=== PATIENT | male | born 1935 | race Caucasian/White ===

== ENCOUNTER → 2017-12-24 12:32 | Outpatient (CLI) | payer MEDICARE, MEDICAID, SELFPAY ==
--- NOTE | 2017-11-12 10:56 | EKG12_ITS ---
Test Reason : Blood Pressure : / mmHG Vent. Rate : 065 BPM Atrial Rate : 065 BPM P-R Int : 128 ms QRS Dur : 074 ms QT Int : 378 ms P-R-T Axes : 021 -01 031 degrees QTc Int : 393 ms Normal sinus rhythm Normal ECG Confirmed by JORJE AIKEN, JORGE LUIS ([id number]), make up editor RAMIRO MARIE ([id number]) on 11/15/2017 12:04:42 PM Referred By: Zackary Nicholson Confirmed By:JORGE LUIS RECINOS MD
[2017-11-12 11:22] VITALS: BP 155/79; PULSE 67; RESP 18; TEMP 36.7; O2SAT 96; BMI 26.2
[2017-11-12 12:26] LABS: Absolute Neutrophil Count 3.8 X10^3/uL (2.0-7.7); Basophil# 0.02 X10^3/uL; Basophil% 0.3 % (0-1); Eosinophil# 0.24 X10^3/uL; Eosinophils% 3.9 % (0-5); Hematocrit 42.6 % (40-54); Hemoglobin 14.1 g/dl (13.0-16.5); Lymphocyte % 24.5 % (19-41); Mean Corp Hgb Conc 33.1 g/gl (32-36); Mean Corpuscular Hgb 30.6 pg (27.0-32.0); Mean Corpuscular Volume 92.4 fL (80-94); Mean Platelet Vol. 10.4 fl (6.2-12.0); Monocyte# 0.59 X10^3/uL; Monocyte% 9.7 % (0-10); Neutrophil # 3.75 X10^3/uL (2.7-7.7); Neutrophil % 61.4 % (47-70); POSITIVE COUNT NO; POSITIVE DIFFERENTIAL NO; POSITIVE MORPHOLOGY NO; Platelet Count 195 K/mm3 (150-450); RBC Distribution Width CV 12.5 % (11.6-14.6); RBC Distribution Width SD 41.9 fl (35.1-43.9); Red Blood Count 4.61 M/mm3 (4.6-6.2); White Blood Count 6.1 K/mm3 (4.4-11.0)
[2017-11-12 12:37] LABS: Cholesterol 202 mg/dL (200); High Density Lipoprotein 75 mg/dL; Triglycerides 122 mg/dL; Very Low Density Lipoprotein 24 mg/dL (5-40)
[2017-11-12 12:42] LABS: BUN 15 mg/dL (7-18); Creatinine, Serum 0.96 mg/dL (0.70-1.30); EST Glomerular Filtration Rate 80 mL/min (>60); Estimated Creatinine Clearance 59.33 ml/min; Glucose 107 mg/dL (74-106)
[2017-11-12 12:43] LABS: Anion Gap 5 (5-15); BUN/Creat Ratio 15.7 RATIO (10-20); Calcium,Total 9.6 mg/dL (8.5-10.1); Chloride 98 mmol/L (98-107); Est Glom Filt Rate - Afr Amer 97 mL/min (>60); Potassium 3.9 mmol/L (3.5-5.1); Sodium Level 136 mmol/L (136-145)
--- NOTE | 2017-11-12 13:50 | PCM.HP.BLA ---
History and Physical DATE OF SURGERY: 11/28/2017 SCHEDULED PROCEDURE: Direct anterior Right total hip arthroplasty HISTORY OF PRESENT ILLNESS: This is an 82-year-old male who has been having ongoing pain in his right hip. Patient's pain is aching. Pain can reach as high as an 8/10. He has increased pain going up and down stairs and walking. Patient does have start up pain. He is complaining of right groin pain. Pain does awaken him at night. Patient has difficult time with activities of daily living including getting dressed and doing housework. Patient has tried conservative measures consisting of pain medication hydrocodone and meloxicam. Patient has required a cane for ambulatory assistance. Patient has had previous corticosteroid injections into the right hip which he did not see any significant relief in pain. Patient denies previous surgery on the right hip. Patient does note alcohol dependence 3 drinks nightly. He currently denies any chest pain, shortness of breath, fevers chills, recent infections. Patient has a medical history pertinent for hypertension and acid reflux. We have obtained surgical clearance from his primary care physician Dr. Chew. After failing conservative measures and discussing all treatment options with Dr. Zackary Nicholson, the patient would like to proceed with a direct anterior right total hip arthroplasty. REVIEW OF SYSTEMS: ROS: Const: Denies anorexia, change in appetite, fever, hard of hearing, vision problems and weight change. CV: Denies chest pain, heart murmur, irregular heartbeat and peripheral vascular disease. Resp: Denies asthma, cough, pneumonia, sleep apnea, SOB, tuberculosis and wheezing. GI: Denies constipation, diarrhea, difficulty swallowing, heartburn, nausea, bloody stools and vomiting. : Genital:. (F Genital Sx) Urinary: denies incontinence. Musculo: Denies leg swelling, limp, trouble walking and weakness. Skin: Reports history of shingles and tattoo, but denies Raynaud's. Neuro: Denies ambulatory dysfunction, dizziness, numbness/tingling and tremor. Psych: Denies anxiety, depression, insomnia, mental illness and stress. Jason/Lymph: Denies anemia, bleeding/bruising tendency and past transfusion. Reviewed, no changes. PAST MEDICAL HISTORY: Advance Care Plan: No Advance Directives Effective Date: 10/22/2017 PMH: Medical Problems: High Blood Pressure, Arthritis, Acid Reflux Accidents: RT Tib/Fib FX - (03/2010) Surgical Hx: Cysts Removed From Head - YRS AGO Hernia Surgery - (10/2009) RT Tib/Fib - (03/17/2010) JUSTYN @ [facility] [place] [facility] Anesthesia Complications: None Assistive Devices: Dentures, Glasses Reviewed, no changes. 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 Personal Habits: Cigarette Use: Former.Alcohol: Occasionally.Drug Use: Denies Use.Enjoy Exercising: Never Exercises. Reviewed, no changes. VITALS: Ht: 67.5 Wt: 178lb Wt k.741 BMI: 27.5 BP: 170/82 Pulse: 74 Resp: 16 T: 97 T: 36.1C ALLERGIES: Ciprofloxacin - Muscle Aches MEDICATIONS: Meloxicam 7.5 mg 1 by mouth twice a day, Norvasc 2.5mg 1 PO q day, Hydrocodone-Acetaminophen 5-325 mg 1-2 by mouth q6 hours as needed pain, Omeprazole 20 mg 1 cap PO daily, Valsartan-Hydrochlorothiazide 320-12.5 mg 1 tab PO daily, Coreg 12.5 mg 1po qday PRE-OP EXAM: General appearance:NORMAL Other: Eyes: Conjunctivae and lids: NORMAL Pupils: ERR Ears, Nose, Mouth, and Throat: NORMAL Other: Inspection of lips, teeth and gums: NORMAL Other: Neck: Examination of neck: no masses noted. Respiratory: Assessment of respiratory effort: NORMAL Other: Auscultation of lungs: clear to auscultation no wheezes, rhonchi or rales. Cardiovascular: Auscultation of heart: regular rate and rhythm, no murmurs, gallops or rubs. Exam of carotid arteries: NORMAL Other: Gastrointestinal: Exam of abdomen: soft, nontender, nondistended bowel sounds present PHYSICAL EXAMINATION: Patient walks with an antalgic gait. He doesn't require the use of a cane. Right hip is cool to touch without erythema. Range of motion of the right hip flexion 90, internal rotation to neutral, external rotation 10. Patient does have a 1 cm leg length discrepancy. There is also a lipoma over the anterior thigh. Sensations intact to light touch. IMAGING STUDIES: X-rays were obtained at [facility] on October 22, 2017 of the right hip which does reveal joint space narrowing, subchondral sclerosis, and osteophyte formation consistent with severe osteoarthritis. There is large acetabular and femoral head subchondral cyst. There is also femoral head flattening and collapse. IMPRESSION: 1. Severe right hip osteoarthritis 2. Hypertension 3. Gastroesophageal reflux disease PLAN: Dr. Nicholson did discuss and review with the patient all treatment options including surgical versus nonsurgical options. Patient does wish to proceed with the above-stated procedure. Potential risks, benefits, and complications of the procedure were discussed in detail including but not limited to , infection, nerve and blood vessel damage, persistent pain, numbness, tingling, paresthesias, blood clot, pulmonary embolism, and requirement for possible further surgery. The patient expressed full understanding and has no further questions for the doctor. Patient does agree to proceed with the above-stated procedure and has signed the surgery consent form. ___ I have re-examined the patient. There are no clinical changes since date of exam. ___ See progress notes for changes. ___ Dictated on admission Date: Time: Signature:
== END ==
PROVIDERS: Family Provider Family Medicine; PCP Family Medicine; Visit Provider Specialist
DX: Z01.818 Encounter for other preprocedural examination (principal); Z01.810 Encounter for preprocedural cardiovascular examination; Z12.5 Encounter for screening for malignant neoplasm of prostate; Z13.220 Encounter for screening for lipoid disorders
CPT/HCPCS: 36415; 80048; 80061; 84153; 85025; 87081; 93005; G0103

== ENCOUNTER → 2019-10-06 09:54 | Outpatient (CLI) | payer MEDICARE, MEDICAID, SELFPAY ==
[2017-11-12 11:22] VITALS: BMI 26.2
[2019-10-06 10:16] LABS: Hematocrit 44.6 % (40-54); Hemoglobin 14.7 g/dL (13.0-16.5); Mean Corpuscular Hgb 30.8 pg (27.0-32.0); Mean Corpuscular Volume 93.5 fL (80-94); Mean Platelet Vol. 10.3 fl (6.2-12.0); Platelet Count 227 K/mm3 (150-450); RBC Distribution Width CV 12.2 % (11.6-14.6); RBC Distribution Width SD 41.9 fl (35.1-43.9); Red Blood Count 4.77 M/mm3 (4.6-6.2); White Blood Count 7.2 K/mm3 (4.4-11.0)
[2019-10-06 10:17] LABS: Color, Urine Yellow (Yellow); Glucose, Dipstick Normal (Normal); Ketone-Dipstick Negative (Negative); Leukocyte Esterase-Dipstick 25 /ul (Negative); Nitrite-Dipstick Negative (Negative); Occult Blood-Urine Negative /ul (Negative); Protein-Dipstick Negative (Negative); Urine Bilirubin Dipstick Negative (Negative); Urine Clarity Clear (Clear); Urine Urobilinogen Normal (Normal)
[2019-10-06 10:47] LABS: Anion Gap 2 (5-15); BUN 19 mg/dL (7-18); BUN/Creat Ratio 19.4 RATIO (10-20); Calcium,Total 9.2 mg/dL (8.5-10.1); Chloride 101 mmol/L (98-107); Creatinine, Serum 0.98 mg/dL (0.70-1.30); EST Glomerular Filtration Rate 78 mL/min (>60); Est Glom Filt Rate - Afr Amer 94 mL/min (>60); Glucose 94 mg/dL (74-106); Potassium 3.8 mmol/L (3.5-5.1); Sodium Level 137 mmol/L (136-145)
== END ==
PROVIDERS: PCP Student in an Organized Health Care Education/Training Program; Visit Provider Student in an Organized Health Care Education/Training Program
DX: Z01.818 Encounter for other preprocedural examination (principal)
CPT/HCPCS: 36415; 80048; 81002; 85027

== ENCOUNTER → 2019-10-20 12:38 | Outpatient (CLI) | payer MEDICARE, MEDICAID, SELFPAY ==
--- NOTE | 2019-10-20 12:43 | CT_ITS ---
STUDY: CT SCAN LOWER EXTREMITY RIGHT REASON FOR EXAM: Male, 83 years old. APRIL HIP REPLACEMENT RADIATION DOSAGE (If Supplied By Facility): CTDIvol = ( 12.75 ) mGy, DLP = ( 712.65 ) mGycm. Individualized dose optimization techniques were used for this CT.? TECHNIQUE: Multiple axial tomographic images of the hip joint, knee joint were obtained. Coronal and sagittal reconstruction was obtained as well. COMPARISON: None. FINDINGS: There is a marked degree of osteoarthritis involving the right hip joint with subchondral cysts in the acetabular component as well as the femoral head. 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 There is also evidence of a bony spurring involving the acetabular rim as well as the femoral head. Mild degree of degenerative spurring involving the left acetabulum as well. Mild degree of osteoarthritis of the medial compartment of the knee joint. Intramedullary urvashi fixation device is seen in the tibia. CT/Extremity Lower without Contra IMPRESSION: Moderate degree of osteoarthritis involving the right hip joint as described. Electronically Signed: Caio Blancas, at 13:44 EDT , Service support ,
== END ==
PROVIDERS: PCP Student in an Organized Health Care Education/Training Program; Referring Provider Specialist; Visit Provider Specialist
DX: M16.11 Unilateral primary osteoarthritis, right hip (principal)
CPT/HCPCS: 73700

== ENCOUNTER 2019-10-29 08:27 | Observation (INO) | payer MEDICARE, MEDICAID, SELFPAY ==
[2017-11-12 11:22] VITALS: BMI 26.2
--- NOTE | 2019-10-20 14:33 | PCM.HP.BLA ---
History and Physical History and Physical [facility] Patient Name: Vernon Hawk : 1935 From: MANUEL BOWLES PA-C DATE OF SURGERY: 10/29/2019 SCHEDULED PROCEDURE: right total hip arthroplasty HISTORY OF PRESENT ILLNESS: Preoperative history and physical exam was performed on October 20, 2019. This is a 83-year-old male who is been having ongoing pain in his right hip for several years. Patient was scheduled to undergo a right total hip arthroplasty in 2018 was canceled due to personal reasons and and family. Patient has had continued pain in the right hip. Patient ambulates with a cane. His pain is increased with activities of daily living. He does get right groin pain. He is unable to perform activities of daily living without assistive device. He has difficult time with getting dressed and doing housework. He has fallen due to the hip pain. Patient has attempted rest and elevation with minimal relief. He had a previous corticosteroid injection into the right hip in 2017 with minimal relief. Patient has been treated by the primary care physician Dr. Mosqueda for chronic pain management in which she has been using Percocet. He takes 1 tablet every 6 hours. Patient denies previous surgery on the right hip. Patient does have history of previous blood clot after her right lower leg fracture. Hypertension, gastroesophageal reflux, history of blood clot right leg, restless leg syndrome, and previous transient ischemic attack. He currently denies any chest pain or shortness of breath. Patient has already had EKG and has had a stress test on September 09, 2019. After failing conservative measures and discussing treatment options with Dr. Zackary Nicholson, the patient does wish to proceed with a right total hip arthroplasty. REVIEW OF SYSTEMS: ROS: Const: Denies anorexia, change in appetite, fever, hard of hearing, vision problems and weight change. CV: Denies chest pain, heart murmur, irregular heartbeat and peripheral vascular disease. Resp: Denies asthma, cough, pneumonia, sleep apnea, SOB, tuberculosis and wheezing. GI: Denies constipation, diarrhea, difficulty swallowing, heartburn, nausea, bloody stools and vomiting. : Urinary: denies incontinence. Musculo: Denies leg swelling, limp, trouble walking and weakness. Skin: Reports history of shingles and tattoo, but denies Raynaud's. Neuro: Denies ambulatory dysfunction, dizziness, numbness/tingling and tremor. Psych: Denies anxiety, depression, insomnia, mental illness and stress. Jason/Lymph: Denies anemia, bleeding/bruising tendency and past transfusion. Reviewed, no changes. PAST MEDICAL HISTORY: Advance Care Plan: No Advance Directives Effective Date: 10/22/2017 PMH: Medical Problems: High Blood Pressure, Arthritis, Acid Reflux, History of blood clot right leg, Restless Leg Syndrome, TIA Accidents: RT Tib/Fib FX - (03/2010) Surgical Hx: Cysts Removed From Head - YRS AGO Hernia Surgery - (10/2009) RT Tib/Fib - (03/17/2010) JUSTYN @ [facility] Anesthesia Complications: None Assistive Devices: Dentures, Glasses Reviewed and updated. 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 Personal Habits: Cigarette Use: Former.Alcohol: Occasionally.Drug Use: Denies Use.Enjoy Exercising: Never Exercises. Reviewed, no changes. VITALS: Ht: 67.25 Wt: 168lb Wt k.205 BMI: 26.1 BP: 148/82 Pulse: 74 Resp: 16 T: 97.8 T: 36.6C ALLERGIES: Ciprofloxacin - Muscle Aches MEDICATIONS: Omeprazole 20 mg 1 cap PO daily, Irbesartan-Hydrochlorothiazide 300-12.5 mg, Amlodipine Besylate 5 mg, Oxycodone-Acetaminophen 5-325 mg take 1 tablet by mouth every six hours as needed for pain., Carvedilol 12.5 mg 1po bid PRE-OP EXAM: General appearance:NORMAL Other: Eyes: Conjunctivae and lids: NORMAL Pupils: ERR Ears, Nose, Mouth, and Throat: NORMAL Other: Inspection of lips, teeth and gums: NORMAL Other: Neck: Examination of neck: no masses noted. Respiratory: Assessment of respiratory effort: NORMAL Other: Auscultation of lungs: clear to auscultation no wheezes, rhonchi or rales. Cardiovascular: Auscultation of heart: regular rate and rhythm. Positive systolic murmur Exam of carotid arteries: NORMAL Other: Gastrointestinal: Exam of abdomen: soft, nontender, nondistended bowel sounds present PHYSICAL EXAMINATION: Patient walks with an antalgic gait and requires a cane. Right hip is cool to touch without erythema. Patient has 15 mm leg length discrepancy with the right. Hip flexion 80 on the right, internal rotation 20, external rotation 20 with increased pain. 4/5 hip flexion strength. Sensation intact to light touch. Neurovascularly intact. IMAGING STUDIES: Radius x-rays of the right hip reveal joint space narrowing, subchondral sclerosis, osteophyte formation consistent with severe osteoarthritis. X-rays also reveal subchondral cysts that are progressively collapsed causing shortening of the limb. IMPRESSION: 1. Severe right hip osteoarthritis 2. Hypertension next I 3. Gastroesophageal reflux disease 4. History of blood clot right leg 2009 5. Restless leg syndrome 6. Transient ischemic attack PLAN: Dr. Zackary Nicholson did discuss and review with the patient all treatment options including surgical versus nonsurgical options. Patient does wish to proceed with the above-stated procedure. Potential risks, benefits, and complications of the procedure were discussed in detail including but not limited to , infection, nerve and blood vessel damage, persistent pain, numbness, tingling, paresthesias, blood clot, pulmonary embolism, and requirement for possible further surgery. The patient expressed full understanding and has no further questions for the doctor. Patient does agree to proceed with the above-stated procedure and has signed the surgery consent form. We discussed the current risks associated with COVID 19. This does include the risk of exposure while in the hospital. Patient was reassured local hospitals have low infection rates and are taking all necessary precautions to avoid exposure to patients. In addition, we discussed strategies that can be used to help limit exposure including those that limit the patient's time in the hospital. Also using strategies to limit the patient's need for continued inpatient services after being discharged from the hospital. Patient was notified that we will need to comply with any screening or testing the hospital wishes to perform or that surgery may be delayed for any positive results. This dictation was created using voice recognition software. Phonetic and/or grammatical errors may exist. ___ I have re-examined the patient. There are no clinical changes since date of exam. ___ See progress notes for changes. ___ Dictated on admission Date: Time: Signature:
[2019-10-21 11:00] LABS: Prothrombin Time (Protime)PT. 12.7 SECONDS (11.7-14.9)
[2019-10-21 11:17] LABS: AST(SGOT) 21 U/L (15-37); Alanine Aminotransfer ALT/SGPT 23 U/L (16-61); Albumin, Serum 4.1 g/dL (3.2-5.0); Alkaline Phosphatase 91 U/L (45-117); Bilirubin, Direct 0.27 mg/dL (0.00-0.30); Globulin 3.7 g/dL (2.2-4.2); Protein, Total 7.8 g/dL (6.4-8.2)
[2019-10-29] VITALS (13 sets, daily range): BP systolic 130–176; BP diastolic 59–85; PULSE 69–95; RESP 16–20; TEMP 36.1–36.8; O2SAT 96–100; BMI 25.4
[2019-10-29] MEDS: Lactated Ringers 1,000 ML 999 ML IV ×2 (09:23→13:30)
[2019-10-29] MEDS: Acetaminophen 500 MG Tablet 1000 MG PO ×2 (09:29→21:45)
[2019-10-29] MEDS: Gabapentin 600 MG Tablet PO (09:29)
[2019-10-29 09:51] LABS: Bedside Glucose 92 mg/dL (70-110)
--- NOTE | 2019-10-29 10:30 | RAD_ITS ---
STUDY: X-RAY - PELVIS AND RIGHT HIP REASON FOR EXAM: Male, 84 years old. Right total hip replacement in OR TECHNIQUE: 2 views of the pelvis and hip. COMPARISON: None. FINDINGS: The patient is status post right hip replacement. There is good alignment. RAD/Hip 1 view with Pelvis IMPRESSION: Status post right hip replacement. There is good alignment. Electronically Signed: Caio Blancas, at 13:45 EDT , Service support ,
[2019-10-29] MEDS: Cefazolin 2 GM in 0.9% Normal Saline 100 ML IV (10:50)
[2019-10-29] MEDS: dexAMETHasone 10 MG/ML Vial IV (11:00)
--- NOTE | 2019-10-29 12:32 | OP.PCM_ITS ---
Report of Operation Date of Procedure: 10/29/19 Pre-Operative Diagnosis: Right hip primary osteoarthritis Post-Operative Diagnosis: Right hip primary osteoarthritis Surgery/Procedure Performed:: Right minimally invasive robotic assisted direct anterior hip replacement Description of Surgical Findings:: Stable hip with equal leg lengths tube teller: Alona Santillan Type of Anesthesia:: Spinal Anesthesiologist: Parish Ruiz Special Medications: 2 g Ancef, 2 g TXA lavage in wound for 1 minute prior to closure, 10 mg Decadron, joint cocktail (5 mg Duramorph, 30 mL of 0.5% Ropivicaine, 1000 units of epinephrine, 30 mg of Toradol) Specimen's removed: Bony cuts Estimated Blood Loss (mL): 250 Fluids Replaced: 1800 mL crystalloid Description of Procedure: Components used: Components used: 1. Accolade 2 [place] femoral stem size 7 127? 2. Odette trident 2 acetabular shell size 54 mm 3. [place] X3 polyethylene E 4. Odette Biolox delta 36 mm, 0 mm femoral head Brief history operative indications: 84 yo m who failed conservative measures for their hip osteoarthritis. X-rays were consistent with osteoarthritis including joint space narrowing, osteophyte formation and subchondral cysts. Total hip replacement was discussed with the patient with risks and benefits including but not limited to blood loss, DVTs, PEs, neurovascular damage, dislocation, general risks of anesthesia including loss of life. Patient demonstrated an understanding medical clearance is obtained the patient was consented for surgery. Procedure: On the date of procedure the patient's R hip was marked in the preoperative area. Patient was then taken back to the operating room where anesthesia assumed control of the C-spine and airway and administered anesthetic. Patient was transferred to the operating table and placed in the supine position. The hips were placed at the break of the bed and a sacral bump was placed. A checkpoint was placed on the tibial tubercle. The R lower extremity was then prepped out in a sterile fashion using chlorhexidine while the surgeon scrubbed. The PA was vital in the positioning of the patient. Upon reentering the room the R lower extremity was draped in the standard orthopedic fashion and the incision was marked. A timeout was called and everyone agreed upon the side, the site, the procedure be performed, antibody given, and patient's identity. 3 pins were placed in the right iliac crest with a small skin incision and blunt dissection down to the bone. After the skins were placed in a ray was placed for targeting. At this time left hip operative incision was made through skin, subcutaneous tissue, and fat down to fascia. The fascia was then incised and the TFL was retracted laterally. A retractor was placed on the lateral border of the femoral neck. Attention was directed to the inferior portion of the approach and all crossing vessels were identified and appropriately coagulated. A retractor was then placed on the medial portion of the femoral neck. The anterior capsule was then cleared of all soft tissue and then H shaped capsulotomy was made. The retractors were then placed inside the capsule. The checkpoint was placed. The checkpoints were registered. The femoral neck was identified and a cleanup cut was made. At this time a power corkscrew was used to remove the femoral head. Attention was then turned toward the acetabulum where the soft tissues were appropriately retracted and debrided. The acetabulum was registered. The robot was brought into the field sterilely and the acetabulum was reamed to 54 mm. A 54 mm cup was then selected and impacted into place. Acetabular liner was impacted into place and locking mechanism was verified. The position of the acetabular cup was then verified under live fluoroscopy. Attention was then turned to the femur. Soft tissue releases on the medial and lateral femoral neck were appropriately done, the leg was externally rotated and lateralized. A Hall retractor was placed medially and proximally to the greater trochanter this allowed appropriate visualization and exposure of the femoral canal. Rongeour was then used to remove excess lateral bone. A canal finder and entry broach were used to open the proximal canal. Once we verified we were down the femoral canal we subsequently broached up to a size 7 femur. The appropriate neck was placed in the previously selected head was trialed with a 0 mm neck. Traction was pulled and the hip was reduced with internal rotation. Once it was appropriately reduced and stability was checked. There was minimal shuck, equal leg lengths and appropriate stability with hyperextension and external rotation as well as with 90? flexion and internal rotation. Fluoroscopy was then also used to verify the position of the components and leg lengths using the contralateral side for comparison. The trial components were then dislocated the proximal femur was again exposed and the components were removed from the wound. The final components were verif ied and opened. The wound was copiously irrigated out with normal saline. The acetabulum was checked for any residual debris. The final components were placed and impacted. Traction and internal rotation were again used to reduce the hip. After adequate reduction the hip remained stable with appropriate leg lengths. The final components were once again checked with live fluoroscopy and were found to be satisfactory. The wound was then copiously irrigated with normal saline once more, and hemostasis was obtained. Closure was then done using #1 Vicryl runner to close the fascia. A 2-0 vicryl interuppted sutures were used to close the subcutaneous skin. A 3-0 Monocryl and Steri-Strips were used for final skin closure. the pins were removed and pin sites closed. A sterile dressing was placed. Patient was awakened by anesthesia and transferred to the rmount airy. Patient was then transferred to the PACU for recovery. Postoperative plan: Patient will get 24 hours postop antibiotics. Patient will get in-house physical therapy and will be weight-bear as tolerated. Patient will follow up in office in 2 weeks for a wound check and x-rays. - Complications No intraoperative complications - Admit VTE Documentation VTE Present on Admission: No VTE Mechan Device Prophylaxis: SCD's, Thigh High JALEN Hose VTE Pharm Prophylaxis ordered?: Yes
--- NOTE | 2019-10-29 13:15 | RAD_ITS ---
STUDY: X-RAY - PELVIS AND RIGHT HIP REASON FOR EXAM: Male, 84 years old. POST OP RIGHT HAROLDO TECHNIQUE: 2 views of the pelvis and hip. COMPARISON: 03/16/2010 FINDINGS: There is a non-specific bowel gas pattern. Normal visualized soft tissue structures. Normal bilateral iliac wings, sacroiliac joints and visualized sacrum. Normal bilateral superior and inferior pubic rami. Normal pubic symphysis. Normal bilateral ischial tuberosities. Interval recent right hip arthroplasty with subcutaneous emphysema.. RAD/Hip Min 2 Views (Portable) IMPRESSION: Interval recent right hip arthroplasty. Electronically Signed: Baldemar Nieves MD at 13:28 EDT Tel , Service support ,
--- NOTE | 2019-10-29 15:01 | NURSING ---
PT STATES DOES NOT REMEMBER YEAR OF LAST FLU VACCINE
--- NOTE | 2019-10-29 15:28 | PCM.PN.HOSP ---
Subjective: Patient is an 84-year-old male admitted to the orthopedic service on 10/29/2019 for right total hip arthroplasty on account of right hip osteoarthritis. Hospitalist service was consulted for medical management. Today's postop day 0. Patient was seen after he had surgery. Vitals/I&O's: Vital Signs Temp Pulse Resp BP Pulse Ox 96.9 F L 80 16 149/83 H 100 10/29/19 14:47 10/29/19 14:47 10/29/19 14:47 10/29/19 14:47 10/29/19 14:47 Oxygen Flow Rate (L/min) 6 Oxygen Delivery Method Room Air Weight: 172 lb 9.951 oz Body Mass Index (BMI) 25.4 Intake and Output for Last 24 Hours 10/27/19 10/28/19 10/29/19 23:59 23:59 23:59 Intake Total 2109 Balance 2109 General: Alert, Oriented x3, Cooperative HEENT: Atraumatic, PERRLA, EOMI, Normocephalic Oral: Moist Mucosa Neck: Supple, No JVD, Negative Carotid Bruits Lungs: Clear to auscultation, Normal air movement, No rhonchi, No wheeze, No rales Cardiovascular: Regular rate, Regular Rhythm, Normal S1, Normal S2, No murmurs Abdomen: Bowel Sounds Present, Soft, Non Tender, Non-Distended, No Hepato-splenomegaly Extremities: No clubbing, No cyanosis, No edema, Capillary Refill Less than 3 Seconds Skin: No rashes, No breakdown Musculoskeletal: - - right hip dressing in place Lymphatic: No Cervical, Supraclavicular, or Inguinal Adenopathy Neurological: Cranial nerves II-XII grossly intact, Neuro grossly intact Psych/Mental Status: Normal Affect, Appropriate, Alert and oriented to time, place, person, mood and affect Laboratory Results 10/29/19 09:16: POC Glucose 92 Diagnostic Data Hip/Pelvis X-Ray 10/29/19 10:30 IMPRESSION: Status post right hip replacement. There is good alignment. Electronically Signed: Caio Blancas, at 13:45 EDT , Service support , Hip X-Ray 10/29/19 13:15 IMPRESSION: Interval recent right hip arthroplasty. Electronically Signed: Baldemar Nieves MD at 13:28 EDT Tel , Service support , Current Medications Acetaminophen (Tylenol) 1,000 mg PO Q8 REPLACED BY [facility] Amlodipine Besylate (Norvasc) 2.5 mg PO DAILY REPLACED BY [facility] Aspirin (Aspirin, Baby) 81 mg PO DAILY@0800 REPLACED BY [facility] Carvedilol (Coreg) 12.5 mg PO DAILY REPLACED BY [facility] Enteral Nutritional Formula (Ensure Surgery) 237 ml PO TIDCM REPLACED BY [facility] Famotidine (Pepcid) 20 mg PO DAILY REPLACED BY [facility] Hydrochlorothiazide () 12.5 mg PO DAILY REPLACED BY [facility] Lactated Ringer's () 1,000 mls @ 125 mls/hr IV .Q8H REPLACED BY [facility] Cefazolin Sodium () 1 gm in 50 mls @ 150 mls/hr IV Q8H REPLACED BY [facility] Stop: 10/30/19 03:19 Lactated Ringer's () 1,000 mls @ 999 mls/hr IV .Q1H1M BEBETO Last Infusion: 10/29/19 13:28 Dose: Infused Documented by: Lactated Ringer's () 1,000 mls @ 125 mls/hr IV .Q8H REPLACED BY [facility] Lactated Ringer's () 1,000 mls @ 100 mls/hr IV .Q10H REPLACED BY [facility] Insulin Human Lispro (Humalog Kwikpen (Bkc)) 1 - 6 unit SC Q4H PRN PRN; Protocol PRN Reason: BG>/= 180, SEE PROTOCOL Ketorolac Tromethamine (Toradol (Bkc)) 15 mg IV Q6H PRN PRN PRN Reason: Pain Score 1-5/10 Stop: 10/31/19 07:33 Meloxicam (Mobic) 7.5 mg PO BIDCM REPLACED BY [facility] Morphine Sulfate () 2 - 4 mg IV Q2H PRN PRN PRN Reason: Pain Score 4-10/10 Morphine Sulfate () 2 - 4 mg IV Q2H PRN PRN PRN Reason: Pain Score 4-10/10 Ondansetron HCl (Zofran) 4 mg IV Q8H PRN PRN PRN Reason: NAUSEA Oxycodone HCl (Oxyir) 5 - 10 mg PO Q4H PRN PRN PRN Reason: Pain Score 4-10/10 Pantoprazole Sodium (Protonix) 20 mg PO DAILY REPLACED BY [facility] Promethazine HCl (Phenergan) 12.5 mg IM Q6H PRN PRN; Protocol PRN Reason: NAUSEA/VOMITING Rivaroxaban (Xarelto) 10 mg PO DAILY@0600 REPLACED BY [facility] Senna/Docusate Sodium (Senokot-S, Ida-Colace) 2 tablet PO BID REPLACED BY [facility] Sodium Chloride () 10 - 40 ml IV UD PRN PRN Reason: SALINE FLUSH Valsartan (Diovan) 320 mg PO DAILY REPLACED BY [facility] STROKE Vital Signs/Narrative: Vital Signs Temp Pulse Resp BP Pulse Ox 10/29/19 14:47 96.9 F L 80 16 149/83 H 100 10/29/19 14:15 97.7 F L 72 16 142/75 H 100 10/29/19 14:00 76 16 137/78 H 100 10/29/19 13:45 74 16 138/79 H 100 10/29/19 13:30 69 16 146/68 H 100 10/29/19 13:15 73 16 134/67 H 100 10/29/19 13:05 97.1 F L 70 16 130/59 H 100 Medical Necessity - Tobacco Use Smoking Status: Former smoker Tobacco Use: Non-smoker Assessment/Plan 84-year-old male admitted for right hip total arthroplasty due to severe right hip osteoarthritis. 1. Right hip osteoarthritis status post right total hip arthroplasty Today's postop day 0. Pain is well controlled. Pain management as per orthopedics. On Tylenol, oxycodone and IV morphine as needed for pain. Fall precautions. PT OT on board. Incentive spirometer. 2. Hypertension Fairly controlled. On hydrochlorothiazide, valsartan, amlodipine and carvedilol 3. GERD: On pantoprazole. 4. 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 Currently on hold due to surgery. To be resumed when okay with orthopedic surgery. 5. Restless leg syndrome: stable DVT prophylaxis; as per primary team orthopedics Thank you for the courtesy of the consult. We will continue to follow with you. Please do not hesitate to reach out to hospitalist team if you have any questions or concerns. Inpatient E&M: [id number] Subs Hosp L2
[2019-10-29] MEDS: Lactated Ringers 1,000 ML 125 ML IV (16:30)
[2019-10-29] MEDS: oxyCODONE 5 MG Tablet PO ×2 (16:36→21:45)
[2019-10-29] MEDS: Ensure Surgery 237 ML LIQUID PO (16:40)
[2019-10-29] MEDS: Cefazolin 1 GM/50 ML BAG IV (18:09)
[2019-10-29] MEDS: Senna/Docusate Sodium 1 Tablet 2 TABLET PO (21:45)
[2019-10-29] MEDS: Morphine 2 MG/ML Syringe IV (23:48)
[2019-10-30] MEDS: Lactated Ringers 1,000 ML 125 ML IV (00:54)
[2019-10-30 02:28] VITALS: BP 134/70; PULSE 81; RESP 16; TEMP 36.4; O2SAT 97
[2019-10-30] MEDS: Cefazolin 1 GM/50 ML BAG IV (02:30)
[2019-10-30] MEDS: oxyCODONE 5 MG Tablet PO (04:30)
[2019-10-30] MEDS: Acetaminophen 500 MG Tablet 1000 MG PO (05:52)
[2019-10-30 05:53] VITALS: BP 151/71; PULSE 87; RESP 18; TEMP 36.6; O2SAT 96
[2019-10-30] MEDS: Morphine 2 MG/ML Syringe IV (06:05)
[2019-10-30] MEDS: 0.9% Saline Lock 10 ML Syringe IV (06:05)
[2019-10-30] MEDS: Rivaroxaban 10 MG Tablet PO (06:35)
[2019-10-30 06:51] LABS: Hematocrit 35.3 % (40-54); Hemoglobin 11.8 g/dL (13.0-16.5); Mean Corp Hgb Conc 33.4 g/dL (32-36); Mean Corpuscular Hgb 30.7 pg (27.0-32.0); Mean Corpuscular Volume 91.9 fL (80-94); Mean Platelet Vol. 10.5 fl (6.2-12.0); Platelet Count 210 K/mm3 (150-450); RBC Distribution Width CV 11.9 % (11.6-14.6); RBC Distribution Width SD 40.2 fl (35.1-43.9); Red Blood Count 3.84 M/mm3 (4.6-6.2); White Blood Count 16.1 K/mm3 (4.4-11.0)
[2019-10-30 07:11] LABS: Anion Gap 7 (5-15); BUN 15 mg/dL (7-18); BUN/Creat Ratio 15.7 RATIO (10-20); Calcium,Total 8.4 mg/dL (8.5-10.1); Chloride 98 mmol/L (98-107); Creatinine, Serum 0.95 mg/dL (0.70-1.30); EST Glomerular Filtration Rate 80 mL/min (>60); Est Glom Filt Rate - Afr Amer 97 mL/min (>60); Estimated Creatinine Clearance 57.88 ml/min; Glucose 131 mg/dL (74-106); Potassium 3.7 mmol/L (3.5-5.1); Sodium Level 137 mmol/L (136-145)
[2019-10-30 08:00] VITALS: O2SAT 96
--- NOTE | 2019-10-30 08:29 | PN.ORTHO_ITS ---
Subjective: The patient was sitting in bedside chair upon examination. Patient denies any chest pain, shortness of breath, dizziness, lightheadedness, nausea or vomiting, or calf pain. Pain is controlled on medications. No adverse overnight events. Overall patient has been doing well and states he is already been up walking and tolerated this very well. He has not had physical therapy yet this morning. Patient is adamant that he leaves the hospital today. Objective: Vital signs stable and afebrile. Patient is able to plantarflex and dorsiflex actively. Sensation is intact to light touch to saphenous, sural, superficial and deep peroneal, and tibial distribution. Dressing is with minimal drainage over the distal portion of the dressing with other dressing clean dry and intact Negative Homans bilaterally, negative signs and symptoms of DVT. - Physical Exam Vitals/I&O's: Vital Signs Temp Pulse Resp BP Pulse Ox 97.8 F 87 18 151/71 H 96 10/30/19 05:53 10/30/19 05:53 10/30/19 05:53 10/30/19 05:53 10/30/19 05:53 Oxygen Flow Rate (L/min) 6 Oxygen Delivery Method Room Air Weight: 78.3 kg Body Mass Index (BMI) 25.4 Intake and Output for Last 24 Hours 10/28/19 10/29/19 10/30/19 23:59 23:59 23:59 Intake Total 3760 / 4720 2720.42 / 2720.42 Output Total 1500 / 1500 Balance 3760 / 3945 1220.42 / 1220.42 General: Alert, Oriented x3, Cooperative, No apparent distress Laboratory Results 10/29/19 09:16: POC Glucose 92 10/30/19 06:30: WBC 16.1 H, RBC 3.84 L, Hgb 11.8 L, Hct 35.3 L, MCV 91.9, MCH 30.7, MCHC 33.4, RDW Std Deviation 40.2, RDW Coeff of Jayshree 11.9, Plt Count 210, MPV 10.5 10/30/19 06:30: Sodium 137, Potassium 3.7, Chloride 98, Carbon Dioxide 32.0, Anion Gap 7, BUN 15, Creatinine 0.95, Estim Creat Clear Calc 57.88, Est GFR (MDRD) Af Amer 97, Est GFR (MDRD) Non-Af 80, BUN/Creatinine Ratio 15.7, Glucose 131 H, Calcium 8.4 L Current Medications Acetaminophen (Tylenol) 1,000 mg PO Q8 [facility] Last Admin: 10/30/19 05:52 Dose: 1,000 mg Documented by: Amlodipine Besylate (Norvasc) 2.5 mg PO DAILY [facility] Aspirin (Aspirin, Baby) 81 mg PO DAILY@0800 [facility] Carvedilol (Coreg) 12.5 mg PO DAILY [facility] Enteral Nutritional Formula (Ensure Surgery) 237 ml PO TIDCM [facility] Last Admin: 10/29/19 16:40 Dose: 237 ml Documented by: Famotidine (Pepcid) 20 mg PO DAILY [facility] Hydrochlorothiazide () 12.5 mg PO DAILY [facility] Insulin Human Lispro (Humalog Kwikpen ([facility])) 1 - 6 unit SC Q4H PRN PRN; Protocol PRN Reason: BG>/= 180, SEE PROTOCOL Ketorolac Tromethamine (Toradol ([facility])) 15 mg IV Q6H PRN PRN PRN Reason: Pain Score 1-5/10 Stop: 10/31/19 07:33 Losartan Potassium (Cozaar) 100 mg PO DAILY [facility] Meloxicam (Mobic) 7.5 mg PO BIDCM [facility] Last Admin: 10/29/19 18:22 Dose: Not Given Documented by: Morphine Sulfate () 2 - 4 mg IV Q2H PRN PRN PRN Reason: Pain Score 4-10/10 Last Admin: 10/30/19 06:05 Dose: 2 mg Documented by: Morphine Sulfate () 2 - 4 mg IV Q2H PRN PRN PRN Reason: Pain Score 4-10/10 Ondansetron HCl (Zofran) 4 mg IV Q8H PRN PRN PRN Reason: NAUSEA Oxycodone HCl (Oxyir) 5 - 10 mg PO Q4H PRN PRN PRN Reason: Pain Score 4-10/10 Last Admin: 10/30/19 04:30 Dose: 10 mg Documented by: Pantoprazole Sodium (Protonix) 20 mg PO DAILY [facility] Promethazine HCl (Phenergan) 12.5 mg IM Q6H PRN PRN; Protocol PRN Reason: NAUSEA/VOMITING Rivaroxaban (Xarelto) 10 mg PO DAILY@0600 [facility] Last Admin: 10/30/19 06:35 Dose: 10 mg Documented by: Senna/Docusate Sodium (Senokot-S, Ida-Colace) 2 tablet PO BID [facility] Last Admin: 10/29/19 21:45 Dose: 2 tablet Documented by: Sodium Chloride () 10 - 40 ml IV UD PRN PRN Reason: SALINE FLUSH Last Admin: 10/30/19 06:05 Dose: 10 ml Documented by: Medical Necessity - Tobacco Use Smoking Status: Former smoker Tobacco Use: Non-smoker Assessment/Plan 1. S/P direct anterior right total hip arthroplasty POD #1 2. Continue Pain Medications: Tylenol and oxycodone 3. DVT Prophylaxis: Xarelto due to previous history of blood clots. Will use Xarelto for 2 weeks postoperatively and then switch over to baby aspirin twice daily. 4. PT/OT: Weightbearing as tolerated 5. H & H: 11.8/35.3, asymptomatic 6. Reactive leukocytosis: Currently 16.1, afebrile. Patient did receive Decadron intraoperatively 7. Continue postoperative medical management per medicine 8. Encouraged Incentive Spirometry 9. Disposition: Plan will be for possible discharge home today as long as patient is medically stable, pain is well controlled, and tolerates physical therapy. Prescription will be E scribed to drug [facility] in [facility]. Patient does get chronic pain meds for his lower leg from Dr. Mosqueda his primary care physician. We discussed this with Dr. Mosqueda and we will manage the medication for the first 4 to 6 weeks postoperatively. Patient is on Percocet at home. Patient will follow-up per postop instructions. We will have case management discussed with him setting up physical therapy. I have reviewed the [place] Automated Rx Reporting System (OARRS) report for this patient for refill pattern and other prescriber involvement as part of the appropriate surveillance for the provision of acute and chronic controlled medications. The report was requested and reviewed on the date of this entry and was considered in the prescribing process.
--- NOTE | 2019-10-30 08:41 | DCINST_ITS ---
Discharge Diet: No Restrictions Discharge Activity: May Not Drive - while taking narcotic pain medications. May shower in (days): 1 - Turn dressing away from water. Dressing must be intact to skin. Ice area for (Minutes): 20 - Every 1-2 hours while awake Weight Bearing Status: Weight bearing as tolerated Elevate: Operative Extremity Additional Activity Instructions:: Wear elastic stockings for 2 weeks. DO NOT use alcohol with narcotic pain medication. DO NOT make important decisions while taking narcotic medication. If you have problems with taking your medication (rash, itching, nausea, etc.) call the office at once. Call your doctor if your incision/area has: Increased Pain/ Swelling, Increased Redness, Foul Smelling Discharge Call your doctor if you observe: Fever of 101 or Higher Remove Dressing in (days):: 4 - Okay to remove on November 03, 2019 Additional Instructions: Follow orthopedic postop instructions DVT prophylaxis: Will use Xarelto for 2 weeks postoperatively. At the 2-week postop visit at [facility] [place] we will switch over to aspirin 81 mg twice daily. Allergies/Adverse Reactions: Allergies ciprofloxacin Adverse Reaction (Verified 10/29/19 08:57) Other Muscle Aches Medications to take at Discharge Amlodipine Besylate [Norvasc] 2.5 mg PO DAILY 11/12/17 Carvedilol [Coreg] 12.5 mg PO DAILY 11/12/17 Meloxicam 7.5 mg PO BID 11/12/17 Omeprazole [Prilosec] 20 mg PO DAILY 11/12/17 Valsartan/Hydrochlorothiazide [Valsartan-Hctz 320-12.5 mg Tab] 1 each PO DAILY 11/12/17 Ascorbic Acid [Vitamin C] 1,000 mg PO DAILY 10/21/19 Aspirin [Aspirin, Baby] 81 mg PO DAILY@0800 10/21/19 Cholecalciferol (Vitamin D3) [Vitamin D3] 25 mcg PO DAILY 10/21/19 Oxycodone HCl/Acetaminophen [Oxycodone-Acetaminophen 5-325] 1 - 2 ea PO Q6H 7 Days #56 tablet 10/30/19 Rivaroxaban [Xarelto] 10 mg PO DAILY@0600 #12 tab 10/30/19 Senna/Docusate Sodium [Senokot-S] 2 tab PO BID #10 tab 10/30/19 The following prescriptions were given: Oxycodone HCl/Acetaminophen [Oxycodone-Acetaminophen 5-325] 1 - 2 ea PO Q6H 7 Days #56 tablet Transmission Status: Sent to [facility] Senna/Docusate Sodium [Senokot-S] 2 tab PO BID #10 tab Transmission Status: Pending to [facility] Rivaroxaban [Xarelto] 10 mg PO DAILY@0600 #12 tab Transmission Status: Pending to [facility] Orders to be completed after discharge: Liver Profile Time Frame: 10/21/19, Facility: [facility], Location: Laboratory Partial Thromboplast Time Time Frame: 10/21/19, Facility: [facility], Location: Laboratory Prothrombin Time w/INR Time Frame: 10/21/19, Facility: [facility], Location: Laboratory Primary Care Physician: Mathew Mosqueda DO [Primary Care Provider] - Test Results: Test results from this visit will be discussed in further detail at your follow- up appointment, if applicable. Please Follow Up With: physical therapy When: to be scheduled Please Follow Up With: Uzma Nicole NP-C When: 11/10/19 @ 9:15 am
[2019-10-30 09:00] VITALS: BP 165/78; PULSE 89; RESP 20; TEMP 36.6; O2SAT 98
[2019-10-30] MEDS: hydroCHLOROthiazide 12.5mg 12.5 MG PO (09:02)
[2019-10-30] MEDS: Meloxicam 7.5 MG Tablet PO (09:02)
[2019-10-30] MEDS: Aspirin 81 MG TAB.CHEW PO (09:02)
[2019-10-30] MEDS: Pantoprazole Sodium 20 MG Tablet PO (09:02)
[2019-10-30] MEDS: Senna/Docusate Sodium 1 Tablet 2 TABLET PO (09:02)
[2019-10-30] MEDS: amLODIPine 2.5 MG Tablet PO (09:02)
[2019-10-30] MEDS: Losartan Potassium 100 MG Tablet PO (09:02)
[2019-10-30] MEDS: Carvedilol 12.5 MG Tablet PO (09:02)
[2019-10-30] MEDS: Famotidine 20 MG Tablet PO (09:02)
--- NOTE | 2019-10-30 10:10 | PN_ITS ---
Reason for Visit: Patient had right minimally invasive robotic assisted direct anterior hip replacement. No fever or chills. Blood pressure 151/71. On losartan 100 mg daily and Coreg 12.5 mg daily. Objective: Physical exam: General: Alert, Oriented x3, Cooperative HEENT: Atraumatic, PERRLA, EOMI, Normocephalic Oral: No Gingival or Mucosal Lesions/ Ulcerations Neck: Supple, No JVD, Negative Carotid Bruits Lungs: Air entry diminished in bilateral lung bases. No crepitation/rhonchi Cardiovascular: Regular rate, Regular Rhythm, Normal S1, Normal S2, No murmurs Abdomen: Bowel Sounds Present, Soft, Non Tender, Non-Distended : No renal angle tenderness. No suprapubic tenderness. Extremities: No edema, Capillary Refill Less than 3 Seconds Skin: No rashes, No breakdown Musculoskeletal: Right hip surgical dressing is dry. Left pelvic robotic incision dressing is dry. No hematoma. Patient walking in room. On walker Neurological: Cranial nerves II-XII grossly intact, Deep Tendon Reflexes 2+/4 and Symmetrical, Neuro grossly intact Psych/Mental Status: Normal Affect, Appropriate Vitals/I&O's: Vital Signs Temp Pulse Resp BP Pulse Ox 97.9 F 89 20 H 165/78 H 98 10/30/19 09:00 10/30/19 09:00 10/30/19 09:00 10/30/19 09:00 10/30/19 09:00 Oxygen Flow Rate (L/min) 2 Oxygen Delivery Method Room Air Weight: 172 lb 9.951 oz Body Mass Index (BMI) 25.4 Intake and Output for Last 24 Hours 10/28/19 10/29/19 10/30/19 23:59 23:59 23:59 Intake Total 3760 / 4720 2720.42 / 2720.42 Output Total 1500 / 1500 Balance 3760 / 3945 1220.42 / 1220.42 Laboratory Results 10/30/19 06:30: WBC 16.1 H, RBC 3.84 L, Hgb 11.8 L, Hct 35.3 L, MCV 91.9, MCH 30.7, MCHC 33.4, RDW Std Deviation 40.2, RDW Coeff of Jayshree 11.9, Plt Count 210, MPV 10.5 10/30/19 06:30: Sodium 137, Potassium 3.7, Chloride 98, Carbon Dioxide 32.0, Anion Gap 7, BUN 15, Creatinine 0.95, Estim Creat Clear Calc 57.88, Est GFR (MDRD) Af Amer 97, Est GFR (MDRD) Non-Af 80, BUN/Creatinine Ratio 15.7, Glucose 131 H, Calcium 8.4 L Current Medications Acetaminophen (Tylenol) 1,000 mg PO Q8 [facility] Last Admin: 10/30/19 05:52 Dose: 1,000 mg Documented by: Amlodipine Besylate (Norvasc) 2.5 mg PO DAILY [facility] Last Admin: 10/30/19 09:02 Dose: 2.5 mg Documented by: Aspirin (Aspirin, Baby) 81 mg PO DAILY@0800 [facility] Last Admin: 10/30/19 09:02 Dose: 81 mg Documented by: Carvedilol (Coreg) 12.5 mg PO DAILY [facility] Last Admin: 10/30/19 09:02 Dose: 12.5 mg Documented by: Enteral Nutritional Formula (Ensure Surgery) 237 ml PO TIDCM [facility] Last Admin: 10/30/19 09:02 Dose: Not Given Documented by: Famotidine (Pepcid) 20 mg PO DAILY [facility] Last Admin: 10/30/19 09:02 Dose: 20 mg Documented by: Hydrochlorothiazide () 12.5 mg PO DAILY [facility] Last Admin: 10/30/19 09:02 Dose: 12.5 mg Documented by: Insulin Human Lispro (Humalog Kwikpen ([facility])) 1 - 6 unit SC Q4H PRN PRN; Protoc ol PRN Reason: BG>/= 180, SEE PROTOCOL Ketorolac Tromethamine (Toradol (Bkc)) 15 mg IV Q6H PRN PRN PRN Reason: Pain Score 1-5/10 Stop: 10/31/19 07:33 Losartan Potassium (Cozaar) 100 mg PO DAILY [facility] Last Admin: 10/30/19 09:02 Dose: 100 mg Documented by: Meloxicam (Mobic) 7.5 mg PO BIDCM [facility] Last Admin: 10/30/19 09:02 Dose: 7.5 mg Documented by: Morphine Sulfate () 2 - 4 mg IV Q2H PRN PRN PRN Reason: Pain Score 4-10/10 Last Admin: 10/30/19 06:05 Dose: 2 mg Documented by: Morphine Sulfate () 2 - 4 mg IV Q2H PRN PRN PRN Reason: Pain Score 4-10/10 Ondansetron HCl (Zofran) 4 mg IV Q8H PRN PRN PRN Reason: NAUSEA Oxycodone HCl (Oxyir) 5 - 10 mg PO Q4H PRN PRN PRN Reason: Pain Score 4-10/10 Last Admin: 10/30/19 04:30 Dose: 10 mg Documented by: Pantoprazole Sodium (Protonix) 20 mg PO DAILY [facility] Last Admin: 10/30/19 09:02 Dose: 20 mg Documented by: Promethazine HCl (Phenergan) 12.5 mg IM Q6H PRN PRN; Protocol PRN Reason: NAUSEA/VOMITING Rivaroxaban (Xarelto) 10 mg PO DAILY@0600 [facility] Last Admin: 10/30/19 06:35 Dose: 10 mg Documented by: Senna/Docusate Sodium (Senokot-S, Ida-Colace) 2 tablet PO BID [facility] Last Admin: 10/30/19 09:02 Dose: 2 tablet Documented by: Sodium Chloride () 10 - 40 ml IV UD PRN PRN Reason: SALINE FLUSH Last Admin: 10/30/19 06:05 Dose: 10 ml Documented by: STROKE Vital Signs/Narrative: Vital Signs Temp Pulse Resp BP Pulse Ox 10/30/19 09:00 97.9 F 89 20 H 165/78 H 98 10/30/19 08:00 96 Medical Necessity - Tobacco Use Smoking Status: Former smoker Tobacco Use: Non-smoker Assessment/Plan 84-year-old male admitted for right hip minimally invasive robotic assisted direct anterior replacement for severe right hip primary osteoarthritis. 1. Right hip robotic assisted direct anterior replacement for severe right hip primary osteoarthritis: Surgery was done on 10/29/2019. Pain is well controlled. Patient walked around nursing station by physical therapist. Patient is walker. Pain management. Continue incentive spirometry. On Xarelto 10 mg daily for DVT prophylaxis. Patient plan for discharge home today. 2. Hypertension: Blood pressure is slightly elevated, 151/71, 165/78. On HCTZ, valsartan, amlodipine and carvedilol. Hydralazine 10 mg IV q. 4 hourly. For systolic blood pressure more than 180 mmHg. Follow-up PCP to keep blood pressure in control, systolic BP about 150 mmHg as per age geriatric population. 3. GERD: On pantoprazole. 4. 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 Restless leg syndrome: stable Patient is medically stable discharge home. Inpatient E&M: [id number] Subs Hosp L2
--- NOTE | 2019-10-30 12:05 | CASEMGMT ---
ABDIAS MCGEE Face to Face with patient for initial transition planning/care coordination assessment. RN EVERARDO introduced self and role at [facility]. Patient sitting in chair, alert and oriented. Patient willing to participate in assessment and is able to answer all questions appropriately. Care providers, pharmacy, and demographics verified. Patient wishes to discharge home patient states he is setup with [facility] for outpatient therapy. Patient states he has no further needs or concerns at this time. CM to follow for discharge planning needs that may arise. PCP: Jaylin Specialists: elizabeth Nicholson Pharmacy: [facility] Insurance: [employer] Prescription Benefit: yes Living Will/HPOA: None LNOK: son Living Arrangements: Patient lives alone in 2 story home with bed and bath on first floor. Patient states he is independent at home. Transportation: Son DME/HHC: Patient states she has a raised toilet, cane, walker, and shower chair. Patient states he is setup with [facility] for outpatient therapy starting tomorrow. Disposition Plan: Patient to discharge home with outpatient therapy, family support, and follow-up plans in place. Jody LAGUNA, RN, CM
[2019-10-30 12:42] VITALS: BP 153/75; PULSE 92; RESP 18; TEMP 36.4; O2SAT 98
--- NOTE | 2019-10-30 14:38 | PHA.DC.MC ---
Pharmacy Service has performed discharge medication reconciliation and counseling for this patient. 1. OXYCODONE/ACETAMINOPHEN 5/325MG 1-2T PO Q6H PRN PAIN 2. RIVAROXABAN 10MG PO DAILY X 12 DAYS 3. SENNA/DOCUSATE 2T PO BID UNTIL FIRST BOWEL MOVEMENT, THEN PRN CONSTIPATION The patient's discharge medication list was reviewed for discrepancies and discrepancies were resolved. This [facility] spoke with Aleksander regarding Percocet. Patient is on Percocet 1T PO Q6H PRN pain chronically thru his PCP which is reflected in OARRS. Patient was confused asking if he should also take [place] but he has not filled [place] since 04/2018. Aleksander spoke with patient's PCP and will be managing post-op pain. Aleksander changed the prescription for 1-2T PO Q6H and told the patient he can take an extra pill if needed for post-op pain control. He would also like the patient to use PRN, not scheduled Q6H. Patient counseled to not use any [place] and follow the directions sent home regarding new Percocet. Home Medications Amlodipine Besylate [Norvasc] 2.5 mg PO DAILY 11/12/17 Carvedilol [Coreg] 12.5 mg PO DAILY 11/12/17 Meloxicam 7.5 mg PO BID 11/12/17 Omeprazole [Prilosec] 20 mg PO DAILY 11/12/17 Valsartan/Hydrochlorothiazide [Valsartan-Hctz 320-12.5 mg Tab] 1 each PO DAILY 11/12/17 Ascorbic Acid [Vitamin C] 1,000 mg PO DAILY 10/21/19 Aspirin [Aspirin, Baby] 81 mg PO DAILY@0800 10/21/19 Cholecalciferol (Vitamin D3) [Vitamin D3] 25 mcg PO DAILY 10/21/19 Oxycodone HCl/Acetaminophen [Oxycodone-Acetaminophen 5-325] 1 - 2 ea PO Q6H 7 Days #56 tab 10/30/19 Rivaroxaban [Xarelto] 10 mg PO DAILY@0600 #12 tab 10/30/19 Senna/Docusate Sodium [Senokot-S] 2 tab PO BID #10 tab 10/30/19 The patient was counseled on the following discharge medications and changes in medications for homegoing were reviewed. The Reason for Use, instructions for use, and potential side effects were reviewed for all new medications. The patient's questions regarding all of their medications were answered. The patient was able to verbally demonstrate an understanding of their discharge medications. Patient counseled by certified pharmacy techMaria Luisa.
== END 2019-10-30 13:25 | disposition home or self-care (01) ==
LOC: MS3 13:04
PROVIDERS: Anesthesiology; Admitting Provider Specialist; PCP Student in an Organized Health Care Education/Training Program; Referring Provider Specialist; Visit Provider Specialist
PROC: 8E0Y0CZ Robotic Assisted Procedure of Lower Extremity, Open Approach (ICD-10-PCS; CPT 27130; principal; 2019-10-29 10:00)
DX: M16.11 Unilateral primary osteoarthritis, right hip (principal); Z11.59 Encounter for screening for other viral diseases; G25.81 Restless legs syndrome; K21.9 Gastro-esophageal reflux disease without esophagitis; I10 Essential (primary) hypertension; Z79.899 Other long term (current) drug therapy; Z79.82 Long term (current) use of aspirin; Z86.718 Personal history of other venous thrombosis and embolism; Z86.73 Personal history of transient ischemic attack (TIA), and cerebral infarction without residual deficits; Z87.891 Personal history of nicotine dependence; Z86.2 Personal history of diseases of the blood and blood-forming organs and certain disorders involving the immune mechanism
CPT/HCPCS: 01214; 27130; S2900; 36415; 73501; 73502; 76000; 80048; 80076; 82962; 85027; 85610; 85730; 87081; 87635; 96361; 96365; 96366; 96375; 96376; 97110; 97116; 97162; 97166; 97530; 99218; 99251; C1776; G2023; J7120; A4216; G0378; G0379; G0463; J2405; U0003

== ENCOUNTER 2019-11-03 10:50 | Emergency (ER) | payer MEDICARE, MEDICAID, SELFPAY ==
[2019-10-29 14:47] VITALS: BMI 25.4
[2019-11-03 10:52] VITALS: BP 185/94; PULSE 102; RESP 14; TEMP 36.7; O2SAT 99; BMI 26.6
[2019-11-03 11:19] VITALS: BP 190/101; PULSE 94; RESP 17; O2SAT 97
--- NOTE | 2019-11-03 11:29 | ED.DCSUM_ITS ---
- ER Visit Summary Date of Service: 11/03/19 Chief Complaint: High blood pressure History of Present Illness: The patient is a [address] Traylor. Patient reports that he checked his blood pressure this morning and found that the systolic was 198. He is concerned that it is too elevated and is come to the emerge department for evaluation. He denies any other symptoms. He is not having any chest pain or shortness of breath. No headache or neurologic symptoms. No change in his vision. Patient had a right total hip arthroplasty on October [address] Nicholson. He reports that this is healing well. He has an aching pain is 6 out of 10 currently 9 at 10 at worst. He is taking oxycodone with relief. Physical Examination: Vitals: Stable. Afebrile. General: Well-nourished and well-developed. Head: Normocephalic atraumatic. Neck: Supple, no lymphadenopathy. No JVD. Nontender. Cardiovascular: Regular rate and rhythm. 3 out of 6 systolic murmur. Respiratory: No respiratory distress. Clear to auscultation bilaterally. Abdominal: Soft, nontender, nondistended, normal bowel sounds. No guarding, rebound, or peritoneal signs. Back: Nontender. Extremities: Dressing in place over the right greater trochanter. There is no erythema or warmth. This is the postop dressing. This was not removed. He does have a contusion over the superior portion of his pelvis that appears to be healing. It does not appear acute. No edema. Skin: Normal color, no rash. Neurologic: Alert and oriented ?3. Cranial nerves II through XII are intact. Normal strength and sensation. Psych: Normal affect. Test Results: CBC shows an H&H 11.4 and 34.5. Segmented neutrophils 71 and lymphocytes of 16. Chem-7 shows a CO2 of 34 and glucose of 138. Emergency Department Course and Treatment: Patient has a difficult time telling me what medications he is taking this morning and he has not. He reports that he is taking his valsartan/hydrochlorothiazide and amlodipine. He is unsure whether or not he is taking his Coreg as he did not bring the bottle and he does not know what the pill looks like. He was given 12.5 mg of Coreg (his home dose) here and his blood pressure has improved to 154/90. Treatment Plan: Patient will be discharged with instructions to continue his medications as previously prescribed. Follow-up with his primary care physician within a week for another exam. Return to the emergency department for any worsening symptoms. Disposition: To home in improved and stable condition. Impression: 1. Hypertension. 2. 5 days status post right hip arthroplasty. This note was generated with [employer] dictation software. It may contain incorrect words, spelling, and punctuation that were not noted in review of the chart prior to signing ED Disposition - Plan for ED Patient: Instructions: ED Hypertension Established Referrals: Mathew Mosqueda DO [Primary Care Provider] - 1 Week
[2019-11-03 11:33] LABS: Absolute Lymphocyte Count 1.11 X10^3/uL (0.83-4.51); Basophil# 0.02 X10^3/uL; Basophil% 0.3 % (0-1); Eosinophil# 0.22 X10^3/uL; Eosinophils% 3.1 % (0-5); Hematocrit 34.5 % (40-54); Hemoglobin 11.4 g/dL (13.0-16.5); Lymphocyte # 1.11 X10^3/ul (4.0); Lymphocyte % 15.8 % (19-41); Mean Corpuscular Hgb 30.6 pg (27.0-32.0); Mean Corpuscular Volume 92.5 fL (80-94); Mean Platelet Vol. 10.4 fl (6.2-12.0); Monocyte# 0.65 X10^3/uL; Monocyte% 9.2 % (0-10); NRBC Flagged by Analyzer 0 % (0-5); Platelet Count 256 K/mm3 (150-450); RBC Distribution Width CV 11.9 % (11.6-14.6); RBC Distribution Width SD 40.3 fl (35.1-43.9); Red Blood Count 3.73 M/mm3 (4.6-6.2)
[2019-11-03] MEDS: Carvedilol 12.5 MG Tablet PO (11:33)
[2019-11-03 11:54] LABS: Anion Gap 2 (5-15); BUN 16 mg/dL (7-18); BUN/Creat Ratio 18.3 RATIO (10-20); Calcium,Total 8.8 mg/dL (8.5-10.1); Chloride 100 mmol/L (98-107); Creatinine, Serum 0.88 mg/dL (0.70-1.30); EST Glomerular Filtration Rate 88 mL/min (>60); Est Glom Filt Rate - Afr Amer 107 mL/min (>60); Estimated Creatinine Clearance 62.49 ml/min; Glucose 138 mg/dL (74-106); Potassium 3.6 mmol/L (3.5-5.1); Sodium Level 136 mmol/L (136-145)
[2019-11-03 12:46] VITALS: BP 152/87; PULSE 80; RESP 17; O2SAT 97
== END 2019-11-03 12:47 | disposition home or self-care (01) ==
LOC: ED 11:40
PROVIDERS: Emergency Provider Emergency Medicine; PCP Student in an Organized Health Care Education/Training Program
DX: I10 Essential (primary) hypertension (principal); G25.81 Restless legs syndrome; K21.9 Gastro-esophageal reflux disease without esophagitis; Z79.01 Long term (current) use of anticoagulants; Z79.82 Long term (current) use of aspirin; Z79.899 Other long term (current) drug therapy; Z87.891 Personal history of nicotine dependence; Z96.641 Presence of right artificial hip joint
CPT/HCPCS: 80048; 85025; 99285; A4216

== ENCOUNTER → 2019-11-05 11:35 | Outpatient (CLI) | payer MEDICARE, MEDICAID, SELFPAY ==
[2019-11-03 10:52] VITALS: BMI 26.6
--- NOTE | 2019-11-05 11:37 | VDLE_ITS ---
Reason For Study: RLE PAIN RIGHT LEFT GSV is normal. CFV is compressible, spontaneous, phasic, CFV is compressible, spontaneous, phasic, competent, and demonstrates normal competent and demonstrates normal augmentation. augmentation. FV is compressible, spontaneous, phasic, competent and demonstrates normal augmentation. POP V is compressible, spontaneous, phasic, competent and demonstrates normal augmentation. T/P Trunk is compressible. PTV is compressible. RT PerV is compressible. Procedure Exam performed in department. The exam was diagnostic. A preliminary report was called and/or faxed to Aleksander Chakraborty @ [phone] @ 12:05 pm. Interpretation Summary Deep veins of the right lower extremity are patent and compressible segmentally. There is no evidence of right lower extremity deep vein thrombosis. Valvular competence appears intact within the proximal deep venous system on the right . The right great saphenous vein appears patent and compressible segmentally. Ordering Physician: Aleksander Chakraborty Referring Physician: Mathew Pollack Performed By: Rea Jackson, GAIL, RVT
== END ==
PROVIDERS: PCP Student in an Organized Health Care Education/Training Program; Referring Provider Physician Assistant Surgical; Visit Provider Physician Assistant Surgical
DX: M79.661 Pain in right lower leg (principal)
CPT/HCPCS: 93971

== ENCOUNTER → 2019-11-11 08:56 | Outpatient (CLI) | payer MEDICARE, MEDICAID, SELFPAY ==
[2019-11-03 10:52] VITALS: BMI 26.6
--- NOTE | 2019-11-11 09:02 | VDLE_ITS ---
Reason For Study: pain RIGHT GSV is normal. CFV is compressible, spontaneous, phasic, competent and demonstrates normal augmentation. FV is compressible, spontaneous, phasic, competent and demonstrates normal augmentation. POP V is compressible, spontaneous, phasic, competent and demonstrates normal augmentation. T/P Trunk is compressible. PTV is compressible. RT PerV is compressible. Procedure Exam performed in department. The exam was abbreviated due to the COVID 19 protocol. The exam was diagnostic. A preliminary report was called and/or faxed to Uzma Nicole. Interpretation Summary Deep veins of the right lower extremity are patent and compressible segmentally. There is no evidence of right lower extremity deep vein thrombosis. Valvular competence appears intact within the proximal deep venous system on the right . The right great saphenous vein appears patent and compressible segmentally. Ordering Physician: Uzma Nicole Performed By: Lucho Solis RVT
== END ==
PROVIDERS: PCP Student in an Organized Health Care Education/Training Program; Referring Provider Registered Nurse; Visit Provider Registered Nurse
DX: M79.661 Pain in right lower leg (principal)
CPT/HCPCS: 93971

== ENCOUNTER → 2020-01-30 08:53 | Outpatient (CLI) | payer MEDICARE, MEDICAID, SELFPAY ==
[2020-01-30 10:06] LABS: ALB/GLOB Ratio 1.2 RATIO (0.9-2.4); AST(SGOT) 18 U/L (15-37); Alanine Aminotransfer ALT/SGPT 17 U/L (16-61); Albumin, Serum 3.8 g/dL (3.2-5.0); Alkaline Phosphatase 95 U/L (45-117); Anion Gap 3 (5-15); BUN 11 mg/dL (7-18); BUN/Creat Ratio 11.7 RATIO (10-20); Chloride 99 mmol/L (98-107); Cholesterol 187 mg/dL (200); Creatinine, Serum 0.94 mg/dL (0.70-1.30); EST Glomerular Filtration Rate 81 mL/min (>60); Est Glom Filt Rate - Afr Amer 98 mL/min (>60); Globulin 3.2 g/dL (2.2-4.2); Glucose 104 mg/dL (74-106); High Density Lipoprotein 78 mg/dL; Potassium 3.8 mmol/L (3.5-5.1); Sodium Level 135 mmol/L (136-145); Thyroid Stim Hormone (TSH) 1.23 uIU/mL (0.358-3.74); Triglycerides 53 mg/dL; Very Low Density Lipoprotein 11 mg/dL (5-40)
== END ==
PROVIDERS: PCP Student in an Organized Health Care Education/Training Program; Referring Provider Student in an Organized Health Care Education/Training Program; Visit Provider Student in an Organized Health Care Education/Training Program
DX: F41.9 Anxiety disorder, unspecified (principal); R97.20 Elevated prostate specific antigen [PSA]; Z13.6 Encounter for screening for cardiovascular disorders
CPT/HCPCS: 36415; 80053; 80061; 84153; 84443

== ENCOUNTER 2021-05-31 09:47 | Outpatient (CLI) | payer MEDICARE, MEDICAID, SELFPAY ==
[2021-05-31 11:23] LABS: Hemoglobin 14.4 g/dL (13.0-16.5); Mean Corp Hgb Conc 33.5 g/dL (32-36); Mean Corpuscular Hgb 30.7 pg (27.0-32.0); Mean Corpuscular Volume 91.7 fL (80-94); Mean Platelet Vol. 10.7 fl (6.2-12.0); Platelet Count 218 K/mm3 (150-450); RBC Distribution Width SD 43.3 fl (35.1-43.9); Red Blood Count 4.69 M/mm3 (4.6-6.2); White Blood Count 6.5 K/mm3 (4.4-11.0)
[2021-05-31 11:46] LABS: Hemoglobin A1c 5.1 % (3.8-5.6)
[2021-05-31 11:53] LABS: ALB/GLOB Ratio 1.1 RATIO (0.9-2.4); AST(SGOT) 24 U/L (15-37); Alanine Aminotransfer ALT/SGPT 20 U/L (16-61); Alkaline Phosphatase 88 U/L (45-117); Anion Gap 5 (5-15); BUN 14 mg/dL (7-18); BUN/Creat Ratio 14.9 RATIO (10-20); Calcium,Total 8.9 mg/dL (8.5-10.1); Chloride 98 mmol/L (98-107); Cholesterol 199 mg/dL (200); Creatinine, Serum 0.94 mg/dL (0.70-1.30); EST Glomerular Filtration Rate 81 mL/min (>60); Est Glom Filt Rate - Afr Amer 98 mL/min (>60); Globulin 3.5 g/dL (2.2-4.2); Glucose 94 mg/dL (74-106); High Density Lipoprotein 69 mg/dL; Protein, Total 7.5 g/dL (6.4-8.2); Sodium Level 137 mmol/L (136-145); Triglycerides 83 mg/dL; Very Low Density Lipoprotein 17 mg/dL (5-40)
== END 2021-05-31 23:59 | disposition home or self-care (01) ==
PROVIDERS: PCP Student in an Organized Health Care Education/Training Program; Referring Provider Student in an Organized Health Care Education/Training Program; Visit Provider Student in an Organized Health Care Education/Training Program
DX: I10 Essential (primary) hypertension (principal); R73.01 Impaired fasting glucose
CPT/HCPCS: 36415; 80053; 80061; 83036; 85027

== ENCOUNTER → 2021-09-06 | Outpatient (CLI) | payer MEDICARE, MEDICAID, SELFPAY ==
[2021-09-06 08:02] LABS: Hematocrit 41.6 % (40-54); Hemoglobin 13.9 g/dL (13.0-16.5); Mean Corp Hgb Conc 33.4 g/dL (32-36); Mean Corpuscular Hgb 30.5 pg (27.0-32.0); Mean Corpuscular Volume 91.2 fL (80-94); Mean Platelet Vol. 10.1 fl (6.2-12.0); Platelet Count 185 K/mm3 (150-450); RBC Distribution Width CV 13.2 % (11.6-14.6); RBC Distribution Width SD 44.3 fl (35.1-43.9); Red Blood Count 4.56 M/mm3 (4.6-6.2); White Blood Count 6.5 K/mm3 (4.4-11.0)
[2021-09-06 08:39] LABS: Hemoglobin A1c 5.4 % (3.8-5.6)
[2021-09-06 08:40] LABS: ALB/GLOB Ratio 1.1 RATIO (0.9-2.4); AST(SGOT) 24 U/L (15-37); Alanine Aminotransfer ALT/SGPT 21 U/L (16-61); Albumin, Serum 3.7 g/dL (3.2-5.0); Alkaline Phosphatase 81 U/L (45-117); BUN 15 mg/dL (7-18); BUN/Creat Ratio 16.2 RATIO (10-20); Calcium,Total 8.7 mg/dL (8.5-10.1); Chloride 101 mmol/L (98-107); Cholesterol 212 mg/dL (200); Creatinine, Serum 0.93 mg/dL (0.70-1.30); EST Glomerular Filtration Rate 82 mL/min (>60); Est Glom Filt Rate - Afr Amer 100 mL/min (>60); Globulin 3.3 g/dL (2.2-4.2); Glucose 118 mg/dL (74-106); Potassium 3.8 mmol/L (3.5-5.1); Sodium Level 138 mmol/L (136-145); Triglycerides 62 mg/dL
[2021-09-06 08:41] LABS: Anion Gap 3 (5-15); High Density Lipoprotein 71 mg/dL; Very Low Density Lipoprotein 12 mg/dL (5-40)
[2021-09-06 08:58] LABS: Microalbumin,Random Urine 26.7 mg/L (NO RANGE EST.)
== END | disposition home or self-care (01) ==
LOC: LAB 07:46
PROVIDERS: PCP Student in an Organized Health Care Education/Training Program; Referring Provider Student in an Organized Health Care Education/Training Program; Visit Provider Student in an Organized Health Care Education/Training Program
DX: I10 Essential (primary) hypertension (principal); R73.01 Impaired fasting glucose; R97.20 Elevated prostate specific antigen [PSA]
CPT/HCPCS: 36415; 80053; 80061; 82043; 83036; 84153; 85027

== ENCOUNTER 2022-04-11 12:02 | Emergency (ER) | payer MEDICARE, MEDICAID, SELFPAY ==
[2022-04-11 12:03] VITALS: BP 175/82; PULSE 91; RESP 14; TEMP 36.6; BMI 25.5
--- NOTE | 2022-04-11 12:17 | EDS_ITS ---
HPI <MANI Salmon - Last Filed: 04/11/22 16:30> History of Present Illness Chief Complaint: Hypertension Narrative Narrative: Patient presents to the ED after having an episode of near syncope while at the grocery store. He states he was bent over picking up cans when he stood up and felt dizzy and felt like he could pass out. Patient did not pass out nor fall. Patient states he often feels lightheaded when he goes from a supine/sitting to a standing position too quickly. Patient also states his blood pressure is higher than normal today, however, he forgot to take his blood pressure medication this morning. He denies fever, chest pain, shortness of breath, abdominal pain, recent illness, and current dizziness. PFSH <MANI Salmon - Last Filed: 04/11/22 16:30> [facility] Medical History (Updated 04/11/22 @ 16:30 by MANI Salmon) Hypertension Home Medications amlodipine 2.5 mg tablet (Norvasc) 5 mg PO DAILY bp 11/12/17 [History Last Taken Unknown] carvedilol 12.5 mg tablet (Coreg) 12.5 mg PO DAILY bp 11/12/17 [History Last Taken 10/29/19] meloxicam 7.5 mg tablet 7.5 mg PO BID pain 11/12/17 [History Last Taken Unknown] omeprazole 20 mg capsule,delayed release 20 mg PO DAILY gerd 11/12/17 [History Last Taken 10/29/19] valsartan 320 mg-hydrochlorothiazide 12.5 mg tablet 1 ea PO DAILY bp 11/12/17 [History Last Taken Unknown] ascorbic acid (vitamin C) 1,000 mg tablet,extended release 1,000 mg PO DAILY 10/21/19 [History Last Taken Unknown] aspirin 81 mg chewable tablet 81 mg PO DAILY@0800 10/21/19 [History Last Taken Unknown] cholecalciferol (vitamin D3) 25 mcg (1,000 unit) tablet 25 mcg PO DAILY 10/21/19 [History Last Taken Unknown] oxycodone-acetaminophen 5 mg-325 mg tablet 1 - 2 ea PO Q6H pain 7 days #56 tabs 10/30/19 [Rx Last Taken Unknown] rivaroxaban 10 mg tablet 10 mg PO DAILY@0600 #12 tabs 10/30/19 [Rx Last Taken Unknown] sennosides 8.6 mg-docusate sodium 50 mg tablet 2 tab PO BID #10 tabs 10/30/19 [Rx Last Taken Unknown] irbesartan 300 mg-hydrochlorothiazide 12.5 mg tablet 1 ea PO DAILY 11/03/19 [History Last Taken Unknown] Allergy/AdvReac Type Severity Reaction Status Date / Time ciprofloxacin AdvReac Other Verified 04/11/22 12:03 Social History Smoking Status: Former smoker ROS <MANI Salmon - Last Filed: 04/11/22 16:30> ROS ED Constitutional Constitutional ED: Denies chills, fever(s) or sweats Eyes Eyes: Denies blurry vision or change in vision ENT ENT ED: Denies rhinorrhea or sore throat Cardiovascular Cardiovascular: Denies chest pain, palpitations or racing heartbeat Respiratory/Chest Respiratory/Chest: Denies cough, dyspnea or dyspnea on exertion Gastrointestinal Gastrointestinal: Denies abdominal pain, diarrhea, nausea or vomiting Genitourinary Genitourinary ED: Denies dysuria, hematuria or urinary frequency Musculoskeletal Musculoskeletal: Denies back pain, myalgias or neck pain Integumentary Denies abscess, Abrasions or rash Neurologic Neurologic: Denies headache(s), paresthesias or weakness Psychiatric Psychiatric: Denies anxiety, depression or suicidal ideation EXAM <MANI Salmon - Last Filed: 04/11/22 16:30> Physical Exam Const Vital Signs: 04/11/22 12:03 04/11/22 12:08 04/11/22 13:08 Temperature 97.9 F Temperature Source Oral Pulse Rate 91 Pulse Rate [Lying] 86 Pulse Rate [Sitting (for 1 minute prior to obtaining)] 83 Pulse Rate [Standing (for 1 minute prior to obtaining)] 91 Respiratory Rate 14 Respiratory Effort Normal Non-Labored Blood Pressure 175/82 H Blood Pressure [Lying] 171/92 H Blood Pressure [Sitting (for 1 minute prior to obtaining)] 162/74 H Blood Pressure [Standing (for 1 minute prior to obtaining)] 196/80 H Blood Pressure Mean 113 Blood Pressure Mean [Lying] 118 Blood Pressure Mean [Sitting (for 1 minute prior to obtaining)] 103 Blood Pressure Mean [Standing (for 1 minute prior to obtaining)] 118 Pulse Ox 04/11/22 14:03 Temperature Temperature Source Pulse Rate 62 Pulse Rate [Lying] Pulse Rate [Sitting (for 1 minute prior to obtaining)] Pulse Rate [Standing (for 1 minute prior to obtaining)] Respiratory Rate 15 Respiratory Effort Blood Pressure 149/72 H Blood Pressure [Lying] Blood Pressure [Sitting (for 1 minute prior to obtaining)] Blood Pressure [Standing (for 1 minute prior to obtaining)] Blood Pressure Mean Blood Pressure Mean [Lying] Blood Pressure Mean [Sitting (for 1 minute prior to obtaining)] Blood Pressure Mean [Standing (for 1 minute prior to obtaining)] Pulse Ox 94 Positive well nourished and well developed General Appearance ED: well developed and NAD HEENT Reports moist mucous membranes Negative for trauma or tenderness Eyes PERRL and EOMs intact bilaterally Neck no lymphadenopathy and supple Chest Wall inspection of chest normal Resp normal respiratory effort and clear to auscultation bilaterally Cardio regular rate, regular rhythm and no murmurs GI non-tender, non-distended and no masses Palpation: soft Extremity normal to inspection Neuro oriented x3, CN's II-XII intact bilaterally and no sensory deficits noted Sensorium / Orientation: alert Psych mental status grossly normal Skin no rashes or lesions noted, no wounds and skin turgor normal <Darian Rios MD - Last Filed: 04/11/22 16:03> Physical Exam Const Vital Signs: 04/11/22 12:03 04/11/22 12:08 04/11/22 13:08 Temperature 97.9 F Temperature Source Oral Pulse Rate 91 Pulse Rate [Lying] 86 Pulse Rate [Sitting (for 1 minute prior to obtaining)] 83 Pulse Rate [Standing (for 1 minute prior to obtaining)] 91 Respiratory Rate 14 Respiratory Effort Normal Non-Labored Blood Pressure 175/82 H Blood Pressure [Lying] 171/92 H Blood Pressure [Sitting (for 1 minute prior to obtaining)] 162/74 H Blood Pressure [Standing (for 1 minute prior to obtaining)] 196/80 H Blood Pressure Mean 113 Blood Pressure Mean [Lying] 118 Blood Pressure Mean [Sitting (for 1 minute prior to obtaining)] 103 Blood Pressure Mean [Standing (for 1 minute prior to obtaining)] 118 Pulse Ox 04/11/22 14:03 Temperature Temperature Source Pulse Rate 62 Pulse Rate [Lying] Pulse Rate [Sitting (for 1 minute prior to obtaining)] Pulse Rate [Standing (for 1 minute prior to obtaining)] Respiratory Rate 15 Respiratory Effort Blood Pressure 149/72 H Blood Pressure [Lying] Blood Pressure [Sitting (for 1 minute prior to obtaining)] Blood Pressure [Standing (for 1 minute prior to obtaining)] Blood Pressure Mean Blood Pressure Mean [Lying] Blood Pressure Mean [Sitting (for 1 minute prior to obtaining)] Blood Pressure Mean [Standing (for 1 minute prior to obtaining)] Pulse Ox 94 MDM <MANI Salmon - Last Filed: 04/11/22 16:30> [facility] Narrative Medical decision making narrative: Lab work unremarkable. During orthostatic vital signs patient did have a little bit of lightheadedness going from the supine to sitting position and the sitting to standing position. Patient is mildly orthostatic. I have told patient to discuss this with PCP as medication adjustments may be necessary. Patient's blood pressure went down to 149/72 after being given his usual dose of carvedilol. I think patient's feelings of near syncope can be attributed to bending over and picking things up at the grocery store and rapidly standing. He has been given return instructions. I have educated patient on orthostatic hypotension. I am comfortable with patient discharging home and following up with PCP. Patient is comfortable with plan. Lab Data Attestation: I reviewed the patient's lab results. Lab results narrative: CBC unremarkable, BUN 20 Labs: Laboratory Results - last 24 hr 04/11/22 04/11/22 12:20 12:20 WBC 6.0 RBC 4.60 Hgb 14.1 Hct 42.5 MCV 92.4 MCH 30.7 MCHC 33.2 RDW Std Deviation 42.1 RDW Coeff of Jayshree 12.4 Plt Count 185 MPV 10.3 Immature Gran % (Auto) 0.300 Neut % (Auto) 62.8 Lymph % (Auto) 21.8 [place] % (Auto) 11.2 H Eos % (Auto) 3.2 Baso % (Auto) 0.7 Absolute Neuts (auto) 3.7 Absolute Lymphs (auto) 1.30 Nucleated RBC % 0 Sodium 138 Potassium 3.5 Chloride 100 Carbon Dioxide 32.0 Anion Gap 6 BUN 20 H Creatinine 0.92 Estim Creat Clear Calc 57.64 Est GFR (MDRD) Af Amer 101 Est GFR (MDRD) Non-Af 83 BUN/Creatinine Ratio 21.8 H Glucose 97 Calcium 9.2 EKG Initial EKG: Comments: Sinus rhythm with occasional PVCs. [address] elevation. This EKG has also been reviewed and interpreted by attending ED physician. <Darian Rios MD - Last Filed: 04/11/22 16:03> [facility] Lab Data Lab results narrative: CBC unremarkable, BUN 20 I have personally performed a face to face assessment of the patient and have r eviewed the REBECCA Note. I performed a substantive portion of the visit including all aspects of the following. My saldana findings include: History is lightheadedness after bending over. Elevated blood pressure but did not take medications this morning. Exam is afebrile. Vital signs noted. Regular rate and rhythm. Lungs clear to auscultation bilaterally. Abdomen soft and nontender. Neurological examination nonfocal and nonlateralizing. Medical Decision Making: Check labs. Antihypertensives. Check orthostatics. Discharge. Other additions or changes: [None] Labs: Laboratory Results - last 24 hr 04/11/22 04/11/22 12:20 12:20 WBC 6.0 RBC 4.60 Hgb 14.1 Hct 42.5 MCV 92.4 MCH 30.7 MCHC 33.2 RDW Std Deviation 42.1 RDW Coeff of Jayshree 12.4 Plt Count 185 MPV 10.3 Immature Gran % (Auto) 0.300 Neut % (Auto) 62.8 Lymph % (Auto) 21.8 [place] % (Auto) 11.2 H Eos % (Auto) 3.2 Baso % (Auto) 0.7 Absolute Neuts (auto) 3.7 Absolute Lymphs (auto) 1.30 Nucleated RBC % 0 Sodium 138 Potassium 3.5 Chloride 100 Carbon Dioxide 32.0 Anion Gap 6 BUN 20 H Creatinine 0.92 Estim Creat Clear Calc 57.64 Est GFR (MDRD) Af Amer 101 Est GFR (MDRD) Non-Af 83 BUN/Creatinine Ratio 21.8 H Glucose 97 Calcium 9.2 Discharge Plan Triage Chief Complaint: Hypertension ED Midlevel Provider: Kizzy Palm ED Provider: Darian Rios Dx/Rx/DC Orders Clinical Impression: Hypertension, Pre-syncope, Orthostatic hypotension Instructions: Controlling High Blood Pressure, Orthostatic Hypotension Prescriptions: No Action carvedilol [Coreg] 12.5 MG tablet 12.5 mg PO DAILY amlodipine [Norvasc] 2.5 MG tablet 5 mg PO DAILY meloxicam 7.5 MG tablet 7.5 mg PO BID omeprazole 20 MG capsule 20 mg PO DAILY valsartan-hydrochlorothiazide 1 EACH tablet 1 ea PO DAILY ascorbic acid (vitamin C) 1,000 MG tablet extended release 1,000 mg PO DAILY aspirin 81 MG tablet,chewable 81 mg PO DAILY@0800 cholecalciferol (vitamin D3) 25 MCG tablet 25 mcg PO DAILY sennosides-docusate sodium 1 TABLET tablet 2 tab PO BID Qty: 10 0RF Rx Instructions: Take until first bowel movement, then as needed rivaroxaban 10 MG tablet 10 mg PO DAILY@0600 Qty: 12 0RF Rx Instructions: Continue with Xarelto for 2 weeks postoperatively for DVT prophylaxis oxycodone-acetaminophen 1 EACH tablet 1 - 2 ea PO Q6H 7 Days Qty: 56 0RF irbesartan-hydrochlorothiazide 1 EACH tablet 1 ea PO DAILY Primary Care Provider: Mathew Mosqueda Referrals: Mathew Mosqueda DO [Primary Care Provider] - 3-5 Days Activity Restrictions/Additional Instructions: Please take your blood pressure medication as prescribed. Please follow-up with your PCP. Disposition Disposition: Home, Self Care Discharge Date/Time: 04/11/22 14:04
[2022-04-11 12:39] LABS: Absolute Neutrophil Count 3.7 X10^3/uL (2.0-7.7); Basophil# 0.04 X10^3/uL; Basophil% 0.7 % (0-1); Eosinophil# 0.19 X10^3/uL; Eosinophils% 3.2 % (0-5); Hematocrit 42.5 % (40-54); Hemoglobin 14.1 g/dL (13.0-16.5); Lymphocyte % 21.8 % (19-41); Mean Corp Hgb Conc 33.2 g/dL (32-36); Mean Corpuscular Hgb 30.7 pg (27.0-32.0); Mean Corpuscular Volume 92.4 fL (80-94); Mean Platelet Vol. 10.3 fl (6.2-12.0); Monocyte# 0.67 X10^3/uL; Monocyte% 11.2 % (0-10); NRBC Flagged by Analyzer 0 % (0-5); Neutrophil # 3.74 X10^3/uL (2.7-7.7); Neutrophil % 62.8 % (47-70); Platelet Count 185 K/mm3 (150-450); RBC Distribution Width CV 12.4 % (11.6-14.6); RBC Distribution Width SD 42.1 fl (35.1-43.9)
[2022-04-11 12:53] LABS: Anion Gap 6 (5-15); BUN 20 mg/dL (7-18); BUN/Creat Ratio 21.8 RATIO (10-20); Calcium,Total 9.2 mg/dL (8.5-10.1); Chloride 100 mmol/L (98-107); Creatinine, Serum 0.92 mg/dL (0.70-1.30); EST Glomerular Filtration Rate 83 mL/min (>60); Est Glom Filt Rate - Afr Amer 101 mL/min (>60); Estimated Creatinine Clearance 57.64 ml/min; Glucose 97 mg/dL (74-106); Potassium 3.5 mmol/L (3.5-5.1); Sodium Level 138 mmol/L (136-145)
[2022-04-11 13:08] VITALS: BP 162/74; BP 171/92; BP 196/80; PULSE 83; PULSE 86; PULSE 91
[2022-04-11] MEDS: Carvedilol 12.5 MG Tablet PO (13:17)
[2022-04-11 14:03] VITALS: BP 149/72; PULSE 62; RESP 15; O2SAT 94
== END 2022-04-11 14:04 | disposition home or self-care (01) ==
PROVIDERS: Physician Assistant; Emergency Provider Emergency Medicine; PCP Student in an Organized Health Care Education/Training Program; Visit Provider Emergency Medicine
DX: I10 Essential (primary) hypertension (principal); I95.1 Orthostatic hypotension; Z87.891 Personal history of nicotine dependence
CPT/HCPCS: 80048; 85025; 93005; 99285

== ENCOUNTER 2023-01-01 21:30 | Emergency (ER) | payer MEDICARE, MEDICAID, SELFPAY ==
[2023-01-01 21:31] VITALS: BP 187/89; PULSE 96; RESP 18; TEMP 36.3; O2SAT 98
[2023-01-01 21:33] VITALS: BMI 25.9
--- NOTE | 2023-01-01 21:55 | CT_ITS ---
INDICATION: head trauma EXAMINATION: CT BRAIN - CT Head or Brain W/O Contrast Injection TECHNIQUE: Multiple axial images were obtained of the head with sagittal and coronal reconstructed images. Individualized dose optimization techniques were used for this CT. IV contrast dosage and agent: None. COMPARISON: None. FINDINGS: BRAIN PARENCHYMA: No evidence of an acute infarct or intracranial hemorrhage. No evidence of a mass. 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 CSF SPACES: Moderate cerebral atrophy. CALVARIUM, SKULL BASE, PARANASAL SINUSES AND MASTOID AIR CELLS: No fracture. Mastoid air cells are clear. Visualized paranasal sinuses are unremarkable. Left facial soft tissue injury. ORBITS: The globes, extraocular muscles, optic nerves and retrobulbar fat are unremarkable. CT/Brain/Head without Contrast IMPRESSION: No fracture or acute intracranial abnormality. Electronically Signed: Kunal Matt DO at 22:45 EDT ,
--- NOTE | 2023-01-01 21:56 | EDS_ITS ---
HPI HPI - Fall History of Present Illness Chief Complaint: Fall Detail of Chief Complaint: Tripped and fell in a bar. Informant: patient Occured/Mechanism Occurred: Today Mechanism/Context: Yes same level fall and Yes trip Usually ambulates: Without assistance Pain/Injury Pain Location: head and face Quality of Pain: Dull Current Severity: Mild Maximum Severity: Mild Associated Symptoms Associated Symptoms: Negative for Parasthesias, Weakness, Loss of function, Inability to ambulate, Loss of consciousness or Amnesia Narrative Narrative: 87-year-old male history of CAD with stents on aspirin and Xarelto. Was drinking alcohol tonight in a bar thinks he had a least 4 alcoholic drinks. When he got up to walk he tripped and fell landed on his face where he has multiple superficial lacerations from his glasses cutting the bridge of his nose and his left cheek. No LOC. No headache or neck pain. Denies any vomiting. Denies any other injuries. Prior similar symptoms: No Recent Illness/Hospitalization: No PFSH PFSH Medical History Bronchitis Hypertension Home Medications amlodipine 2.5 mg tablet (Norvasc) 5 mg PO DAILY bp 11/12/17 [History Last Taken Unknown] carvedilol 12.5 mg tablet (Coreg) 12.5 mg PO DAILY bp 11/12/17 [History Last Taken 10/29/19] meloxicam 7.5 mg tablet 7.5 mg PO BID pain 11/12/17 [History Last Taken Unknown] omeprazole 20 mg capsule,delayed release 20 mg PO DAILY gerd 11/12/17 [History Last Taken 10/29/19] valsartan 320 mg-hydrochlorothiazide 12.5 mg tablet 1 ea PO DAILY bp 11/12/17 [History Last Taken Unknown] ascorbic acid (vitamin C) 1,000 mg tablet,extended release 1,000 mg PO DAILY 10/21/19 [History Last Taken Unknown] aspirin 81 mg chewable tablet 81 mg PO DAILY@0800 10/21/19 [History Last Taken Unknown] cholecalciferol (vitamin D3) 25 mcg (1,000 unit) tablet 25 mcg PO DAILY 10/21/19 [History Last Taken Unknown] oxycodone-acetaminophen 5 mg-325 mg tablet 1 - 2 ea (1 - 2 x 5-325 mg) PO Q6H pain 7 days #56 tabs 10/30/19 [Rx Last Taken Unknown] rivaroxaban 10 mg tablet 10 mg PO DAILY@0600 #12 tabs 10/30/19 [Rx Last Taken Unknown] sennosides 8.6 mg-docusate sodium 50 mg tablet 2 tab PO BID #10 tabs 10/30/19 [Rx Last Taken Unknown] irbesartan 300 mg-hydrochlorothiazide 12.5 mg tablet 1 ea PO DAILY 11/03/19 [History Last Taken Unknown] Allergy/AdvReac Type Severity Reaction Status Date / Time ciprofloxacin AdvReac Other Verified 01/01/23 21:34 Surgical History History of coronary artery stent placement Social History Smoking Status: Former smoker ROS ROS ED ROS Narrative Recent URI with a cough. Review of Systems ROS Unobtainable: Denies due to encephalopathy Constitutional Constitutional ED: Denies chills or fever(s) Eyes Eyes: Denies blurry vision ENT ENT ED: Denies ear pain Cardiovascular Cardiovascular: Denies chest pain or palpitations Respiratory/Chest Respiratory/Chest: Reports cough; Denies dyspnea Gastrointestinal Gastrointestinal: Denies abdominal pain, nausea or vomiting Genitourinary Genitourinary ED: Denies dysuria or hematuria Musculoskeletal Musculoskeletal: Denies arthralgias Integumentary Denies abscess Neurologic Neurologic: Denies headache(s) Psychiatric Psychiatric: Denies anxiety Endocrine Endocrinology: Denies polydipsia Hematologic/Lymphatic Hematologic/Lymphatic: Denies easy bleeding or easy bruising Allergic/Immunologic Allergic/Immunologic ED: Denies mouth swelling or tongue swelling EXAM Physical Exam Narrative Exam Narrative: 87-year-old male vital signs stable afebrile he does not look septic toxic. He is in no distress. Sitting upright in bed. Another male present in room. HEENT exam pupils round reactive light. Is a abrasion and superficial laceration to bridge of his nose and to his left cheek they are all actively oozing blood. There is dry reactive light extra motions are intact. He has some mild bruising to his forehead. Dentition intact. Scalp nontender. No laceration or hematoma. C-spine and trachea nontender. Lungs clear to auscultation. Heart regular rhythm rate about 95 no murmur. Chest wall and ribs nontender. Abdomen soft nontender. No bruising. No peritoneal signs. Back and spine nontender. Pelvic girdle intact. Moving all 4 extremities. He has an old hematoma on the back of his right hand but is nontender. Both shoulders, elbows wrist and hands are nontender. Normal range of motion. 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 Hips, knees ankles and feet are nontender with normal flexion extension. No deformity. No shortening or rotation. Neurologically is awake and alert. Answering questions following commands. He does smell of alcohol. Const Vital Signs: 01/01/23 21:31 01/01/23 21:34 01/01/23 22:04 Temperature 97.3 F L Temperature Source Temporal Pulse Rate 96 Respiratory Rate 18 Respiratory Effort Normal Non-Labored Respiratory Depth Normal Respiratory Pattern Normal Blood Pressure 187/89 H 171/72 H Blood Pressure Mean 121 105 Pulse Ox 98 Oxygen Delivery Method Room Air Room Air Positive well nourished and well developed; Negative for cachectic, contractures or unkempt General Appearance ED: well developed and NAD; Negative for unkempt, cachectic or contractures Nutritional Appearance: Negative for cachectic HEENT Reports normocephalic HEENT Narrative: Superficial facial lacerations to the bridge of his nose and left cheek. Small bruising on his forehead and left periorbital region. Pupils round reactive light extremities are intact. trauma; Negative for atraumatic Eyes PERRL and EOMs intact bilaterally General Eye ED: Negative for pale conjunctiva or scleral icterus Neck full ROM, no lymphadenopathy and supple General: Negative for tenderness Chest Wall inspection of chest normal and palpation of chest normal Chest: Negative for other Resp normal respiratory effort, no retractions and clear to auscultation bilaterally Effort and Inspection: Negative for pain with movement Auscultation: Negative for rales, rhonchi or wheezes Cardio regular rate, regular rhythm, S1 normal heart sound, S2 normal heart sound and no murmurs Rate: Negative for bradycardia or tachycardic Rhythm: Negative for abnormal rhythm Bruits: Negative for other GI non-tender, non-distended and no masses Inspection: Negative for abdominal distention Auscultation: normoactive bowel sounds Palpation: soft; Negative for guarding Back/Spine no CVA tenderness General Back: Negative for CVA tenderness Cervical Spine: Negative for cervical spine tenderness Thoracic Spine / Upper Back: Negative for ROM limited Lumbar Spine / Lower Back: Negative for lumbar spinal tenderness Extremity Extremity Narrative: Nontender. Normal range of motion. No deformity. Old bruising right forearm and dorsum of right hand. Neuro oriented x3, CN's II-XII intact bilaterally, moves all extremities and no focal motor deficits [place] Coma Scale: document GCS findings Spontaneous Obeys Commands Oriented 15 Sensorium / Orientation: alert, oriented to person, oriented to place and oriented to time; Negative for orientation impaired, confused, lethargic or stuporous Motor Exam: strength 5/5 throughout Psych mental status grossly normal and thought process normal Appearance: Negative for unkempt Attitude: No agitated Mood & Affect: Negative for depressed, anxious or tearful Skin Skin Narrative: Superficial lacerations the bridge of his nose and left cheek. General Skin Exam: Negative for other Lesions: no lesions Rashes: no rashes Trauma: laceration MDM MDM MDM Narrative Medical decision making narrative: 87-year-old tonight drinking tripped and fell hit his face. He is on Xarelto and aspirin a CAT scan of the obtained. He has had a recent URI. Chest x-ray will be obtained to rule out pneumonia. He has no other injuries from the fall at this time. Read as at 10:53 PM patient is doing well. We went over his CAT scan and chest x-ray results. I will have the nurses ambulate the patient and see how he does. I did Dermabond the superficial lacerations to his left cheek and the bridge of his nose. The cheek wounds were also Steri-Stripped. History & Record Review Discussion w/independent historian: Patient and Friend Additional record(s) reviewed:: Prior inpatient record, Prior outpatient record, Prior ED visit and Prior labs Radiography Chest X-Ray - ED: 1 View, Read by ED Physician, Read by Radiologist, Heart, Lungs, Mediastinum, Bony Structures, No Acute Disease and Chronic Changes Diagnostic Testing: Clinical Impression(s) from Imaging Studies Brain CT 01/01/23 21:55 IMPRESSION: No fracture or acute intracranial abnormality. Electronically Signed: Kunal Matt DO at 22:45 EDT Reading Location ID and State: [facility] / ID Tel , Service support , Chest X-Ray 01/01/23 22:00 IMPRESSION: No evidence of acute cardiopulmonary disease. Electronically Signed: Kunal Matt DO at 22:51 EDT , Chest x-ray, portable, single view shows no acute abnormality. Normal cardiac silhouette. Normal lung richard. No obvious rib fractures. No infiltrates. CT of the brain shows no acute intracranial bleed. Read by the radiologist and reviewed by me. Procedures Lacerations Stellate nasal bridge laceration 2 cm repaired:: Length: 0.79 in Depth: Skin Shape: Stellate Comment: Dermabond repair. Discharge Plan Triage Chief Complaint: Fall ED Provider: Ulises Estrada Dx/Rx/DC Orders Clinical Impression: Hx of heart artery stent, Alcohol intoxication, Chronic anticoagulation, Facial laceration, Head injury, Fall Instructions: ED Head Injury (Adult) Prescriptions: No Action carvedilol [Coreg] 12.5 MG tablet 12.5 mg PO DAILY amlodipine [Norvasc] 2.5 MG tablet 5 mg PO DAILY meloxicam 7.5 MG tablet 7.5 mg PO BID omeprazole 20 MG capsule 20 mg PO DAILY valsartan-hydrochlorothiazide 1 EACH tablet 1 ea PO DAILY ascorbic acid (vitamin C) 1,000 MG tablet extended release 1,000 mg PO DAILY aspirin 81 MG tablet,chewable 81 mg PO DAILY@0800 cholecalciferol (vitamin D3) 25 MCG tablet 25 mcg PO DAILY sennosides-docusate sodium 1 TABLET tablet 2 tab PO BID Qty: 10 0RF Rx Instructions: Take until first bowel movement, then as needed rivaroxaban 10 MG tablet 10 mg PO DAILY@0600 Qty: 12 0RF Rx Instructions: Continue with Xarelto for 2 weeks postoperatively for DVT prophylaxis oxycodone-acetaminophen 1 EACH tablet 1 - 2 ea PO Q6H 7 Days Qty: 56 0RF irbesartan-hydrochlorothiazide 1 EACH tablet 1 ea PO DAILY Primary Care Provider: Mathew Mosqueda Referrals: Mathew Mosqueda DO [Primary Care Provider] - As Needed Activity Restrictions/Additional Instructions: No alcohol for the next 24 hours. Direct pressure to any of the lacerations on your face if the bleeding to stop the bleeding. Tylenol for pain. Follow-up with your doctor if feeling worse. Return to the emergency department if you have a severe headache, not acting right or intractable vomiting. Anytime you are on a blood thinner you can have a delayed bleed inside your brain there is no signs of that at this time. Disposition Disposition: Home, Self Care
--- NOTE | 2023-01-01 22:00 | RAD_ITS ---
INDICATION: cough EXAMINATION/TECHNIQUE: X-RAY - XR Chest 1 View COMPARISON: None. FINDINGS: LINES/DEVICES: None. LUNGS: No consolidation or evidence of an effusion. No evidence of edema or a pneumothorax. MEDIASTINUM AND CARDIOVASCULAR STRUCTURES: Cardiac silhouette is normal in size and contour. Mediastinum is unremarkable. BONES AND SOFT TISSUES: No acute abnormality. RAD/Chest 1 View (Portable) IMPRESSION: No evidence of acute cardiopulmonary disease. Electronically Signed: Kunal Matt DO at 22:51 EDT ,
[2023-01-01 22:04] VITALS: BP 171/72
[2023-01-01 23:08] VITALS: BP 162/76; PULSE 89; RESP 17; O2SAT 98
== END 2023-01-01 23:21 | disposition home or self-care (01) ==
PROVIDERS: Emergency Provider Emergency Medicine; PCP Student in an Organized Health Care Education/Training Program; Visit Provider Emergency Medicine
DX: S01.21XA Laceration without foreign body of nose, initial encounter (principal); F10.129 Alcohol abuse with intoxication, unspecified; S00.83XA Contusion of other part of head, initial encounter; S01.412A Laceration without foreign body of left cheek and temporomandibular area, initial encounter; Z87.891 Personal history of nicotine dependence; I10 Essential (primary) hypertension; I25.10 Atherosclerotic heart disease of native coronary artery without angina pectoris; Z79.01 Long term (current) use of anticoagulants; Z79.82 Long term (current) use of aspirin; Z95.5 Presence of coronary angioplasty implant and graft; W01.0XXA Fall on same level from slipping, tripping and stumbling without subsequent striking against object, initial encounter
CPT/HCPCS: 12011; 70450; 71045; 99282

== ENCOUNTER → 2023-12-24 | Outpatient (CLI) | payer MEDICARE, MEDICAID, SELFPAY ==
--- NOTE | 2023-12-24 12:58 | CT_ITS ---
STUDY: CTA HEAD AND NECK WITH CONTRAST REASON FOR EXAM: Male, 88 years old. Severe R ICA stenosis RADIATION DOSAGE (If Supplied By Facility): CTDIvol = ( 26.9 ) mGy, DLP = ( 1890.02 ) mGycm TECHNIQUE: CT angiography was performed with a multi-detector CT scanner. Data acquisition was obtained from the skull base through the vertex following intravenous administration of IV 100mL [id number]-[id number]. MIP images were reconstructed from the axial data set. Post-processing of the angiographic images was performed, with multiplanar reformation and 3D reconstruction. Individualized dose optimization techniques were used for this CT. COMPARISON: No relevant priors. FINDINGS: Normal bilateral petrous carotid arteries. There is calcified plaque formation of the right cavernous carotid artery, with a moderate stenosis (50-75%). There is calcified plaque formation of the left cavernous carotid artery, with a mild stenosis (less than 50%). Normal right A1 segments of the anterior cerebral artery. Normal left A1 segments of the anterior cerebral artery. Normal intact anterior communicating artery (ACOM). Normal bilateral A2 segments of the anterior cerebral arteries. Normal right M1 and M2 segments of the middle cerebral arteries, with a normal M1 bifurcation. Normal left M1 and M2 segments of the middle cerebral arteries, with a normal M1 bifurcation. Normal right posterior communicating artery (PCOM). Normal left posterior communicating artery (PCOM). Normal bilateral vertebral arteries. Normal basilar artery with a normal basilar bifurcation. The visualized bilateral superior cerebellar (SCA) arteries are normal. Normal bilateral P1, P2 and visualized P3 segments of the posterior cerebral arteries. There is no demonstrated aneurysm of the [place] of [place]. Mild degree of cerebellar atrophy. Mild degree of the cerebral atrophy with decreased attenuation in a periventricular distribution suggestive of chronic small vessel disease. Calcified plaque of the cavernous portions of the internal carotid arteries bilaterally. AORTIC ARCH: There is atherosclerotic calcific plaque formation of the aortic arch and great vessels arising from the aortic arch, without a hemodynamically significant stenosis. There is a normal origin of the brachiocephalic, left common carotid, and left subclavian arteries. Atherosclerotic plaque formation at the origin of the right brachiocephalic artery as well as the left common carotid artery and left subclavian artery. Moderate stenosis at the origin of the left common carotid artery. RIGHT CAROTID ARTERIES: There is atherosclerotic plaque formation of the common carotid artery, but without a hemodynamically significant stenosis. Normal right common carotid bulb. There is severe atherosclerotic plaque formation of the origin of the right internal carotid artery with a near complete occlusion. Normal visualized cervical portion of the right internal carotid artery. Atherosclerotic plaque formation of the distal portion of the right internal carotid artery just proximal to the petrous region due to calcified plaques. Normal origin of the right external carotid artery (ECA). LEFT CAROTID ARTERIES: There is atherosclerotic plaque formation of the common carotid artery, but without a hemodynamically significant stenosis. Normal left common carotid bulb. There is extensive atherosclerotic plaque formation of the origin of the left internal carotid artery with an estimated stenosis of greater than 70%. Normal visualized cervical portion of the left internal carotid artery. Normal origin of the left external carotid artery (ECA). VERTEBRAL ARTERIES: Normal bilateral vertebral arteries. CT/CTA Head AND Neck W/ Contrast IMPRESSION: High-grade stenosis at the origin of both the right and left internal carotid arteries worse on the left side. Marked degree of stenosis of the right internal carotid artery as it enters the petrous bone on the right side with a stenosis of the cavernous portions of both internal carotid arteries. Electronically Signed: Caio Blancas MD at 13:26 EDT ,
[2023-12-24 14:05] LABS: CREATININE FINGERSTICK < 1.0 mg/dL (0.70-1.30); EGFR FINGERSTICK > 60.0000 mL/min (>60)
== END | disposition home or self-care (01) ==
LOC: CT 12:58
PROVIDERS: PCP Student in an Organized Health Care Education/Training Program; Referring Provider Physician Assistant; Visit Provider Physician Assistant
DX: I65.21 Occlusion and stenosis of right carotid artery (principal)
CPT/HCPCS: 70496; 70498; Q9967

== ENCOUNTER → 2024-01-22 | Outpatient (CLI) | payer MEDICARE, MEDICAID, SELFPAY ==
--- NOTE | 2024-01-22 12:28 | VDLE_ITS ---
Reason For Study: Mathew Mosqueda RIGHT LEFT GSV is normal. GSV is normal. CFV is compressible, spontaneous, phasic, CFV is compressible, spontaneous, phasic, competent and demonstrates normal competent, and demonstrates normal augmentation. augmentation. FV is compressible, spontaneous, phasic, FV is compressible, spontaneous, phasic, competent and demonstrates normal competent and demonstrates normal augmentation. augmentation. POP V is compressible, spontaneous, phasic, POP V is compressible, spontaneous, phasic, competent and demonstrates normal competent and demonstrates normal augmentation. augmentation. T/P Trunk is compressible. T/P Trunk is compressible. PTV is compressible. PTV is compressible. RT PerV is compressible. LT PerV is compressible. Procedure Exam performed in department. This is a venous duplex using B-mode, color flow and spectral Doppler. The exam was diagnostic. VL/Venous Duplex US - Stalin Extrem Interpretation Summary Deep veins of the bilateral lower extremities are patent and compressible segme ntally. There is no evidence of bilateral lower extremity deep vein thrombosis. The bilateral great saphenous veins appear patent and compressible segmentally. Ordering Physician: Raza Hannon Referring Physician: Raza Hannon Performed By: Jeffrey Gordon, RVT
== END | disposition home or self-care (01) ==
LOC: CVS 12:24
PROVIDERS: PCP Student in an Organized Health Care Education/Training Program; Referring Provider Surgery Trauma Surgery; Visit Provider Surgery Trauma Surgery
DX: R60.0 Localized edema (principal)
CPT/HCPCS: 93970

== ENCOUNTER 2024-01-28 10:46 | Inpatient (IN) | payer MEDICARE, MEDICAID, SELFPAY ==
[2024-01-28] VITALS (28 sets, daily range): BP systolic 90–153; BP diastolic 28–67; PULSE 59–77; RESP 12–18; TEMP 36.3–37.2; O2SAT 94–100; BMI 24.6; BMI 24.7
[2024-01-28 06:29] LABS: Hematocrit 30.7 % (40-54); Hemoglobin 9.1 g/dL (13.0-16.5); Mean Corp Hgb Conc 29.6 g/dL (32-36); Mean Corpuscular Hgb 22.6 pg (27.0-32.0); Mean Corpuscular Volume 76.4 fL (80-94); Mean Platelet Vol. 10.3 fl (6.2-12.0); Platelet Count 212 K/mm3 (150-450); RBC Distribution Width CV 15.9 % (11.6-14.6); RBC Distribution Width SD 43.8 fl (35.1-43.9); Red Blood Count 4.02 M/mm3 (4.6-6.2); White Blood Count 7.4 K/mm3 (4.4-11.0)
[2024-01-28] MEDS: Lactated Ringers 1,000 ML 15 ML IV (06:37)
[2024-01-28 06:42] LABS: Anion Gap 4 (5-15); BUN 14 mg/dL (7-18); Calcium,Total 9.1 mg/dL (8.5-10.1); Chloride 104 mmol/L (98-107); Creatinine, Serum 0.94 mg/dL (0.70-1.30); EST Glomerular Filtration Rate 81 mL/min (>60); Est Glom Filt Rate - Afr Amer 98 mL/min (>60); Glucose 95 mg/dL (74-106); Potassium 3.5 mmol/L (3.5-5.1); Sodium Level 139 mmol/L (136-145)
--- NOTE | 2024-01-28 06:49 | PCM.PRE.AN2 ---
ASA Classification* ASA Classification ASA Classification: 3 Assessment & Plan Anesthesia* Anesthesia Assessment Anesthesia Assessment: Discussed sedation and/or anesthesia options, risks, benefits, and alternatives with patient/parents/legal guardian/POA. Questions invited. The patient/parents/legal guardian/POA seems to understand and agrees to proceed with anesthesia plan. Reviewed the physical assessment, medical history, allergy history and patient home medications list prior to surgery/procedure/anesthetic and documented any changes. Performed airway and anesthesia risk assessments. Anesthesia Type Anesthesia Type: General ([place]) Anesthesia Focused Assessment* Temperature: 97.8 F Pulse Rate: 77 Blood Pressure: 153/67 Respiratory Rate: 16 Pulse Ox: 100 Airway Assessment Mouth opens: >3 cm Mallampati Score: II Focused Labs Anesthesia Preop lab: CBC WBC 7.4 K/mm3 (4.4-11.0) 01/28/24 06:18 RBC 4.02 M/mm3 (4.6-6.2) L 01/28/24 06:18 Hgb 9.1 g/dL (13.0-16.5) L 01/28/24 06:18 Hct 30.7 % (40-54) L 01/28/24 06:18 Plt Count 212 K/mm3 (150-450) 01/28/24 06:18 CHEMISTRY Potassium 3.5 mmol/L (3.5-5.1) 01/28/24 06:18 Sodium 139 mmol/L (136-145) 01/28/24 06:18 BUN 14 mg/dL (7-18) 01/28/24 06:18 Creatinine 0.94 mg/dL (0.70-1.30) 01/28/24 06:18 Glucose 95 mg/dL (74-106) 01/28/24 06:18 POC Glucose 92 mg/dL (70-110) 10/29/19 09:16 TSH 1.23 uIU/mL (0.358-3.74) 01/30/20 08:59 COAG PT 12.7 SECONDS (11.7-14.9) 10/21/19 10:38 Pre-Assessment Diagnosis/Proposed Procedure Planned Operative Procedure(s): RIGHT CAROTID ENDARTERECTOMY Anesthesia History 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 When Was Last Pacemaker Check QUESTION #4 FULL TEXT: You/Your Family Experience fever (hyperthermia) with Anesthesia Last Oral Intake Last Oral intake: Last Oral Intake NPO since 19:00 01/28/24 06:38 Meds taken in AM with sips of Yes 01/28/24 06:38 water? Meds patient instructed to losartan, amlodipine, 01/28/24 06:38 take am of surgery protonix, coreg PONV PONV - technical training instructor: PONV - technical training instructor Female No 01/24/24 14:29 HX of Motion Sickness No 01/24/24 14:29 HX of N/V After Surgery No 01/24/24 14:29 Non-Smoker Yes 01/24/24 14:29 Duration of Surgery greater Yes 01/24/24 14:29 than 60 minutes Number of Risk Factors 2 01/24/24 14:29 PONV Score Moderate Risk 01/24/24 14:29 Height & Weight Height & Weight: Anesthesia: Height & Weight Height 5 ft 9 in 01/28/24 06:38 Weight: 75.8 kg 01/28/24 06:38 Body Mass Index (BMI) 24.6 01/28/24 06:38 Respiratory Assessment Respiratory Assessment - technical training instructor: Respiratory Tract Infection Hx - technical training instructor Hx Respiratory Tract Infection No 01/24/24 14:29 STOP Sleep Apnea STOP Sleep Apnea - technical training instructor: STOP Sleep Apnea - technical training instructor Hx Hypertension Yes: controlled with meds 01/24/24 14:29 Hx Sleep Apnea No 01/24/24 14:29 CPAP No 01/24/24 14:29 BIPAP Do you snore loudly (louder No 01/24/24 14:29 than talking or can be heard Do you often feel tired/ No 01/24/24 14:29 fatigued/ sleepy during daytime? Has anyone observed you stop No 01/24/24 14:29 breathing during sleep? STOP Results Negative 01/24/24 14:29 QUESTION #5 FULL TEXT : Do you snore loudly (louder than talking or can be heard through closed doors)? Tobacco Use History Tobacco Use History - technical training instructor: Tobacco Use History - technical training instructor Tobacco Use Smoking Status Former smoker 01/24/24 14:29 Hx Tobacco Use No 01/24/24 14:29 Years Smoking Packs Smoked per Day Smoking Cessation Date was No - quit smoking greater 01/24/24 14:29 within the last 15 years than 15 years ago Hx Smoking Cessation Date Hx Smoking Cessation No 01/24/24 14:29 Counseling Hematologic Medial History Hematologic Hx - technical training instructor: Hematologic Medical Hx - clinical research associate Hx of Blood Transfusion No 01/24/24 14:29 Hx of Transfusion in last 3 No 01/24/24 14:29 Months Date of Last Transfusion (if within last 3 months) Ever experience any problems No 01/24/24 14:29 with transfusion(s)? Specify any problems Hx of Preganancy in last 3 N/A 01/24/24 14:29 Months Nurse Filling Out Transfusion DSCHRIBER 01/24/24 14:29 & Questions: Date: 01/24/24 01/24/24 14:29 Time: 14:31 01/24/24 14:29 Patient unable to answer at this time (ie. confused, unrespo /Reproduction History /Reproductive History - technical training instructor: /Reproductive Hx- technical training instructor Hx Now No 01/24/24 14:29 Gestational Age (in weeks): EDC: Hx Hx Para Hx Section SAB No 01/24/24 14:29 Active Medications Active Medications: Current Medications Generic Name Dose Route Start Last Admin Trade Name Freq PRN Reason Stop Dose Admin Cefazolin Sodium 2 gm/ N/A 20 mls @ 400 mls/hr 01/28/24 07:30 IV 01/28/24 07:32 PREOP ONE Lactated Ringer's 1,000 mls @ 15 mls/hr 01/28/24 06:00 01/28/24 06:37 IV 02/02/24 19:19 15 mls/hr .Q48H BEBETO Administration Protocol Sodium Chloride 500 mls @ 1 mls/hr 01/28/24 06:15 IV .Q48H PRN Saline Flush PFSH Medical History Alcohol use Wears glasses Wears partial dentures Wears dentures Ambulates with cane High cholesterol Back pain Injury of head and neck Syncope Dietary restriction Gastric reflux Former smoker History of pain when walking History of edema History of CHF (congestive heart failure) History of heart attack DVT (deep venous thrombosis) History of stress test Cardiology follow-up encounter Heart murmur History of fracture of tibia Bronchitis Hypertension Home Medications ?Medication ?Instructions ?Recorded ?Last Taken ?Type amlodipine 2.5 mg tablet (Norvasc) 5 mg PO DAILY bp 11/12/17 01/28/24 History carvedilol 12.5 mg tablet (Coreg) 6.25 mg PO BID bp 11/12/17 01/28/24 History aspirin 81 mg chewable tablet 81 mg PO DAILY@0800 HEART 10/21/19 01/27/24 History cholecalciferol (vitamin D3) 25 25 mcg PO DAILY SUPPLEMENT 10/21/19 01/27/24 History mcg (1,000 unit) tablet ascorbic acid (vitamin C) 1,000 mg 500 mg PO DAILY SUPPLEMENT 12/07/23 01/27/24 History tablet,extended release atorvastatin 40 mg tablet (Lipitor) 40 mg PO QHS CHOLESTEROL 12/07/23 01/27/24 History cetirizine 10 mg tablet (All Day 10 mg PO DAILY allergy symptoms 12/07/23 01/27/24 History Allergy (cetirizine)) clopidogrel 75 mg tablet 75 mg PO DAILY THINNER 12/07/23 01/27/24 History ezetimibe 10 mg tablet (Zetia) 10 mg PO DAILY CHOLESTEROL 12/07/23 01/27/24 History folic acid 0.8 mg capsule 0.4 mg PO DAILY SUPPLEMENT 12/07/23 01/27/24 History furosemide 20 mg tablet 20 mg PO DAILY WATER PILL 01/24/24 01/27/24 History losartan 50 mg tablet 50 mg PO DAILY BP 01/24/24 01/28/24 History oxycodone-acetaminophen 5 mg-325 1 - 2 ea PO Q6H PRN pain 01/24/24 01/27/24 History mg tablet pantoprazole 40 mg tablet,delayed 40 mg PO DAILY GERD 01/24/24 01/28/24 History release vit C 250 mg-vit E 90 mg-zinc 40 1 tab PO BID VITAMIN 01/24/24 01/27/24 History mg-copper 1 [id number] capsule (PreserVision AREDS-2) Allergy/AdvReac Type Severity Reaction Status Date / Time ciprofloxacin Allergy Intermediate Itching Verified 01/28/24 06:33 tramadol AdvReac Intermediate Itching Verified 01/28/24 06:33 Family History Other CAD (coronary artery disease) Heart disease Hypertension Sudden cardiac Surgical History Hx of hernia repair Hx of total hip arthroplasty History of hip replacement (~2013) History of coronary artery stent placement Social History Smoking Status: Former smoker Review of Systems (Anesthesia) ROS Narrative System reviewed and no additional complaints, except as documented.
--- NOTE | 2024-01-28 07:30 | PLAQ_PTH ---
PATIENT: MICA LOGAN LOC: [facility] U#:[id number] AGE/SX: 88/M ROOM: [facility]01 RE01/28/[address]: Dr. Raza Hannon MD : [id number] BED: 1 DIS: 01/29/2024 SPEC #: [id number] RECD: 01/28/24 11:32 STATUS: MARGARET REQ #: [id number] JONO: 01/28/24 07:[address]: Raza Hannon DEPT: SURGICAL PATHOLOGY RECD BY: Flor Bailey ENTERED: 01/28/24 13:21 SP TYPE: PLAQUE OTHR DR: Dr. Mathew Mosqueda DO Tissues: PLAQUE Procedures: Decalcification bone/plaque Surgery Specimen Level III HEADER OPERATION: Carotid endarterectomy PRE-OP DIAGNOSIS: Stenosis of right carotid artery greater than 50% TISSUE SUBMITTED: Plaque, right carotid MICROSCOPIC DIAGNOSIS Plaque, right carotid, endarterectomy: Atherosclerotic tissue with moderate to marked calcification (plaque). SJ.mr 01/31/2024 GROSS DESCRIPTION Received in fixative is one container labeled with the patient's name and designated Plaque, right carotid. The specimen consists of two tubular pieces of rico indurated tissue measuring 1.5cm in length and 0.6cm in diameter and 2.0cm in length and 0.9cm in diameter. The specimen cuts with gritty sensation. The entire specimen is submitted in one cassette after decalcification. 01/28/2024 TC:5 CPT:54126,08327
--- NOTE | 2024-01-28 07:34 | PCM.HP.STD ---
HPI - General General Date of Admission: 01/28/24 HPI Narrative MICA LOGAN, is a 88 M who presents with right carotid stenosis, asymptomatic. Duplex at outside facility and CTA correlate and reveal 85% stenosis with significant calcification. He is on group home dual antiplatelet for cardiac disease and a statin. He presents for carotid endarterectomy [facility] Medical History Alcohol use Wears glasses Wears partial dentures Wears dentures Ambulates with cane High cholesterol Back pain Injury of head and neck Syncope Dietary restriction Gastric reflux Former smoker History of pain when walking History of edema History of CHF (congestive heart failure) History of heart attack DVT (deep venous thrombosis) History of stress test Cardiology follow-up encounter Heart murmur History of fracture of tibia Bronchitis Hypertension Home Medications ?Medication ?Instructions ?Recorded ?Last Taken ?Type amlodipine 2.5 mg tablet (Norvasc) 5 mg PO DAILY bp 11/12/17 01/28/24 History carvedilol 12.5 mg tablet (Coreg) 6.25 mg PO BID bp 11/12/17 01/28/24 History aspirin 81 mg chewable tablet 81 mg PO DAILY@0800 HEART 10/21/19 01/27/24 History cholecalciferol (vitamin D3) 25 25 mcg PO DAILY SUPPLEMENT 10/21/19 01/27/24 History mcg (1,000 unit) tablet ascorbic acid (vitamin C) 1,000 mg 500 mg PO DAILY SUPPLEMENT 12/07/23 01/27/24 History tablet,extended release atorvastatin 40 mg tablet (Lipitor) 40 mg PO QHS CHOLESTEROL 12/07/23 01/27/24 History cetirizine 10 mg tablet (All Day 10 mg PO DAILY allergy symptoms 12/07/23 01/27/24 History Allergy (cetirizine)) clopidogrel 75 mg tablet 75 mg PO DAILY THINNER 12/07/23 01/27/24 History ezetimibe 10 mg tablet (Zetia) 10 mg PO DAILY CHOLESTEROL 12/07/23 01/27/24 History folic acid 0.8 mg capsule 0.4 mg PO DAILY SUPPLEMENT 12/07/23 01/27/24 History furosemide 20 mg tablet 20 mg PO DAILY WATER PILL 01/24/24 01/27/24 History losartan 50 mg tablet 50 mg PO DAILY BP 01/24/24 01/28/24 History oxycodone-acetaminophen 5 mg-325 1 - 2 ea PO Q6H PRN pain 01/24/24 01/27/24 History mg tablet pantoprazole 40 mg tablet,delayed 40 mg PO DAILY GERD 01/24/24 01/28/24 History release vit C 250 mg-vit E 90 mg-zinc 40 1 tab PO BID VITAMIN 01/24/24 01/27/24 History mg-copper 1 [id number] capsule (PreserVision AREDS-2) Allergy/AdvReac Type Severity Reaction Status Date / Time ciprofloxacin Allergy Intermediate Itching Verified 01/28/24 06:33 tramadol AdvReac Intermediate Itching Verified 01/28/24 06:33 Family History Other CAD (coronary artery disease) Heart disease Hypertension Sudden cardiac Surgical History Hx of hernia repair Hx of total hip arthroplasty History of hip replacement (~2013) History of coronary artery stent placement Social History Smoking Status: Former smoker ROS Constitutional Constitutional: Denies chills, fever(s), frequent falls, lethargy or weakness Eyes Eyes: Denies blind spots, change in vision or loss of vision ENT HEENT: Denies bleeding gums, hoarseness or sore throat Cardiovascular Cardiovascular: Denies abdominal pain, bluish discoloration of hand/feet, chest pain with activity, claudication, cold extremities, cyanosis, dyspnea on exertion, erythema on extremities, irregular heart rhythm, leg edema, leg ulcers, numbness in extremities or weakness in extremities Respiratory/Chest Respiratory/Chest: Denies cough, excessive phlegm production, shortness of breath at rest, shortness of breath with exertion or wheezing Gastrointestinal Gastrointestinal: Denies anorexia, change in stool character, constipation, diarrhea, melena or rectal bleeding Genitourinary Genitourinary: Denies dysuria or hematuria Musculoskeletal Musculoskeletal: Denies abnormal gait Integumentary Integumentary: Reports other Details: ; Denies erythema, non-healing lesions or wounds Neurologic Neurologic: Denies abnormal speech, focal weakness, headache(s), loss of vision, numbness, paresthesias or sensory deficit Hematologic/Lymphatic Hematologic/Lymphatic: Denies easy bleeding, easy bruising or lymphadenopathy Vital Signs Vital Signs Vital Signs: 01/28/24 06:38 01/28/24 06:38 01/28/24 06:49 Temperature 97.8 F 97.8 F Temperature Source Temporal Pulse Rate 77 77 Respiratory Rate 16 16 Respiratory Pattern Normal Blood Pressure 153/67 H 153/67 H Blood Pressure Mean 95 Blood Pressure Source Monitor Blood Pressure Position Semi-Fowlers Blood Pressure Location Right Arm Pulse Ox 100 100 Oxygen Delivery Method Room Air Weight Weight: 167 lb 1.766 oz Body Mass Index (BMI) 24.6 Physical Exam Const alert, oriented x3, no apparent distress and healthy appearing General Appearance: cooperative; Negative for combative or lethargic Orientation / Consciousness: awake Exam Limitations: no limitations HEENT Head and Scalp: normocephalic and atraumatic Eyes EOMs intact bilaterally General Eye: normal appearance of both eyes Neck full ROM General: trachea midline; Negative for tenderness Resp normal respiratory effort and no use of accessory muscles Effort and Inspection: Negative for labored, stridor or audible wheezes Cardio regular rate and regular rhythm Back/Spine Cervical Spine: cervical ROM normal Extremity full ROM, normal capillary refill and no clubbing, cyanosis or edema Skin no rashes or lesions noted and no wounds Neuro oriented x3, CN's II-XII intact bilaterally, no focal motor deficits and no sensory deficits noted Psych thought process normal, cooperative, affect normal, speech normal and activity/motor behavior normal Results Lab / Micro Data 01/28/24 06:18 01/28/24 06:18 Labs: Laboratory Results - last 24 hr 01/28/24 06:18: WBC 7.4, RBC 4.02 L, Hgb 9.1 L, Hct 30.7 L, MCV 76.4 L, MCH 22.6 L, MCHC 29.6 L, RDW Std Deviation 43.8, RDW Coeff of Jayshree 15.9 H, Plt Count 212, MPV 10.3, Sodium 139, Potassium 3.5, Chloride 104, Carbon Dioxide 31.0, Anion Gap 4 L, BUN 14, Creatinine 0.94, Est GFR (MDRD) Af Amer 98, Est GFR (MDRD) Non-Af 81, BUN/Creatinine Ratio 15.0, Glucose 95, Calcium 9.1, Blood Type A POSITIVE, Antibody Screen NEGATIVE Assessment & Plan Assessment/Plan (1) Stenosis of right carotid artery greater than 50%: PLAN: -right CEA
[2024-01-28] MEDS: Cefazolin 2 GM in Syringe IV (07:40)
[2024-01-28] MEDS: Heparin Injection (Vial) 5,000 UNIT/ML VIAL 5000 UNIT (08:24)
[2024-01-28] MEDS: Lidocaine 1% (2ml-nursery) 2 ML VIAL (08:24)
--- NOTE | 2024-01-28 10:52 | OP.PCM_ITS ---
Report of Operation Date of Procedure: 01/28/24 Pre-Operative Diagnosis: right carotid stenosis Post-Operative Diagnosis: same Surgery/Procedure Performed:: right carotid endarterectomy Surgeon: Raza Hannon poultry inspector: Nilton Bonner Type of Anesthesia: General Drains: 15 Fr ANGELA Estimated Blood Loss (mL): 20 Description of Procedure: HPI: Patient is an 88-year-old male with asymptomatic severe right carotid artery stenosis. He presents now for carotid endarterectomy for stroke prevention. Description of procedure: Upon obtaining form consent and verification correct patient procedure site patient was taken to the operating room where he was placed under general esthesia. He was then positioned prepped and draped in usual sterile fashion and a timeout was performed. Oblique incision was then made along the anterior border of the sternocleidomastoid and Bovie electrocautery was dissect down through the subcutaneous tissue to the level of platysma. The platysma was then divided and self-retaining retractors put in position then further dissection carried down to the sternocleidomastoid. This was then freed along its anterior border likely to be retracted posterior laterally exposing the carotid sheath. Sharp dissection was then used dissect free the anterior border the jugular vein with the facial vein identified, ligated with silk ties, and divided. The jugular vein was then retracted laterally exposing the carotid vessels and sharp dissection was used to dissect free the proximal common carotid artery. Care was taken to identify the vagus nerve and a right angle was used to place a vessel loop around the vessel proximally. Next our dissection was carried distally to the internal carotid artery beyond the area of palpable and visible plaque. A right angle was used to place vessel loop at this location with care taken to identify and protect the hypoglossal nerve. The patient was then heparinized and allowed to circulate for 3 minutes during which time sharp dissection was used to dissect free the external carotid artery and the right angle used to place a vessel loop. Vessels were then occluded first the internal followed by the common and external carotids. A longitudinal arteriotomy was then created with an 11 blade and extended with Chambers scissors onto the internal carotid artery. A 10 Mauritian Hitchcock shunt was then placed first distally into the internal carotid artery allowed to backbleed before placing proximally in the common carotid artery. The shunt was interrogated with Doppler by me patent with low resistance signal. We then performed her endarterectomy with a freer elevator with eversion endarterectomy of the external carotid artery and satisfactory endpoint distally on the internal carotid artery. The distal endpoint was then tacked with 7-0 Prolene interrupted sutures and the lumen flushed with heparinized saline to clear of any potential debris. A bovine pericardial patch was then secured in position using a 6-0 Prolene in a running fashion. Prior to completing the suture line the shunt was removed and the vessel was backbled. After completing the suture line the internal carotid artery was allowed to backbleed into the bifurcation and then reoccluded at its origin. Clamps were then released from the external and common carotid artery allowing 10 heartbeats of antegrade flow to flush into the external carotid artery before reestablishing flow into the internal carotid artery. The vessels were then interrogated with Doppler and found to be patent with appropriate signals. Heparin was then reversed with protamine and the incision inspected for hemostasis. A 15 Mauritian channel ANGELA was then placed via separate stab incision and incision closed with 2-0 Vicryl, 3-0 Vicryl, 4 Monocryl and Dermabond for the skin. At the conclusion of case the patient was awakened anesthesia moving all extremities command with cranial ne rves intact. He was then taken the recovery room with anticipated admission to the intensive care unit for hemodynamic and neurologic monitoring.
[2024-01-28] MEDS: Bupivacaine Mpf 0.5% 30 ML VIAL (10:58)
--- NOTE | 2024-01-28 11:33 | PCM.POST.ANE ---
Anesthesia: Postop Eval I Current Vital Signs Temperature: 97.3 F Pulse Rate: 63 Blood Pressure: 100/37 Respiratory Rate: 16 Pulse Ox: 97 Oxygen Delivery Method: Room Air Assessment Airway patent: Yes Spontaneous unlabored respirations: Yes Mental status: Awake and Calm nausea: No Vomiting: No Anesthesia Complication: No Fluid Hydration Crystalloid volume administer (ml): 1,100 Total IV fluid infused: 1,100 Progress Note Anesthesia document: Postop Eval 1 completed: Yes
--- NOTE | 2024-01-28 11:34 | PCM.POSTANE2 ---
Anesthesia Postop Eval I Sum Postop Eval Completion status Anesthesia document: Postop Eval 1 completed: Yes Anesthesia Postop Eval I Summary Anesthesia Postop Eval I Summary: Anesthesia Postop Eval I: Assessment Summary Airway patent Yes 01/28/24 11:34 Spontaneous unlabored Yes 01/28/24 11:34 respirations Mental status Awake,Calm 01/28/24 11:34 nausea No 01/28/24 11:34 Vomiting No 01/28/24 11:34 Anesthesia Postop Eval I: Fluid Summary Crystalloid volume administer ,01/28/24 11:34 (ml) Colloids volume administered ( ml) Blood Product volume administered (ml) Total IV fluid infused 1,100 01/28/24 11:34 Anesthesia Postop Eval I: Summary Notes Anesthesia Complication No 01/28/24 11:34 Anesthesia Complication Comment: Post-operative progress note Anesthesia: Postop Eval II Evaluation Mental status: Awake Pain Level: 1 nausea: No Vomiting: No
[2024-01-28] MEDS: 0.9% Normal Saline (500mL Bag) 500 ML IV (12:21)
[2024-01-28] MEDS: Acetaminophen 500 MG Tablet 1000 MG PO ×2 (14:04→20:13)
[2024-01-28] MEDS: Cefazolin 1 GM/50 ML BAG IV ×2 (16:23→23:56)
[2024-01-28] MEDS: Carvedilol 6.25 MG Tablet PO (20:13)
[2024-01-28] MEDS: Multivitamin (Healthy Eyes) Capsule 1 CAP PO (20:13)
[2024-01-28] MEDS: Atorvastatin Calcium 40 MG Tablet PO (20:15)
[2024-01-29] VITALS (17 sets, daily range): BP systolic 109–178; BP diastolic 42–83; PULSE 64–96; RESP 14–20; TEMP 36.7–36.8; O2SAT 93–99; BMI 25.1
[2024-01-29] MEDS: Acetaminophen 500 MG Tablet 1000 MG PO (05:19)
[2024-01-29] MEDS: Labetalol (Prefilled) 20 MG/4 ML Vial 10 MG IV (05:39)
[2024-01-29 05:41] LABS: Absolute Lymphocyte Count 1.32 X10^3/uL (0.83-4.51); Absolute Neutrophil Count 5.7 X10^3/uL (2.0-7.7); Basophil# 0.05 X10^3/uL; Basophil% 0.6 % (0-1); Eosinophil# 0.22 X10^3/uL; Eosinophils% 2.7 % (0-5); Hematocrit 27.3 % (40-54); Hemoglobin 8.5 g/dL (13.0-16.5); Lymphocyte # 1.32 X10^3/ul (0.83-4.51); Lymphocyte % 16.1 % (19-41); Mean Corp Hgb Conc 31.1 g/dL (32-36); Mean Corpuscular Hgb 23.5 pg (27.0-32.0); Mean Corpuscular Volume 75.4 fL (80-94); Mean Platelet Vol. 10.3 fl (6.2-12.0); Monocyte# 0.86 X10^3/uL; Monocyte% 10.5 % (0-10); NRBC Flagged by Analyzer 0 % (0-5); Neutrophil % 69.7 % (47-70); Platelet Count 191 K/mm3 (150-450); RBC Distribution Width SD 44.2 fl (35.1-43.9); Red Blood Count 3.62 M/mm3 (4.6-6.2); White Blood Count 8.2 K/mm3 (4.4-11.0)
[2024-01-29] MEDS: Clopidogrel Bisulfate 75 MG Tablet PO (08:30)
[2024-01-29] MEDS: Aspirin 81 MG TAB.CHEW PO (08:30)
[2024-01-29] MEDS: Ascorbic Acid 500 MG Tablet PO (08:30)
[2024-01-29] MEDS: amLODIPine 5 MG Tablet PO (08:30)
[2024-01-29] MEDS: Ezetimibe 10 MG Tablet PO (08:30)
[2024-01-29] MEDS: Losartan Potassium 50 MG Tablet PO (08:31)
[2024-01-29] MEDS: Carvedilol 6.25 MG Tablet PO (08:31)
[2024-01-29] MEDS: Loratadine 10 MG Tablet PO (08:31)
[2024-01-29] MEDS: Pantoprazole Sodium 40 MG Tablet PO (08:31)
[2024-01-29] MEDS: Cholecalciferol (VIT D3) 25 MCG TABLET (1,000 UNITS) PO (08:31)
[2024-01-29] MEDS: Folic Acid 1 MG Tablet PO (08:31)
[2024-01-29] MEDS: Enoxaparin 40 MG/0.4 ML Syringe SC (08:32)
[2024-01-29] MEDS: Furosemide 20 MG Tablet PO (08:32)
[2024-01-29] MEDS: Multivitamin (Healthy Eyes) Capsule 1 CAP PO (08:32)
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
--- NOTE | 2024-01-29 10:44 | PN.SURG_ITS ---
Subjective Subjective Mr. Hawk was seen resting in bed this morning. He reports only mild expected discomfort at the incision site. He denies any new weakness, numbness/paresthesias, hoarseness, difficulty swallowing or speaking. He has been hypertensive requiring PRN labetalol early this morning; however, nursing reports art line is positional as well. He has had some urinary retention, but was able to void a good amount early this morning. He has been tolerating liquids. Objective Data Objective Data Vital Signs: Vital Signs Temp Pulse Resp BP Pulse Ox O2 Del Method O2 Flow Rate 98.1 F 66 20 H 150/66 H 98 Room Air 2 01/29/24 04:00 01/29/24 10:00 01/29/24 10:00 01/29/24 10:00 01/29/24 10:00 01/29/24 10:00 01/28/24 13:30 Oxygen Flow Rate (L/min) 2 Oxygen Delivery Method Room Air Weight: 170 lb 3.2 oz Body Mass Index (BMI) 25.1 Intake & Output: Intake and Output for Last 24 Hours 01/27/24 01/28/24 01/29/24 23:59 23:59 23:59 Intake Total 1182.93 / 1182.93 50 / 50 Output Total 280 / 280 270 / 270 Balance 902.93 / 902.93 -220 / -220 Lab / Micro Data 01/29/24 05:30 01/28/24 06:18 Labs: Laboratory Results - last 24 hr 01/29/24 05:30: WBC 8.2, RBC 3.62 L, Hgb 8.5 L, Hct 27.3 L, MCV 75.4 L, MCH 23.5 L, MCHC 31.1 L D, RDW Std Deviation 44.2 H, RDW Coeff of Jayshree 16.0 H, Plt Count 191, MPV 10.3, Immature Gran % (Auto) 0.400, Neut % (Auto) 69.7, Lymph % (Auto) 16.1 L, Metcalfe % (Auto) 10.5 H, Eos % (Auto) 2.7, Baso % (Auto) 0.6, Absolute Neuts (auto) 5.7, Absolute Lymphs (auto) 1.32, Nucleated RBC % 0 Physical Exam Const alert, oriented x3 and no apparent distress General Appearance: cooperative and comfortable HEENT normocephalic, head/scalp atraumatic, hearing grossly normal bilaterally, external ears normal and external nose normal Eyes EOMs intact bilaterally General Eye: normal appearance of both eyes Neck Neck Narrative: R neck incision site with skin glue intact, no dehiscence/edema/ecchymosis/drainage/warmth/excess tenderness. Soft to palpation. ANGELA drain with minimal serosanguineous output. Resp normal respiratory effort, normal air movement, no retractions and no use of accessory muscles Effort and Inspection: able to speak in complete sentences Cardio regular rate and regular rhythm Extremity normal to inspection and no clubbing, cyanosis or edema Skin no rashes or lesions noted Neuro oriented x3, CN's II-XII intact bilaterally, moves all extremities, no focal motor deficits and no sensory deficits noted Speech: speech normal Psych mental status grossly normal Appearance: grossly normal Attitude: calm and engaged Activity / Motor Behavior: appropriate eye contact Mood & Affect: euthymic mood Assessment & Plan Assessment/Plan (1) 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 ANGELA drain was removed without issue. Incision site is satisfactory in appearance with no evidence of hematoma. He has been hypertensive. Will restart home BP meds today and continue to monitor. OK to d/c art line. Normal diet today. Will ambulate with nursing. Urinary retention seems to be improving. Anticipate discharge this afternoon.
--- NOTE | 2024-01-29 13:18 | DS.PCM_ITS ---
Providers Date of Admission: 01/28/24 Primary Care Physician: Dr. 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 ANGELA drain was removed without issue. Incision site is satisfactory in appearance with no evidence of hematoma. He has been hypertensive. Will restart home BP meds today and continue to monitor. OK to d/c art line. Normal diet today. Will ambulate with nursing. Urinary retention seems to be improving. Anticipate discharge this afternoon. Medications at Discharge Home Medications amlodipine 2.5 mg tablet (Norvasc) 5 mg PO DAILY bp 11/12/17 carvedilol 12.5 mg tablet (Coreg) 6.25 mg PO BID bp 11/12/17 aspirin 81 mg chewable tablet 81 mg PO DAILY@0800 HEART 10/21/19 cholecalciferol (vitamin D3) 25 mcg (1,000 unit) tablet 25 mcg PO DAILY SUPPLEMENT 10/21/19 ascorbic acid (vitamin C) 1,000 mg tablet,extended release 500 mg PO DAILY SUPPLEMENT 12/07/23 atorvastatin 40 mg tablet (Lipitor) 40 mg PO QHS CHOLESTEROL 12/07/23 cetirizine 10 mg tablet (All Day Allergy (cetirizine)) 10 mg PO DAILY allergy symptoms 12/07/23 clopidogrel 75 mg tablet 75 mg PO DAILY THINNER 12/07/23 ezetimibe 10 mg tablet (Zetia) 10 mg PO DAILY CHOLESTEROL 12/07/23 folic acid 0.8 mg capsule 0.4 mg PO DAILY SUPPLEMENT 12/07/23 furosemide 20 mg tablet 20 mg PO DAILY WATER PILL 01/24/24 losartan 50 mg tablet 50 mg PO DAILY BP 01/24/24 oxycodone-acetaminophen 5 mg-325 mg tablet 1 - 2 ea PO Q6H PRN pain 01/24/24 pantoprazole 40 mg tablet,delayed release 40 mg PO DAILY GERD 01/24/24 vit C 250 mg-vit E 90 mg-zinc 40 mg-copper 1 [id number] capsule (PreserVision AREDS-2) 1 tab PO BID VITAMIN 01/24/24 Hospital Course Summary of Care Provided Hospital Course: Mr. Oh Hawk is an 88-year-old male who underwent right carotid endarterectomy on 01/28/2024. The procedure was without complication and he tolerated it well. He was routinely admitted to the ICU postoperatively for ongoing hemodynamic and neurologic monitoring. He has remained neurologically stable throughout with no new or worsening facial droop, unilateral weakness or sensory deficit, dysarthria, hoarseness, dysphagia, vision changes. He was slightly hypertensive after surgery requiring the use of some as needed medications but this improved and he was normotensive after receiving his home blood pressure medications today. The incision site is satisfactory in appearance without evidence of hematoma. The ANGELA drain was removed today postop day 1 without issue. He had some urinary retention initially postoperatively but this has resolved. He is tolerating a normal diet. He is discharged home 01/29/2024 in stable condition. Physical Exam Const alert, oriented x3 and no apparent distress General Appearance: cooperative and comfortable HEENT normocephalic, head/scalp atraumatic, hearing grossly normal bilaterally, external ears normal and external nose normal Eyes EOMs intact bilaterally General Eye: normal appearance of both eyes Neck Neck Narrative: R neck incision site with skin glue intact, no dehiscence/edema/ecchymosis/drainage/warmth/excess tenderness. Soft to palpation. ANGELA drain with minimal serosanguineous output. Resp normal respiratory effort, normal air movement, no retractions and no use of accessory muscles Effort and Inspection: able to speak in complete sentences Cardio regular rate and regular rhythm Extremity normal to inspection and no clubbing, cyanosis or edema Skin no rashes or lesions noted Neuro oriented x3, CN's II-XII intact bilaterally, moves all extremities, no focal motor deficits and no sensory deficits noted Speech: speech normal Psych mental status grossly normal Appearance: grossly normal Attitude: calm and engaged Activity / Motor Behavior: appropriate eye contact Mood & Affect: euthymic mood Weight / BMI Weight Weight: 170 lb 3.2 oz Body Mass Index (BMI) 25.1 ABG / Lab / Microbiology Data 01/29/24 05:30 01/28/24 06:18 Laboratory: Laboratory Results - last 24 hr 01/29/24 05:30: WBC 8.2, RBC 3.62 L, Hgb 8.5 L, Hct 27.3 L, MCV 75.4 L, MCH 23.5 L, MCHC 31.1 L D, RDW Std Deviation 44.2 H, RDW Coeff of Jayshree 16.0 H, Plt Count 191, MPV 10.3, Immature Gran % (Auto) 0.400, Neut % (Auto) 69.7, Lymph % (Auto) 16.1 L, Sheridan % (Auto) 10.5 H, Eos % (Auto) 2.7, Baso % (Auto) 0.6, Absolute Neuts (auto) 5.7, Absolute Lymphs (auto) 1.32, Nucleated RBC % 0 D/C Instructions Discharge Diet: No restrictions May shower in (days): 1 Weight Bearing Status: Weight bearing as tolerated Lifting Restricted to (Lbs): 20 Lifting Restrictions: Do not lift greater than 20 pounds for 3 weeks Call your doctor if your incision/area has: Sudden Increased Bleeding, Increased Pain/ Swelling and Foul Smelling Discharge Call your doctor if you observe: Fever of 101 or Higher and Uncontrolled pain Remove Dressing in: 1 day Additional Instructions: You have a small bandage over the site from which the surgical drain was removed. You may remove this bandage tomorrow after your shower. As long as there is no residual drainage, you may leave this open to air. If you do notice some continued drainage, you may re-cover with a Band-Aid. Your incision site is covered with surgical glue which will continue to protect it. The surgical glue will peel/flake off on its own over the next few weeks. Please do not pick at it. You may shower tomorrow. It is okay for soap and water to rinse over the incision site, pat to dry. Do not submerge the incision site in water such as to take a bath or go swimming etc. for 3 weeks. Do not lift greater than 20 pounds for 3 weeks. Otherwise, please continue with activity as tolerated. Do not drive until you can turn your head well enough to safely check your blind spots. You are scheduled for a follow-up appointment in the office on 02/12/2024 at 8:30 AM. If you have any questions, concerns, or need to change her appointment time then please contact the office at [phone]. Please call or return to the office sooner as needed. Please Follow Up With: Angela Hdez PA When: 02/12/2024 at 8:30 AM Meaningful Use Info Meaningful Use Meaningful Use Diagnoses (Choose all that apply): None applicable Ischemic Stroke Statin Dosing Therapy Reference: STATIN DOSE THERAPY REFERENCE: * Patients > 75 years receive moderate or high dose statin therapy. * Patients 75 years or YOUNGER should receive HIGH intensity statin dose unless contraindicated. You will be required to document reason for non-treatment if statin daily dose does not meet guidelines. HIGH DOSE STATIN THERAPY DAILY Atorvastatin > than or = to 40 mg Rosuvastatin > than or = to 20 mg Amlodipine + Atorvastatin > than or = to 2.5/40 mg Ezetimibe + Simvastatin 10/80 mg Simvastatin 80mg Discharge Plan Admission Admit Date/Time: 01/28/24 10:46 Attending Provider: Raza Hannon Primary Care Provider: Mathew Mosqueda Instructions Additional Instructions / Restrictions: You have a small bandage over the site from which the surgical drain was removed. You may remove this bandage tomorrow after your shower. As long as there is no residual drainage, you may leave this open to air. If you do notice some continued drainage, you may re-cover with a Band-Aid. Your incision site is covered with surgical glue which will continue to protect it. The surgical glue will peel/flake off on its own over the next few weeks. Please do not pick at it. You may shower tomorrow. It is okay for soap and water to rinse over the incision site, pat to dry. Do not submerge the incision site in water such as to take a bath or go swimming etc. for 3 weeks. Do not lift greater than 20 pounds for 3 weeks. Otherwise, please continue with activity as tolerated. Do not drive until you can turn your head well enough to safely check your blind spots. You are scheduled for a follow-up appointment in the office on 02/12/2024 at 8:30 AM. If you have any questions, concerns, or need to change her appointment time then please contact the office at [phone]. Please call or return to the office sooner as needed. Discharge Orders/Prescriptions Prescriptions: Continued atorvastatin [Lipitor] 40 mg tablet 40 mg PO QHS cetirizine [All Day Allergy (cetirizine)] 10 mg tablet 10 mg PO DAILY clopidogrel 75 mg tablet 75 mg PO DAILY ezetimibe [Zetia] 10 mg tablet 10 mg PO DAILY folic acid 0.8 mg capsule 0.4 mg PO DAILY carvedilol [Coreg] 12.5 MG tablet 6.25 mg PO BID amlodipine [Norvasc] 2.5 MG tablet 5 mg PO DAILY aspirin 81 MG tablet,chewable 81 mg PO DAILY@0800 cholecalciferol (vitamin D3) 25 MCG tablet 25 mcg PO DAILY ascorbic acid (vitamin C) 1,000 mg tablet extended release 500 mg PO DAILY pantoprazole 40 mg tablet,delayed release (DR/EC) 40 mg PO DAILY PreserVision AREDS-2 250-90-40-1 mg capsule 1 tab PO BID losartan 50 mg tablet 50 mg PO DAILY furosemide 20 mg tablet 20 mg PO DAILY oxycodone-acetaminophen 1 EACH tablet 1 - 2 ea PO Q6H PRN (Reason: pain) Referrals / Follow Up: Mathew Mosqueda DO [Primary Care Provider] - Disposition Disposition (needs filled in before D/C Order can be placed): Home, Self Care
[2024-01-30 07:45] LABS: ACT Activated Clotting Time 152 sec (74-137)
[2024-01-30 07:45] LABS: ACT Activated Clotting Time 220 sec (74-137)
[2024-01-30 07:45] LABS: ACT Activated Clotting Time 244 sec (74-137)
== END 2024-01-29 16:00 | disposition home or self-care (01) | DRG 39 ==
PROVIDERS: Admitting Provider Surgery Trauma Surgery; PCP Student in an Organized Health Care Education/Training Program; Referring Provider Surgery Trauma Surgery; Visit Provider Surgery Trauma Surgery
PROC: 03CM0ZZ Extirpation of Matter from Right External Carotid Artery, Open Approach (ICD-10-PCS; CPT 35301; principal; 2024-01-28 07:10)
DX: I65.21 Occlusion and stenosis of right carotid artery (principal); E78.00 Pure hypercholesterolemia, unspecified; I10 Essential (primary) hypertension; I25.10 Atherosclerotic heart disease of native coronary artery without angina pectoris; I25.2 Old myocardial infarction; Z95.5 Presence of coronary angioplasty implant and graft; Z79.02 Long term (current) use of antithrombotics/antiplatelets; Z79.82 Long term (current) use of aspirin; Z79.899 Other long term (current) drug therapy; Z87.891 Personal history of nicotine dependence
CPT/HCPCS: 80048; 85025; 85027; 85347; 86850; 86900; 86901; 88304; 88311; 94668; 99252; A4648; J7040; J7120; G0463; J2405

== ENCOUNTER → 2024-07-08 | Outpatient (CLI) | payer MEDICARE, MEDICAID, SELFPAY ==
[2024-07-08 10:38] LABS: Absolute Lymphocyte Count 0.74 X10^3/uL (0.83-4.51); Absolute Neutrophil Count 3.5 X10^3/uL (2.0-7.7); Basophil# 0.04 X10^3/uL; Basophil% 0.8 % (0-1); Eosinophil# 0.38 X10^3/uL; Eosinophils% 7.2 % (0-5); Hematocrit 29.9 % (40-54); Hemoglobin 8.4 g/dL (13.0-16.5); Lymphocyte # 0.74 X10^3/ul (0.83-4.51); Lymphocyte % 14.1 % (19-41); Mean Corp Hgb Conc 28.1 g/dL (32-36); Mean Corpuscular Hgb 20.2 pg (27.0-32.0); Mean Corpuscular Volume 71.9 fL (80-94); Mean Platelet Vol. 10.4 fl (6.2-12.0); Monocyte# 0.53 X10^3/uL; Monocyte% 10.1 % (0-10); NRBC Flagged by Analyzer 0 % (0-5); Neutrophil # 3.54 X10^3/uL (2.7-7.7); Neutrophil % 67.2 % (47-70); POSITIVE MORPHOLOGY YES; Platelet Count 173 K/mm3 (150-450); RBC Distribution Width SD 75.6 fl (35.1-43.9); Red Blood Count 4.16 M/mm3 (4.6-6.2); White Blood Count 5.3 K/mm3 (4.4-11.0)
[2024-07-08 10:46] LABS: Differential Indicated SCAN CRITERIA MET
[2024-07-08 10:51] LABS: International Normalized Ratio 1.1; Prothrombin Time (Protime)PT. 14.8 SECONDS (11.7-14.9)
[2024-07-08 11:10] LABS: Anisocytosis 2+; Differential Comment SCANNED; Hypochromasia 2+
[2024-07-08 12:03] LABS: ALB/GLOB Ratio 1.6 RATIO (0.9-2.4); AST(SGOT) 24 U/L (<=37); Alanine Aminotransfer ALT/SGPT 12 U/L (<=46); Alkaline Phosphatase 95 U/L (40-129); Anion Gap 10 (5-15); BUN 20 mg/dL (4-19); BUN/Creat Ratio 22.9 RATIO (10-20); Calcium,Total 8.1 mg/dL (7.6-11.0); Carbon Dioxide 26.7 mmol/L (21.0-32.0); Chloride 104 mmol/L (98-108); Creatinine, Serum 0.86 mg/dL (0.70-1.20); EST Glomerular Filtration Rate 83 (>60); Globulin 2.5 g/dL (2.2-4.2); Glucose 106 mg/dL (70-99); Potassium 4.2 mmol/L (3.3-5.1); Protein, Total 6.5 g/dL (5.9-8.4); Sodium Level 141 mmol/L (133-145); Total Bilirubin 0.53 mg/dL (0.00-1.30)
== END | disposition home or self-care (01) ==
LOC: LAB 10:00
PROVIDERS: PCP Student in an Organized Health Care Education/Training Program; Referring Provider Nurse Practitioner Acute Care; Visit Provider Nurse Practitioner Acute Care
DX: I65.21 Occlusion and stenosis of right carotid artery (principal); D64.9 Anemia, unspecified; F10.90 Alcohol use, unspecified, uncomplicated
CPT/HCPCS: 36415; 80053; 85025; 85610

== ENCOUNTER → 2024-08-12 | Outpatient (CLI) | payer MEDICARE, MEDICAID, SELFPAY ==
--- NOTE | 2024-08-12 09:06 | CDU_ITS ---
Reason For Study Reason For Study: S/P Rt CEA Rt. Velocities/BP Lt. Velocities/BP Prox CCA 75.9/9.7 cm/sec. Prox CCA 92.7/14.6 cm/sec. Mid CCA 75.9/9.7 cm/sec. Mid CCA 103.6/17.9 cm/sec. Dist CCA 82.5/11.6 cm/sec. Dist CCA 130.2/24.3 cm/sec. Prox ICA 79/12.6 cm/sec. Prox ICA 108.3/18.8 cm/sec. Mid ICA 90/24.9 cm/sec. Mid ICA 99.2/27.9 cm/sec. Dist ICA 91.2/21.2 cm/sec. Dist ICA 54.6/16 cm/sec. Rt. ICA/CCA = 1.20. Lt. ICA/CCA = 1.05. Prox ECA 182.9/5 cm/sec. Prox ECA 172.2/9.7 cm/sec. Rt. Vert. 44.7/6 cm/sec. Lt. Vert. 40.9/11.6 cm/sec. Right Extracranial There is heterogeneous, irregular atherosclerotic plaque noted in the right common carotid artery. There is homogeneous, smooth atherosclerotic plaque noted in the right internal carotid artery. There is heterogeneous, irregular atherosclerotic plaque noted in the right external carotid artery. Antegrade flow is noted in the right vertebral artery. Left Extracranial There is heterogeneous, irregular atherosclerotic plaque noted in the left common carotid artery. There is heterogeneous, irregular atherosclerotic plaque noted in the left internal carotid artery. There is heterogeneous, irregular atherosclerotic plaque noted in the left external carotid artery. Antegrade flow is noted in the left vertebral artery. Procedure Carotid Duplex [id number]. This is a Carotid Duplex examination using B-mode, color flow and specral Doppler. Exam performed in department. VL/Carotid Duplex Ultrasound Interpretation Summary Mild (<50%) stenosis right extracranial internal carotid. Mild (<50%) stenosis left extracranial internal carotid. Patent and antegrade vertebrals bilaterally. Ordering Physician: Angela Hdez Referring Physician: Mathew Mosqueda Performed By: Jody Talbert RVT
== END | disposition home or self-care (01) ==
PROVIDERS: PCP Student in an Organized Health Care Education/Training Program; Referring Provider Physician Assistant; Visit Provider Physician Assistant
DX: Z48.812 Encounter for surgical aftercare following surgery on the circulatory system (principal); I65.23 Occlusion and stenosis of bilateral carotid arteries
CPT/HCPCS: 93880

== ENCOUNTER → 2025-03-20 | Outpatient (CLI) | payer MEDICARE, MEDICAID, SELFPAY ==
--- NOTE | 2025-03-20 12:31 | CDU_ITS ---
Reason For Study Reason For Study: S/P Rt ICA CEA Rt. Velocities/BP Lt. Velocities/BP Prox CCA 72.2/15.1 cm/sec. Prox CCA 90.5/23.1 cm/sec. Mid CCA 89.8/17.3 cm/sec. Mid CCA 98.1/23.1 cm/sec. Dist CCA 74.4/10.8 cm/sec. Dist CCA 134.5/28.3 cm/sec. Prox ICA 96.4/15.1 cm/sec. Prox ICA 129.3/23.1 cm/sec. Mid ICA 68.8/14.9 cm/sec. Mid ICA 100.8/28.3 cm/sec. Dist ICA 73.2/17.2 cm/sec. Dist ICA 88.0/26.5 cm/sec. Rt. ICA/CCA = 1.1. Lt. ICA/CCA = 1.3. Prox ECA 130.8/0.0 cm/sec. Prox ECA 167.8/9.4 cm/sec. Rt. Vert. 39.3/6.4 cm/sec. Lt. Vert. 43.4/14.1 cm/sec. Right Extracranial There is heterogeneous, irregular atherosclerotic plaque noted in the right common carotid artery. There is heterogeneous, smooth atherosclerotic plaque noted in the right internal carotid artery. HX Rt ICA CEA. There is heterogeneous, irregular atherosclerotic plaque noted in the right external carotid artery. The right external carotid artery is not well visualized. Antegrade flow is noted in the right vertebral artery. Left Extracranial There is heterogeneous, irregular atherosclerotic plaque noted in the left common carotid artery. There is heterogeneous, irregular atherosclerotic plaque noted in the left internal carotid artery. There is heterogeneous, irregular atherosclerotic plaque noted in the left external carotid artery. Antegrade flow is noted in the left vertebral artery. Procedure Carotid Duplex [id number]. This is a Carotid Duplex examination using B-mode, color flow and specral Doppler. The exam was diagnostic. Exam performed in department. VL/Carotid Duplex Ultrasound Interpretation Summary Mild (<50%) stenosis right extracranial internal carotid. Moderate (50-69%) stenosis left extracranial internal carotid. Patent and antegrade vertebrals bilaterally. Ordering Physician: Angela Hdez Referring Physician: Mathew Mosqueda Performed By: Jeffrey Gordon RVT
== END | disposition home or self-care (01) ==
LOC: CVS 12:29
PROVIDERS: PCP Student in an Organized Health Care Education/Training Program; Referring Provider Physician Assistant; Visit Provider Physician Assistant
DX: Z48.812 Encounter for surgical aftercare following surgery on the circulatory system (principal); I65.23 Occlusion and stenosis of bilateral carotid arteries
CPT/HCPCS: 93880

== ENCOUNTER 2025-04-01 13:40 | Outpatient (CLI) | payer MEDICARE, MEDICAID, SELFPAY ==
--- NOTE | 2024-11-07 17:30 | PAT.ANE_ITS ---
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 When Was Last Pacemaker Check QUESTION #4 FULL TEXT: You/Your Family Experience fever (hyperthermia) with Anesthesia Last Oral Intake Last Oral intake: Last Oral Intake NPO since Meds taken in AM with sips of water? 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 Has anyone observed you stop No 11/07/24 09:14 breathing during sleep? STOP Results Negative 11/07/24 09:14 QUESTION #5 FULL TEXT : Do you snore loudly (louder than talking or can be heard through closed doors)? 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 Specify any problems Hx of Preganancy in last 3 N/A 11/07/24 09:14 Months Nurse Filling Out Transfusion [id number] 11/07/24 09:14 & Questions: Date: 11/07/24 11/07/24 09:14 Time: 09:20 11/07/24 09:14 Patient unable to answer at this time (ie. 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 operator Hx Now Gestational Age (in weeks): EDC: Hx Hx Para Hx Section SAB No 11/07/24 09:14 PFSH Medical History Alcohol use Wears glasses Wears partial dentures Wears dentures Ambulates with cane High cholesterol Back pain Injury of head and neck Syncope Dietary restriction Gastric reflux Former smoker History of pain when walking History of edema History of CHF (congestive heart failure) History of heart attack DVT (deep venous thrombosis) History of stress test Cardiology follow-up encounter Heart murmur History of fracture of tibia Bronchitis Hypertension Home Medications ?Medication ?Instructions ?Recorded ?Last Taken ?Type carvedilol 12.5 mg tablet (Coreg) 6.25 mg PO BID bp 01/28/24 History aspirin 81 mg chewable tablet 81 mg PO DAILY@0800 HEAR T 10/21/19 01/27/24 History cholecalciferol (vitamin D3) 25 25 mcg PO DAILY SUPPLE MENT 10/21/19 01/27/24 History mcg (1,000 unit) tablet ascorbic acid (vitamin C) 1,000 mg 500 mg PO DAILY SUP PLEMENT 12/07/23 01/27/24 History tablet,extended release atorvastatin 40 mg tablet (Lipitor) 40 mg PO QHS JORDON STEROL 12/07/23 01/27/24 History cetirizine 10 mg tablet (All Day 10 mg PO DAILY allerg y symptoms 12/07/23 01/27/24 History Allergy (cetirizine)) clopidogrel 75 mg tablet 75 mg PO DAILY THINNER 12/0601/27/24 History ezetimibe 10 mg tablet (Zetia) 10 mg PO DAILY CHOLESTE ROL 12/07/23 01/27/24 History folic acid 0.8 mg capsule 0.4 mg PO DAILY SUPPLEMENT 0 12/07/23 01/27/24 History furosemide 20 mg tablet 20 mg PO DAILY WATER PILL 01/27/24 History losartan 50 mg tablet 50 mg PO DAILY BP 01/24/24 1 History pantoprazole 40 mg tablet,delayed 40 mg PO DAILY GERD 01/24/24 01/28/24 History release vit C 250 mg-vit E 90 mg-zinc 40 1 tab PO BID VITAMIN 01/24/24 01/27/24 History mg-copper 1 [id number]-lcwuyg capsule (PreserVision AREDS-2) ammonium lactate 12 % topical cream 1 applic topical B ID 07/08/24 Unknown History ferrous sulfate 325 mg (65 mg 325 mg PO QDAY 07/08/24 Unknown History iron) tablet ondansetron HCl 4 mg tablet 4 mg PO .COMPLEX #5 tabs 0 07/08/24 Unknown Rx oxycodone-acetaminophen 5 mg-325 1 tab PO Q4H PRN pain 07/08/24 Unknown History mg tablet peg 3350-electrolytes 236 240 ml PO Q10M #4,000 mL Unknown Rx gram-22.74 gram-6.74 gram-5.86 gram solution (Golytely) polyethylene glycol 3350 17 17 g PO ONCE constipation #850 07/08/24 Unknown Rx gram/dose oral powder (Miralax) grams sennosides 8.6 mg tablet (senna) 17.2 mg PO QHS consti pation 07/08/24 Unknown History spironolactone 50 mg tablet 50 mg PO QAM 07/08/24 Unkn own History amlodipine 5 mg tablet 5 mg PO DAILY 11/07/24 Unkno wn History Allergy/AdvReac Type Severity Reaction Status Date / Time ciprofloxacin Allergy Intermediate Itching Verified 11/07/24 09:08 tramadol AdvReac Intermediate Itching Verified 11/07/24 09:08 Family History Other CAD (coronary artery disease) Heart disease Hypertension Sudden cardiac Surgical History Hx of hernia repair Hx of total hip arthroplasty History of hip replacement (~2013) History of coronary artery stent placement Social History Smoking Status: Former smoker Audit: Pertinent Findings Pertinent Findings EKG Perinent findings: 01/15/2024. Normal sinus rhythm. April 11, 2022. Sinus rhythm. Echo (EF%) pertinent findings: 02/12/2024. EF of 55 to 60%. Moderate aortic stenosis unchanged in the past year. RVSP is 48 mmHg. Heart catheterization pertinent findings: 08/08/2022. PCI of the 90% stenosis in the mid LAD. KATELYN placed with resultant 0 % stenosis. July 17, 2022. PCI of the RCA and KATELYN x 3. July 15, 2022. PCI of 99% stenosis of the mid left circumflex. KATELYN stent placed. Consult pertinent findings: 01/15/2024. Dr. Santacruz. 1. Preop cardiovascular exam-patient scheduled for a carotid endarterectomy. EKG is normal sinus rhythm. Patient is cleared for procedure. 2. Coronary artery disease-STEMI on July 15, 2022. Patient had PCI of the circumflex. Staged PCI of the RCA and KATELYN x 3 on July 17, 2022. Staged PCI of the LAD on August 08. EF 50%. Patient is now doing well with no symptoms. 3. Chronic diastolic heart failure-no evidence of volume overload on exam. 4. Aortic stenosis-moderate by echo last year. Will repeat echo. 5. Hypertension?well-controlled. 6. COPD?stable. Recommendation Anesthesia Recommendation Anesthesia recommendation: OPTIMIZED for anesthesia
[2024-11-12 09:59] VITALS: BP 171/67; PULSE 67; RESP 16; TEMP 36.6; O2SAT 100; BMI 20.8
== END 2025-04-01 23:59 | disposition home or self-care (01) ==
LOC: PAT 13:41
PROVIDERS: PCP Student in an Organized Health Care Education/Training Program; Referring Provider Student in an Organized Health Care Education/Training Program; Visit Provider Internal Medicine Gastroenterology
DX: Z01.818 Encounter for other preprocedural examination (principal)

== ENCOUNTER 2025-04-11 09:34 | Emergency (ER) | payer MEDICARE, MEDICAID, SELFPAY ==
[2025-04-11] VITALS (7 sets, daily range): BP systolic 145–188; BP diastolic 59–87; PULSE 68–104; RESP 12–18; TEMP 36.8; O2SAT 98–100; BMI 21.7
--- NOTE | 2025-04-11 09:48 | CT_ITS ---
PROCEDURE: BRAIN/HEAD WITHOUT CONTRAST 04/11/2025 REASON FOR EXAM: FALL LEFT FOREHEAD TRAUMA TECHNIQUE: Procedure Code: CTBR Modality: CT Procedure: BRAIN/HEAD WITHOUT CONTRAST Coronal and Sagittal reconstruction series were provided. One or more dose reduction techniques were used (e.g., Automated exposure control, adjustment of the mA and/or kV according to patient size, use of iterative reconstruction technique. RADIATION DOSE SUMMARY: CTDlvol: 44.99 mGy DLP: 812.98 mGycm COMPARISON: CT head dated 01/01/2023 FINDINGS: Brain: No evidence of an acute infarct or intracranial hemorrhage. No evidence of a mass. 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 CSF Spaces: Moderate cerebral atrophy. Sinuses/Mastoids: No fracture. Mastoid air cells are clear. Visualized paranasal sinuses are unremarkable. Left facial soft tissue injury. Bones: No acute osseous abnormality. Other: The globes, extraocular muscles, optic nerves and retrobulbar fat are unremarkable. CT/Brain/Head without Contrast IMPRESSION: No acute osseous abnormality. 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 Reading Location: [facility]
--- NOTE | 2025-04-11 09:49 | EKG12_ITS ---
Test Reason : Blood Pressure : */* mmHG Vent. Rate : 79 BPM Atrial Rate : 79 BPM P-R Int : 196 ms QRS Dur : 66 ms QT Int : 348 ms P-R-T Axes : 83 -1 15 degrees QTcB Int : 399 ms Normal sinus rhythm Normal ECG Confirmed by Sanket Billings ([id number]), video editor MAC WOOD ([id number]) on 04/17/2025 7:13:24 AM Referred By: Confirmed By: Sanket Billings
--- NOTE | 2025-04-11 09:49 | RAD_ITS ---
PROCEDURE: CHEST PA AND LATERAL 04/11/2025 REASON FOR EXAM: WEAKNESS TECHNIQUE: Procedure Code: RADCXR Modality: DX Procedure: CHEST PA AND LATERAL COMPARISON: None FINDINGS: Hardware: None Heart: The heart size is normal. Mediastinum: The mediastinal contour is unremarkable. Lungs: The lungs are clear. Bones: The bones are unremarkable. RAD/Chest PA and Lateral IMPRESSION: NO ACUTE FINDINGS. Reading Location: [facility]
--- NOTE | 2025-04-11 09:51 | ED.VIS.FALL ---
HPI HPI - Fall History of Present Illness Chief Complaint: Fall Informant: patient and family Occured/Mechanism Occurred: Today Pain/Injury Pain Location: head and upper extremity (Left elbow skin tear.) Quality of Pain: Dull Current Severity: Mild Maximum Severity: Mild Associated Symptoms Associated Symptoms: Negative for Parasthesias, Weakness, Loss of function, Inability to ambulate or Loss of consciousness Narrative Narrative: 89-year-old male history of CAD with 3 stents on Plavix and aspirin, prior right carotid surgery, CHF, DVT and hypertension. Also history of anemia requiring blood transfusions currently on iron. Said he went to bed fine last night and he woke up this morning on the floor. Does not remember the fall. Family lives with him and they did not see or hear a fall. He has a contusion of his left forehead and a skin tear to his left forearm. He denies any arm pain otherwise. Said he did have nausea and vomiting on but no melena or hematemesis. Denies any fever. No chest or back pain. No abdominal pain. No recent hospitalization. Prior similar symptoms: No Recent Illness/Hospitalization: No PFSH PFSH Medical History Alcohol use Wears glasses Wears partial dentures Wears dentures Ambulates with cane High cholesterol Back pain Injury of head and neck Syncope Dietary restriction Gastric reflux Former smoker History of pain when walking History of edema History of CHF (congestive heart failure) History of heart attack DVT (deep venous thrombosis) History of stress test Cardiology follow-up encounter Heart murmur History of fracture of tibia Bronchitis Hypertension Home Medications ?Medication ?Instructions ?Recorded ?Last Taken ?Type carvedilol 12.5 mg tablet (Coreg) 6.25 mg PO BID bp 11/12/17 01/28/24 History aspirin 81 mg chewable tablet 81 mg PO DAILY@0800 HEART 10/21/19 01/27/24 History cholecalciferol (vitamin D3) 25 25 mcg PO DAILY SUPPLEMENT 10/21/19 01/27/24 History mcg (1,000 unit) tablet ascorbic acid (vitamin C) 1,000 mg 500 mg PO DAILY SUPPLEMENT 12/07/23 01/27/24 History tablet,extended release atorvastatin 40 mg tablet (Lipitor) 40 mg PO QHS CHOLESTEROL 12/07/23 01/27/24 History cetirizine 10 mg tablet (All Day 10 mg PO DAILY allergy symptoms 12/07/23 01/27/24 History Allergy (cetirizine)) clopidogrel 75 mg tablet 75 mg PO DAILY THINNER 12/07/23 11/09/24 History ezetimibe 10 mg tablet (Zetia) 10 mg PO DAILY CHOLESTEROL 12/07/23 11/11/24 History folic acid 0.8 mg capsule 0.4 mg PO DAILY SUPPLEMENT 12/07/23 11/11/24 History furosemide 20 mg tablet 20 mg PO DAILY WATER PILL 01/24/24 11/11/24 History losartan 50 mg tablet 50 mg PO DAILY BP 01/24/24 11/12/24 History pantoprazole 40 mg tablet,delayed 40 mg PO DAILY GERD 01/24/24 11/12/24 History release vit C 250 mg-vit E 90 mg-zinc 40 1 tab PO BID VITAMIN 01/24/24 11/11/24 History mg-copper 1 sw-[id number]-[id number] capsule (PreserVision AREDS-2) ammonium lactate 12 % topical cream 1 applic topical BID 07/08/24 Unknown History ferrous sulfate 325 mg (65 mg 325 mg PO QDAY 07/08/24 11/09/24 History iron) tablet ondansetron HCl 4 mg tablet 4 mg PO .COMPLEX #5 tabs 07/08/24 11/12/24 Rx oxycodone-acetaminophen 5 mg-325 1 tab PO Q4H PRN pain 07/08/24 11/11/24 History mg tablet peg 3350-electrolytes 236 240 ml PO Q10M #4,000 mL 07/08/24 Unknown Rx gram-22.74 gram-6.74 gram-5.86 gram solution (Golytely) polyethylene glycol 3350 17 17 g PO ONCE constipation #850 07/08/24 Unknown Rx gram/dose oral powder (Miralax) grams sennosides 8.6 mg tablet (senna) 17.2 mg PO QHS constipation 07/08/24 Unknown History spironolactone 50 mg tablet 50 mg PO QAM 07/08/24 11/11/24 History amlodipine 5 mg tablet 5 mg PO DAILY 11/07/24 11/12/24 History Allergy/AdvReac Type Severity Reaction Status Date / Time ciprofloxacin Allergy Intermediate Itching Verified 04/11/25 09:37 tramadol AdvReac Intermediate Itching Verified 04/11/25 09:37 Family History Other CAD (coronary artery disease) Heart disease Hypertension Sudden cardiac Surgical History Hx of hernia repair Hx of total hip arthroplasty History of hip replacement (~2013) History of coronary artery stent placement Social History Smoking Status: Former smoker ROS ROS ED ROS Narrative Nausea and vomiting 2 days ago resolved. Constitutional Constitutional ED: Denies chills or fever(s) Eyes Eyes: Denies blurry vision ENT ENT ED: Denies ear pain Cardiovascular Cardiovascular: Denies chest pain Respiratory/Chest Respiratory/Chest: Denies cough or dyspnea Gastrointestinal Gastrointestinal: Reports nausea and vomiting; Denies abdominal pain, diarrhea or melena Genitourinary Genitourinary ED: Denies dysuria or hematuria Musculoskeletal Musculoskeletal: Denies arthralgias Integumentary Denies abscess Neurologic Neurologic: Denies headache(s) Psychiatric Psychiatric: Denies anxiety or depression Endocrine Endocrinology: Denies polydipsia Hematologic/Lymphatic Hematologic/Lymphatic: Denies lymphadenopathy Allergic/Immunologic Allergic/Immunologic ED: Denies mouth swelling, tongue swelling or urticaria EXAM Physical Exam Narrative Exam Narrative: 89-year-old male sitting upright in bed 2 family members present. Vital signs are stable afebrile he does not look septic or toxic he is in no acute distress. Pulse ox is 98% on room air no hypoxia. H EENT exam pupils round react light. Extra motions are intact. He has a contusion hematoma abrasion on his left forehead. There is no other trauma to his face or the posterior scalp. C-spine and neck are nontender. Lungs clear to auscultation bilaterally. Heart rate about 90 no murmur. Chest wall and ribs are nontender. Abdomen is soft nontender. Nondistended. No peritoneal signs. I lifted and short there is no bruising to either his chest or abdomen. Pelvic girdle intact. 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 He has a 1 to 2 inch skin tear to his left elbow is not tender is not swollen he is full flexion extension of both elbow supination and pronation. Normal appliance parts counter clerk strength. Shoulders are nontender. Normal range of motion of both upper extremities. Lower extremities are nontender with normal dorsi plantarflexion. Neurologically he is awake. He is answering questions and following commands. He has no focal motor deficits. No drift either upper or lower extremities. Fingertip to nose within normal limits. Rapid hand movements normal. NIH 0. Const Vital Signs: 04/11/25 09:34 04/11/25 10:39 04/11/25 10:52 Temperature 98.2 F Temperature Source Oral Pulse Rate 88 89 Pulse Rate [Lying] Pulse Rate [Sitting (for 1 minute prior to obtaining)] Pulse Rate [Standing (for 1 minute prior to obtaining)] Respiratory Rate 16 18 Respiratory Effort Normal Respiratory Depth Normal Respiratory Pattern Normal Blood Pressure 181/85 H 176/87 H Blood Pressure [Lying] Blood Pressure [Sitting (for 1 minute prior to obtaining)] Blood Pressure [Standing (for 1 minute prior to obtaining)] Blood Pressure Mean 117 116 Blood Pressure Mean [Lying] Blood Pressure Mean [Sitting (for 1 minute prior to obtaining)] Blood Pressure Mean [Standing (for 1 minute prior to obtaining)] Pulse Ox 98 99 Oxygen Delivery Method Room Air Room Air 04/11/25 11:00 04/11/25 11:57 04/11/25 12:00 Temperature Temperature Source Pulse Rate 82 78 Pulse Rate [Lying] 104 H Pulse Rate [Sitting (for 1 minute prior to obtaining)] 101 H Pulse Rate [Standing (for 1 minute prior to obtaining)] 91 Respiratory Rate 16 18 Respiratory Effort Respiratory Depth Respiratory Pattern Blood Pressure 160/77 H 155/62 H Blood Pressure [Lying] 188/75 H Blood Pressure [Sitting (for 1 minute prior to obtaining)] 160/76 H Blood Pressure [Standing (for 1 minute prior to obtaining)] 155/62 H Blood Pressure Mean 104 93 Blood Pressure Mean [Lying] 112 Blood Pressure Mean [Sitting (for 1 minute prior to obtaining)] 104 Blood Pressure Mean [Standing (for 1 minute prior to obtaining)] 93 Pulse Ox 99 98 Oxygen Delivery Method Room Air 04/11/25 13:00 Temperature Temperature Source Pulse Rate 76 Pulse Rate [Lying] Pulse Rate [Sitting (for 1 minute prior to obtaining)] Pulse Rate [Standing (for 1 minute prior to obtaining)] Respiratory Rate 12 Respiratory Effort Respiratory Depth Respiratory Pattern Blood Pressure 166/81 H Blood Pressure [Lying] Blood Pressure [Sitting (for 1 minute prior to obtaining)] Blood Pressure [Standing (for 1 minute prior to obtaining)] Blood Pressure Mean 109 Blood Pressure Mean [Lying] Blood Pressure Mean [Sitting (for 1 minute prior to obtaining)] Blood Pressure Mean [Standing (for 1 minute prior to obtaining)] Pulse Ox 98 Oxygen Delivery Method Room Air MDM MDM MDM Narrative Medical decision making narrative: 89-year-old male Plavix and aspirin either rolled or fell out of bed sometime last night or this morning as head injury on his left forehead CT will be obtained. I will get screening labs and EKG. His left forearm skin tear will be cleaned and dressed but I do not think it will be amenable to suturing. Repeat exam patient is doing well around 1 PM. Orthostatic vital signs were negative. Is been ambulate around apartment well. He did have 1 episode where he stood up he got lightheaded went back down but currently says he feels fine. His repeat exam they have cleaned and dressed his skin tear on his left elbow. The contusion on his left forehead looks no worse. He is awake alert. His lungs are clear his heart is unremarkable. I went over his test results with the family they are basically unremarkable. Organ to ambulate him again he has no reason at this time to be admitted to the hospital. Nurses very walked the patient he walked well. Repeat exam around 1:33 PM is unremarkable and unchanged. He will be discharged to home. History & Record Review Discussion w/independent historian: Patient and Family Additional record(s) reviewed:: Prior inpatient record, Prior outpatient record, Prior ED visit and Prior labs Lab Data Attestation: I reviewed the patient's lab results. Lab results narrative: CBC shows a white count of 6.6. H&H 12.3 and 36. Platelets 169. Prior hemoglobin was 8.4 earlier this year. Chemistries show normal sodium and anion gap of 8. BUN of 23 creatinine 1.1. Glucose 119. Alcohol negative. Labs: Laboratory Results - last 24 hr 04/11/25 10:04 WBC 6.6 RBC 4.06 L Hgb 12.3 L Hct 36.2 L MCV 89.2 MCH 30.3 MCHC 34.0 RDW Std Deviation 43.6 RDW Coeff of Jayshree 13.2 Plt Count 169 MPV 10.6 Immature Gran % (Auto) 0.300 Neut % (Auto) 68.1 Lymph % (Auto) 17.1 L [place] % (Auto) 9.8 Eos % (Auto) 4.1 Baso % (Auto) 0.6 Absolute Neuts (auto) 4.5 Absolute Lymphs (auto) 1.12 Nucleated RBC % 0 Sodium 139 Potassium 4.3 Chloride 102 Carbon Dioxide 28.3 Anion Gap 8 BUN 23 H Creatinine 1.11 Estim Creat Clear Calc 42.55 L Est GFR (MDRD) Non-Af 63 BUN/Creatinine Ratio 21.1 H Glucose 119 H Calcium 9.1 Ethyl Alcohol < 10.1 Radiography Chest X-Ray - ED: 2 View, Read by ED Physician, Read by Radiologist, Normal, Heart, Lungs, Mediastinum, Bony Structures, No Acute Disease and Chronic Changes Diagnostic Testing: Clinical Impression(s) from Imaging Studies Brain CT 04/11/25 09:48 IMPRESSION: No acute osseous abnormality. 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 Reading Location: [facility] Chest X-Ray 04/11/25 09:49 IMPRESSION: NO ACUTE FINDINGS. Reading Location: [facility] Chest x-ray, 2 views AP and lateral, interpreted by by myself and the radiologist shows no acute abnormality. Chronic changes. Normal cardiac silhouette. Normal lung richard. Rhythm Strip Rhythm Strip: Sinus Rhythm Rate: 79 Ectopy: None EKG Initial EKG: Attestation: I personally reviewed and interpreted this EKG as follows: Interpretation: Sinus Rhythm and No Acute Injury Pattern Comments: Normal sinus rhythm rate of [address] of CT or ischemia. No dysrhythmia. Discharge Plan Triage Chief Complaint: Fall ED Provider: Ulises Estrada Dx/Rx/DC Orders Clinical Impression: Fall, Closed head injury, Contusion of forehead, Skin tear of upper extremity Instructions: ED Head Injury (Adult) Prescriptions: No Action atorvastatin [Lipitor] 40 mg tablet 40 mg PO QHS cetirizine [All Day Allergy (cetirizine)] 10 mg tablet 10 mg PO DAILY clopidogrel 75 mg tablet 75 mg PO DAILY ezetimibe [Zetia] 10 mg tablet 10 mg PO DAILY folic acid 0.8 mg capsule 0.4 mg PO DAILY ferrous sulfate 325 mg (65 mg iron) tablet 325 mg PO QDAY Rx Instructions: for 30 days- ordered on 07/02/24 oxycodone-acetaminophen 5-325 mg tablet 1 tab PO Q4H PRN (Reason: pain) Rx Instructions: for 30 days - ordered 07/02/24 ammonium lactate 12 % cream 1 applic topical BID sennosides [senna] 8.6 mg tablet 17.2 mg PO QHS spironolactone 50 mg tablet 50 mg PO QAM peg 3350-electrolytes [Golytely] 236-22.74-6.74 -5.86 gram recon soln 240 ml PO Q10M Qty: 4000 0RF Rx Instructions: as directed for split dose bowel prep polyethylene glycol 3350 [Miralax] 17 gram/dose powder 17 g PO ONCE Qty: 850 3RF ondansetron HCl 4 mg tablet 4 mg PO .COMPLEX Qty: 5 0RF Rx Instructions: 4 mg orally; take two tablets PO two hours prior to start of bowel prep and one every 4 hours as needed for N/V carvedilol [Coreg] 12.5 MG tablet 6.25 mg PO BID aspirin 81 MG tablet,chewable 81 mg PO DAILY@0800 cholecalciferol (vitamin D3) 25 MCG tablet 25 mcg PO DAILY ascorbic acid (vitamin C) 1,000 mg tablet extended release 500 mg PO DAILY amlodipine 5 mg tablet 5 mg PO DAILY pantoprazole 40 mg tablet,delayed release (DR/EC) 40 mg PO DAILY PreserVision AREDS-2 250-90-40-1 mg capsule 1 tab PO BID losartan 50 mg tablet 50 mg PO DAILY furosemide 20 mg tablet 20 mg PO DAILY Primary Care Provider: Mathew Mosqueda Referrals: Mathew Mosqueda DO [Primary Care Provider, Family Practice] - 3-5 Days Activity Restrictions/Additional Instructions: Follow-up with your doctor. Ice to your forehead. Tylenol for pain. If you develop a severe headache, vomiting or not acting right return. But your CAT scan today looked good. Print Language: Thai Disposition Disposition: Home, Self Care
[2025-04-11 10:11] LABS: Hematocrit 36.2 % (40-54); Hemoglobin 12.3 g/dL (13.0-16.5); Immature Granulocytes Count 0.020 X10^3/uL (0.0-0.0); Mean Corp Hgb Conc 34.0 g/dL (32-36); Mean Corpuscular Volume 89.2 fL (80-94); Mean Platelet Vol. 10.6 fl (6.2-12.0); NRBC Flagged by Analyzer 0 % (0-5); Platelet Count 169 K/mm3 (150-450); RBC Distribution Width CV 13.2 % (11.6-14.6); RBC Distribution Width SD 43.6 fl (35.1-43.9); Red Blood Count 4.06 M/mm3 (4.6-6.2); White Blood Count 6.6 K/mm3 (4.4-11.0)
[2025-04-11 10:51] LABS: Alcohol, Blood (Medical)-Serum < 10.1 mg/dL (<=10.0)
[2025-04-11 10:52] LABS: Anion Gap 8 (7-18); BUN 23 mg/dL (4-19); BUN/Creat Ratio 21.1 RATIO (10-20); Calcium,Total 9.1 mg/dL (7.6-11.0); Carbon Dioxide 28.3 mmol/L (20.0-29.0); Chloride 102 mmol/L (96-106); Estimated Creatinine Clearance 42.55 ml/min (50-250); Glucose 119 mg/dL (70-99); Potassium 4.3 mmol/L (3.5-5.1)
--- OUTSIDE RECORDS SUMMARY | 2025-04-11 11:28 | XMS RPT_ITS | CCD ---
Author Organization [facility] Care Team Providers Care [place] Hand Name Role Phone AALIYAH TRUJILLO DO Primary Care Physician [phone] EKTA VIDAL MD Attending Unavailable HALKO DO, AALIYAH Primary Care Unavailable SHANTHI FOSTER MD Attending Unavailable RONNIE DO, AALIYAH Primary Care Unavailable HALKO DO, AALIYAH Attending Unavailable HALKO DO, AALIYAH Primary Care Unavailable HALKO DO, AALIYAH Attending Unavailable HALKO DO, AALIYAH Primary Care Unavailable Jeevan DE LEON Fabian Manuel Primary Care Provider [phone] Dr. Aaliyah Trujillo DO Primary Care Provider [phone] Dr. Aaliyah Trujillo DO Referring Provider Alphonse MGMT ANALYST-CAmelia Attending Provider Alphonse MGMT ANALYST-CAmelia Referring Provider TRES PAVON Referring Unavailable JEEVAN, FABIAN D Primary Care Unavailable HALKO IV, DILIP Primary Care Unavailable DEE ALMENDAREZ Attending Unavailable HALKO IV, DILIP Primary Care Unavailable JEEVAN, FABIAN D Primary Care Unavailable MASCI, TRES A Attending Unavailable MASCI, TRES A Referring Unavailable JEEVAN, FABIAN D Primary Care Unavailable MASCI, TRES A Referring Unavailable JEEVAN, FABIAN D Primary Care Unavailable MASCI, TRES A Referring Unavailable JEEVAN, FABIAN D Primary Care Unavailable MASCI, TRES A Referring Unavailable JEEVAN, FABIAN D Primary Care Unavailable MASCI, TRES A Referring Unavailable JEEVAN, FABIAN D Primary Care Unavailable HALKO DO, AALIYAH Primary Care Unavailable SHANTHI FOSTER MD Attending Unavailable HALKO DO, AALIYAH Primary Care Unavailable HALKO DO, AALIYAH Attending Unavailable HALKO DO, AALIYAH Primary Care Unavailable HALKO DO, AALIYAH Attending Unavailable HALKO DO, AALIYAH Attending Unavailable HALKO DO, AALIYAH Primary Care Unavailable HALKO DO, AALIYAH Attending Unavailable HALKO DO, AALIYAH Primary Care Unavailable HALKO DO, AALIYAH Primary Care Unavailable CHENEVEY MD, EKTA Attending Unavailable [facility] , AALIYAH Primary Care Unavailable [facility] , AALIYAH Consulting Unavailable JAVY AIKEN, MICHAEL Attending Unavailable JAXSON FELTON Admitting Unavai Amelia Alvarez Attending Unavailable Ronnie, Aaliyah Primary Care Unavailable Hallesa, Aaliyah Referring Unavailable Amelia Cunha Attending Unavailable Amelia Cunha Referring Unavailable Ronnie, Aaliyah Primary Care Unavailable HdezKaleb alvarengaison Attending Unavailable Hdez, Angela Referring Unavailable Halko, Aaliyah Primary Care Unavailable Hdez, Angela Referring Unavailable Raza Hannon Attending Unavailable Ronnie, Aaliyah Primary Care Unavailable Hdez, Angela Attending Unavailable Hdez, Angela Referring Unavailable Ronnie, Aaliyah Primary Care Unavailable Allergies Allergy Classification Reported Allergen(s) Allergy Type Date of Onset Reaction(s) Facility (15 sources) Ciprofloxacin; Translations: [ciprofloxacin] Drug Allergy 3 Muscle pain (finding) [facility] Comment on above: Muscle Aches (14 sources) traMADol; Translations: [tramadol] Drug Allergy 5 Itching [facility] (1 source) Ciprofloxacin Drug Allergy 5 [facility] (1 source) traMADol Drug Allergy 5 [facility] Medications Current Medications Medication Drug Class(es) Dates Sig (Normalized) Sig (Original) acetaminophen 500 mg oral tablet (1 source) Start: 03-06-2023 End: 09-02-2023 acetaminophen 500 mg oral tablet Dose : 500 mg = 1 tab(s), Oral, q6hr, X 90 day(s), # 360 tab(s), 1 Refill(s), 09/02/23 12:11:00 PM EDT, Pharmacy: [facility], 170, cm, 03/06/23 11:41:00 EST, Height, kg, 03/06/23 11:41:00 EST, Dosing Weight Start Date: 03/06/23 Stop Date: 09/02/23 Status: Ordered amLODIPine 5 mg oral tablet (20 sources) Dihydropyridine Calcium Channel Christopher Start: 07-01-2024 End: 12-28-2024 amLODIPine 5 mg oral tablet Dose : 5 mg = 1 tab(s), Oral, qDay, # 90 tab(s), 1 Refill(s), Pharmacy: [facility], 167.5, cm, 07/01/24 12:13:00 EDT, Height, kg, 07/01/24 11:46:00 EDT, Dosing Weight Start Date: 07/01/24 Stop Date: 12/28/24 Status: Ordered Quantity: 90.0 Unit: tab(s) Repeat number: 2 Start: 09-17-2018 End: 03-23-2024 amLODIPine (NORVASC) 5 mg ta blet 09/17/2018 Active Start: 11-12-2017 take 2 tablets by mo [facility] once daily Amlodipine (Norvasc) 2.5 MG tablet Active 5 mg PO DAILY November 12, 2017 12:00am Start: 05-20-2016 amLODIPine (NO RVASC) 2.5 mg tablet 05/20/2016 Active amLODIPine 2.5 mg / atorvastatin 20 mg oral tablet (8 sources) Dihydropyridine Calcium Channel Christopher, HMG-CoA Reductase Inhibitor Start: 11-19-2009 amlodipine/atorvast ed(CADUET 2.5 MG-20 MG TAB) Take one(1) tablet daily. 0 11/19/2009 Active ascorbic acid 1000 mg extended release oral tablet (10 sources) Vitamin C Start: 12-07-2023 Ascorbic Acid (Vitamin C) 1,000 mg tablet extended release Active 500 mg PO DAILY December 07, 2023 10:10am Start: 10-21-2019 End: 12-07-2023 take 1 tablet by mouth once daily Ascorbic Acid (Vitamin C) 1,000 MG tablet extended release Discontinued 1000 mg PO DAILY October 21, 2019 12:00am December 07, 2023 10:28am take 1 tablet by [facility] once daily ascorbic acid, vitamin C, (VITAMIN C) 500 mg tablet Take 500 mg by mouth once daily. Active PreserVision (1 source) Vitamin C Start: 09-03-2020 take 1 tablet by mouth once daily PreserVision Dose = 1 tab(s), Oral, qDay, # 90 tab(s), 0 Refill(s) Start Date: 09/03/20 Status: Ordered aspirin 81 mg chewable tablet (20 sources) Platelet Aggregation Inhibitor, Nonsteroidal Anti-inflammatory Drug Start: 07-01-2024 End: 12-28-2024 aspirin 81 mg oral tablet, chewable Dose : 81 mg = 1 tab(s), Chewed, qDay, # 90 tab(s), 1 Refill(s), Pharmacy: [facility], 167.5, cm, 07/01/24 12:13:00 EDT, Height, kg, 07/01/24 11:46:00 EDT, Dosing Weight Start Date: 07/01/24 Stop Date: 12/28/24 Status: Ordered Quantity: 90.0 Unit: tab(s) Repeat number: 2 Start: 10-21-2019 End: 04-20-2024 aspirin 81 mg oral tablet, c hewable Dose : 81 mg = 1 tab(s), Chewed, qDay, # 90 tab(s), 1 Refill(s), Pharmacy: [facility], 172, cm, 10/23/23 10:58:00 EDT, Height, kg, 10/23/23 10:58:00 EDT, Dosing Weight Start Date: 10/23/23 Stop Date: 04/20/24 Status: Ordered Start: 11-19-2009 aspirin(ASPIR- LOW 81 MG TAB) Take one(1) tablet daily. 0 11/19/2009 Active atorvastatin 40 mg oral tablet (19 sources) HMG-CoA Reductase Inhibitor Start: 2023 atorvastatin 40 mg oral tablet Dose : 40 mg = 1 tab(s), Oral, qDay, # 90 tab(s), 1 Refill(s), Pharmacy: [facility], 167.5, cm, 07/01/24 12:13:00 EDT, Height, kg, 07/01/24 11:46:00 EDT, Dosing Weight Start Date: 07/01/24 Status: Ordered Quantity: 90.0 Unit: tab(s) Repeat number: 2 Start: 01-30-2023 atorvastatin 4 0 mg oral tablet Dose : 40 mg = 1 tab(s), Oral, qDay, # 90 tab(s), 1 Refill(s), Pharmacy: [facility], 170, cm, 01/30/23 11:48:00 EDT, Height, kg, 01/30/23 11:48:00 EDT, Dosing Weight Start Date: 01/30/23 Status: Ordered Start: 07-18-2022 End: 12-15-2022 Lipitor 40 mg oral tablet Do se : 40 mg = 1 tab(s), Oral, qDay, # 30 tab(s), 4 Refill(s), Pharmacy: [facility], 175.3, cm, 07/15/22 17:53:00 EDT, Height Start Date: 07/18/22 Stop Date: 12/15/22 Status: Ordered carvedilol 6.25 mg oral tablet (20 sources) alpha-Adrenergic Christopher, beta-Adrenergic Christopher Start: 06-09-2024 End: 12-28-2024 Coreg 6.25 mg oral tablet Dose : 6.25 mg = 1 tab(s), Oral, BID, # 180 tab(s), 1 Refill(s), Pharmacy: [facility], 167.5, cm, 07/01/24 12:13:00 EDT, Height, kg, 07/01/24 11:46:00 EDT, Dosing Weight Start Date: 07/01/24 Stop Date: 12/28/24 Status: Ordered Quantity: 180.0 Unit: tab(s) Repeat number: 2 Start: 07-31-2023 End: 01-27-2024 Coreg 6.25 mg oral tablet Do se : 6.25 mg = 1 tab(s), Oral, BID, # 180 tab(s), 1 Refill(s), Pharmacy: [facility], 187, cm, 07/31/23 11:25:00 EDT, Height, kg, 07/31/23 11:25:00 EDT, Dosing Weight Start Date: 07/31/23 Stop Date: 01/27/24 Status: Ordered Start: 08-18-2022 Coreg 6.25 mg oral tablet Dose : 6.25 mg = 1 tab(s), Oral, BID, # 60 tab(s), 11 Refill(s), Pharmacy: [facility], 175, cm, 08/18/22 10:47:00 EDT, Height Start Date: 08/18/22 Status: Ordered Start: 07-18-2022 End: 11-15-2022 Coreg 3.125 mg oral tablet D ose : 3.125 mg = 1 tab(s), Oral, BIDM, # 60 tab(s), 3 Refill(s), Pharmacy: [facility], 175.3, cm, 07/15/22 17:53:00 EDT, Height Start Date: 07/18/22 Stop Date: 11/15/22 Status: Ordered Start: 05-30-2022 End: 11-26-2022 carvedilol 25 mg oral tablet Dose : 25 mg = 1 tab(s), Oral, BID, # 180 tab(s), 1 Refill(s), Pharmacy: [facility], 175.3, cm, 05/30/22 10:20:00 EST, Height, kg, 05/30/22 10:20:00 EST, Dosing Weight Start Date: 05/30/22 Stop Date: 11/26/22 Status: Ordered Start: 11-12-2017 take 6.25 mg by mout h twice daily Carvedilol (Coreg) 12.5 MG tablet Active 6.25 mg PO TWICE A DAY November 12, 2017 12:00am Start: 11-12-2017 take 1 tablet by [place] once daily Carvedilol (Coreg) 12.5 MG tablet Active 12.5 MG PO DAILY November 12, 2017 12:00am cefdinir 300 mg oral capsule (3 sources) Cephalosporin Antibacterial Start: 09-04-2023 take 1 capsule by mouth every twelve hours cefdinir 300 mg oral capsule TAKE 1 CAPSULE Oral EVERY 12 HOURS FOR TEN day Start Date: 09/04/23 Status: Ordered cetirizine hydrochloride 10 mg oral tablet (20 sources) Histamine-1 Receptor Antagonist Start: 07-01-2024 End: 12-28-2024 take 1 tablet by mouth once daily ALLERGY RELIEF, CETIRIZINE, 10 mg tablet Take 1 tablet by mouth once daily. 07/01/2024 Active Start: 04-03-2023 End: 03-02-2024 take 1 tablet by mouth once daily Cetirizine (All Day Allergy (Cetirizine)) 10 mg tablet Active 10 mg PO DAILY December 07, 2023 12:00am Start: 05-30-2022 End: 11-26-2022 cetirizine 10 mg oral tablet Dose : 10 mg = 1 tab(s), Oral, qDay, # 90 tab(s), 1 Refill(s), Pharmacy: [facility], 175.3, cm, 05/30/22 10:20:00 EST, Height, kg, 05/30/22 10:20:00 EST, Dosing Weight Start Date: 05/30/22 Stop Date: 11/26/22 Status: Ordered cholecalciferol 0.025 mg oral tablet (2 sources) Vitamin D Start: 10-21-2019 take 1 tablet by mouth once daily Cholecalciferol (Vitamin D3) 25 MCG tablet Active 25 ug PO DAILY October 21, 2019 12:00am cholecalciferol, vitamin D3, (VITAMIN D3 ORAL) (7 sources) take 4000 [IU] by mouth once daily cholecalciferol, vitamin D3, (VITAMIN D3 ORAL) Take 4,000 Units by mouth once daily. Active clopidogrel 75 mg oral tablet (19 sources) [id number] Platelet Inhibitor Start: 05-17-2024 End: 12-28-2024 Plavix 75 mg oral tablet Dose : 75 mg = 1 tab(s), Oral, qDay, # 90 tab(s), 1 Refill(s), Pharmacy: [facility], 167.5, cm, 07/01/24 12:13:00 EDT, Height, kg, 07/01/24 11:46:00 EDT, Dosing Weight Start Date: 07/01/24 Stop Date: 12/28/24 Status: Ordered Quantity: 90.0 Unit: tab(s) Repeat number: 2 Start: 2023 End: 04-20-2024 take 1 tablet by mouth once daily Clopidogrel 75 mg tablet Active 75 mg PO DAILY December 07, 2023 12:00am Start: 07-18-2022 End: 07-13-2023 Plavix 75 mg oral tablet Dos e : 75 mg = 1 tab(s), Oral, qDay, # 30 tab(s), 11 Refill(s), Pharmacy: [facility], 175.3, cm, 07/15/22 17:53:00 EDT, Height Start Date: 07/18/22 Stop Date: 07/13/23 Status: Ordered DME MISCellaneous (20 sources) Start: 05-27-2024 DME MISCellane ous See Instructions, 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 check BP daily, # 1 EA, 0 Refill(s), Pharmacy: [facility], 170, cm, 01/30/23 11:48:00 EDT, Height, 73.7, kg, 01/30/23 11:48:00 EDT, Dosing Weight Start Date: 01/30/23 Status: Ordered Quantity: 1.0 Unit: EA Repeat number: 1 Start: 01-30-2023 DME MISCellane ous See Instructions, dx I10; dispense one automated upper arm sphygmomanometer with supplies. check BP daily, # 1 EA, 0 Refill(s), Pharmacy: [facility], 170, cm, 01/30/23 11:48:00 EDT, Height, 73.7, kg, 01/30/23 11:48:00 EDT, Dosing Weight Start Date: 01/30/23 Status: Ordered Start: 01-03-2023 DME MISCellane ous See Instructions, R26.81, S01.81XA dispense one life alert call button to wear around neck, # 1 EA, 0 Refill(s), Unsteady gait, 75 Start Date: 01/03/23 Status: Ordered Quantity: 1.0 Unit: EA Repeat number: 1 Indications: Unsteadiness on feet; Start: 01-03-2023 DME MISCellane ous See Instructions, R26.81, S01.81XA dispense one life alert call button to wear around neck, # 1 EA, 0 Refill(s), Unsteady gait, 75 Start Date: 01/03/23 Status: Ordered Start: 01-03-2023 DME MISCellane ous See Instructions, dispense 60 telfa nonstick pads 2x3 inches or larger based on stock; change wound dressing twice daily dx S01.81XA., # 60 EA, 2 Refill(s), Pharmacy: [facility], Face lacerations, 170, cm, 01/03/23 10:23:00 EDT, Height, 75, kg, 12/01/22 10:20:00 EDT, Dosing Weight Start Date: 01/03/23 Status: Ordered Quantity: 60.0 Unit: EA Repeat number: 3 Indications: Laceration without foreign body of other part of head, initial encounter; Start: 01-03-2023 DME MISCellane ous See Instructions, dx S01.81XA. dispense one roll paper tape to change wound dressing twice daily, # 1 EA, 2 Refill(s), Pharmacy: [facility], 170, cm, 01/03/23 10:23:00 EDT, Height, 75, kg, 12/01/22 10:20:00 EDT, Dosing Weight Start Date: 01/03/23 Status: Ordered Quantity: 1.0 Unit: EA Repeat number: 3 Start: 01-03-2023 DME MISCellane ous See Instructions, dispense 60 telfa nonstick pads 2x3 inches or larger based on stock; change wound dressing twice daily dx S01.81XA., # 60 EA, 2 Refill(s), Pharmacy: [facility], Face lacerations, 170, cm, 01/03/23 10:23:00 EDT, Height, 75, kg, 12/01/22 10:20:00 EDT, Dosing Weight Start Date: 01/03/23 Status: Ordered Start: 01-03-2023 DME MISCellane ous See Instructions, dx S01.81XA. dispense one roll paper tape to change wound dressing twice daily, # 1 EA, 2 Refill(s), Pharmacy: [facility], 170, cm, 01/03/23 10:23:00 EDT, Height, 75, kg, 12/01/22 10:20:00 EDT, Dosing Weight Start Date: 01/03/23 Status: Ordered Start: 05-30-2022 DME MISCellane ous See Instructions, dx I10; dispense one automated upper arm sphygmomanometer with supplies., # 1 EA, 0 Refill(s), 175.3, cm, 05/30/22 10:20:00 EST, Height, 77.9 Start Date: 05/30/22 Status: Ordered ensure (12 sources) Start: 09-15-2019 ensure ensure, 0 Refill(s), 80.7 Start Date: 09/15/19 Status: Ordered Repeat number: 1 Start: 09-15-2019 ensure ensure, 0 Refill(s), 80.7 Start Date: 09/15/19 Status: Ordered etodolac 300 mg oral capsule (1 source) Nonsteroidal Anti-inflammatory Drug Start: 06-27-2022 End: 12-24-2022 etodolac 300 mg oral capsule Dose : 300 mg = 1 cap(s), Oral, BID, # 180 cap(s), 1 Refill(s), Pharmacy: [facility], 175.3, cm, 06/27/22 10:06:00 EDT, Height, kg, 06/27/22 9:56:00 EDT, Dosing Weight Start Date: 06/27/22 Stop Date: 12/24/22 Status: Ordered ezetimibe 10 mg oral tablet (19 sources) Dietary Cholesterol Absorption Inhibitor Start: 05-17-2024 End: 12-28-2024 Zetia 10 mg oral tablet Dose : 10 mg = 1 tab(s), Oral, qDay, # 90 tab(s), 1 Refill(s), Pharmacy: [facility], 167.5, cm, 07/01/24 12:13:00 EDT, Height, kg, 07/01/24 11:46:00 EDT, Dosing Weight Start Date: 07/01/24 Stop Date: 12/28/24 Status: Ordered Quantity: 90.0 Unit: tab(s) Repeat number: 2 Start: 2023 End: 04-20-2024 take 1 tablet by mouth once daily Ezetimibe (Zetia) 10 mg tablet Active 10 mg PO DAILY December 07, 2023 12:00am Start: 07-18-2022 End: 07-13-2023 Zetia 10 mg oral tablet Dose : 10 mg = 1 tab(s), Oral, qDay, # 30 tab(s), 11 Refill(s), Pharmacy: [facility], 175.3, cm, 07/15/22 17:53:00 EDT, Height Start Date: 07/18/22 Stop Date: 07/13/23 Status: Ordered ferrous sulfate 325 mg delay ed release oral tablet (10 sources) Start: 07-09-2024 End: 02-01-2025 ferrous sulfate 325 mg (65 m g elemental iron) oral delayed release tablet Dose : 325 mg = 1 tab(s), Oral, qDay, # 90 tab(s), 1 Refill(s), Pharmacy: [facility], 170.2, cm, 07/09/24 13:17:00 EDT, Height, kg, 07/09/24 13:13:00 EDT, Dosing Weight Start Date: 08/05/24 Stop Date: 02/01/25 Status: Ordered Quantity: 90.0 Unit: tab(s) Repeat number: 2 Start: 07-08-2024 take 1 tablet by mouth once da judy Ferrous Sulfate 325 mg (65 mg iron) tablet Active 325 mg PO daily July 08, 2024 12:00am for 30 days- ordered on 07/02/24 Start: 07-02-2024 take 1 tablet by mouth once da judy ferrous sulfate 325 mg (65 mg iron) EC tablet Take 1 tablet by mouth once daily. 07/02/2024 Active folic acid 0.4 mg oral tablet (18 sources) Start: 07-01-2024 take 1 tablet by mouth once daily folic acid 400 mcg tablet Take 1 tablet by mouth once daily. 07/01/2024 Active Start: 07-01-2024 folic acid 0.4 mg oral tablet Dose : 0.4 mg = 1 tab(s), Oral, qDay, # 100 tab(s), 1 Refill(s), Pharmacy: [facility], 167.5, cm, 07/01/24 12:13:00 EDT, Height, kg, 07/01/24 11:46:00 EDT, Dosing Weight Start Date: 07/01/24 Status: Ordered Quantity: 100.0 Unit: tab(s) Repeat number: 2 Start: 12-07-2023 take 0.4 mg by mouth once jas y Folic Acid 0.8 mg capsule Active 0.4 mg PO DAILY December 07, 2023 12:00am Start: 09-04-2023 folic acid 0.4 mg oral tablet Dose : 0.4 mg = 1 tab(s), Oral, qDay, # 100 tab(s), 1 Refill(s), Pharmacy: [facility], 172, cm, 09/04/23 10:26:00 EDT, Height, kg, 09/04/23 10:26:00 EDT, Dosing Weight Start Date: 09/04/23 Status: Ordered Start: 04-03-2023 folic acid 0.4 mg oral tablet Dose : 0.4 mg = 1 tab(s), Oral, qDay, # 100 tab(s), 1 Refill(s), Pharmacy: [facility], 170, cm, 03/06/23 11:41:00 EST, Height, kg, 04/03/23 11:41:00 EST, Dosing Weight Start Date: 04/03/23 Status: Ordered Start: 10-10-2022 folic acid 0.4 mg oral tablet Dose : 0.4 mg = 1 tab(s), Oral, qDay, # 100 tab(s), 1 Refill(s), Pharmacy: [facility], 175, cm, 10/10/22 10:14:00 EDT, Height, kg, 10/10/22 10:14:00 EDT, Dosing Weight Start Date: 10/10/22 Status: Ordered Start: 07-21-2022 folic acid 0.4 mg oral tablet Dose : 0.4 mg = 1 tab(s), Oral, qDay, # 100 tab(s), 0 Refill(s), Pharmacy: [facility], 175, cm, 07/21/22 9:04:00 EDT, Height Start Date: 07/21/22 Status: Ordered furosemide 20 mg oral tablet (19 sources) Loop Diuretic Start: 10-14-2024 End: 04-12-2025 Lasix 20 mg oral tablet Dose : 20 mg = 1 tab(s), Oral, qDay, # 90 tab(s), 1 Refill(s), Pharmacy: [facility], 168.5, cm, 10/14/24 9:55:00 EDT, Height, kg, 10/14/24 9:55:00 EDT, Dosing Weight Start Date: 10/14/24 Stop Date: 04/12/25 Status: Ordered Quantity: 90.0 Unit: tab(s) Repeat number: 2 Start: 07-01-2024 take 1 tablet by [place] th once daily furosemide (LASIX) 20 mg tablet Take 1 tablet by mouth once daily. 07/01/2024 Active Start: 04-03-2023 End: 03-02-2024 take 1 tablet by mouth once daily Furosemide 20 mg tablet Active 20 mg PO DAILY January 24, 2024 12:00am Start: 07-18-2022 End: 10-16-2022 Lasix 20 mg oral tablet Dose : 20 mg = 1 tab(s), Oral, qDay, # 30 tab(s), 2 Refill(s), Pharmacy: [facility], 175.3, cm, 07/15/22 17:53:00 EDT, Height Start Date: 07/18/22 Stop Date: 10/16/22 Status: Ordered hydroCHLOROthiazide 12.5 mg / irbesartan 300 mg oral tablet (11 sources) Thiazide Diuretic, Angiotensin 2 Receptor Christopher Start: 11-03-2019 End: 12-07-2023 take 1 tablet by mouth once daily hydrochlorothiazide-irbesartan 12.5 mg-300 mg oral tablet Dose = 1 tab(s), Oral, qDay, X 90 day(s), # 90 tab(s), 1 Refill(s), Pharmacy: [facility], 175.3, cm, 05/30/22 10:20:00 EST, Height, kg, 05/30/22 10:20:00 EST, Dosing Weight Start Date: 05/30/22 Stop Date: 11/26/22 Status: Ordered Start: 11-03-2019 Irbesartan-Hyd rochlorothiazide Active 1 EACH PO DAILY November 03, 2019 12:00am Start: 08-16-2018 Irbesartan-Hyd rochlorothiazide 300-12.5 mg per tablet 08/16/2018 Active ammonium lactate 120 mg/ml topical cream (13 sources) Start: 07-08-2024 Ammonium Lacta te 12 % cream Active 1 NMA TOPICAL TWICE A DAY July 08, 2024 12:00am Start: 07-01-2024 End: 12-28-2024 ammonium lactate 12% topical cream Apply 1 cipriano, Topical, BID, # 385 gram(s), 1 Refill(s), Pharmacy: [facility], 167.5, cm, 07/01/24 12:13:00 EDT, Height, 68.4, kg, 07/01/24 11:46:00 EDT, Dosing Weight Start Date: 07/01/24 Stop Date: 12/28/24 Status: Ordered Quantity: 385.0 Unit: g Repeat number: 2 Start: 04-03-2023 End: 03-23-2024 ammonium lactate 12% topical cream Apply 1 cipriano, Topical, BID, # 385 gram(s), 1 Refill(s), Pharmacy: [facility], 172, cm, 09/25/23 9:34:00 EDT, Height, 74.2, kg, 09/25/23 9:34:00 EDT, Dosing Weight Start Date: 09/25/23 Stop Date: 03/23/24 Status: Ordered Start: 01-31-2022 End: 07-30-2022 ammonium lactate 12% topical cream Apply 1 cipriano, Topical, BID, # 385 gram(s), 1 Refill(s), Pharmacy: [facility], 170, cm, 01/31/22 11:22:00 EDT, Height, 78.2 Start Date: 01/31/22 Stop Date: 07/30/22 Status: Ordered losartan potassium 50 mg oral tablet (19 sources) Angiotensin 2 Receptor Christopher Start: 07-31-2023 End: 12-28-2024 losartan 50 mg oral tablet Dose : 50 mg = 1 tab(s), Oral, qDay, # 90 tab(s), 1 Refill(s), Pharmacy: [facility], 167.5, cm, 07/01/24 12:13:00 EDT, Height, kg, 07/01/24 11:46:00 EDT, Dosing Weight Start Date: 07/01/24 Stop Date: 12/28/24 Status: Ordered Quantity: 90.0 Unit: tab(s) Repeat number: 2 Start: 08-18-2022 losartan 50 mg oral tablet Dose : 50 mg = 1 tab(s), Oral, qDay, # 30 tab(s), 11 Refill(s), Pharmacy: [facility], 175, cm, 08/18/22 10:47:00 EDT, Height Start Date: 08/18/22 Status: Ordered Start: 07-18-2022 End: 10-16-2022 losartan 25 mg oral tablet D ose : 25 mg = 1 tab(s), Oral, qDay, # 30 tab(s), 2 Refill(s), Pharmacy: [facility], 175.3, cm, 07/15/22 17:53:00 EDT, Height Start Date: 07/18/22 Stop Date: 10/16/22 Status: Ordered magnesium oxide 400 mg oral tablet (5 sources) Start: 07-22-2022 End: 10-20-2022 magnesium oxide 400 mg oral tablet Dose : 400 mg = 1 tab(s), Oral, qDay, X 90 day(s), # 90 tab(s), 0 Refill(s), 10/20/22 10:46:00 EDT, Pharmacy: [facility], 175, cm, 07/21/22 9:04:00 EDT, Height Start Date: 07/22/22 Stop Date: 10/20/22 Status: Ordered Multivitamin preparation (2 sources) Start: 04-23-2019 take 1 tablet by mouth once daily Multivitamin Dose = 1 tab(s), Oral, Daily, 0 Refill(s) Start Date: 04/23/19 Status: Ordered omeprazole 40 mg delayed release oral capsule (12 sources) Proton Pump Inhibitor Start: 04-03-2023 End: 09-30-2023 omeprazole 40 mg oral delayed release capsule Dose : 40 mg = 1 cap(s), Oral, qDay, # 90 cap(s), 1 Refill(s), Pharmacy: [facility], 170, cm, 03/06/23 11:41:00 EST, Height, kg, 04/03/23 11:41:00 EST, Dosing Weight Start Date: 04/03/23 Stop Date: 09/30/23 Status: Ordered Start: 06-27-2022 End: 12-24-2022 omeprazole 40 mg oral delaye d release capsule Dose : 40 mg = 1 cap(s), Oral, qDay, # 90 cap(s), 1 Refill(s), Pharmacy: [facility], 175.3, cm, 06/27/22 10:06:00 EDT, Height, kg, 06/27/22 9:56:00 EDT, Dosing Weight Start Date: 06/27/22 Stop Date: 12/24/22 Status: Ordered Start: 06-06-2016 End: 07-17-2024 omeprazole (PRILOSEC) 20 mg capsule 06/06/2016 07/17/2024 Discontinued ondansetron 4 mg oral tablet (1 source) Serotonin-3 Receptor Antagonist Start: 07-08-2024 take 2 tablets by mouth every two hours as needed, then take 1 tablet by mouth every four hours as needed Ondansetron Hcl 4 mg tablet Active 4 mg PO .COMPLEX July 08, 2024 12:00am 4 mg orally; take two tablets PO two hours prior to start of bowel prep and one every 4 hours as needed for N/V pantoprazole 40 mg delayed release oral tablet (12 sources) Proton Pump Inhibitor Start: 2023 pantoprazole 40 mg oral enteric coated tablet Dose : 40 mg = 1 tab(s), Oral, qDay, stop omeprazole, change in therapy, # 90 tab(s), 1 Refill(s), Pharmacy: [id number], 167.5, cm, 07/01/24 12:13:00 EDT, Height, kg, 07/01/24 11:46:00 EDT, Dosing Weight Start Date: 07/01/24 Status: Ordered Quantity: 90.0 Unit: tab(s) Repeat number: 2 polyethylene glycol 3350 93645 mg powder for oral solution (1 source) Osmotic Laxative Start: 07-08-2024 Polyethylene Glycol 3350 (Miralax) 17 gram/dose powder Active 17 g PO ONCE July 08, 2024 12:00am polyethylene glycol 3350 [id number] mg / potassium chloride 2970 mg / sodium bicarbonate 6740 mg / sodium chloride 5860 mg / sodium sulfate 00598 mg powder for oral solution (1 source) Osmotic Laxative Start: 07-08-2024 Peg 3350-Electrolytes (Golytely) 236-22.74-6.74 -5.86 gram recon soln Active 240 mL PO Q10M 4000 July 08, 2024 12:00am as directed for split dose bowel prep PreserVision AREDS 2 oral capsule (12 sources) Start: 09-15-2024 End: 09-10-2025 take 1 capsule by mouth twice daily PreserVision AREDS 2 oral capsule Dose = 1 cap(s), Oral, BID, # 180 cap(s), 3 Refill(s), Pharmacy: [facility], 168.5, cm, 09/15/24 15:06:00 EDT, Height, kg, 09/15/24 15:06:00 EDT, Dosing Weight Start Date: 09/15/24 Stop Date: 09/10/25 Status: Ordered Quantity: 180.0 Unit: cap(s) Repeat number: 4 Start: 2023 End: 10-17-2024 take 1 capsule by mouth twice daily PreserVision AREDS 2 oral capsule Dose = 1 cap(s), Oral, BID, # 180 cap(s), 3 Refill(s), Pharmacy: [facility], 172, cm, 10/23/23 10:58:00 EDT, Height, kg, 10/23/23 10:58:00 EDT, Dosing Weight Start Date: 10/23/23 Stop Date: 10/17/24 Status: Ordered Start: 10-31-2022 End: 10-26-2023 take 1 capsule by mouth twice daily PreserVision AREDS 2 oral capsule Dose = 1 cap(s), Oral, BID, # 180 cap(s), 3 Refill(s), Pharmacy: [facility], 170, cm, 10/31/22 8:36:00 EDT, Height, kg, 10/31/22 8:36:00 EDT, Dosing Weight Start Date: 10/31/22 Stop Date: 10/26/23 Status: Ordered Start: 12-01-2021 End: 11-26-2022 take 1 capsule by mouth twice daily PreserVision AREDS 2 oral capsule Dose = 1 cap(s), Oral, BID, # 180 cap(s), 3 Refill(s), Pharmacy: [facility], 169, cm, 07/28/21 13:20:00 EDT, Height Start Date: 12/01/21 Stop Date: 11/26/22 Status: Ordered Sennosides (Senna) 8.6 mg tablet (1 source) Start: 07-08-2024 take 2 tablets by mouth at bedtime as needed Sennosides (Senna) 8.6 mg tablet Active 17.2 mg PO AT BEDTIME as needed July 08, 2024 12:00am sennosides, residential 8.6 mg oral tablet (8 sources) Start: 10-14-2024 senna (sennosi gregg) 8.6 mg oral tablet Dose : 17.2 mg = 2 tab(s), Oral, qHS, PRN as needed for constipation, # 100 tab(s), 1 Refill(s), Pharmacy: [facility], 168.5, cm, 10/14/24 9:55:00 EDT, Height, kg, 10/14/24 9:55:00 EDT, Dosing Weight Start Date: 10/14/24 Status: Ordered Quantity: 100.0 Unit: tab(s) Repeat number: 2 Start: 07-01-2024 take 2 tablets by mo uth once daily as needed for constipation SENNA 8.6 mg tab Take 17.2 mg by mouth once daily as needed for constipation. 07/01/2024 Active spironolactone 50 mg oral tablet (14 sources) Aldosterone Antagonist Start: 07-08-2024 take 1 tablet by mouth once daily in the morning Spironolactone 50 mg tablet Active 50 mg PO EVERY MORNING July 08, 2024 12:00am Start: 06-03-2024 End: 12-28-2024 spironolactone 25 mg oral ta blet Dose : 25 mg = 1 tab(s), Oral, qDayM, # 90 tab(s), 1 Refill(s), Pharmacy: [facility], 167.5, cm, 07/01/24 12:13:00 EDT, Height, kg, 07/01/24 11:46:00 EDT, Dosing Weight Start Date: 07/01/24 Stop Date: 12/28/24 Status: Ordered Quantity: 90.0 Unit: tab(s) Repeat number: 2 Start: 10-08-2023 End: 04-05-2024 spironolactone 25 mg oral ta blet Dose : 25 mg = 1 tab(s), Oral, qDayM, # 90 tab(s), 1 Refill(s), Pharmacy: [facility], 172, cm, 09/25/23 9:34:00 EDT, Height, kg, 09/25/23 9:34:00 EDT, Dosing Weight Start Date: 10/08/23 Stop Date: 04/05/24 Status: Ordered Start: 09-27-2022 spironolactone 25 mg oral tablet Dose : 25 mg = 1 tab(s), Oral, qDayM, # 30 tab(s), 11 Refill(s), Pharmacy: [facility], 175, cm, 09/27/22 11:39:00 EDT, Height Start Date: 09/27/22 Status: Ordered thiamine 100 mg oral tablet (17 sources) Start: 07-01-2024 take 1 tablet by mouth once daily thiamine (VITAMIN B1) 100 mg tablet Take 1 tablet by mouth once daily. 07/01/2024 Active Start: 07-01-2024 thiamine 100 m g oral tablet Dose : 100 mg = 1 tab(s), Oral, Daily, # 90 tab(s), 1 Refill(s), Pharmacy: [facility], 167.5, cm, 07/01/24 12:13:00 EDT, Height, kg, 07/01/24 11:46:00 EDT, Dosing Weight Start Date: 07/01/24 Status: Ordered Quantity: 90.0 Unit: tab(s) Repeat number: 2 Start: 09-25-2023 thiamine 100 m g oral tablet Dose : 100 mg = 1 tab(s), Oral, Daily, # 90 tab(s), 1 Refill(s), Pharmacy: [facility], 172, cm, 09/25/23 9:34:00 EDT, Height, kg, 09/25/23 9:34:00 EDT, Dosing Weight Start Date: 09/25/23 Status: Ordered Start: 04-03-2023 thiamine 100 m g oral tablet Dose : 100 mg = 1 tab(s), Oral, Daily, # 90 tab(s), 1 Refill(s), Pharmacy: [facility], 170, cm, 03/06/23 11:41:00 EST, Height, kg, 04/03/23 11:41:00 EST, Dosing Weight Start Date: 04/03/23 Status: Ordered Start: 10-10-2022 thiamine 100 m g oral tablet Dose : 100 mg = 1 tab(s), Oral, Daily, # 90 tab(s), 1 Refill(s), Pharmacy: [facility], 175, cm, 10/10/22 10:14:00 EDT, Height, kg, 10/10/22 10:14:00 EDT, Dosing Weight Start Date: 10/10/22 Status: Ordered Start: 07-21-2022 thiamine 100 m g oral tablet Dose : 100 mg = 1 tab(s), Oral, Daily, # 90 tab(s), 0 Refill(s), Pharmacy: [facility], 175, cm, 07/21/22 9:04:00 EDT, Height Start Date: 07/21/22 Status: Ordered vit A/vit C/vit E/zinc/copper (PRESERVISION AREDS ORAL) (7 sources) vit A/vit C/vit E/zinc/copper (PRESERVISION AREDS ORAL) Take by mouth. Active Vit C,V-Tb-Lfcpf-Lutein-Zeaxan (Preservision Areds-2) 250-90-40-1 mg capsule (1 source) Start: 01-24-2024 take 2 capsules by mouth twice daily Vit C,X-Wf-Sothz-Lutein-Zeaxa n (Preservision Areds-2) 250-90-40-1 mg capsule Active 1 {tbl} PO TWICE A DAY January 24, 2024 12:00am Vitamin C 500 mg oral tablet (12 sources) Start: 07-16-2019 Vitamin C 500 mg oral tablet Dose : 500 mg = 1 tab(s), Oral, qDay, # 30 tab(s), 0 Refill(s) Start Date: 07/16/19 Status: Ordered Quantity: 30.0 Unit: tab(s) Repeat number: 1 Start: 07-16-2019 Vitamin C 500 mg oral tablet Dose : 500 mg = 1 tab(s), Oral, qDay, # 30 tab(s), 0 Refill(s) Start Date: 07/16/19 Status: Ordered Vitamin D3 (12 sources) Start: 12-08-2019 Vitamin D3 Dos e : 4,000 unit(s) = 1 tab(s), Oral, Daily, # 90 tab(s), 0 Refill(s) Start Date: 12/08/19 Status: Ordered Quantity: 90.0 Unit: tab(s) Repeat number: 1 Start: 12-08-2019 Vitamin D3 Dos e : 4,000 unit(s) = 1 tab(s), Oral, Daily, # 90 tab(s), 0 Refill(s) Start Date: 12/08/19 Status: Ordered Completed/Discontinued Medications Medication Drug Class(es) Dates Sig (Normalized) Sig (Original) acetaminophen 325 mg / oxyCODONE hydrochloride 5 mg oral tablet (20 sources) Opioid Agonist Start: 10-14-2024 End: 11-13-2024 take 1 tablet by mouth every four hours as needed for pain acetaminophen-oxyCOD ONE 325 mg-5 mg oral tablet Dose = 1 tab(s), Oral, q4h, PRN as needed for pain, To be filled on or after 10/15/2024, # 180 tab(s), 0 Refill(s), Pharmacy: [facility], Primary osteoarthritis Chronic pain of right hip, 168.5, cm, 10/14/24 9:55:00 EDT, Height, 68.4, kg, 10/14/24 9:55:00 EDT, Dosing Weight Start Date: 10/14/24 Stop Date: 11/13/24 Status: Ordered Quantity: 180.0 Unit: tab(s) Repeat number: 1 Indications: Primary osteoarthritis, unspecified site; Pain in right hip; Start: 07-01-2024 take 1 tablet by [place] th every four hours as needed oxyCODONE-acetaminophen (PERCOCET) 5-325 mg tablet Take 1 tablet by mouth as needed (PRN every 4 hours). 07/01/2024 Active Start: 10-21-2019 End: 07-08-2024 Oxycodone-Acetaminophen 1 EA CH tablet Discontinued 1 - 2 NMA PO EVERY 6 HOURS as needed for pain January 24, 2024 12:00am July 08, 2024 7:11am Start: 10-21-2019 End: 10-30-2019 Oxycodone-Acetaminophen Acti ve 1 - 2 EACH PO EVERY 6 HOURS 56 7 October 30, 2019 docusate sodium 50 mg / sennosides, residential 8.6 mg oral tablet (2 sources) Start: 10-30-2019 End: 12-07-2023 Sennosides-Docusate Sodium 1 TABLET tablet Discontinued 2 {tbl} PO TWICE A DAY October 30, 2019 12:00am December 07, 2023 10:27am Take until first bowel movement, then as needed Start: 10-30-2019 Sennosides-Doc usate Sodium Active 2 TABLET PO TWICE A DAY October 30, 2019 12:00am Take until first bowel movement, then as needed hydroCHLOROthiazide 12.5 mg oral capsule (2 sources) Thiazide Diuretic Start: 11-19-2009 End: 07-17-2024 HYDROCHLOROTHIAZIDE 12.5 MG CAP Take one(1) tablet daily. 0 11/19/2009 07/17/2024 Discontinued hydroCHLOROthiazide 12.5 mg / valsartan 320 mg oral tablet (4 sources) Thiazide Diuretic, Angiotensin 2 Receptor Christopher Start: 11-12-2017 End: 12-07-2023 Valsartan-Hydrochlorothia zide 1 EACH tablet Discontinued 1 NMA PO DAILY November 12, 2017 12:00am December 07, 2023 10:27am Start: 11-12-2017 Valsartan-Hydr ochlorothiazide Active 1 EACH PO DAILY November 12, 2017 12:00am Start: 05-20-2016 End: 07-17-2024 Valsartan-Hydrochlorothiazid e 320-12.5 mg per tablet 05/20/2016 07/17/2024 Discontinued 10 ml iron sucrose 20 mg/ml injection (5 sources) Parenteral Iron Replacement Start: 08-06-2024 End: 08-06-2024 200 mg, INTRAVENOUS, ONCE, 1 dose, On Sun08/06/24 at 0900, Please conduct a 30 minute post dose observation. Start: 08-04-2024 End: 08-04-2024 200 mg, INTRAVENOUS, ONCE, 1 dose, On Sun08/04/24 at 0830, Please conduct a 30 minute post dose observation. Start: 07-30-2024 End: 07-30-2024 200 mg, INTRAVENOUS, ONCE, 1 dose, On Sun07/30/24 at 1400, Please conduct a 30 minute post dose observation. Start: 07-28-2024 End: 07-28-2024 200 mg, INTRAVENOUS, ONCE, 1 dose, On Sun07/28/24 at 0830, Please conduct a 30 minute post dose observation. Start: 07-24-2024 End: 07-24-2024 200 mg, INTRAVENOUS, ONCE, 1 dose, On Susu 07/24/24 at 1400, Please conduct a 30 minute post dose observation. meloxicam 7.5 mg oral tablet (2 sources) Nonsteroidal Anti-inflammatory Drug Start: 11-12-2017 End: 12-07-2023 take 1 tablet by mouth twice daily Meloxicam 7.5 MG tablet Discontinued 7.5 mg PO TWICE A DAY November 12, 2017 12:00am December 07, 2023 10:25am permethrin 50 mg/ml topical cream (1 source) Pyrethroid Start: 11-03-2024 End: 11-04-2024 permethrin 5% topical cream Dose = 1 cipriano, Topical, qDay, Apply to skin ONCE head to feet, remove by washing after 8 to 14 hours reapply in 14 days with same instructions, # 120 gram(s), 0 Refill(s), Pharmacy: [facility], 168.5, cm, 10/14/24 9:55:00 EDT, Height, kg, 10/14/24 9:55:00 EDT, Dosing Weight Start Date: 11/03/24 Stop Date: 11/04/24 Status: Ordered Quantity: 120.0 Unit: g Repeat number: 1 predniSONE 10 mg oral tablet (1 source) Start: 09-05-2022 take 1 tablet by mouth once daily prednisone 10mg tab (TAPER) See Instructions, 40 mg (4 tabs)-30 mg (3 tabs)-20 mg (2 tabs)-10 mg (1 tab)-5 (0.5 tab)mg x 4days/dose Oral qDay 20 day(s), # 42 tab(s), 0 Refill(s), Pharmacy: [facility], 175, cm, 09/05/22 9:48:00 EDT, Height Start Date: 09/05/22 Status: Ordered rivaroxaban 10 mg oral tablet (2 sources) Factor Xa Inhibitor Start: 10-30-2019 End: 12-07-2023 take 1 tablet by mouth once daily Rivaroxaban 10 MG tablet Discontinued 10 mg PO DAILY@0600 12 October 30, 2019 12:00am December 07, 2023 10:28am Continue with Xarelto for 2 weeks postoperatively for DVT prophylaxis valsartan 160 mg oral tablet (2 sources) Angiotensin 2 Receptor Christopher Start: 11-19-2009 End: 07-17-2024 valsartan(DIOVAN 160 MG TAB) Take one(1) tablet daily. 0 11/19/2009 07/17/2024 Discontinued vitamin b12 1 mg/ml injectable solution (1 source) Vitamin B12 Start: 07-09-2024 inject 1 mL by subcutaneous injection every month cyanocobalamin 1000 mcg/mL injectable solution Dose : 1,000 mcg = 1 mL, Subcutaneous, qmonth, # 10 mL, 0 Refill(s), Pharmacy: [facility], 170.2, cm, 07/09/24 13:17:00 EDT, Height, kg, 07/09/24 13:13:00 EDT, Dosing Weight Start Date: 07/09/24 Status: Ordered Quantity: 10.0 Unit: mL Repeat number: 1 Problems Active Problems Problem Classification Problem Date Documented Date Episodic/Chronic Acute and unspecified renal failure (1 source) Acute renal failure syndrome 07-09-2024 Episodic Acute myocardial infarction (2 sources) Non-ST elevation (NSTEMI) myocardial infarction; Translations: [Non-ST elevation (NSTEMI) myocardial infarction] Onset: Chronic Alcohol-related disorders (13 sources) Alcohol abuse; Translations: [Current drinker] 07-21-2022 Chronic Alcohol-related disorders (2 sources) Alcohol intoxication; Translations: [Alcohol use, unspecified with intoxication, unspecified] 01-01-2023 Episodic Anxiety disorders (13 sources) Mixed anxiety and depressive disorder; Translations: [Anxiety] 01-06-2020 Chronic Blindness and vision defects (13 sources) Wears glasses 02-21-2022 Episodic Cataract (13 sources) Cataract 11-10-2019 Chronic Chronic obstructive pulmonary disease and bronchiectasis (15 sources) Chronic obstructive lung disease; Translations: [Chronic obstructive pulmonary disease, unspecified] Onset: 3 07-28-2021 Chronic Congestive heart failure; nonhypertensive (20 sources) Acute on chronic systolic heart failure; Translations: [Chronic diastolic heart failure] 07-21-2022 Chronic Coronary atherosclerosis and other heart disease (20 sources) Coronary atherosclerosis; Translations: [Atherosclerotic heart disease of [place] coronary artery without angina pectoris] Onset: Chronic Coronary atherosclerosis and other heart disease (11 sources) Stented coronary artery 07-21-2022 Episodic Deficiency and other anemia (13 sources) Iron deficiency anemia due to blood loss; Translations: [Iron deficiency anemia secondary to blood loss (chronic)] Onset: 5 07-17-2024 Chronic Deficiency and other anemia (1 source) Iron deficiency anemia secondary to blood loss (chronic); Translations: [Iron deficiency anemia due to chronic blood loss] Onset: Chronic Deficiency and other anemia (2 sources) Anemia; Translations: [Anemia, unspecified] 07-08-2024 Episodic Deficiency and other anemia (1 source) Iron deficiency anemia 07-09-2024 Episodic Diabetes mellitus without complication (13 sources) Hyperglycemia 01-30-2020 Episodic Disorders of lipid metabolism (12 sources) Hyperlipidemia; Translations: [Hyperlipidemia, unspecified] Chronic E Codes: Fall (2 sources) Fall; Translations: [Unspecified fall, initial encounter] 01-01-2023 Episodic E Codes: Fall (6 sources) Fall in home 01-03-2023 Esophageal disorders (14 sources) Gastroesophageal reflux disease; Translations: [Gastroesophageal reflux disease without esophagitis] 01-17-2019 Chronic Essential hypertension (7 sources) Hypertensive disorder; Translations: [Essential hypertension] Onset: 3 01-17-2019 Chronic Gout and other crystal arthropathies (7 sources) Gout 09-05-2022 Chronic Heart valve disorders (20 sources) Aortic valve stenosis; Translations: [Mitral valve regurgitation] 01-24-2019 Chronic Hyperplasia of prostate (13 sources) Benign prostatic hyperplasia 06-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 Hypertension with complications and secondary hypertension (13 sources) Hypertensive heart disease with congestive heart failure; Translations: [Hypertensive heart failure] 07-21-2022 Chronic Mood disorders (13 sources) 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-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 Mycoses (13 sources) Onychomycosis 12-01-2020 Episodic Nonspecific chest pain (13 sources) Chest pain 07-15-2022 Episodic Nutritional deficiencies (2 sources) Cobalamin deficiency; Translations: [Magnesium deficiency] 07-09-2024 Episodic Occlusion or stenosis of precerebral arteries (11 sources) Carotid artery stenosis; Translations: [Internal carotid artery stenosis] Onset: 5 05-14-2023 Chronic Comment on above: CTA images reviewed, 85% stenosis, calcified, long lesion Open wounds of head; neck; and trunk (3 sources) Facial laceration ; Translations: [Laceration without foreign body of other part of head, initial encounter] 01-01-2023 Episodic Osteoarthritis (20 sources) Idiopathic osteoarthritis; Translations: [Osteoarthritis] Onset: 3 06-21-2021 Chronic Other aftercare (11 sources) Post-discharge follow-up 07-21-2022 Episodic Other aftercare (2 sources) Long-term current use of anticoagulant; Translations: [custodial (current) use of anticoagulants] 01-01-2023 Episodic Other aftercare (1 source) Surgical follow-up; Translations: [Encounter for surgical aftercare following surgery on the circulatory system] 02-12-2024 Episodic Other aftercare (2 sources) Encounter for surgical aftercare following surgery on the circulatory system; Translations: [Encounter for surgical aftercare following surgery on the circulatory system] Onset: Episodic Other and ill-defined heart disease (11 sources) Left atrial dilatation 07-21-2022 Chronic Other bone disease and musculoskeletal deformities (13 sources) Somatic dysfunction of lumbar region 06-04-2020 Episodic Other bone disease and musculoskeletal deformities (13 sources) Somatic dysfunction of pelvic region 06-04-2020 Episodic Other circulatory disease (11 sources) History of transient ischemic attack 07-21-2022 Episodic Other circulatory disease (2 sources) Orthostatic hypotension; Translations: [Orthostatic hypotension] 04-19-2022 Episodic Other circulatory disease (1 source) Carotid bruit 05-07-2023 Episodic Other connective tissue disease (13 sources) Cramp in lower limb 06-18-2019 Episodic Other connective tissue disease (8 sources) H/O: gout 10-05-2020 Episodic Other connective tissue disease (13 sources) Hand pain 10-05-2020 Episodic Other connective tissue disease (13 sources) Swelling of lower limb 12-08-2019 Episodic Other ear and sense organ disorders (8 sources) Impacted cerumen 12-01-2021 Episodic Other endocrine disorders (11 sources) 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 Other gastrointestinal disorders (13 sources) Malabsorption - iron; Translations: [Intestinal malabsorption, unspecified] Onset: 5 07-17-2024 Chronic Other gastrointestinal disorders (1 source) Intestinal malabsorption, unspecified; Translations: [Iron malabsorption (HCC)] Onset: 5 Chronic Other gastrointestinal disorders (13 sources) Esophageal dysphagia 03-03-2020 Episodic Other gastrointestinal disorders (2 sources) Constipation; Translations: [Constipation, unspecified] 07-08-2024 Episodic Other hereditary and degenerative nervous system conditions (13 sources) Restless legs 01-17-2019 Chronic Other injuries and conditions due to external causes (2 sources) At low risk for fall 07-28-2021 Episodic Other injuries and conditions due to external causes (13 sources) Insect bite - wound 04-05-2021 Episodic Other injuries and conditions due to external causes (2 sources) Injury of head; Translations: [Unspecified injury of head, initial encounter] 01-01-2023 Episodic Other injuries and conditions due to external causes (6 sources) Tear of skin 03-06-2023 Episodic Other lower respiratory disease (6 sources) Dyspnea on exertion 08-07-2022 Episodic Other nervous system disorders (13 sources) Carpal tunnel syndrome 12-01-2020 Chronic Other nervous system disorders (1 source) Chronic pain; Translations: [Other chronic pain] Onset: 3 Chronic Other nervous system disorders (13 sources) Paresthesia 03-12-2019 Episodic Other nervous system disorders (13 sources) Unsteady gait 01-17-2019 Episodic Other non-traumatic joint disorders (13 sources) Hip pain 07-16-2019 Episodic Other non-traumatic joint disorders (13 sources) Pain in wrist 10-05-2020 Episodic Other non-traumatic joint disorders (1 source) Pain in right hip joint; Translations: [Pain in right hip] Onset: 3 Episodic Other nutritional; endocrine; and metabolic disorders (5 sources) Overweight 07-31-2023 Episodic Other nutritional; endocrine; and metabolic disorders (5 sources) Overweight in adulthood with body mass index of 25 or more but less than 30 2023 Episodic Other screening for suspected conditions (not mental disorders or infectious disease) (20 sources) Electrocardiogram abnormal; Translations: [Raised prostate specific antigen] 07-15-2022 Episodic Other skin disorders (13 sources) Actinic keratosis 06-21-2021 Episodic Other skin disorders (13 sources) Dry skin 01-31-2022 Episodic Other skin disorders (13 sources) Hyperkeratosis 01-17-2019 Episodic Other upper respiratory disease (13 sources) Seasonal allergy 09-29-2021 Chronic Other upper respiratory disease (13 sources) Congestion of nasal sinus 04-06-2020 Episodic Other upper respiratory infections (5 sources) Viral upper respiratory tract infection 05-29-2023 Episodic Peripheral and visceral atherosclerosis (7 sources) Peripheral vascular disease 08-23-2022 Chronic Comment on above: xray wrist shows rad ial arterial calcification 08/22/22 Phlebitis; thrombophlebitis and thromboembolism (13 sources) H/O: thrombosis 05-21-2019 Episodic Pulmonary heart disease (11 sources) Pulmonary hypertension 07-21-2022 Chronic Residual codes; unclassified (13 sources) Chronic pain 01-17-2019 Episodic Residual codes; unclassified (13 sources) Denture present 06-18-2019 Episodic Residual codes; unclassified (13 sources) Immunization due 01-06-2020 Episodic Residual codes; unclassified (13 sources) Screening due 01-31-2022 Episodic Residual codes; unclassified (2 sources) Current drinker; Translations: [Alcohol use, unspecified, uncomplicated] Onset: 3 Episodic Residual codes; unclassified (5 sources) Edema of right upper limb 08-18-2022 Episodic Residual codes; unclassified (1 source) Localized edema; Translations: [Localized edema] Episodic Respiratory failure; insufficiency; arrest (adult) (1 source) Acute respiratory failure; Translations: [Acute respiratory failure with hypoxia] Episodic Retinal detachments; defects; vascular occlusion; and retinopathy (13 sources) Nonexudative age-related macular degeneration 11-21-2019 Chronic Screening and history of mental health and substance abuse codes (15 sources) Ex-smoker; Translations: [H/O: Disorder] Onset: 3 06-18-2019 Episodic Comment on above: quit 1999 Spondylosis; intervertebral disc disorders; other back problems (13 sources) Backache 07-15-2022 Episodic Syncope (2 sources) Near syncope; Translations: [Syncope and collapse] 04-19-2022 Episodic Transient cerebral ischemia (20 sources) Amaurosis fugax; Translations: [Transient cerebral ischemia] 01-17-2019 Chronic Unclassified (13 sources) Does mobilize using cane 05-30-2022 Unclassified (13 sources) Drug therapy finding 07-16-2019 Unclassified (13 sources) History of repair of hip joint 11-10-2019 Unclassified (13 sources) Influenza vaccination declined 06-02-2021 Unclassified (20 sources) Patient encounter status 01-06-2020 Unclassified (13 sources) Prescribed medication regimen behavior finding 07-16-2019 Unclassified (11 sources) Moderate aortic valve stenosis 07-21-2022 Unclassified (11 sources) Moderate tricuspid valve regurgitation 07-21-2022 Unclassified (1 source) Alcohol use, unspecified, uncomplicated; Translations: [Alcohol use, unspecified, uncomplicated] Onset: Past or Other Problems Problem Classification Problem Date Documented Da te Episodic/Chronic Deficiency and other anemia (1 source) Anemia, unspecified; Translations: [Anemia, unspecified] Onset: 07-08-2024 Episodic Results Test Name Value Interpretation Reference Range Facility .[facility] 11-14-2024 Basophil, Absolute 0.1 10 3/mcL Normal 0.0-0.3 [facility] Comment on above: Performed By: #### A HARINI, CBC, MG, GFR, ADIFF, BMP #### [address] [address] Basophils/100 WBC (Bld) 0.8 % Normal 0.0-2.5 [facility] Comment on above: Performed By: #### A HARINI, CBC, MG, GFR, ADIFF, BMP #### [id number] [place], [place] [address] Eosinophil, Absolute 0.3 10 3/mcL Normal 0.0-0.7 [facility] Comment on above: Performed By: #### A HARINI, CBC, MG, GFR, ADIFF, BMP #### [address] [address] Eosinophils/100 WBC (Bld) 3.7 % Normal 0.0-6.0 [facility] Comment on above: Performed By: #### A HARINI, CBC, MG, GFR, ADIFF, BMP #### [address] [address] Lymphocyte, Absolute 1.3 10 3/mcL Normal 0.9-4.3 [facility] Comment on above: Performed By: #### A HARINI, CBC, MG, GFR, ADIFF, BMP #### [address] [address] Lymphocytes/100 WBC (Bld) 18.4 % Low 20.0-40.0 [facility] Comment on above: Performed By: #### A HARINI, CBC, MG, GFR, ADIFF, BMP #### [address] [address] Monocyte, Absolute 0.7 10 3/mcL Normal 0.1-1.4 [facility] Comment on above: Performed By: #### A HARINI, CBC, MG, GFR, ADIFF, BMP #### [address] [address] Monocytes/100 WBC (Bld) 9.7 % Normal 2.0-13.0 [facility] Comment on above: Performed By: #### A HARINI, CBC, MG, GFR, ADIFF, BMP #### [address] [address] Neutrophils/100 WBC (Bld) 67.4 % Normal 50.0-75.0 [facility] Comment on above: Performed By: #### A HARINI, CBC, MG, GFR, ADIFF, BMP #### [address] [address] .GFRon 11-14-2024 Estimated Glomerular Filtration Rate 57 ml/min/1.73sqm Normal [facility] Comment on above: Result Comment: Stages of Chronic Kidney Disease (CKD) Stage Description eGFR(ml/min/1.73 sq.m.) CKD 1 Normal kidney function or >=90 normal kindney function with possible kidney damage (ex. Proteinuria) CKD 2 Kidney damage with mild loss 60-89 of kidney function CKD 3a Mild to moderate loss of kidney 45-59 function CKD 3b Moderate to severe loss of 30-44 of kindey function CKD 4 Severe loss of kidney function 15-29 CKD 5 Kidney failure <15 Note: (go live 2024) the eGFR calculation was updated to the 2020 CKD-EPI creatinine equation without a race factor to calculate the eGFR results. Performed By: #### A HARINI, CBC, MG, GFR, ADIFF, BMP #### [place] [id number] .NEUABSon 11-14-2024 Neutrophil, Absolute 4.6 10 3/mcL Normal 2.3-8.1 [facility] Comment on above: Performed By: #### A HARINI, CBC, MG, GFR, ADIFF, BMP #### [address] [address] CBCon 11-14-2024 Erythrocyte distribution width (RBC) [Ratio] 14.3 % Normal 11.5-15.5 [facility] Comment on above: Performed By: #### A HARINI, CBC, MG, GFR, ADIFF, BMP #### [place] [id number] Hematocrit (Bld) [Volume fraction] 36.4 % Low 40.0-52.0 [facility] Comment on above: Performed By: #### A HARINI, CBC, MG, GFR, ADIFF, BMP #### [address] [address] Hgb 11.9 G/dL Low 13.0-17.5 [facility] Comment on above: Performed By: #### A HARINI, CBC, MG, GFR, ADIFF, BMP #### [address] [address] MCH (RBC) [Entitic mass] 29.1 pg Normal 27.0-33.0 [facility] Comment on above: Performed By: #### A HARINI, CBC, MG, GFR, ADIFF, BMP #### [address] [address] MCHC 32.8 G/dL Normal 32.0-36.0 [facility] Comment on above: Performed By: #### A HARINI, CBC, MG, GFR, ADIFF, BMP #### [address] [address] MCV (RBC) [Entitic vol] 88.8 fL Normal 81.0-100.0 [facility] Comment on above: Performed By: #### A HARINI, CBC, MG, GFR, ADIFF, BMP #### [address] [address] Platelet 175 10 3/mcL Normal 150-450 [facility] Comment on above: Performed By: #### A HARINI, CBC, MG, GFR, ADIFF, BMP #### [address] [address] Platelet mean volume (Bld) [Entitic vol] 8.7 fL Normal 6.4-10.5 [facility] Comment on above: Performed By: #### A HARINI, CBC, MG, GFR, ADIFF, BMP #### [address] [address] RBC 4.10 10 6/mcL Low 4.50-6.00 [facility] Comment on above: Performed By: #### A HARINI, CBC, MG, GFR, ADIFF, BMP #### [address] [address] WBC 6.9 10 3/mcL Normal 4.5-10.8 [facility] Comment on above: Performed By: #### A HARINI, CBC, MG, GFR, ADIFF, BMP #### [address] [address] CMPon 11-14-2024 Albumin Level 4.0 G/dL Normal 3.4-4.8 [facility] Comment on above: Performed By: #### A HARINI, CBC, MG, GFR, ADIFF, BMP #### [address] [address] Albumin/Globulin [Mass ratio] 1.3 {ratio} Normal 1.1-2.5 [facility] Comment on above: Performed By: #### A HARINI, CBC, MG, GFR, ADIFF, BMP #### [place] [address] ALP [Catalytic activity/Vol] 103 U/L Normal 40-135 [facility] Comment on above: Performed By: #### A HARINI, CBC, MG, GFR, ADIFF, BMP #### [place] [address] ALT [Catalytic activity/Vol] 25 U/L Normal 16-63 [facility] Comment on above: Performed By: #### A HARINI, CBC, MG, GFR, ADIFF, BMP #### [place] [id number] AST [Catalytic activity/Vol] 27 U/L Normal 10-40 [facility] Comment on above: Performed By: #### A HARINI, CBC, MG, GFR, ADIFF, BMP #### [place] [id number] Bili Total 0.4 mg/dL Normal 0.2-1.0 [facility] Comment on above: Result Comment: Use of this assay is not recommended for patients undergoing treatment with eltrombopag due to the potential for falsely elevated results. Performed By: #### A HARINI, CBC, MG, GFR, ADIFF, BMP #### [address] [address] BUN/Creatinine Ratio 22 ratio Normal 7-27 [facility] Comment on above: Performed By: #### A HARINI, CBC, MG, GFR, ADIFF, BMP #### [place] [id number] Calcium [Mass/Vol] 9.3 mg/dL Normal 8.4-10.2 [facility] Comment on above: Performed By: #### A HARINI, CBC, MG, GFR, ADIFF, BMP #### [address] [address] Chloride [Moles/Vol] 103 mmol/L Normal 98-107 [facility] Comment on above: Performed By: #### A HARINI, CBC, MG, GFR, ADIFF, BMP #### [place] [address] CO2 [Moles/Vol] 30 mmol/L Normal 23-31 [facility] Comment on above: Performed By: #### A HARINI, CBC, MG, GFR, ADIFF, BMP #### [place] [address] Creatinine [Mass/Vol] 1.21 mg/dL High 0.67-1.17 [facility] Comment on above: Performed By: #### A HARINI, CBC, MG, GFR, ADIFF, BMP #### [place] [address] Electrolyte Balance 8.0 mEq/L Normal 4.0-15.0 [facility] Comment on above: Performed By: #### A HARINI, CBC, MG, GFR, ADIFF, BMP #### [place] [address] Globulin 3.0 G/dL Normal 2.7-4.4 [facility] Comment on above: Performed By: #### A HARINI, CBC, MG, GFR, ADIFF, BMP #### [place] [address] Glucose [Mass/Vol] 96 mg/dL Normal 83-110 [facility] Comment on above: Performed By: #### A HARINI, CBC, MG, GFR, ADIFF, BMP #### [place] [address] Potassium [Moles/Vol] 5.2 mmol/L High 3.5-5.1 [facility] Comment on above: Performed By: #### A HARINI, CBC, MG, GFR, ADIFF, BMP #### [place] [address] Sodium [Moles/Vol] 141 mmol/L Normal 136-145 [facility] Comment on above: Performed By: #### A HARINI, CBC, MG, GFR, ADIFF, BMP #### [address] [address] Total Protein 7.0 G/dL Normal 6.4-8.2 [facility] Comment on above: Performed By: #### A HARINI, CBC, MG, GFR, ADIFF, BMP #### [address] [address] Urea nitrogen [Mass/Vol] 27 mg/dL High 7-18 [facility] Comment on above: Performed By: #### A HARINI, CBC, MG, GFR, ADIFF, BMP #### [address] [address] Arnav 11-14-2024 Ferritin [Mass/Vol] 113.0 ng/mL Normal 26.0-388.0 [facility] Comment on above: Performed By: #### A HARINI, CBC, MG, GFR, ADIFF, BMP #### [address] [address] FESon 11-14-2024 Iron [Mass/Vol] 50 ug/dL Low 65-175 [facility] Comment on above: Performed By: #### A HARINI, CBC, MG, GFR, ADIFF, BMP #### [address] [address] Iron Sat 19 % Normal [facility] Comment on above: Performed By: #### A HARINI, CBC, MG, GFR, ADIFF, BMP #### [address] [address] TIBC 264 mcg/dL Normal 250-450 [facility] Comment on above: Performed By: #### A HARINI, CBC, MG, GFR, ADIFF, BMP #### [address] [address] LABORATORYOrdered By: SYSTEM SYSTEM on 11-14-2024 Albumin BCP dye [Mass/Vol] 4.0 G/dL Normal 3.4 - 4.8 G/dL AO ADM SS Albumin/Globulin [Mass ratio] 1.3 {ratio} Normal 1.1 - 2.5 ratio AO ADM SS ALP [Catalytic activity/Vol] 103 U/L Normal 40 - 135 U/L AO ADM SS ALT With P-5'-P [Catalytic activity/Vol] 25 U/L Normal 16 - 63 U/L AO ADM SS AST With P-5'-P [Catalytic activity/Vol] 27 U/L Normal 10 - 40 U/L AO ADM SS Basophils (Bld) [#/Vol] 0.1 103/mcL Normal 0.0 - 0.3 10^3/mcL AO Workflow SS Basophils/100 WBC (Bld) 0.8 % Normal 0.0 - 2.5 % AO Workflow SS Bilirubin [Mass/Vol] 0.4 mg/dL Normal 0.2 - 1 .0 mg/dL AO ADM SS Comment on above: Interpretive Data: U se of this assay is not recommended for patients undergoing treatment with eltrombopag due to the potential for falsely elevated results. Calcium [Mass/Vol] 9.3 mg/dL Normal 8.4 - 10. 2 mg/dL AO ADM SS Chloride [Moles/Vol] 103 mmol/L Normal 98 - 10 7 mmol/L AO ADM SS CO2 [Moles/Vol] 30 mmol/L Normal 23 - 31 mmol/L AO ADM SS Creatinine [Mass/Vol] 1.21 mg/dL High 0.67 - 1.17 mg/dL AO ADM SS Electrolyte Balance 8.0 mEq/L Normal 4.0 - 15 .0 mEq/L AO ADM SS Eosinophil, Absolute 0.3 103/mcL Normal 0.0 - 0 .7 10^3/mcL AO Workflow SS Eosinophils/100 WBC (Bld) 3.7 % Normal 0.0 - 6.0 % AO Workflow SS Erythrocyte distribution width (RBC) [Ratio] 14.3 % Normal 11.5 - 15.5 % AO Workflow SS Estimated Glomerular Filtration Rate 57 ml/min/1.73sqm Invalid Interpretation Code AO [facility] S Comment on above: Interpretive Data: Stages of Chronic Kidney Disease (CKD) Stage Description eGFR(ml/min/1.73 sq.m.) CKD 1 Normal kidney function or >=90 normal kindney function with possible kidney damage (ex. Proteinuria) CKD 2 Kidney damage with mild loss 60-89 of kidney function CKD 3a Mild to moderate loss of kidney 45-59 function CKD 3b Moderate to severe loss of 30-44 of kindey function CKD 4 Severe loss of kidney function 15-29 CKD 5 Kidney failure <15 Note: (go live 2024) the eGFR calculation was updated to the 2020 CKD-EPI creatinine equation without a race factor to calculate the eGFR results. Ferritin [Mass/Vol] 113.0 ng/mL Normal 26.0 - 388.0 ng/mL AO ADM SS Globulin 3.0 G/dL Normal 2.7 - 4.4 G/dL AO ADM SS Glucose [Mass/Vol] 96 mg/dL Normal 83 - 110 mg/dL AO ADM SS Hematocrit (Bld) [Volume fraction] 36.4 % Low 40.0 - 52.0 % AO Workflow SS Hemoglobin (Bld) [Mass/Vol] 11.9 G/dL Low 13.0 - 17.5 G/dL AO Workflow SS Immature reticulocytes/Total reticulocytes (Bld) 0.34 IRF Normal 0.21 - 0.43 IRF AO Workflow SS Iron [Mass/Vol] 50 ug/dL Low 65 - 175 mcg/dL AO ADM SS Iron binding capacity [Mass/Vol] 264 mcg/dL Normal 250 - 450 mcg/dL AO ADM SS Iron Sat 19 % Invalid Interpretation Code AO ADM SS Lymphocytes (Bld) [#/Vol] 1.3 103/mcL Normal 0.9 - 4.3 10^3/mcL AO Workflow SS Lymphocytes/100 WBC (Bld) 18.4 % Low 20.0 - 40.0 % AO Workflow SS MCH (RBC) [Entitic mass] 29.1 pg Normal 27.0 - 33.0 pg AO Workflow SS MCHC 32.8 G/dL Normal 32.0 - 36.0 G/dL AO Workflow SS MCV (RBC) [Entitic vol] 88.8 fL Normal 81.0 - 100.0 fL AO Workflow SS Monocytes (Bld) [#/Vol] 0.7 103/mcL Normal 0.1 - 1.4 10^3/mcL AO Workflow SS Monocytes/100 WBC (Bld) 9.7 % Normal 2.0 - 13.0 % AO Workflow SS Neutrophils (Bld) [#/Vol] 4.6 103/mcL Normal 2.3 - 8.1 10^3/mcL AO Workflow SS Neutrophils/100 WBC (Bld) 67.4 % Normal 50.0 - 75.0 % AO Workflow SS Platelet mean volume (Bld) [Entitic vol] 8.7 fL Normal 6.4 - 10.5 fL AO Workflow SS Platelets (Bld) [#/Vol] 175 103/mcL Normal 150 - 450 10^3/mcL AO Workflow SS Potassium [Moles/Vol] 5.2 mmol/L High 3.5 - 5.1 mmol/L AO ADM SS Protein [Mass/Vol] 7.0 G/dL Normal 6.4 - 8.2 G/dL AO ADM SS RBC (Bld) [#/Vol] 4.10 106/mcL Low 4.50 - 6.0 0 10^6/mcL AO Workflow SS Reticulocytes, Auto 1.2 % Normal 0.2 - 2.3 % AO W orkflow SS Sodium [Moles/Vol] 141 mmol/L Normal 136 - 145 mmol/L AO ADM SS Urea nitrogen [Mass/Vol] 27 mg/dL High 7 - 18 mg/dL AO ADM SS Urea nitrogen/Creatinine [Mass ratio] 22 ratio Normal 7 - 27 ratio AO ADM SS WBC (Bld) [#/Vol] 6.9 103/mcL Normal 4.5 - 10.8 10^3/mcL AO Workflow SS RETO (AO)on 11-14-2024 Immature Retic Fraction 0.34 IRF Normal 0.21-0.43 [facility] Comment on above: Performed By: #### A HARINI, CBC, MG, GFR, ADIFF, BMP #### [place] [address] [address] Reticulocytes, Auto 1.2 % Normal 0.2-2.3 [facility] Comment on above: Performed By: #### A HARINI, CBC, MG, GFR, ADIFF, BMP #### [place] [address] [address] MR/Cynthia 11-07-2024 MR/DARREN.[facility] Medical Records Department [address] [place] [address] PAT - Anesthesia 11/07/24 1730 MR#: [id number] Acct: [id number] Name: VERNON LOGAN Rep #: [id number] : 1935 89 From: Justni Fonseca MD PCP: Dr. Aaliyah Trujillo, DO Status:PRE [facility] Y Race: C Location: EN Pre-Assessment Diagnosis/Proposed Procedure Planned Operative Procedure(s): COLONOSCOPY, EGD Anesthesia History Anesthesia History - residential care facility manager: Anesthesia History - residential care facility manager Hx Hospitalization Yes: ENDARTECTOMY 02/06, 11/07/24 09:14 [facility] 2024- [place] Any Problems With Anesthesia No 11/07/24 09:14 Cholinesterase deficiency No 11/07/24 09:14 You/Your Family Experience No 11/07/24 09:14 fever (hyperthermia) with Relationship Recent Exposure to Contagious No 01/28/24 06:38 Disease Does patient have nerve No 11/07/24 09:14 stimulator Patient instructed to have device shut off --Does patient have Pacemaker or ICD? When Was Last Pacemaker Check QUESTION #4 FULL TEXT: You/Your Family Experience fever (hyperthermia) with Anesthesia Last Oral Intake Last Oral intake: Last Oral Intake NPO since Meds taken in AM with sips of water? Meds patient instructed to take am of surgery PONV PONV - residential care facility manager: PONV - residential care facility manager Female No 11/07/24 09:14 HX of Motion Sickness No 11/07/24 09:14 HX of N/V After Surgery No 11/07/24 09:14 Non-Smoker Yes 11/07/24 09:14 Duration of Surgery greater No 11/07/24 09:14 than 60 minutes Number of Risk Factors 1 11/07/24 09:14 PONV Score Low Risk 11/07/24 09:14 Height Weight Height Weight: Anesthesia: Height Weight Height 5 ft 9 in 07/08/24 08:56 Respiratory Assessment Respiratory Assessment - residential care facility manager: Respiratory Tract Infection Hx - residential care facility manager Hx Respiratory Tract Infection No 11/07/24 09:14 STOP Sleep Apnea STOP Sleep Apnea - residential care facility manager: STOP Sleep Apnea - residential care facility manager Hx Hypertension Yes: controlled with meds 11/07/24 09:14 Hx Sleep Apnea No 11/07/24 09:14 CPAP No 11/07/24 09:14 BIPAP Do you snore loudly (louder No 11/07/24 09:14 than talking or can be heard Do you often feel tired/ No 11/07/24 09:14 fatigued/ sleepy during daytime? Has anyone observed you stop No 11/07/24 09:14 breathing during sleep? STOP Results Negative 11/07/24 09:14 QUESTION #5 FULL TEXT : Do you snore loudly (louder than talking or can be heard through closed doors)? Tobacco Use History Tobacco Use History - residential care facility manager: Tobacco Use History - residential care facility manager Tobacco Use Smoking Status Former smoker 11/07/24 09:14 Hx Tobacco Use No 11/07/24 09:14 Years Smoking Packs Smoked per Day Smoking Cessation Date was No - quit smoking greater 11/07/24 09:14 within the last 15 years than 15 years ago Hx Smoking Cessation Date Hx Smoking Cessation No 11/07/24 09:14 Counseling Hematologic Medial History Hematologic Hx - residential care facility manager: Hematologic Medical Hx - guide travel Hx of Blood Transfusion Yes 11/07/24 09:14 Hx of Transfusion in last 3 Yes 11/07/24 09:14 Months Date of Last Transfusion (if 06/1011/07/24 09:14 within last 3 months) Ever experience any problems No 11/07/24 09:14 with transfusion(s)? Specify any problems Hx of Preganancy in last 3 N/A 11/07/24 09:14 Months Nurse Filling Out Transfusion [id number] 11/07/24 09:14 Questions: Date: 11/07/24 11/07/24 09:14 Time: 09:20 11/07/24 09:14 Patient unable to answer at this time (ie. confused, unrespo /Reproduction History /Reproductive History - residential care facility manager: /Reproductive Hx- residential care facility manager Hx Now Gestational Age (in weeks): EDC: Hx Hx Para Hx Section SAB No 11/07/24 09:14 PFS Medical History Alcohol use Wears glasses Wears partial dentures Wears dentures Ambulates with cane High cholesterol Back pain Injury of head and neck Syncope Dietary restriction Gastric reflux Former smoker History of pain when walking History of edema History of CHF (congestive heart failure) History of heart attack DVT (deep venous thrombosis) History of stress test Cardiology follow-up encounter Heart murmur History of fracture of tibia Bronchitis Hypertension Home Medications ???Medication ???Instructions ???Recorded ???Last Taken ???Type carvedilol 12.5 mg tablet (Coreg) 6.25 mg PO BID bp 11/12/17 History aspirin 81 mg chewable tablet 81 mg PO DAILY@0800 HEART 10/21/1901/14 (more content not included)... Normal [facility] CBC W Auto Differential pane l (Bld)on 09-03-2024 Basophils (Bld) [#/Vol] 0.04 10*3/uL Normal <0.11 [facility] Comment on above: Order Comment: Speci rolando Type: BLOOD SPECIMEN Ordering Facility: [facility] Address: [address] [place] [address] Performed By: #### 5 7021-8, 99469-7 #### [facility] CLIA [id number] [address] [place] [address] [place] Basophils/100 WBC (Bld) 0.9 % Normal C [facility] Comment on above: Order Comment: Alexa marshall Type: BLOOD SPECIMEN Ordering Facility: [facility] Address: [address] [place] [address] Performed By: #### 5 7021-8, 53732-6 #### [facility] CLIA [id number] [address] [place] [address] [place] Differential cell count method Nom (Bld) Auto Normal [facility] Comment on above: Order Comment: Speci men Type: BLOOD SPECIMEN Ordering Facility: [facility] Address: [address] [place] [address] Performed By: #### 5 7021-8, 90214-1 #### [facility] CLIA [id number] [address] [place] [address] [place] Eosinophils (Bld) [#/Vol] 0.37 10*3/uL Normal <0.46 [facility] Comment on above: Order Comment: Speci men Type: BLOOD SPECIMEN Ordering Facility: [facility] Address: [address] [place], [place] [id number] Performed By: #### 5 7021-8, 93233-6 #### [facility] CLIA [id number] [address] [place] [address] [place] Eosinophils/100 WBC (Bld) 8.5 % Normal [facility] Comment on above: Order Comment: Speci men Type: BLOOD SPECIMEN Ordering Facility: [facility] Address: [address] [place] [address] Performed By: #### 5 7021-8, 44279-4 #### [facility] CLIA [id number] [address] [place] [address] [place] Erythrocyte distribution width (RBC) [Ratio] 22.1 % High 11.5-15.0 [facility] Comment on above: Order Comment: Speci men Type: BLOOD SPECIMEN Ordering Facility: [facility] Address: [address] [place] [address] Performed By: #### 5 7021-8, 83327-8 #### [facility] CLIA [id number] [address] [place] [address] [place] Hematocrit (Bld) [Volume fraction] 33.3 % Low 39.0-51.0 [facility] Comment on above: Order Comment: Speci men Type: BLOOD SPECIMEN Ordering Facility: [facility] Address: [address] [place] [address] Performed By: #### 5 7021-8, 93508-9 #### [facility] CLIA [id number] [address] [place] [address] [place] Hemoglobin (Bld) [Mass/Vol] 10.3 g/dL Low 13.0-17.0 [facility] Comment on above: Order Comment: Speci men Type: BLOOD SPECIMEN Ordering Facility: [facility] Address: [address] [place] [address] Performed By: #### 5 7021-8, 07055-4 #### [facility] CLIA [id number] [address] [place] [address] [place] Immature granulocytes (Bld) [#/Vol] 10*3/uL Normal <0.10 [facility] Comment on above: Order Comment: Speci men Type: BLOOD SPECIMEN Ordering Facility: [facility] Address: [address] [place] [address] Performed By: #### 5 7021-8, 93616-5 #### [facility] CLIA [id number] [address] [place] [address] [place] Immature granulocytes/100 WBC (Bld) 0.2 % Normal [facility] Comment on above: Order Comment: Speci men Type: BLOOD SPECIMEN Ordering Facility: [facility] Address: [address] [place] [address] Performed By: #### 5 7021-8, 45460-0 #### [facility] CLIA [id number] [address] [place] [address] [place] Lymphocytes (Bld) [#/Vol] 1.12 10*3/uL Normal 1.00-4.00 [facility] Comment on above: Order Comment: Speci men Type: BLOOD SPECIMEN Ordering Facility: [facility] Address: [address] [place] [address] Performed By: #### 5 7021-8, 40940-6 #### [facility] CLIA [id number] [address] [place] [address] [place] Lymphocytes/100 WBC (Bld) 25.9 % Normal [facility] Comment on above: Order Comment: Speci men Type: BLOOD SPECIMEN Ordering Facility: [facility] Address: [address] [place] [address] Performed By: #### 5 7021-8, 30511-8 #### [facility] CLIA [id number] [address] [place] [address] [place] MCH (RBC) [Entitic mass] 27.1 pg Normal 26.0-34.0 [facility] Comment on above: Order Comment: Speci men Type: BLOOD SPECIMEN Ordering Facility: [facility] Address: [address] [place] [address] Performed By: #### 5 7021-8, 78461-5 #### [facility] CLIA [id number] [address] [place] [address] [place] MCHC (RBC) [Mass/Vol] 30.9 g/dL Normal 30.5-36.0 [facility] Comment on above: Order Comment: Speci men Type: BLOOD SPECIMEN Ordering Facility: [facility] Address: [address] [place] [address] Performed By: #### 5 7021-8, 92118-8 #### [facility] CLIA [id number] [address] [place] [address] [place] MCV (RBC) [Entitic vol] 87.6 fL Normal 80.0-100.0 C [facility] Comment on above: Order Comment: Speci men Type: BLOOD SPECIMEN Ordering Facility: [facility] Address: [address] [place] [address] Performed By: #### 5 7021-8, 01281-4 #### [facility] CLIA [id number] [address] [place] [address] [place] Monocytes (Bld) [#/Vol] 0.47 10*3/uL Normal <0.87 [facility] Comment on above: Order Comment: Speci men Type: BLOOD SPECIMEN Ordering Facility: [facility] Address: [address] [place] [address] Performed By: #### 5 7021-8, 92954-1 #### [facility] CLIA [id number] [address] [place] [address] [place] Monocytes/100 WBC (Bld) 10.9 % Normal C [facility] Comment on above: Order Comment: Speci men Type: BLOOD SPECIMEN Ordering Facility: [facility] Address: [address] [place] [address] Performed By: #### 5 7021-8, 93840-5 #### [facility] CLIA [id number] [address] [place] [address] [place] Neutrophils (Bld) [#/Vol] 2.32 10*3/uL Normal 1.45-7.50 [facility] Comment on above: Order Comment: Speci men Type: BLOOD SPECIMEN Ordering Facility: [facility] Address: [address] [place] [address] Performed By: #### 5 7021-8, 02180-7 #### [facility] CLIA [id number] [address] [place] [address] [place] Neutrophils/100 WBC (Bld) 53.6 % Normal [facility] Comment on above: Order Comment: Speci men Type: BLOOD SPECIMEN Ordering Facility: [facility] Address: [address] [place] [address] Performed By: #### 5 7021-8, 19712-0 #### [facility] CLIA [id number] [address] [place] [address] [place] Nucleated RBC (Bld) [#/Vol] 10*3/uL Normal <0.01 [facility] Comment on above: Order Comment: Speci men Type: BLOOD SPECIMEN Ordering Facility: [facility] Address: [address] [place] [address] Performed By: #### 5 7021-8, 35852-1 #### [facility] CLIA [id number] [address] [place] [address] [place] Nucleated RBC/100 WBC (Bld) [Ratio] 0.0 /100 WBC Normal [facility] Comment on above: Order Comment: Speci men Type: BLOOD SPECIMEN Ordering Facility: [facility] Address: [address] [place] [address] Performed By: #### 5 7021-8, 64350-4 #### [facility] CLIA [id number] [address] [place] [address] [place] Platelet mean volume (Bld) [Entitic vol] 9.4 fL Normal 9.0-12.7 [facility] Comment on above: Order Comment: Speci men Type: BLOOD SPECIMEN Ordering Facility: [facility] Address: [address] [place] [address] Performed By: #### 5 7021-8, 00439-5 #### [facility] CLIA [id number] [address] [place] [address] [place] Platelets (Bld) [#/Vol] 150 10*3/uL Normal 150-400 [facility] Comment on above: Order Comment: Speci men Type: BLOOD SPECIMEN Ordering Facility: [facility] Address: [address] [place] [address] Result Comment: No c lot detected. Performed By: #### 5 7021-8, 12442-4 #### [facility] CLIA [id number] [address] [place] [address] [place] RBC (Bld) [#/Vol] 3.80 10*6/uL Low 4.20-6.00 [facility] Comment on above: Order Comment: Speci men Type: BLOOD SPECIMEN Ordering Facility: [facility] Address: [address] [place] [address] Performed By: #### 5 7021-8, 32248-1 #### [facility] CLIA [id number] [address] [place] [address] [place] WBC (Bld) [#/Vol] 4.33 10*3/uL Normal 3.70-11.00 [facility] Comment on above: Order Comment: Speci men Type: BLOOD SPECIMEN Ordering Facility: [facility] Address: [address], [place] [address] Performed By: #### 5 7021-8, 01907-8 #### [facility] CHRISTINE [id number] [address] [id number] [place] CNOVSPon 09-03-2024 CNOVSP Visit (SP) Office (ABISAI) VERNON LOGAN ([id number]) 1935 M Date Time Provider Department 09/03/24 9:30 AM DEE ALMENDAREZ During your visit today, we recorded the following information about you: Temperature Pulse Blood pressure Weight 97.7 degrees 66/minute 151/62 69.2 kg Dee Almendarez 09/03/2024 12:27 PM Signed Patient referred by Dr. Trujillo for anemia. HPI: The patient is an 88-year-old male with a past medical history significant for heart failure with preserved ejection fraction, COPD, recent acute kidney injury and iron deficiency anemia. He was advised to go to the ER several weeks ago when he was found to have a hemoglobin of 5.5. He was transferred to [facility]. Evidently received 2 units of red blood cells upon admission. He was found to have a low iron level at 8 with a saturation of 2%. Ferritin was 13. He lives with his grandson. Not short of breath at rest. Able to climb stairs albeit slowly and uses a cane. Occasional blood on the toilet tissue when wiping. Has not observed any black or bloody stools per se. Denies reflux and nausea. Appetite has been normal. No abdominal pain. CEA last fall. On ASA and Plavix. Interval: Presents today with his grandson sp IV iron administration. Tolerated well. Reports that he has a little more pep. Color has improved. Feels well. Denies any new issues. Denies SOB, CP. Palpitations. Denies overt bleeding. Has noticed darker stools since starting PO iron. Tolerating well. No adverse GI side effects. Has not followed up with GI since last OV. Needed to reschedule previous appt and has not yet rescheduled. Encouraged them to follow up. Denies abd pains. No changes in bowel or bladder habits. He remains on anticoagulation. Has had several stents placed. No recent issues. PAST MEDICAL HISTORY Diagnosis Date HTN (hypertension) Hyperlipidemia Inguinal hernia 11/13/2009 LEFT Aortic stenosis BPH Coronary artery disease Carotid stenosis Former alcohol abuse Former smoker GERD Gout Hyperlipidemia, history of non-ST [place] History of TIA PAST SURGICAL HISTORY Procedure Laterality Date LAPAROSCOPY SURG RPR INITIAL INGUINAL HERNIA 11/13/2009 LEFT Current Outpatient Medications Medication Sig atorvastatin (LIPITOR) 40 mg tablet Take 1 tablet by mouth once daily. ALLERGY RELIEF, CETIRIZINE, 10 mg tablet Take 1 tablet by mouth once daily. carvedilol (COREG) 6.25 mg tablet Take 1 tablet by mouth every 12 hours. clopidogrel (PLAVIX) 75 mg tablet Take 1 tablet by mouth once daily. ezetimibe (ZETIA) 10 mg tablet Take 1 tablet by mouth once daily. ferrous sulfate 325 mg (65 mg iron) EC tablet Take 1 tablet by mouth once daily. folic acid 400 mcg tablet Take 1 tablet by mouth once daily. furosemide (LASIX) 20 mg tablet Take 1 tablet by mouth once daily. losartan (COZAAR) 50 mg tablet Take 1 tablet by mouth once daily. oxyCODONE-acetaminophe n (PERCOCET) 5-325 mg tablet Take 1 tablet by mouth as needed (PRN every [address] (PROTONIX) 40 mg tablet Take 1 tablet by mouth once daily. SENNA 8.6 mg tab Take 17.2 mg by mouth once daily as needed for constipation. spironolactone (ALDACTONE) 25 mg tablet Take 1 tablet by mouth once daily. thiamine (VITAMIN B1) 100 mg tablet Take 1 tablet by mouth once daily. vit A/vit C/vit E/zinc/copper (PRESERVISION AREDS ORAL) Take 1 tablet by mouth two times a day. ascorbic acid, vitamin C, (VITAMIN C) 500 mg tablet Take 500 mg by mouth once daily. cholecalciferol, vitamin D3, (VITAMIN D3 ORAL) Take 4,000 Units by mouth once daily. amLODIPine (NORVASC) 5 mg tablet Take 5 mg by mouth once daily. Irbesartan-Hydrochloro thiazide 300-12.5 mg per tablet Take 1 tablet by mouth once daily. aspirin(ASPIR-LOW 81 MG TAB) Take one(1) tablet daily. amLODIPine (NORVASC) 2.5 mg tablet amlodipine/atorvast ed(CADUET 2.5 MG-20 MG TAB) Take one(1) tablet daily. No current facility-administered medications for this visit. ALLERGIES No Known Allergies Social History Tobacco Use Smoking status: Never Smokeless tobacco: Never Vaping Use Vaping status: Never Used Substance Use Topics Alcohol use: Yes Comment: occ Drug use: No Mother--Uterus or cervix. REVIEW OF SYSTEMS: Constitutional: No episodes of fever and night sweats. All systems reviewed on 09/03/2024 with pertinent positives and negatives as outlined in the interval history. PHYSICAL EXAM: Vitals: Blood pressure 151/62, pulse 66, temperature 36.5 ?C (97.7 ?F), temperature source Temporal, weight 69.2 kg (152 lb 8 oz), SpO2 97%. Well-appearing and in no acute distress. EYES: Sclerae are anicteric bilaterally. CARDIOVASCULAR: Rhythm is regular. ABDOMEN: The abdomen is nondistended. SKIN: No jaundice. I have performed the physical exam today (09/03/2024) and have edited the note to (more content not included)... Normal [facility] Ferritin SerPl-mCncon 2024 Ferritin [Mass/Vol] 175.0 ng/mL Normal 30.3-565.7 [facility] Comment on above: Order Comment: Alexa marshall Type: BLOOD SPECIMEN [facility] Address: [address] [place] [address] Performed By: #### 2 276-4, 50874-4 #### [facility] CLIA [id number] [address] [place] [address] [place] [address] [place] Iron and Iron binding capaci ty panelon 09-03-2024 Iron [Mass/Vol] 44 ug/dL Normal 41-186 [facility] Comment on above: Order Comment: Speci men Type: BLOOD SPECIMEN [facility] Address: [address] [place] [address] Performed By: #### 2 276-4, 05130-8 #### [facility] CLIA [id number] [address] [place] [address] [place] Iron binding capacity [Mass/Vol] 244 ug/dL Normal 232-386 [facility] Comment on above: Order Comment: Speci men Type: BLOOD SPECIMEN [facility] Address: [address] [place] [address] Performed By: #### 2 276-4, 73541-7 #### [facility] CLIA [id number] [address] [place] [address] [place] Iron/TIBC [Molar ratio] 18.0 % Normal 15.0-57.0 C [facility] Comment on above: Order Comment: Speci men Type: BLOOD SPECIMEN [facility] Address: [address] [place] [address] Performed By: #### 2 276-4, 69037-8 #### [facility] CLIA [id number] [address] [place] [address] [place] Retics #on 09-03-2024 Reticulocytes (Bld) [#/Vol] 0.61706 10*3/uL Normal 0.018-0.100 [facility] Comment on above: Order Comment: Speci men Type: BLOOD SPECIMEN [facility] Address: [address] [place] [address] Performed By: #### 5 7021-8, 16709-3 #### [facility] CLIA [id number] [address] [place] [address] [place] Reticulocytes (Bld) [#/Vol]o n 09-03-2024 Reticulocytes/100 RBC (Bld) 1.1 % Normal 0.4-2.0 [facility] Comment on above: Order Comment: Speci men Type: BLOOD SPECIMEN [facility] Address: [address] [place] [address] Performed By: #### 5 7021-8, 96589-0 #### [facility] CLIA [id number] [address] [place] [address] [place] Carotid Duplex Ultrasoundon 08-12-2024 Carotid Duplex Ultrasound [facility] [address] [place] [address] Carotid Duplex Ultrasound 08/12/24 0909 MR#: [id number] Acct: [id number] Name: VERNON LOGAN Rep #: [id number] : 1935 88 From: Raza Hannon MD Attending Dr: MANI Katz Status: REG CLI Ordering Dr: Angela Hdez Date: 08/12/24 Location: [facility] Sex: M C Admitted: Reason For Study Reason For Study: S/P Rt CEA Rt. Velocities/BP Lt. Velocities/BP Prox CCA 75.9/9.7 cm/sec. Prox CCA 92.7/14.6 cm/sec. Mid CCA 75.9/9.7 cm/sec. Mid CCA 103.6/17.9 cm/sec. Dist CCA 82.5/11.6 cm/sec. Dist CCA 130.2/24.3 cm/sec. Prox ICA 79/12.6 cm/sec. Prox ICA 108.3/18.8 cm/sec. Mid ICA 90/24.9 cm/sec. Mid ICA 99.2/27.9 cm/sec. Dist ICA 91.2/21.2 cm/sec. Dist ICA 54.6/16 cm/sec. Rt. ICA/CCA = 1.20. Lt. ICA/CCA = 1.05. Prox ECA 182.9/5 cm/sec. Prox ECA 172.2/9.7 cm/sec. Rt. Vert. 44.7/6 cm/sec. Lt. Vert. 40.9/11.6 cm/sec. Right Extracranial There is heterogeneous, irregular atherosclerotic plaque noted in the right common carotid artery. There is homogeneous, smooth atherosclerotic plaque noted in the right internal carotid artery. There is heterogeneous, irregular atherosclerotic plaque noted in the right external carotid artery. Antegrade flow is noted in the right vertebral artery. Left Extracranial There is heterogeneous, irregular atherosclerotic plaque noted in the left common carotid artery. There is heterogeneous, irregular atherosclerotic plaque noted in the left internal carotid artery. There is heterogeneous, irregular atherosclerotic plaque noted in the left external carotid artery. Antegrade flow is noted in the left vertebral artery. Procedure Carotid Duplex 98077. This is a Carotid Duplex examination using B-mode, color flow and specral Doppler. Exam performed in department. VL/Carotid Duplex Ultrasound Interpretation Summary Mild (<50%) stenosis right extracranial internal carotid. Mild (<50%) stenosis left extracranial internal carotid. Patent and antegrade vertebrals bilaterally. Ordering Physician: Angela Hdez Referring Physician: Aaliyah Trujillo Performed By: Jody Talbert RVT 08/12/241650 Date Raza Hannon MD CC: MANI Katz; Dr. 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 Pt has a non-oncology regimen. No social work follow up indicated. CHRISTINE King-S Allergies As of Date: 07/29/2024 (No Known Allergies) Date Reviewed: 07/24/2024 Reviewed by: Margot Ashley, RN - Fully Assessed Reason for Visit: Social Work Services [507] 1st Time Treatment Report [Other] Prescriptions as of 07/29/2024 - atorvastatin (LIPITOR) 40 mg tablet Take 1 tablet by mouth once daily. - ALLERGY RELIEF, CETIRIZINE, 10 mg tablet Take 1 tablet by mouth once daily. - carvedilol (COREG) 6.25 mg tablet Take 1 tablet by mouth every 12 hours. - clopidogrel (PLAVIX) 75 mg tablet Take 1 tablet by mouth once daily. - ezetimibe (ZETIA) 10 mg tablet Take 1 tablet by mouth once daily. - ferrous sulfate 325 mg (65 mg iron) EC tablet Take 1 tablet by mouth once daily. - folic acid 400 mcg tablet Take 1 tablet by mouth once daily. - furosemide (LASIX) 20 mg tablet Take 1 tablet by mouth once daily. - losartan (COZAAR) 50 mg tablet Take 1 tablet by mouth once daily. - oxyCODONE-acetaminophe n (PERCOCET) 5-325 mg tablet Take 1 tablet by mouth as needed (PRN every 4 hours). - pantoprazole DR (PROTONIX) 40 mg tablet Take 1 tablet by mouth once daily. - SENNA 8.6 mg tab Take 17.2 mg by mouth once daily as needed for constipation. - spironolactone (ALDACTONE) 25 mg tablet Take 1 tablet by mouth once daily. - thiamine (VITAMIN B1) 100 mg tablet Take 1 tablet by mouth once daily. - vit A/vit C/vit E/zinc/copper (PRESERVISION AREDS ORAL) Take by mouth. - ascorbic acid, vitamin C, (VITAMIN C) 500 mg tablet Take 500 mg by mouth once daily. - cholecalciferol, vitamin D3, (VITAMIN D3 ORAL) Take 4,000 Units by mouth once daily. - amLODIPine (NORVASC) 5 mg tablet - Irbesartan-Hydrochloro thiazide 300-12.5 mg per tablet - amLODIPine (NORVASC) 2.5 mg tablet - aspirin(ASPIR-LOW 81 MG TAB) Take one(1) tablet daily. - amlodipine/atorvast ed(CADUET 2.5 MG-20 MG TAB) Take one(1) tablet daily. 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] 07/17/2024 Encounter Status:Closed by STEPHENIE MARTINS on 07/29/24 Normal [facility] .Auto Diffon 07-22-2024 Basophil, Absolute 0.1 10 3/mcL Normal 0.0-0.3 [facility] Comment on above: Performed By: #### A HARINI, CBC, MG, GFR, ADIFF, BMP #### [address] [address] Basophils/100 WBC (Bld) 2.3 % Normal 0.0-2.5 [facility] Comment on above: Performed By: #### A HARINI, CBC, MG, GFR, ADIFF, BMP #### [address] [address] Eosinophil, Absolute 0.2 10 3/mcL Normal 0.0-0.7 [facility] Comment on above: Performed By: #### A HARINI, CBC, MG, GFR, ADIFF, BMP #### [address] [address] Eosinophils/100 WBC (Bld) 4.7 % Normal 0.0-6.0 [facility] Comment on above: Performed By: #### A HARINI, CBC, MG, GFR, ADIFF, BMP #### [address] [address] Lymphocyte, Absolute 1.1 10 3/mcL Normal 0.9-4.3 [facility] Comment on above: Performed By: #### A HARINI, CBC, MG, GFR, ADIFF, BMP #### [address] [address] Lymphocytes/100 WBC (Bld) 21.1 % Normal 20.0-40.0 [facility] Comment on above: Performed By: #### A HARINI, CBC, MG, GFR, ADIFF, BMP #### [address] [address] Monocyte, Absolute 0.6 10 3/mcL Normal 0.1-1.4 [facility] Comment on above: Performed By: #### A HARINI, CBC, MG, GFR, ADIFF, BMP #### [address] [address] Monocytes/100 WBC (Bld) 11.4 % Normal 2.0-13.0 [facility] Comment on above: Performed By: #### A HARINI, CBC, MG, GFR, ADIFF, BMP #### [address] [address] Neutrophils/100 WBC (Bld) 60.5 % Normal 50.0-75.0 [facility] Comment on above: Performed By: #### A HARINI, CBC, MG, GFR, ADIFF, BMP #### [address] [address] .GFRon 07-22-2024 Estimated Glomerular Filtration Rate 72 ml/min/1.73sqm Normal [facility] Comment on above: Result Comment: Stages of Chronic Kidney Disease (CKD) Stage Description eGFR(ml/min/1.73 sq.m.) CKD 1 Normal kidney function or >=90 normal kindney function with possible kidney damage (ex. Proteinuria) CKD 2 Kidney damage with mild loss 60-89 of kidney function CKD 3a Mild to moderate loss of kidney 45-59 function CKD 3b Moderate to severe loss of 30-44 of kindey function CKD 4 Severe loss of kidney function 15-29 CKD 5 Kidney failure <15 Note: (go live 2024) the eGFR calculation was updated to the 2020 CKD-EPI creatinine equation without a race factor to calculate the eGFR results. Performed By: #### A HARINI, CBC, MG, GFR, ADIFF, BMP #### [place] [address] .Morphon 07-22-2024 Anisocytosis Ql (Bld) 1+ Normal [facility] Comment on above: Performed By: #### A HARINI, CBC, MG, GFR, ADIFF, BMP #### [place] [address] Hypochrom 1+ Normal [facility] Comment on above: Performed By: #### A HARINI, CBC, MG, GFR, ADIFF, BMP #### [place] [address] Microcytosis 1+ Normal [facility] Comment on above: Performed By: #### A HARINI, CBC, MG, GFR, ADIFF, BMP #### [place] [address] Platelet Estimate Normal Normal [facility] Comment on above: Performed By: #### A HARINI, CBC, MG, GFR, ADIFF, BMP #### [place] [address] .NEUABSon 07-22-2024 Neutrophil, Absolute 3.2 10 3/mcL Normal 2.3-8.1 [facility] Comment on above: Performed By: #### A HARINI, CBC, MG, GFR, ADIFF, BMP #### [place] [address] CBCon 07-22-2024 Erythrocyte distribution width (RBC) [Ratio] 36.1 % High 11.5-15.5 [facility] Comment on above: Performed By: #### A HARINI, CBC, MG, GFR, ADIFF, BMP #### [place] [address] Hematocrit (Bld) [Volume fraction] 31.5 % Low 40.0-52.0 [facility] Comment on above: Performed By: #### A HARINI, CBC, MG, GFR, ADIFF, BMP #### [address] [address] Hgb 9.7 G/dL Low 13.0-17.5 [facility] Comment on above: Performed By: #### A HARINI, CBC, MG, GFR, ADIFF, BMP #### [place] [address] MCH (RBC) [Entitic mass] 22.3 pg Low 27.0-33.0 [facility] Comment on above: Performed By: #### A HARINI, CBC, MG, GFR, ADIFF, BMP #### [place] [address] MCHC 30.8 G/dL Low 32.0-36.0 [facility] Comment on above: Performed By: #### A HARINI, CBC, MG, GFR, ADIFF, BMP #### [place] [address] MCV (RBC) [Entitic vol] 72.3 fL Low 81.0-100.0 [facility] Comment on above: Performed By: #### A HARINI, CBC, MG, GFR, ADIFF, BMP #### [place] [address] Platelet 253 10 3/mcL Normal 150-450 [facility] Comment on above: Performed By: #### A HARINI, CBC, MG, GFR, ADIFF, BMP #### [place] [address] Platelet mean volume (Bld) [Entitic vol] 8.7 fL Normal 6.4-10.5 [facility] Comment on above: Performed By: #### A HARINI, CBC, MG, GFR, ADIFF, BMP #### [place] [address] RBC 4.35 10 6/mcL Low 4.50-6.00 [facility] Comment on above: Performed By: #### A HARINI, CBC, MG, GFR, ADIFF, BMP #### [address] [address] WBC 5.3 10 3/mcL Normal 4.5-10.8 [facility] Comment on above: Performed By: #### A HARINI, CBC, MG, GFR, ADIFF, BMP #### [address] [address] CMPon 07-22-2024 Albumin Level 3.9 G/dL Normal 3.4-4.8 [facility] Comment on above: Performed By: #### A HARINI, CBC, MG, GFR, ADIFF, BMP #### [address] [address] Albumin/Globulin [Mass ratio] 1.3 {ratio} Normal 1.1-2.5 [facility] Comment on above: Performed By: #### A HARINI, CBC, MG, GFR, ADIFF, BMP #### [address] [address] ALP [Catalytic activity/Vol] 114 U/L Normal 40-135 [facility] Comment on above: Performed By: #### A HARINI, CBC, MG, GFR, ADIFF, BMP #### [address] [address] ALT [Catalytic activity/Vol] 27 U/L Normal 16-63 [facility] Comment on above: Performed By: #### A HARINI, CBC, MG, GFR, ADIFF, BMP #### [address] [address] AST [Catalytic activity/Vol] 27 U/L Normal 10-40 [facility] Comment on above: Performed By: #### A HARINI, CBC, MG, GFR, ADIFF, BMP #### [address] [address] Bili Total 0.6 mg/dL Normal 0.2-1.0 [facility] Comment on above: Result Comment: Use of this assay is not recommended for patients undergoing treatment with eltrombopag due to the potential for falsely elevated results. Performed By: #### A HARINI, CBC, MG, GFR, ADIFF, BMP #### [address] [address] BUN/Creatinine Ratio 25 ratio Normal 7-27 [facility] Comment on above: Performed By: #### A HARINI, CBC, MG, GFR, ADIFF, BMP #### [address] [address] Calcium [Mass/Vol] 9.1 mg/dL Normal 8.4-10.2 [facility] Comment on above: Performed By: #### A HARINI, CBC, MG, GFR, ADIFF, BMP #### [place] [address] Chloride [Moles/Vol] 102 mmol/L Normal 98-107 [facility] Comment on above: Performed By: #### A HARINI, CBC, MG, GFR, ADIFF, BMP #### [place] [address] CO2 [Moles/Vol] 31 mmol/L Normal 23-31 [facility] Comment on above: Performed By: #### A HARINI, CBC, MG, GFR, ADIFF, BMP #### [place] [address] Creatinine [Mass/Vol] 1.00 mg/dL Normal 0.70-1.30 [facility] Comment on above: Result Comment: Test ing performed on Siemens Dimension EXL analyzer using a modified kinetic Nazia technique. Performed By: #### A HARINI, CBC, MG, GFR, ADIFF, BMP #### [place] [id number] Electrolyte Balance 5.0 mEq/L Normal 4.0-15.0 [facility] Comment on above: Performed By: #### A HARINI, CBC, MG, GFR, ADIFF, BMP #### [place] [address] Globulin 2.9 G/dL Normal 1.5-3.8 [facility] Comment on above: Performed By: #### A HARINI, CBC, MG, GFR, ADIFF, BMP #### [address] [address] Glucose [Mass/Vol] 96 mg/dL Normal 83-110 [facility] Comment on above: Performed By: #### A HARINI, CBC, MG, GFR, ADIFF, BMP #### [address] [address] Potassium [Moles/Vol] 5.0 mmol/L Normal 3.5-5.1 [facility] Comment on above: Performed By: #### A HARINI, CBC, MG, GFR, ADIFF, BMP #### [address] [address] Sodium [Moles/Vol] 138 mmol/L Normal 136-145 [facility] Comment on above: Performed By: #### A HARINI, CBC, MG, GFR, ADIFF, BMP #### [address] [address] Total Protein 6.8 G/dL Normal 6.4-8.2 [facility] Comment on above: Performed By: #### A HARINI, CBC, MG, GFR, ADIFF, BMP #### [address] [address] Urea nitrogen [Mass/Vol] 25 mg/dL High 7-18 [facility] Comment on above: Performed By: #### A HARINI, CBC, MG, GFR, ADIFF, BMP #### [address] [address] Arnav 07-22-2024 Ferritin [Mass/Vol] 65.0 ng/mL Normal 26.0-388.0 [facility] Comment on above: Performed By: #### A HARINI, CBC, MG, GFR, ADIFF, BMP #### [address] [address] MGon 07-22-2024 Magnesium [Mass/Vol] 2.2 mg/dL Normal 1.8-2.4 [facility] Comment on above: Performed By: #### A HARINI, CBC, MG, GFR, ADIFF, BMP #### [address] [address] CBC W Auto Differential pane l (Bld)on 07-17-2024 Basophils (Bld) [#/Vol] 0.04 10*3/uL Normal <0.11 [facility] Comment on above: Order Comment: Speci men Type: BLOOD SPECIMEN [facility] Address: [address] [place] [address] Performed By: #### 5 7021-8 #### [facility] CLIA [id number] [address] [place] [address] [place] [facility] CLIA [id number] [address] [place] [address] [place] Basophils/100 WBC (Bld) 0.8 % Normal [facility] Comment on above: Order Comment: Speci men Type: BLOOD SPECIMEN [facility] Address: [address] [place] [address] Performed By: #### 5 7021-8 #### [facility] CLIA [id number] [address] [place] [address] [place] [facility] CLIA [id number] [address] [place] [address] [place] Differential cell count method Nom (Bld) Auto Normal [facility] Comment on above: Order Comment: Speci men Type: BLOOD SPECIMEN [facility] Address: [address] [place] [address] Performed By: #### 5 7021-8 #### [facility] CLIA [id number] [address] [place] [address] [place] [facility] CLIA [id number] [address] [place] [address] [place] DIMORPHIC POPULATION Present Normal [facility] Comment on above: Order Comment: Speci men Type: BLOOD SPECIMEN [facility] Address: [address] [place], [place] [address] Performed By: #### 5 7021-8 #### [facility] CLIA [id number] [address] [place] [address] [place] [facility] CLIA [id number] [address] [place] [address] [place] Eosinophils (Bld) [#/Vol] 0.26 10*3/uL Normal <0.46 [facility] Comment on above: Order Comment: Speci men Type: BLOOD SPECIMEN [facility] Address: [address] [place] [address] Performed By: #### 5 7021-8 #### [facility] CLIA [id number] [address] [place] [address] STATES [place] [facility] CLIA [id number] [address] [place] [address] [place] Eosinophils/100 WBC (Bld) 5.0 % Normal [facility] Comment on above: Order Comment: Speci men Type: BLOOD SPECIMEN [facility] Address: [address] [place] [address] Performed By: #### 5 7021-8 #### [facility] CLIA [id number] [address] [place] [address] [place] [facility] CLIA [id number] [address] [place] [address] [place] Erythrocyte distribution width (RBC) [Ratio] Normal [facility] Comment on above: Order Comment: Speci men Type: BLOOD SPECIMEN [facility] Facility[facility] Address: [address] [place] [address] Result Comment: Unab le to Report. Performed By: #### 5 7021-8 #### [facility] CLIA [id number] [address] [place] [address] STATES OF [facility] CLIA [id number] [address] [place] [address] [place] Hematocrit (Bld) [Volume fraction] 30.2 % Low 39.0-51.0 [facility] Comment on above: Order Comment: Speci men Type: BLOOD SPECIMEN [facility] Facility[facility] Address: [address] [place] [address] Performed By: #### 5 7021-8 #### [facility] CLIA [id number] [address] [place] [address] [place] [facility] CLIA [id number] [address] [place] [address] [place] Hemoglobin (Bld) [Mass/Vol] 8.7 g/dL Low 13.0-17.0 [facility] Comment on above: Order Comment: Speci men Type: BLOOD SPECIMEN [facility] Facility[facility] Address: [address] [place] [address] Performed By: #### 5 7021-8 #### [facility] CLIA [id number] [address] [place] [address] [place] [facility] CLIA [id number] [address] [place] [address] [place] Immature granulocytes (Bld) [#/Vol] 10*3/uL Normal <0.10 [facility] Comment on above: Order Comment: Speci men Type: BLOOD SPECIMEN [facility] Address: [address] [place] [address] Performed By: #### 5 7021-8 #### [facility] CLIA [id number] [address] [place] [address] [place] [facility] CLIA [id number] [address] [place] [address] [place] Immature granulocytes/100 WBC (Bld) 0.2 % Normal [facility] Comment on above: Order Comment: Speci men Type: BLOOD SPECIMEN [facility] Address: [address] [place] [address] Performed By: #### 5 7021-8 #### [facility] CLIA [id number] [address] [place] [address] [place] [facility] CLIA [id number] [address] [place] [address] [place] Lymphocytes (Bld) [#/Vol] 1.22 10*3/uL Normal 1.00-4.00 [facility] Comment on above: Order Comment: Speci men Type: BLOOD SPECIMEN [facility] Address: [address] [place] [address] Performed By: #### 5 7021-8 #### [facility] CLIA [id number] [address] [place] [address] [place] [facility] CLIA [id number] [address] [place] [address] [place] Lymphocytes/100 WBC (Bld) 23.5 % Normal [facility] Comment on above: Order Comment: Speci men Type: BLOOD SPECIMEN [facility] Address: [address] [place] [address] Performed By: #### 5 7021-8 #### [facility] CLIA [id number] [address] [place] [address] [place] [facility] CLIA [id number] [address] [place] [address] [place] MCH (RBC) [Entitic mass] 21.4 pg Low 26.0-34.0 [facility] Comment on above: Order Comment: Speci men Type: BLOOD SPECIMEN [facility] Address: [address] [place] [address] Performed By: #### 5 7021-8 #### [facility] CLIA [id number] [facility] [place] [address] [place] [facility] CLIA [id number] [address] [place] [address] [place] MCHC (RBC) [Mass/Vol] 28.8 g/dL Low 30.5-36.0 [facility] Comment on above: Order Comment: Speci men Type: BLOOD SPECIMEN Order[facility] Facility[facility] Address: [address] [place] [address] Performed By: #### 5 7021-8 #### [facility] CLIA [id number] [address] [place] [address] [place] [facility] CLIA [id number] [address] [place] [address] [place] MCV (RBC) [Entitic vol] 74.2 fL Low 80.0-100.0 [facility] Comment on above: Order Comment: Speci men Type: BLOOD SPECIMEN [facility] Address: [address] [place] [address] Performed By: #### 5 7021-8 #### [facility] CLIA [id number] [address] [place] [address] [place] [facility] CLIA [id number] [address] [place] [address] [place] Monocytes (Bld) [#/Vol] 0.51 10*3/uL Normal <0.87 [facility] Comment on above: Order Comment: Speci men Type: BLOOD SPECIMEN [facility] Facility[facility] Address: [address] [place] [address] Performed By: #### 5 7021-8 #### [facility] CLIA [id number] [address] [place] [address] [place] [facility] CLIA [id number] [address] [id number] [address] [place] Monocytes/100 WBC (Bld) 9.8 % Normal [facility] Comment on above: Order Comment: Speci men Type: BLOOD SPECIMEN [facility] Address: [address] [place] [address] Performed By: #### 5 7021-8 #### [facility] CLIA [id number] [address] [place] [address] [place] [facility] CLIA [id number] [address] [place] [address] [place] Neutrophils (Bld) [#/Vol] 3.15 10*3/uL Normal 1.45-7.50 [facility] Comment on above: Order Comment: Speci men Type: BLOOD SPECIMEN [facility] Address: [address] [place] [address] Performed By: #### 5 7021-8 #### [facility] CLIA [id number] [address] [place] [address] [place] [facility] CLIA [id number] [address] [place] [address] [place] Neutrophils/100 WBC (Bld) 60.7 % Normal [facility] Comment on above: Order Comment: Speci men Type: BLOOD SPECIMEN [facility] Address: [address] [place] [address] Performed By: #### 5 7021-8 #### [facility] CLIA [id number] [address] [place] [address] [place] [facility] CLIA [id number] [address] [place] [address] [place] Nucleated RBC (Bld) [#/Vol] 10*3/uL Normal <0.01 [facility] Comment on above: Order Comment: Speci men Type: BLOOD SPECIMEN [facility] Address: [address] [place] [address] Performed By: #### 5 7021-8 #### [facility] CLIA [id number] [address] [place] [address] [place] [facility] CLIA [id number] [address] [place] [address] [place] Nucleated RBC/100 WBC (Bld) [Ratio] 0.0 /100 WBC Normal [facility] Comment on above: Order Comment: Speci men Type: BLOOD SPECIMEN [facility] Address: [address] [place] [address] Performed By: #### 5 7021-8 #### [facility] CLIA [id number] [address] [place] [address] [place] [facility] CLIA [id number] [address] [place] [address] [place] Ovalocytes LM Ql (Bld) Few Normal Cl [facility] Comment on above: Order Comment: Speci men Type: BLOOD SPECIMEN [facility] Address: [address] [place] [address] Performed By: #### 5 7021-8 #### [facility] CLIA [id number] [address] [place] [address] [place] [facility] CLIA [id number] [address] [place] [address] [place] Platelet mean volume (Bld) [Entitic vol] 9.5 fL Normal 9.0-12.7 [facility] Comment on above: Order Comment: Speci men Type: BLOOD SPECIMEN [facility] Address: [address] [place] [address] Performed By: #### 5 7021-8 #### [facility] CLIA [id number] [address] [place] [address] [place] [facility] CLIA [id number] [address] [place] [address] [place] Platelets (Bld) [#/Vol] 286 10*3/uL Normal 150-400 [facility] Comment on above: Order Comment: Speci men Type: BLOOD SPECIMEN [facility] Address: [address] [place] [address] Performed By: #### 5 7021-8 #### [facility] CLIA [id number] [address] [place] [address] [place] [facility] CLIA [id number] [address] [place] [address] [place] Platelets Estimate (Bld) [#/Vol] Adequate Normal [facility] Comment on above: Order Comment: Speci men Type: BLOOD SPECIMEN [facility] Address: [address] [place] [address] Performed By: #### 5 7021-8 #### [facility] CLIA [id number] [address] [place] [address] [place] [facility] CLIA [id number] [address] [place] [address] [place] RBC (Bld) [#/Vol] 4.07 10*6/uL Low 4.20-6.00 [facility] Comment on above: Order Comment: Speci men Type: BLOOD SPECIMEN [facility] Address: [address] [place] [address] Performed By: #### 5 7021-8 #### [facility] CLIA [id number] [address] [place] [address] [place] [facility] CLIA [id number] [address] [place] [address] [place] RBC FRAGMENTS Few Abnormal None Seen [facility] Comment on above: Order Comment: Speci men Type: BLOOD SPECIMEN [facility] Address: [address] [place] [address] Performed By: #### 5 7021-8 #### [facility] CLIA [id number] [address] [place] [address] [place] [facility] CLIA [id number] [address] [place] [address] [place] RED CELL MORPH Reviewed: see result s of individual morphologies Normal [facility] Comment on above: Order Comment: Speci men Type: BLOOD SPECIMEN [facility] Address: [address] [place] [address] Performed By: #### 5 7021-8 #### [facility] CLIA [id number] [address] [place] [address] [place] [facility] CLIA [id number] [address] [place] [address] [place] Target cells LM Ql (Bld) Few Normal [facility] Comment on above: Order Comment: Speci men Type: BLOOD SPECIMEN [facility] Address: [address] [place] [address] Performed By: #### 5 7021-8 #### [facility] CLIA [id number] [address] [place] [address] [place] [facility] CLIA [id number] [address] [place] [address] [place] WBC (Bld) [#/Vol] 5.19 10*3/uL Normal 3.70-11.00 [facility] Comment on above: Order Comment: Speci men Type: BLOOD SPECIMEN [facility] Address: [address] [place] [address] Performed By: #### 5 7021-8 #### [facility] CLIA [id number] [address] [place] [address] [place] [facility] CLIA [id number] [address] [facility] [place] [address] [place] CNOVSPon 07-17-2024 CNOVSP Visit (SP) Office (HEMALTAGRACIA) DESMONDVERNON Jackson ([id number]) 1935 M Date Time Provider Department 07/17/24 10:10 AM TRES PAVON During your visit today, we recorded the following information about you: Temperature Pulse Respiration Blood pressure 98.4 degrees 69/minute 12/minute 122/68 Weight Height 68 kg 1.685 m Tres Pavon DO 07/17/2024 11:04 AM Signed Patient referred by Dr. Trujillo for anemia. HPI: The patient is an 88-year-old male with a past medical history significant for heart failure with preserved ejection fraction, COPD, recent acute kidney injury and iron deficiency anemia. He was advised to go to the ER several weeks ago when he was found to have a hemoglobin of 5.5. He was transferred to [facility]. Evidently received 2 units of red blood cells upon admission. He was found to have a low iron level at 8 with a saturation of 2%. Ferritin was 13. He lives with his grandson. Not short of breath at rest. Able to climb stairs albeit slowly and uses a cane. Occasional blood on the toilet tissue when wiping. Has not observed any black or bloody stools per se. Denies reflux and nausea. Appetite has been normal. No abdominal pain. CEA last fall. On ASA and Plavix. PAST MEDICAL HISTORY Diagnosis Date HTN (hypertension) Hyperlipidemia Inguinal hernia 11/13/2009 LEFT Aortic stenosis BPH Coronary artery disease Carotid stenosis Former alcohol abuse Former smoker GERD Gout Hyperlipidemia, history of non-ST [place] History of TIA PAST SURGICAL HISTORY Procedure Laterality Date LAP REPAIR INTIAL INGUINAL HERNIA 11/13/2009 LEFT Current Outpatient Medications Medication Sig atorvastatin (LIPITOR) 40 mg tablet Take 1 tablet by mouth once daily. ALLERGY RELIEF, CETIRIZINE, 10 mg tablet Take 1 tablet by mouth once daily. carvedilol (COREG) 6.25 mg tablet Take 1 tablet by mouth every 12 hours. clopidogrel (PLAVIX) 75 mg tablet Take 1 tablet by mouth once daily. ezetimibe (ZETIA) 10 mg tablet Take 1 tablet by mouth once daily. ferrous sulfate 325 mg (65 mg iron) EC tablet Take 1 tablet by mouth once daily. folic acid 400 mcg tablet Take 1 tablet by mouth once daily. furosemide (LASIX) 20 mg tablet Take 1 tablet by mouth once daily. losartan (COZAAR) 50 mg tablet Take 1 tablet by mouth once daily. oxyCODONE-acetaminophe n (PERCOCET) 5-325 mg tablet Take 1 tablet by mouth as needed (PRN every [address] (PROTONIX) 40 mg tablet Take 1 tablet by mouth once daily. SENNA 8.6 mg tab Take 17.2 mg by mouth once daily as needed for constipation. spironolactone (ALDACTONE) 25 mg tablet Take 1 tablet by mouth once daily. thiamine (VITAMIN B1) 100 mg tablet Take 1 tablet by mouth once daily. amLODIPine (NORVASC) 5 mg tablet Irbesartan-Hydrochloro thiazide 300-12.5 mg per tablet (Patient taking differently: No sig reported) aspirin(ASPIR-LOW 81 MG TAB) Take one(1) tablet daily. vit A/vit C/vit E/zinc/copper (PRESERVISION AREDS ORAL) Take by mouth. ascorbic acid, vitamin C, (VITAMIN C) 500 mg tablet Take 500 mg by mouth once daily. cholecalciferol, vitamin D3, (VITAMIN D3 ORAL) Take 4,000 Units by mouth once daily. amLODIPine (NORVASC) 2.5 mg tablet amlodipine/atorvast ed(CADUET 2.5 MG-20 MG TAB) Take one(1) tablet daily. No current facility-administered medications for this visit. ALLERGIES No Known Allergies Social History Tobacco Use Smoking status: Never Smokeless tobacco: Never Substance Use Topics Alcohol use: Yes Drug use: No Mother--Uterus or cervix. REVIEW OF SYSTEMS: Constitutional: No episodes of fever and night sweats. Neuro: No DALAL. HEENT: No recent change in voice, vision or hearing. Resp: No cough, wheeze and hemoptysis. CVS: No exertional chest pain, PND, orthopnea and LE edema. GI: See above. : No dysuria or gross hematuria. Endo: No hot flashes. No polyuria and polydipsia. Derm: No current rash. Heme: No unusual bleeding and unexplained bruising. Psych: Normal mood. PHYSICAL EXAM: Vitals: Blood pressure 122/68, pulse 69, temperature 36.9 ?C (98.4 ?F), temperature source Tympanic, resp. rate 12, height 168.5 cm (5' 6.34), weight 68 kg (150 lb), SpO2 96%. Well-appearing and in no acute distress. EYES: Sclerae are anicteric bilaterally. CARDIOVASCULAR: Rhythm is regular. ABDOMEN: The abdomen is nondistended. SKIN: No jaundice. 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 Given his comorbidities and PPI use, needs iron repletion more quickly. Recommended 5 doses of iron sucrose. Discussed with him and his family. They agreed. Discussed importance of follow-up for endoscopy. Plan: (more content not included)... Normal [facility] Ferritin SerPl-mCncon 2024 Ferritin [Mass/Vol] 74.7 ng/mL Normal 30.3-565.7 [facility] Comment on above: Order Comment: Alexa marshall Type: BLOOD SPECIMEN [facility] Address: [address] [place] [address] Performed By: #### 2 276-4, 45045-3 #### [facility] CLIA [id number] [address] [place] [address] [place] Iron and Iron binding capaci ty panelon 07-17-2024 Iron [Mass/Vol] 33 ug/dL Low 41-186 [facility] Comment on above: Order Comment: Alexa marshall Type: BLOOD SPECIMEN [facility] Address: [address] [place] [address] Performed By: #### 2 276-4, 85522-0 #### [facility] CLIA [id number] [address] [place] [address] [place] Iron binding capacity [Mass/Vol] 350 ug/dL Normal 232-386 [facility] Comment on above: Order Comment: Speci men Type: BLOOD SPECIMEN [facility] Address: [address] [place] [address] Performed By: #### 2 276-4, 58538-8 #### [facility] CLIA [id number] [address] [place] [address] [place] Iron/TIBC [Molar ratio] 9.4 % Low 15.0-57.0 C [facility] Comment on above: Order Comment: Speci men Type: BLOOD SPECIMEN [facility] Address: [address] [place] [address] Performed By: #### 2 276-4, 48977-4 #### [facility] CLIA [id number] [address] [place] [address] [place] Absolute neutrophil countOrd ered By: Amelia Cunha on 07-08-2024 Neutrophils (Bld) [#/Vol] 3.5 10*3/uL 2.0-7.7 [facility] Anion gap in Serum or Plasma Ordered By: Amelia Cunha on 07-08-2024 Anion gap [Moles/Vol] 10 mmol/L 5-15 [facility] BUN/creatinine ratioOrdered By: Amelia Cunha on 07-08-2024 Urea nitrogen/Creatinine [Mass ratio] 22.9 mg/mg High 10-20 [facility] Basophil percentageOrdered B y: Amelia Cunha on 07-08-2024 Basophils/100 WBC (Bld) 0.8 % 0-1 [facility] Bilirubin, totalOrdered By: Amelia Cunha on 07-08-2024 Bilirubin [Mass/Vol] 0.53 mg/dL 0.00-1.30 [facility] CBC W/Diff, Automatedon 06-15 Anisocytosis Ql (Bld) 2+ Normal [facility] Comment on above: Performed By: #### L 500.4050, L300.3900, L100.0100 #### [facility] [address] [place], [address] HYPOCHROMASIA 2+ Normal [facility] Comment on above: Performed By: #### L 500.4050, L300.3900, L100.0100 #### [facility] [address] [place], [address] SMEAR COMMENT SCANNED Normal [facility] Comment on above: Performed By: #### L 500.4050, L300.3900, L100.0100 #### [facility] [address] [place], [address] Carbon dioxide, total [Moles /volume] in Central venous bloodOrdered By: Amelia Cunha on 07-08-2024 CO2 [Moles/Vol] 26.7 mmol/L 21.0-32.0 [facility] Chloride assayOrdered By: Zach Cunha on 07-08-2024 Chloride [Moles/Vol] 104 mmol/L 98-108 [facility] Comprehensive Metabolic Prof ilon 07-08-2024 Albumin [Mass/Vol] 4.0 g/dL Normal 3.4-4.[address] [facility] Comment on above: Performed By: #### L 500.4050, L300.3900, L100.0100 #### [facility] [address] [place], [address] Albumin/Globulin [Mass ratio] 1.6 {ratio} Normal 0.9-2.4 [facility] Comment on above: Performed By: #### L 500.4050, L300.3900, L100.0100 #### [facility] [address] [place], [address] ALK PHOS 95 U/L Normal 40-129 [facility] Comment on above: Performed By: #### L 500.4050, L300.3900, L100.0100 #### [facility] [address] [place], [address] ALT [Catalytic activity/Vol] 12 U/L Normal <=46 [facility] Comment on above: Performed By: #### L 500.4050, L300.3900, L100.0100 #### [facility] [address] [place], [address] AST [Catalytic activity/Vol] 24 U/L Normal <=37 [facility] Comment on above: Performed By: #### L 500.4050, L300.3900, L100.0100 #### [facility] [address] [place], [address] Bilirubin [Mass/Vol] 0.53 mg/dL Normal 0.00-1.30 [facility] Comment on above: Performed By: #### L 500.4050, L300.3900, L100.0100 #### [facility] [address] [place], [address] BUN/CRE 22.9 RATIO High 10-20 [facility] Comment on above: Performed By: #### L 500.4050, L300.3900, L100.0100 #### [facility] [address] [place], [address] Calcium [Mass/Vol] 8.1 mg/dL Normal 7.6-11.[address] [facility] Comment on above: Performed By: #### L 500.4050, L300.3900, L100.0100 #### [facility] [address] [place], [address] Chloride [Moles/Vol] 104 mmol/L Normal 98-108 [facility] Comment on above: Performed By: #### L 500.4050, L300.3900, L100.0100 #### [facility] [address] [place], [address] CO2 [Moles/Vol] 26.7 mmol/L Normal 21.0-32.0 [facility] Comment on above: Performed By: #### L 500.4050, L300.3900, L100.0100 #### [facility] [address] [place], [address] Creatinine [Mass/Vol] 0.86 mg/dL Normal 0.70-1.20 [facility] Comment on above: Performed By: #### L 500.4050, L300.3900, L100.0100 #### [facility] [address] [place], [address] GAP 10 Normal 5-15 [facility] Comment on above: Performed By: #### L 500.4050, L300.3900, L100.0100 #### [facility] [address] [place], [address] GFR/1.73 sq M.predicted among non-blacks MDRD (S/P/Bld) [Vol rate/Area] 83 mL/min/{1.73_m2} Normal >60 [facility] Comment on above: Result Comment: mL/m in/1.73m2 CKD-EPI Creatinine Equation (2020) Performed By: #### L 500.4050, L300.3900, L100.0100 #### [facility] [address] [place], [address] Globulin (S) [Mass/Vol] 2.5 g/dL Normal 2.2-4.2 [facility] Comment on above: Performed By: #### L 500.4050, L300.3900, L100.0100 #### [facility] [address] [place], [address] Glucose [Mass/Vol] 106 mg/dL High 70-[address] [facility] Comment on above: Performed By: #### L 500.4050, L300.3900, L100.0100 #### [facility] [address] [place], [address] Potassium [Moles/Vol] 4.2 mmol/L Normal 3.3-5.1 [facility] Comment on above: Performed By: #### L 500.4050, L300.3900, L100.0100 #### [facility] [address] [place], [address] Sodium [Moles/Vol] 141 mmol/L Normal 133-[address] [facility] Comment on above: Performed By: #### L 500.4050, L300.3900, L100.0100 #### [facility] Laboratory [address] [place], [address] T PROT 6.5 g/dL Normal 5.9-8.4 [facility] Comment on above: Performed By: #### L 500.4050, L300.3900, L100.0100 #### [facility] Laboratory [address] [place], [address] Urea nitrogen [Mass/Vol] 20 mg/dL High 4-19 [facility] Comment on above: Performed By: #### L 500.4050, L300.3900, L100.0100 #### [facility] Laboratory [address] [place], [address] Eosinophil percentageOrdered By: Amelia Cunha on 07-08-2024 Eosinophils/100 WBC (Bld) 7.2 % High 0-5 [facility] Erythrocyte distribution wid th ratioOrdered By: Amelia Cunha on 07-08-2024 Erythrocyte distribution width (RBC) [Ratio] 32.0 % High 11.6-14.6 [facility] Erythrocyte distribution wid th standard deviationOrdered By: Amelia Cunha on 07-08-2024 Erythrocyte distribution width (RBC) [Entitic vol] 75.6 fL High 35.1-43.9 [facility] GFR/1.73 sq M.predicted yunier g non-blacks MDRD (S/P/Bld) [Vol rate/Area]Ordered By: Amelia Cunha on 07-08-2024 Estimated GFR (MDRD) Non-Af Amer 83 >60 [facility] Comment on above: mL/min/1.73m2 CKD-EP I Creatinine Equation (2020) Gastroenterology Visit Repor ton 07-08-2024 Gastroenterology Visit Report [facility] Gastroenterology [address] [place] [address] OFFICE VISIT Date of Service: 07/08/24 MR#: [id number] Acct: [id number] Name: VERNON LOGAN Rep #: [id number] : 1935 Provider: JOE hoover Age/Sex: 88/M Location: [facility] [place] Status: Signed Intake Vital Signs 01/28/24 13:30 07/08/24 08:56 Height 5 ft 9 in 5 ft 9 in Weight: 151 lb BMI 22.3 BP 132/68 H Respiration 18 Pulse 78 Pulse Oximetry (%) 97 Oxygen Delivery Method room air Intake Visit Reasons: Anemia/ ED FU Chief Complaint: anemia [employer] Required: No Accompanied by: Grandson Is patient in pain?: Yes Allergies ciprofloxacin Allergy (Intermediate, Verified 07/08/24 08:52) Itching tramadol Adverse Reaction (Intermediate, Verified 07/08/24 08:52) Itching Medications ???Medication ???Instructions ???Recorded ???Confirmed ???Type amlodipine 2.5 mg tablet (Norvasc) 5 mg PO DAILY bp 11/12/17 History carvedilol 12.5 mg tablet (Coreg) 6.25 mg PO BID bp 11/12/17 History aspirin 81 mg chewable tablet 81 mg PO DAILY@0800 HEART 10/21/19 07/08/24 History cholecalciferol (vitamin D3) 25 25 mcg PO DAILY SUPPLEMENT 0 07/08/24 History mcg (1,000 unit) tablet ascorbic acid (vitamin C) 1,000 mg 500 mg PO DAILY SUPPLEMENT 12/0607/08/24 History tablet,extended release atorvastatin 40 mg tablet (Lipitor) 40 mg PO QHS CHOLESTEROL 07/08/24 History cetirizine 10 mg tablet (All Day 10 mg PO DAILY allergy symptoms 07/08/24 History Allergy (cetirizine)) clopidogrel 75 mg tablet 75 mg PO DAILY THINNER 12/07/23 History ezetimibe 10 mg tablet (Zetia) 10 mg PO DAILY CHOLESTEROL 4 07/08/24 History folic acid 0.8 mg capsule 0.4 mg PO DAILY SUPPLEMENT 4 07/08/24 History furosemide 20 mg tablet 20 mg PO DAILY WATER PILL 01/24/24 07/08/24 History losartan 50 mg tablet 50 mg PO DAILY BP 01/24/24 5 History pantoprazole 40 mg tablet,delayed 40 mg PO DAILY GERD 01/24/2406/15 History release vit C 250 mg-vit E 90 mg-zinc 40 1 tab PO BID VITAMIN 01/24/2406/15 History mg-copper 1 yd-tyfvvx-vsvaoi capsule (PreserVision AREDS-2) ammonium lactate 12 % topical cream 1 applic topical BID 07/08/24 0 07/08/24 History ferrous sulfate 325 mg (65 mg 325 mg PO QDAY 07/08/24 07/08/24 H istory iron) tablet ondansetron HCl 4 mg tablet 4 mg PO .COMPLEX #5 tabs 07/08/24 07/08/24 Rx oxycodone-acetaminophe n 5 mg-325 1 tab PO .Q4HR PRN 07/08/24 History mg tablet peg 3350-electrolytes 236 240 ml PO Q10M #4,000 mL 07/08/24 07/08/24 Rx gram-22.74 gram-6.74 gram-5.86 gram solution (Golytely) polyethylene glycol 3350 17 17 g PO ONCE constipation #850 07/08/24 Rx gram/dose oral powder (Miralax) grams sennosides 8.6 mg tablet (senna) 17.2 mg PO QHS PRN 07/08/24 History spironolactone 50 mg tablet 50 mg PO QAM 07/08/24 07/08/24 His tory Have you fallen in the past year?: No Nurse's Note: Here to determine the cause of his anemia. [facility] Medical History Alcohol use Wears glasses Wears partial dentures Wears dentures Ambulates with cane High cholesterol Back pain Injury of head and neck Syncope Dietary restriction Gastric reflux Former smoker History of pain when walking History of edema History of CHF (congestive heart failure) History of heart attack DVT (deep venous thrombosis) History of stress test Cardiology follow-up encounter Heart murmur History of fracture of tibia Bronchitis Hypertension Surgical History Hx of hernia repair Hx of total hip arthroplasty History of hip replacement ( 2013) History of coronary artery stent placement Family History Other CAD (coronary artery disease) Heart disease Hypertension Sudden cardiac Social History Smoking Status: Former smoker HPI HPI Chief Complaint: anemia Details: VERNON LOGAN, is a 88 M who presents to the office today for - seen in the office today with grandson, grandson GF and another female LABS 07/02/2024 HGB 7.8 07/01/2024 HGB 5.5 - 2u PRBC, Venofer 01/28/2024 HGB 9.1 CEA 04/11/2022 HGB 14.1 - appetite is much better - reports he ambulates at home with cane - no longer SOB - denies any melena - denies any vomiting - denies any N/V - denies any weight loss - denies any epistaxis - denies any hematuria - remains on Plavix and ASA - he is taking Pantoprazole 40mg daily - denies any HB - denies (more content not included)... Normal [facility] Hematocrit Auto (Bld) [Volum e fraction]Ordered By: Amelia Cunha on 07-08-2024 Hematocrit (Bld) [Volume fraction] 29.9 % Low 40-54 [facility] Hemoglobin measurementOrdere d By: Amelia Cunha on 07-08-2024 Hemoglobin (Bld) [Mass/Vol] 8.4 g/dL Low 13.0-16.5 [facility] Hypochromia Ql (Bld)Ordered By: Amelia Cunha on 07-08-2024 Hypochromasia 2+ [facility] Immature granulocytes/100 WB C Auto (Bld)Ordered By: Amelia Cunha on 07-08-2024 Immature granulocytes/100 WBC (Bld) 0.600 % 0.0-0.9 [facility] Comment on above: IG% - Immature Granu locytes (promyelocytes, myelocytes and metamyelocytes) > 1% indicates that a LEFT SHIFT is Present. International normalized rat io (INR) calculationOrdered By: Amelia Cunha on 07-08-2024 INR Coag (Bld) [Relative time] 1.1 {INR} [facility] Laboratory - Chemistry and C hemistry - challengeOrdered By: Amelia Cunha on 07-08-2024 AST [Catalytic activity/Vol] 24 U/L <38 [facility] Laboratory - Hematology and Cell countsOrdered By: Amelia Cunha on 07-08-2024 Anisocytosis Ql (Bld) 2+ [facility] Lymphocytes Auto (Unsp spec) [#/Vol]Ordered By: Amelia Cunha on 07-08-2024 Lymphocytes (Bld) [#/Vol] 0.74 10*3/uL Low 0.83-4.51 [facility] Lymphocytes/100 WBC Auto (Un sp spec)Ordered By: Amelia Cunha on 07-08-2024 Lymphocytes/100 WBC (Bld) 14.1 % Low 19-41 [facility] MCV (mean corpuscular volume ) determinationOrdered By: Amelia Cunha on 07-08-2024 MCV (RBC) [Entitic vol] 71.9 fL Low 80-94 [facility] Manual differential comment Braden (Bld) [Interp]Ordered By: Amelia Cunha on 07-08-2024 Differential Comment SCANNED [facility] Mean corpuscular hemoglobin (MCH) determinationOrdered By: Amelia Cunha on 07-08-2024 MCH (RBC) [Entitic mass] 20.2 pg Low 27.0-32.0 [facility] Mean corpuscular hemoglobin concentration (MCHC) determinationOrdered By: Amelia Cunha on 07-08-2024 MCHC (RBC) [Mass/Vol] 28.1 g/dL Low 32-36 [facility] Mean platelet volume determi nationOrdered By: Amelia Cunha on 07-08-2024 Platelet mean volume (Bld) [Entitic vol] 10.4 fL 6.2-12.0 [facility] Monocyte percentageOrdered B y: Amelia Cunha on 07-08-2024 Monocytes/100 WBC (Bld) 10.1 % High 0-10 [facility] Neutrophil percentageOrdered By: Amelia Cunha on 07-08-2024 Neutrophils/100 WBC (Bld) 67.2 % 47-70 [facility] Nucleated red blood cell per centageOrdered By: Amelia Cunha on 07-08-2024 Nucleated RBC/100 WBC (Bld) [Ratio] 0 % 0-5 [facility] Platelet countOrdered By: Zach Cunha on 07-08-2024 Platelets (Bld) [#/Vol] 173 10*3/uL 150-450 [facility] Potassium (Unsp spec) [Mass/ Vol]Ordered By: Amelia Cunha on 07-08-2024 Potassium [Moles/Vol] 4.2 mmol/L 3.3-5.1 [facility] Prothrombin Time w/INRon INR Coag (PPP) [Relative time] 1.1 {INR} Normal [facility] Comment on above: Performed By: #### L 500.4050, L300.3900, L100.0100 #### [facility] Laboratory [address] [place], [address] PT Coag (PPP) [Time] 14.8 s Normal 11.7-14.9 [facility] Comment on above: Performed By: #### L 500.4050, L300.3900, L100.0100 #### [facility] [address] [place], [address] Prothrombin timeOrdered By: Amelia Cunha on 07-08-2024 PT Coag (PPP) [Time] 14.8 s 11.7-14.9 [facility] RBC Auto (Bld) [#/Vol]Ordere d By: Amelia Cunha on 07-08-2024 RBC (Bld) [#/Vol] 4.16 10*6/uL Low 4.6-6.2 [facility] Serum creatinine measurement (mass/volume)Ordered By: Amelia Cunha on 07-08-2024 Creatinine [Mass/Vol] 0.86 mg/dL 0.70-1.20 [facility] Serum globulin measurementOr dered By: Amelia Cunha on 07-08-2024 Globulin (S) [Mass/Vol] 2.5 g/dL 2.2-4.2 [facility] Serum glucose measurement (m ass/volume)Ordered By: Amelia Cunha on 07-08-2024 Glucose [Mass/Vol] 106 mg/dL High 70-[address] [facility] Serum or plasma alanine pastor otransferase (ALT) measurementOrdered By: Amelia Cunha on 07-08-2024 ALT [Catalytic activity/Vol] 12 U/L <47 [facility] Serum or plasma albumin jaci urement (mass/volume)Ordered By: Amelia Cunha on 07-08-2024 Albumin [Mass/Vol] 4.0 g/dL 3.4-4.[address] [facility] Serum or plasma albumin/glob ulin mass ratioOrdered By: Amelia Cunha on 07-08-2024 Albumin/Globulin [Mass ratio] 1.6 {ratio} 0.9-2.4 [facility] Serum or plasma alkaline kenneth sphatase measurementOrdered By: Amelia Cunha on 07-08-2024 ALP [Catalytic activity/Vol] 95 U/L 40-129 [facility] Serum or plasma calcium jaci urement (mass/volume)Ordered By: Amelia Cunha on 07-08-2024 Calcium [Mass/Vol] 8.1 mg/dL 7.6-11.[address] [facility] Serum or plasma urea nitroge n measurement (mass/volume)Ordered By: Amelia Cunha on 07-08-2024 Urea nitrogen [Mass/Vol] 20 mg/dL High 4-19 [facility] Sodium levelOrdered By: Christina Cunha on 07-08-2024 Sodium [Moles/Vol] 141 mmol/L 133-[address] [facility] Total proteinOrdered By: Alethea Cunha on 07-08-2024 Protein [Mass/Vol] 6.5 g/dL 5.9-8.[address] [facility] White blood cell (WBC) count Ordered By: Amelia Cunha on 07-08-2024 WBC (Bld) [#/Vol] 5.3 10*3/uL 4.4-11.[address] [facility] B1WBon 07-04-2024 Vitamin B1 Whl Bld 174.8 nmol/L Normal 66.5-200.0 [facility] Comment on above: Result Comment: This test was developed and its performance characteristics determined by [employer]. It has not been cleared or approved by the Food and Drug Administration. Performed At: [address] [id number] Mauro Hines MD Ph:[phone] Performed By: #### H H #### [address] [address] .Auto Diffon 07-02-2024 Basophil, Absolute 0.1 10 3/mcL Normal 0.0-0.2 [facility] Comment on above: Performed By: #### A HARINI, CBC, MG, GFR, ADIFF, BMP #### [address] [address] Basophils/100 WBC (Bld) 1.0 % Normal 0.0-2.5 [facility] Comment on above: Performed By: #### A HARINI, CBC, MG, GFR, ADIFF, BMP #### [address] [address] Eosinophil, Absolute 0.3 10 3/mcL Normal 0.0-0.7 [facility] Comment on above: Performed By: #### A HARINI, CBC, MG, GFR, ADIFF, BMP #### [address] [address] Eosinophils/100 WBC (Bld) 5.6 % Normal 0.0-7.0 [facility] Comment on above: Performed By: #### A HARINI, CBC, MG, GFR, ADIFF, BMP #### [address] [address] Lymphocyte, Absolute 1.3 10 3/mcL Normal 0.9-4.3 [facility] Comment on above: Performed By: #### A HARINI, CBC, MG, GFR, ADIFF, BMP #### [address] [address] Lymphocytes/100 WBC (Bld) 24.1 % Normal 20.0-40.0 [facility] Comment on above: Performed By: #### A HARINI, CBC, MG, GFR, ADIFF, BMP #### [address] [address] Monocyte, Absolute 0.7 10 3/mcL Normal 0.1-1.4 [facility] Comment on above: Performed By: #### A HARINI, CBC, MG, GFR, ADIFF, BMP #### [address] [address] Monocytes/100 WBC (Bld) 13.2 % High 2.0-13.0 [facility] Comment on above: Performed By: #### A HARINI, CBC, MG, GFR, ADIFF, BMP #### [address] [address] Neutrophils/100 WBC (Bld) 56.1 % Normal 50.0-75.0 [facility] Comment on above: Performed By: #### A HARINI, CBC, MG, GFR, ADIFF, BMP #### [address] [address] .GFRon 07-02-2024 Estimated Glomerular Filtration Rate 60 ml/min/1.73sqm Normal [facility] Comment on above: Result Comment: Stages of Chronic Kidney Disease (CKD) Stage Description eGFR(ml/min/1.73 sq.m.) CKD 1 Normal kidney function or >=90 normal kindney function with possible kidney damage (ex. Proteinuria) CKD 2 Kidney damage with mild loss 60-89 of kidney function CKD 3a Mild to moderate loss of kidney 45-59 function CKD 3b Moderate to severe loss of 30-44 of kindey function CKD 4 Severe loss of kidney function 15-29 CKD 5 Kidney failure <15 Note: (go live 2024) the eGFR calculation was updated to the 2020 CKD-EPI creatinine equation without a race factor to calculate the eGFR results. Performed By: #### A HARINI, CBC, MG, GFR, ADIFF, BMP #### [address] [address] .NEUABSon 07-02-2024 Neutrophil, Absolute 3.0 10 3/mcL Normal 2.3-8.1 [facility] Comment on above: Performed By: #### A HARINI, CBC, MG, GFR, ADIFF, BMP #### [address] [address] BMPon 07-02-2024 BUN/Creatinine Ratio 21 ratio Normal 7-27 [facility] Comment on above: Performed By: #### A HARINI, CBC, MG, GFR, ADIFF, BMP #### [address] [address] Calcium [Mass/Vol] 8.3 mg/dL Low 8.4-10.2 [facility] Comment on above: Performed By: #### A HARINI, CBC, MG, GFR, ADIFF, BMP #### [address] [address] Chloride [Moles/Vol] 108 mmol/L High 98-107 [facility] Comment on above: Performed By: #### A HARINI, CBC, MG, GFR, ADIFF, BMP #### [address] [address] CO2 [Moles/Vol] 29 mmol/L Normal 23-31 [facility] Comment on above: Performed By: #### A HARINI, CBC, MG, GFR, ADIFF, BMP #### [address] [address] Creatinine [Mass/Vol] 1.17 mg/dL Normal 0.70-1.30 [facility] Comment on above: Result Comment: Test ing performed on Siemens Dimension EXL analyzer using a modified kinetic Nazia technique. Performed By: #### A HARINI, CBC, MG, GFR, ADIFF, BMP #### [address] [address] Electrolyte Balance 8.0 mEq/L Normal 4.0-15.0 [facility] Comment on above: Performed By: #### A HARINI, CBC, MG, GFR, ADIFF, BMP #### [address] [address] Glucose [Mass/Vol] 98 mg/dL Normal 83-110 [facility] Comment on above: Performed By: #### A HARINI, CBC, MG, GFR, ADIFF, BMP #### [address] [address] Potassium [Moles/Vol] 3.9 mmol/L Normal 3.5-5.1 [facility] Comment on above: Performed By: #### A HARINI, CBC, MG, GFR, ADIFF, BMP #### [address] [address] Sodium [Moles/Vol] 145 mmol/L Normal 136-145 [facility] Comment on above: Performed By: #### A HARINI, CBC, MG, GFR, ADIFF, BMP #### [address] [address] Urea nitrogen [Mass/Vol] 25 mg/dL High 7-18 [facility] Comment on above: Performed By: #### A HARINI, CBC, MG, GFR, ADIFF, BMP #### [address] [address] CBCon 07-02-2024 Erythrocyte distribution width (RBC) [Ratio] 28.5 % High 11.5-15.5 [facility] Comment on above: Performed By: #### A HARINI, CBC, MG, GFR, ADIFF, BMP #### [address] [address] Hematocrit (Bld) [Volume fraction] 24.5 % Low 40.0-52.0 [facility] Comment on above: Performed By: #### A HARINI, CBC, MG, GFR, ADIFF, BMP #### [place] [id number] Hgb 7.5 G/dL Low 13.0-17.5 [facility] Comment on above: Performed By: #### A HARINI, CBC, MG, GFR, ADIFF, BMP #### [place] [address] MCH (RBC) [Entitic mass] 19.4 pg Low 27.0-33.0 [facility] Comment on above: Performed By: #### A HARINI, CBC, MG, GFR, ADIFF, BMP #### [place] [address] MCHC 30.8 G/dL Low 32.0-36.0 [facility] Comment on above: Performed By: #### A HARINI, CBC, MG, GFR, ADIFF, BMP #### [place] [id number] MCV (RBC) [Entitic vol] 63.1 fL Low 81.0-100.0 [facility] Comment on above: Performed By: #### A HARINI, CBC, MG, GFR, ADIFF, BMP #### [address] [address] Platelet 157 10 3/mcL Normal 150-450 [facility] Comment on above: Performed By: #### A HARINI, CBC, MG, GFR, ADIFF, BMP #### [address] [address] Platelet mean volume (Bld) [Entitic vol] 8.8 fL Normal 6.4-10.5 [facility] Comment on above: Performed By: #### A HARINI, CBC, MG, GFR, ADIFF, BMP #### [facility] [address] [place], [place] [address] RBC 3.87 10 6/mcL Low 4.50-6.00 [facility] Comment on above: Performed By: #### A HARINI, CBC, MG, GFR, ADIFF, BMP #### [place] [id number] [place], [place] [address] WBC 5.4 10 3/mcL Normal 4.5-10.8 [facility] Comment on above: Performed By: #### A HARINI, CBC, MG, GFR, ADIFF, BMP #### [place] [id number] [place], [place] [address] CNPNon 07-02-2024 [place]DY[place] Telephone (ABISAI) VERNON LOGAN ([id number]) 1935 M Date Time Provider Department 07/02/24 TRES PAVON During your visit today, we recorded the following information about you: Hanna Ramos 07/02/2024 1:26 PM Signed Received call from [facility] stating patient will be discharged today. They are sending referral/records to [facility]. Okay to call patient to schedule Merissa Alexander LPN 07/04/2024 10:12 AM Signed Records received and chart sent to [facility] for scheduling. Appears scheduled 07/17 Merissa Alexander LPN Allergies As of Date: 07/02/2024 (No Known Allergies) Date Reviewed: 09/26/2018 Reviewed by: Carol Hawkins - Fully Assessed Reason for Visit: New Patient [172] Prescriptions as of 07/04/2024 - amLODIPine (NORVASC) 5 mg tablet - Irbesartan-Hydrochloro thiazide 300-12.5 mg per tablet - Valsartan-Hydrochlorot hiazide 320-12.5 mg per tablet - omeprazole (PRILOSEC) 20 mg capsule - amLODIPine (NORVASC) 2.5 mg tablet - aspirin(ASPIR-LOW 81 MG TAB) Take one(1) tablet daily. - valsartan(DIOVAN 160 MG TAB) Take one(1) tablet daily. - amlodipine/atorvast ed(CADUET 2.5 MG-20 MG TAB) Take one(1) tablet daily. - HYDROCHLOROTHIAZIDE 12.5 MG CAP Take one(1) tablet daily. Meds Comments as of 11/19/2009: takes a med to lower HR but cannot recall name peggy 8-6-10 Problem List As Of Date: 07/02/2024 (None) Encounter Status:Closed by MERISSA ALEXANDER on 07/04/24 Normal [facility] HHon 07-02-2024 Hematocrit (Bld) [Volume fraction] 24.9 % Low 40.0-52.0 [facility] Comment on above: Performed By: #### H H #### [address] [address] Hgb 7.8 G/dL Low 13.0-17.5 [facility] Comment on above: Performed By: #### H H #### [address] [address] MGon 07-02-2024 Magnesium [Mass/Vol] 1.7 mg/dL Low 1.8-2.4 [facility] Comment on above: Performed By: #### A HARINI, CBC, MG, GFR, ADIFF, BMP #### [address] [address] RBC (Product)on 07-02-2024 RBC Product Ready RBC Ready for Pickup Normal [facility] Comment on above: Performed By: #### R BCP #### [address] [address] .Auto Diffon 07-01-2024 Basophil, Absolute 0.1 10 3/mcL Normal 0.0-0.2 [facility] Comment on above: Performed By: #### R BCP #### [address] [address] Basophils/100 WBC (Bld) 1.6 % Normal 0.0-2.5 [facility] Comment on above: Performed By: #### R BCP #### [address] [address] Eosinophil, Absolute 0.3 10 3/mcL Normal 0.0-0.7 [facility] Comment on above: Performed By: #### R BCP #### [address] [address] Eosinophils/100 WBC (Bld) 5.1 % Normal 0.0-7.0 [facility] Comment on above: Performed By: #### R BCP #### [address] [address] Lymphocyte, Absolute 1.9 10 3/mcL Normal 0.9-4.3 [facility] Comment on above: Performed By: #### R BCP #### [address] [address] Lymphocytes/100 WBC (Bld) 37.5 % Normal 20.0-40.0 [facility] Comment on above: Performed By: #### R BCP #### [address] [address] Monocyte, Absolute 0.6 10 3/mcL Normal 0.1-1.4 [facility] Comment on above: Performed By: #### R BCP #### [address] [address] Monocytes/100 WBC (Bld) 11.1 % Normal 2.0-13.0 [facility] Comment on above: Performed By: #### R BCP #### [address] [address] Neutrophils/100 WBC (Bld) 44.7 % Low 50.0-75.0 [facility] Comment on above: Performed By: #### R BCP #### [address] [address] Basophil, Absolute 0.1 10 3/mcL Normal 0.0-0.2 [facility] Comment on above: Performed By: #### H H #### [address] [address] Basophils/100 WBC (Bld) 1.5 % Normal 0.0-2.5 [facility] Comment on above: Performed By: #### H H #### [address] [address] Eosinophil, Absolute 0.2 10 3/mcL Normal 0.0-0.7 [facility] Comment on above: Performed By: #### H H #### [address] [address] Eosinophils/100 WBC (Bld) 4.7 % Normal 0.0-7.0 [facility] Comment on above: Performed By: #### H H #### [address] [address] Lymphocyte, Absolute 1.5 10 3/mcL Normal 0.9-4.3 [facility] Comment on above: Performed By: #### H H #### [address] [address] Lymphocytes/100 WBC (Bld) 30.0 % Normal 20.0-40.0 [facility] Comment on above: Performed By: #### H H #### [address] [address] Monocyte, Absolute 0.5 10 3/mcL Normal 0.1-1.4 [facility] Comment on above: Performed By: #### H H #### [address] [address] Monocytes/100 WBC (Bld) 9.7 % Normal 2.0-13.0 [facility] Comment on above: Performed By: #### H H #### [address] [address] Neutrophils/100 WBC (Bld) 54.1 % Normal 50.0-75.0 [facility] Comment on above: Performed By: #### H H #### [address] [address] .GFRon 07-01-2024 Estimated Glomerular Filtration Rate 42 ml/min/1.73sqm Normal [facility] Comment on above: Result Comment: Stages of Chronic Kidney Disease (CKD) Stage Description eGFR(ml/min/1.73 sq.m.) CKD 1 Normal kidney function or >=90 normal kindney function with possible kidney damage (ex. Proteinuria) CKD 2 Kidney damage with mild loss 60-89 of kidney function CKD 3a Mild to moderate loss of kidney 45-59 function CKD 3b Moderate to severe loss of 30-44 of kindey function CKD 4 Severe loss of kidney function 15-29 CKD 5 Kidney failure <15 Note: (go live 2024) the eGFR calculation was updated to the 2020 CKD-EPI creatinine equation without a race factor to calculate the eGFR results. Performed By: #### R BCP #### [place] [address] Estimated Glomerular Filtration Rate 42 ml/min/1.73sqm Normal [facility] Comment on above: Result Comment: Stages of Chronic Kidney Disease (CKD) Stage Description eGFR(ml/min/1.73 sq.m.) CKD 1 Normal kidney function or >=90 normal kindney function with possible kidney damage (ex. Proteinuria) CKD 2 Kidney damage with mild loss 60-89 of kidney function CKD 3a Mild to moderate loss of kidney 45-59 function CKD 3b Moderate to severe loss of 30-44 of kindey function CKD 4 Severe loss of kidney function 15-29 CKD 5 Kidney failure <15 Note: (go live 2024) the eGFR calculation was updated to the 2020 CKD-EPI creatinine equation without a race factor to calculate the eGFR results. Performed By: #### R BCP #### [address] [address] .MDWon 07-01-2024 Monocyte Distribution Width See Comment Normal 0.00-20.00 [facility] Comment on above: Result Comment: The MDW result could not be reported due to a sample abnormality that prevents the MDW from being calculated. Performed By: #### R BCP #### [address] [address] .Morphon 07-01-2024 Hypochrom 1+ Normal [facility] Comment on above: Performed By: #### R BCP #### [place] [address] Microcytosis 1+ Normal [facility] Comment on above: Performed By: #### R BCP #### [place] [address] Ovalocytes 1+ Normal [facility] Comment on above: Performed By: #### R BCP #### [place] [address] Platelet Estimate Normal [facility] Comment on above: Performed By: #### R BCP #### [place] [address] Tear Cell 1+ Normal [facility] Comment on above: Performed By: #### R BCP #### [place] [address] Hypochrom 1+ [facility] Comment on above: Performed By: #### H H #### [place] [address] Microcytosis 1+ Normal [facility] Comment on above: Performed By: #### H H #### [place] [address] Ovalocytes 1+ [facility] Comment on above: Performed By: #### H H #### [place] [address] Platelet Estimate Normal [facility] Comment on above: Performed By: #### H H #### [place] [address] Tear Cell 1+ Normal [facility] Comment on above: Performed By: #### H H #### [place] [address] .NEUABSon 07-01-2024 Neutrophil, Absolute 2.2 10 3/mcL Low 2.3-8.1 [facility] Comment on above: Performed By: #### R BCP #### [address] [address] Neutrophil, Absolute 2.7 10 3/mcL Normal 2.3-8.1 [facility] Comment on above: Performed By: #### H H #### [address] [address] A1Con 07-01-2024 Glucose [Mass/Vol] 123 mg/dL Normal [facility] Comment on above: Result Comment: Mai mated Average Glucose calculated by equation ((28.7xA1C)-46.7) Estimated average glucose (eAG) is a calculated value from Hemoglobin A1C and is manufacturers representative of the average blood glucose level in the last 2-3 month period. Normal range: less than 114 mg/dL Performed By: #### R BCP #### [address] [address] HbA1c (Bld) [Mass fraction] 5.9 % Normal 4.3-6.4 [facility] Comment on above: Performed By: #### R BCP #### [address] [address] ABO/Rh (Gel)on 07-01-2024 ABO/Rh Interp Positive Invalid Interpretation Code [facility] Comment on above: Performed By: #### R BCP #### [address] [address] ABS (Gel)on 07-01-2024 ABSC Interp (Gel) Negative Normal [facility] Comment on above: Performed By: #### R BCP #### [address] [address] APTTon 07-01-2024 aPTT Coag (Bld) [Time] 33.0 s Normal 25.0-35.0 [facility] Comment on above: Result Comment: For Heparin anticoagulation therapy, the recommended therapeutic range is: 45.4-75.9 seconds. Patients on heparin therapy may have an extreme result. Performed By: #### R BCP #### [address] [address] B12on 07-01-2024 Cobalamin (Vitamin B12) [Mass/Vol] 236 pg/mL Normal 211-911 [facility] Comment on above: Performed By: #### H H #### [address] [address] Cobalamin (Vitamin B12) [Mass/Vol] 260 pg/mL Normal 211-911 [facility] Comment on above: Performed By: #### A HARINI, CBC, MG, GFR, ADIFF, BMP #### [address] [address] CBCon 07-01-2024 Erythrocyte distribution width (RBC) [Ratio] 19.8 % High 11.5-15.5 [facility] Comment on above: Performed By: #### R BCP #### [address] [address] Hematocrit (Bld) [Volume fraction] 19.5 % Low 40.0-52.0 [facility] Comment on above: Performed By: #### R BCP #### [address] [address] Hgb 5.6 G/dL Critically abnormal 13.0-17.5 [facility] Comment on above: Performed By: #### R BCP #### [address] [address] MCH (RBC) [Entitic mass] 16.3 pg Low 27.0-33.0 [facility] Comment on above: Performed By: #### R BCP #### [address] [address] MCHC 28.7 G/dL Low 32.0-36.0 [facility] Comment on above: Performed By: #### R BCP #### [address] [address] MCV (RBC) [Entitic vol] 56.8 fL Low 81.0-100.0 [facility] Comment on above: Performed By: #### R BCP #### [address] [address] Platelet 195 10 3/mcL Normal 150-450 [facility] Comment on above: Performed By: #### R BCP #### [place] [address] Platelet mean volume (Bld) [Entitic vol] 9.0 fL Normal 6.4-10.5 [facility] Comment on above: Performed By: #### R BCP #### [place] [address] RBC 3.43 10 6/mcL Low 4.50-6.00 [facility] Comment on above: Performed By: #### R BCP #### [place] [address] WBC 5.0 10 3/mcL Normal 4.5-10.8 [facility] Comment on above: Performed By: #### R BCP #### [place] [address] Erythrocyte distribution width (RBC) [Ratio] 19.9 % High 11.5-15.5 [facility] Comment on above: Performed By: #### R BCP #### [place] [address] Hematocrit (Bld) [Volume fraction] 18.9 % Low 40.0-52.0 [facility] Comment on above: Performed By: #### R BCP #### [place] [address] Hgb 5.5 G/dL Critically abnormal 13.0-17.5 [facility] Comment on above: Performed By: #### R BCP #### [place] [address] MCH (RBC) [Entitic mass] 16.4 pg Low 27.0-33.0 [facility] Comment on above: Performed By: #### R BCP #### [place] [address] MCHC 28.9 G/dL Low 32.0-36.0 [facility] Comment on above: Performed By: #### R BCP #### [address] [address] MCV (RBC) [Entitic vol] 56.7 fL Low 81.0-100.0 [facility] Comment on above: Performed By: #### R BCP #### [address] [address] Platelet 188 10 3/mcL Normal 150-450 [facility] Comment on above: Performed By: #### R BCP #### [address] [address] Platelet mean volume (Bld) [Entitic vol] 8.7 fL Normal 6.4-10.5 [facility] Comment on above: Performed By: #### R BCP #### [address] [address] RBC 3.33 10 6/mcL Low 4.50-6.00 [facility] Comment on above: Performed By: #### R BCP #### [address] [address] WBC 5.0 10 3/mcL Normal 4.5-10.8 [facility] Comment on above: Performed By: #### R BCP #### [address] [address] CMPon 07-01-2024 Albumin Level 4.1 G/dL Normal 3.4-4.8 [facility] Comment on above: Performed By: #### R BCP #### [address] [address] Albumin/Globulin [Mass ratio] 1.5 {ratio} Normal 1.1-2.5 [facility] Comment on above: Performed By: #### R BCP #### [address] [address] ALP [Catalytic activity/Vol] 90 U/L Normal 40-135 [facility] Comment on above: Performed By: #### R BCP #### [address] [address] ALT [Catalytic activity/Vol] 15 U/L Low 16-63 [facility] Comment on above: Performed By: #### R BCP #### [place] [id number] AST [Catalytic activity/Vol] 28 U/L Normal 10-40 [facility] Comment on above: Performed By: #### R BCP #### [place] [id number] Bili Total 0.6 mg/dL Normal 0.2-1.0 [facility] Comment on above: Result Comment: Use of this assay is not recommended for patients undergoing treatment with eltrombopag due to the potential for falsely elevated results. Performed By: #### R BCP #### [place] [id number] BUN/Creatinine Ratio 16 ratio Normal 7-27 [facility] Comment on above: Performed By: #### R BCP #### [place] [id number] Calcium [Mass/Vol] 8.9 mg/dL Normal 8.4-10.2 [facility] Comment on above: Performed By: #### R BCP #### [place] [id number] Chloride [Moles/Vol] 104 mmol/L Normal 98-107 [facility] Comment on above: Performed By: #### R BCP #### [place] [id number] CO2 [Moles/Vol] 30 mmol/L Normal 23-31 [facility] Comment on above: Performed By: #### R BCP #### [place] [id number] Creatinine [Mass/Vol] 1.58 mg/dL High 0.70-1.30 [facility] Comment on above: Result Comment: Test ing performed on Siemens Dimension EXL analyzer using a modified kinetic Nazia technique. Performed By: #### R BCP #### [place] [id number] Electrolyte Balance 9.0 mEq/L Normal 4.0-15.0 [facility] Comment on above: Performed By: #### R BCP #### [address] [address] Globulin 2.8 G/dL Normal 1.5-3.8 [facility] Comment on above: Performed By: #### R BCP #### [address] [address] Glucose [Mass/Vol] 113 mg/dL High 83-110 [facility] Comment on above: Performed By: #### R BCP #### [address] [address] Potassium [Moles/Vol] 4.8 mmol/L Normal 3.5-5.1 [facility] Comment on above: Performed By: #### R BCP #### [address] [address] Sodium [Moles/Vol] 143 mmol/L Normal 136-145 [facility] Comment on above: Performed By: #### R BCP #### [address] [address] Total Protein 6.9 G/dL Normal 6.4-8.2 [facility] Comment on above: Performed By: #### R BCP #### [address] [address] Urea nitrogen [Mass/Vol] 25 mg/dL High 7-18 [facility] Comment on above: Performed By: #### R BCP #### [address] [address] Albumin Level 4.0 G/dL Normal 3.4-4.8 [facility] Comment on above: Performed By: #### R BCP #### [address] [address] Albumin/Globulin [Mass ratio] 1.5 {ratio} Normal 1.1-2.5 [facility] Comment on above: Performed By: #### R BCP #### [address] [address] ALP [Catalytic activity/Vol] 84 U/L Normal 40-135 [facility] Comment on above: Performed By: #### R BCP #### [place] [phone] ALT [Catalytic activity/Vol] 15 U/L Low 16-63 [facility] Comment on above: Performed By: #### R BCP #### [place] [phone] AST [Catalytic activity/Vol] 17 U/L Normal 10-40 [facility] Comment on above: Performed By: #### R BCP #### [place] [phone] Bili Total 0.8 mg/dL Normal 0.2-1.0 [facility] Comment on above: Result Comment: Use of this assay is not recommended for patients undergoing treatment with eltrombopag due to the potential for falsely elevated results. Performed By: #### R BCP #### [place] [phone] BUN/Creatinine Ratio 15 ratio Normal 7-27 [facility] Comment on above: Performed By: #### R BCP #### [place] [id number] Calcium [Mass/Vol] 9.2 mg/dL Normal 8.4-10.2 [facility] Comment on above: Performed By: #### R BCP #### [place] [id number] Chloride [Moles/Vol] 107 mmol/L Normal 98-107 [facility] Comment on above: Performed By: #### R BCP #### [place] [id number] CO2 [Moles/Vol] 30 mmol/L Normal 23-31 [facility] Comment on above: Performed By: #### R BCP #### [place] [phone] Creatinine [Mass/Vol] 1.57 mg/dL High 0.70-1.30 [facility] Comment on above: Result Comment: Test ing performed on Siemens Dimension EXL analyzer using a modified kinetic Nazia technique. Performed By: #### R BCP #### [address] [address] Electrolyte Balance 7.0 mEq/L Normal 4.0-15.0 [facility] Comment on above: Performed By: #### R BCP #### [address] [address] Globulin 2.6 G/dL Normal 1.5-3.8 [facility] Comment on above: Performed By: #### R BCP #### [address] [address] Glucose [Mass/Vol] 111 mg/dL High 83-110 [facility] Comment on above: Performed By: #### R BCP #### [address] [address] Potassium [Moles/Vol] 4.9 mmol/L Normal 3.5-5.1 [facility] Comment on above: Performed By: #### R BCP #### [address] [address] Sodium [Moles/Vol] 144 mmol/L Normal 136-145 [facility] Comment on above: Performed By: #### R BCP #### [address] [address] Total Protein 6.6 G/dL Normal 6.4-8.2 [facility] Comment on above: Performed By: #### R BCP #### [address] [address] Urea nitrogen [Mass/Vol] 24 mg/dL High 7-18 [facility] Comment on above: Performed By: #### R BCP #### [address] [address] Arnav 07-01-2024 Ferritin [Mass/Vol] 13.0 ng/mL Low 26.0-388.0 [facility] Comment on above: Performed By: #### H H #### [address] [address] FESon 07-01-2024 Iron [Mass/Vol] 8 ug/dL Low 65-175 [facility] Comment on above: Performed By: #### H H #### [address] [address] Iron Sat 2 % Normal [facility] Comment on above: Performed By: #### H H #### [place] [address] TIBC 356 mcg/dL Normal 250-450 [facility] Comment on above: Performed By: #### H H #### [place] [address] FOLon 07-01-2024 Folate 30.81 ng/mL High 5.38-24.00 [facility] Comment on above: Performed By: #### A HARINI, CBC, MG, GFR, ADIFF, BMP #### [place] [address] FT4on 07-01-2024 Free T4 [Mass/Vol] 1.51 ng/dL Normal 0.89-1.76 [facility] Comment on above: Result Comment: No te - New Reference Range in effect 19 Performed By: #### H H #### [place] [address] HHon 07-01-2024 Hematocrit (Bld) [Volume fraction] 20.4 % Low 40.0-52.0 [facility] Comment on above: Performed By: #### A HARINI, CBC, MG, GFR, ADIFF, BMP #### [place] [address] Hgb 6.2 G/dL Critically abnormal 13.0-17.5 [facility] Comment on above: Performed By: #### A HARINI, CBC, MG, GFR, ADIFF, BMP #### [place] [address] LIPIDon 07-01-2024 Cholesterol [Mass/Vol] 87 mg/dL Normal 0-200 [facility] Comment on above: Result Comment: Chol esterol Reference Interval: Less than 200 Desirable 200-239 Borderline high risk 240 and above High risk Performed By: #### R BCP #### [address] [address] Cholesterol in HDL [Mass/Vol] 62 mg/dL High 40-60 [facility] Comment on above: Performed By: #### R BCP #### [address] [address] Cholesterol in LDL [Mass/Vol] 19 mg/dL Normal 0-130 [facility] Comment on above: Performed By: #### R BCP #### [address] [address] Triglyceride [Mass/Vol] 29 mg/dL Normal 0-150 [facility] Comment on above: Result Comment: Trig lyceride Reference Interval: Less than 150 Normal 150-199 Borderline high risk 200-499 High risk 500 or higher Very high risk Performed By: #### R BCP #### [address] [address] MALBRon 07-01-2024 U Creatinine 41.7 mg/dL Normal [facility] Comment on above: Performed By: #### H H #### [address] [address] U Microalb 11.7 mg/L Normal [facility] Comment on above: Performed By: #### H H #### [address] [address] U Ratio Alb/Cre 28 mg/G Normal 0-30 [facility] Comment on above: Performed By: #### H H #### [address] [address] PROon 07-01-2024 PT Coag (PPP) [Time] 12.6 s Normal 9.0-14.4 [facility] Comment on above: Performed By: #### R BCP #### [address] [place] [address] PT International Ratio 1.1 Normal [facility] Comment on above: Result Comment: [employer] [place] [employer] (CHEST, 1992, [id number]) recommended therapeutic range for oral anticoagulant therapy is: LOW RISK: Prophylaxis of venous thrombosis INR: 2.0-3.0 Treatment of pulmonary embolism 2.0-3.0 Prevention of systemic embolism 2.0-3.0 HIGH RISK: Mechanical prosthetic valves 2.5-3.5 Performed By: #### R BCP #### [address] [address] PSAon 07-01-2024 Prostate Specific Antigen 13.66 ng/mL High 0.00-4.00 [facility] Comment on above: Order Comment: marko reina to Dr. Sibley Performed By: #### R BCP #### [address] [address] RBC (Product)on 07-01-2024 RBC Product Ready RBC Ready for Pickup Normal [facility] Comment on above: Performed By: #### R BCP #### [address] [address] RETO (AO)on 07-01-2024 Immature Retic Fraction 0.47 IRF High 0.20-0.46 [facility] Comment on above: Performed By: #### H H #### [address] [address] Reticulocytes, Auto 2.0 % Normal 0.2-2.3 [facility] Comment on above: Performed By: #### H H #### [address] [address] TROPHSon 07-01-2024 High Sensitivity Troponin I 7 ng/L Normal 0-76 [facility] Comment on above: Result Comment: High Sensitive Troponin I Reference Ranges: Female: 0-51 ng/L Male: 0-76 ng/L Testing performed on [email or web address] EX using a homogeneous sandwich chemiluminescent immunoassay based on [employer] technology. Performed By: #### R BCP #### [address] [address] TSHon 07-01-2024 TSH Qn 1.44 m[IU]/L Normal 0.36-3.74 [facility] Comment on above: Performed By: #### R BCP #### [place] [id number] [place], [place] [address] URICon 07-01-2024 Uric Acid Lvl 9.5 mg/dL High 3.5-7.2 [facility] Comment on above: Performed By: #### R BCP #### [address] [address] XR SPINE LUMBAR W/OBLIQUES 4 VIEWSon 05-28-2024 XR SPINE LUMBAR W/OBLIQUES 4 VIEWS ORIGINAL EXAMINATION: 5 XRAY VIEWS OF THE LUMBAR SPINE05/27/2024 12:24 pm LUMBAR SPINE W/ OBLIQUES COMPARISON: None HISTORY: ORDERING SYSTEM PROVIDED HISTORY: Reason for Exam: low back pain, leg weakness, concern for spinal stenosis FINDINGS: Slight anterolisthesis seen of L4 on L5. Multilevel disc height loss and disc osteophyte complexes are most prevalent at L4-5 and L5-S1. 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 Vertebral body heights are preserved. No pars defects visible. 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 There is degenerative change in the visualized left hip. There is probable sequela of hernia surgery in the left lower abdomen/pelvis. Significant vascular calcifications seen. IMPRESSION: No compression deformities. Moderate degenerative changes Interpreted by: Jesus Alberto Hayes MD Preliminary Report By: Jesus Alberto Hayes MD Electronically signed By Jesus Alberto Hayes MD Dictated Date: 05/28/2024 9:27:16 AM Prelim Date: 05/28/2024 9:29:02 AM Sign Date: 05/28/2024 9:29:02 AM Ordering Provider: AALIYAH TRUJILLO Normal [facility] .Auto Diffon 2023 Basophil, Absolute 0.1 10 3/mcL Normal 0.0-0.2 [facility] ([place]) Comment on above: Performed By: #### U MIREYA, CMP, LIPID, CBC, ADIFF, ANEU, GFR, A1C #### [place] [id number] [place], [place] [address] Basophils/100 WBC (Bld) 1.1 % Normal 0.0-2.5 A [facility] ([place]) Comment on above: Performed By: #### U MIREYA, CMP, LIPID, CBC, ADIFF, ANEU, GFR, A1C #### [address] [address] Eosinophil, Absolute 0.4 10 3/mcL Normal 0.0-0.4 [facility] ([place]) Comment on above: Performed By: #### U MIREYA, CMP, LIPID, CBC, ADIFF, ANEU, GFR, A1C #### [address] [address] Eosinophils/100 WBC (Bld) 6.1 % Normal 0.0-7.0 [facility] ([place]) Comment on above: Performed By: #### U MIREYA, CMP, LIPID, CBC, ADIFF, ANEU, GFR, A1C #### [address] [address] Lymphocyte, Absolute 1.5 10 3/mcL Normal 0.8-3.9 [facility] ([place]) Comment on above: Performed By: #### U MIREYA, CMP, LIPID, CBC, ADIFF, ANEU, GFR, A1C #### [address] [address] Lymphocytes/100 WBC (Bld) 22.6 % Normal 10.0-50.0 [facility] ([place]) Comment on above: Performed By: #### U MIREYA, CMP, LIPID, CBC, ADIFF, ANEU, GFR, A1C #### [address] [address] Monocyte, Absolute 0.7 10 3/mcL Normal 0.2-1.0 [facility] ([place]) Comment on above: Performed By: #### U MIREYA, CMP, LIPID, CBC, ADIFF, ANEU, GFR, A1C #### [address] [address] Monocytes/100 WBC (Bld) 10.5 % Normal 1.7-13.0 A [facility] ([place]) Comment on above: Performed By: #### U MIREYA, CMP, LIPID, CBC, ADIFF, ANEU, GFR, A1C #### [address] [address] Neutrophils/100 WBC (Bld) 59.7 % Normal 37.0-80.0 [facility] ([place]) Comment on above: Performed By: #### U MIREYA, CMP, LIPID, CBC, ADIFF, ANEU, GFR, A1C #### [address] [address] .GFRon 2023 GFR 74 ml/min/1.73sqm Normal [facility] ([place]) Comment on above: Result Comment: GFR Population mean for , Non- Americans Ages 20-29 = 116 mL/min/1.73 sq.m. Ages 30-39 = 107 mL/min/1.73 sq.m. Ages 40-49 = 99 mL/min/1.73 sq.m. Ages 50-59 = 93 mL/min/1.73 sq.m. Ages 60-69 = 85 mL/min/1.73 sq.m. Ages 70+ = 75 mL/min/1.73 sq.m. Chronic Kidney Disease: Less than 60 mL/min/1.73 square meters End Stage Renal Disease: Less than 15 mL/min/1.73 square meters Performed By: #### U MIREYA, CMP, LIPID, CBC, ADIFF, ANEU, GFR, A1C #### [address] [address] GFR Non- 61 ml/min/1.73sqm Normal [facility] ([place]) Comment on above: Result Comment: GFR Population mean for , Non- Americans Ages 20-29 = 116 mL/min/1.73 sq.m. Ages 30-39 = 107 mL/min/1.73 sq.m. Ages 40-49 = 99 mL/min/1.73 sq.m. Ages 50-59 = 93 mL/min/1.73 sq.m. Ages 60-69 = 85 mL/min/1.73 sq.m. Ages 70+ = 75 mL/min/1.73 sq.m. Chronic Kidney Disease: Less than 60 mL/min/1.73 square meters End Stage Renal Disease: Less than 15 mL/min/1.73 square meters Performed By: #### U MIREYA, CMP, LIPID, CBC, ADIFF, ANEU, GFR, A1C #### [place] [id number] .NEUABSon 2023 Neutrophil, Absolute 4.1 10 3/mcL Normal 2.9-6.2 [facility] ([place]) Comment on above: Performed By: #### U MIREYA, CMP, LIPID, CBC, ADIFF, ANEU, GFR, A1C #### [place] [id number] A1Con 2023 HbA1c (Bld) [Mass fraction] 5.7 % Normal 4.3-6.4 [facility] ([place]) Comment on above: Performed By: #### U MIREYA, CMP, LIPID, CBC, ADIFF, ANEU, GFR, A1C #### [place] [address] CBCon 2023 Erythrocyte distribution width (RBC) [Ratio] 15.0 % High 11.5-14.5 [facility] ([place]) Comment on above: Performed By: #### U MIREYA, CMP, LIPID, CBC, ADIFF, ANEU, GFR, A1C #### [place] [address] Hematocrit (Bld) [Volume fraction] 33.4 % Low 42.0-52.0 [facility] ([place]) Comment on above: Performed By: #### U MIREYA, CMP, LIPID, CBC, ADIFF, ANEU, GFR, A1C #### [place] [address] Hgb 11.1 G/dL Low 14.0-18.0 [facility] ([place]) Comment on above: Performed By: #### U MIREYA, CMP, LIPID, CBC, ADIFF, ANEU, GFR, A1C #### [place] [id number] MCH (RBC) [Entitic mass] 27.8 pg Normal 27.0-31.2 [facility] ([place]) Comment on above: Performed By: #### U MIREYA, CMP, LIPID, CBC, ADIFF, ANEU, GFR, A1C #### [address] [address] MCHC 33.3 G/dL Normal 31.8-35.4 [facility] ([place]) Comment on above: Performed By: #### U MIREYA, CMP, LIPID, CBC, ADIFF, ANEU, GFR, A1C #### [address] [address] MCV (RBC) [Entitic vol] 83.5 fL Normal 80.0-94.0 A [facility] ([place]) Comment on above: Performed By: #### U MIREYA, CMP, LIPID, CBC, ADIFF, ANEU, GFR, A1C #### [address] [address] Platelet 178 10 3/mcL Normal 130-400 [facility] ([place]) Comment on above: Performed By: #### U MIREYA, CMP, LIPID, CBC, ADIFF, ANEU, GFR, A1C #### [address] [address] Platelet mean volume (Bld) [Entitic vol] 8.6 fL Normal 7.4-10.4 [facility] ([place]) Comment on above: Performed By: #### U MIREYA, CMP, LIPID, CBC, ADIFF, ANEU, GFR, A1C #### [address] [address] RBC 4.00 10 6/mcL Low 4.04-6.13 [facility] ([place]) Comment on above: Performed By: #### U MIREYA, CMP, LIPID, CBC, ADIFF, ANEU, GFR, A1C #### [address] [address] WBC 6.8 10 3/mcL Normal 4.6-10.8 [facility] ([place]) Comment on above: Performed By: #### U MIREYA, CMP, LIPID, CBC, ADIFF, ANEU, GFR, A1C #### [address] [address] CMPon 2023 Albumin Level 3.9 G/dL Normal 3.4-4.8 [facility] ([place]) Comment on above: Performed By: #### U MIREYA, CMP, LIPID, CBC, ADIFF, ANEU, GFR, A1C #### [address] [address] Albumin/Globulin [Mass ratio] 1.4 {ratio} Normal 1.1-2.5 [facility] ([place]) Comment on above: Performed By: #### U MIREYA, CMP, LIPID, CBC, ADIFF, ANEU, GFR, A1C #### [address] [address] ALP [Catalytic activity/Vol] 96 U/L Normal 40-135 [facility] ([place]) Comment on above: Performed By: #### U MIREYA, CMP, LIPID, CBC, ADIFF, ANEU, GFR, A1C #### [address] [address] ALT [Catalytic activity/Vol] 20 U/L Normal 16-63 [facility] ([place]) Comment on above: Performed By: #### U MIREYA, CMP, LIPID, CBC, ADIFF, ANEU, GFR, A1C #### [address] [address] AST [Catalytic activity/Vol] 18 U/L Normal 10-40 [facility] ([place]) Comment on above: Performed By: #### U MIREYA, CMP, LIPID, CBC, ADIFF, ANEU, GFR, A1C #### [address] [address] Bili Total 0.9 mg/dL Normal 0.2-1.0 [facility] ([place]) Comment on above: Result Comment: Use of this assay is not recommended for patients undergoing treatment with eltrombopag due to the potential for falsely elevated results. Performed By: #### U MIREYA, CMP, LIPID, CBC, ADIFF, ANEU, GFR, A1C #### [address] [address] BUN/Creatinine Ratio 14 ratio Normal 7-27 [facility] ([place]) Comment on above: Performed By: #### U MIREYA, CMP, LIPID, CBC, ADIFF, ANEU, GFR, A1C #### [address] [address] Calcium [Mass/Vol] 9.0 mg/dL Normal 8.4-10.2 [facility] ([place] Comment on above: Performed By: #### U MIREYA, CMP, LIPID, CBC, ADIFF, ANEU, GFR, A1C #### [place] [id number] Chloride [Moles/Vol] 102 mmol/L Normal 98-107 [facility] ([place]) Comment on above: Performed By: #### U MIREYA, CMP, LIPID, CBC, ADIFF, ANEU, GFR, A1C #### [place] [address] CO2 [Moles/Vol] 32 mmol/L High 23-31 [facility] ([place]) Comment on above: Performed By: #### U MIREYA, CMP, LIPID, CBC, ADIFF, ANEU, GFR, A1C #### [address] [address] Creatinine [Mass/Vol] 1.13 mg/dL Normal 0.70-1.30 [facility] ([place]) Comment on above: Performed By: #### U MIREYA, CMP, LIPID, CBC, ADIFF, ANEU, GFR, A1C #### [address] [address] Electrolyte Balance 8.0 mEq/L Normal 4.0-15.0 [facility] ([place]) Comment on above: Performed By: #### U MIREYA, CMP, LIPID, CBC, ADIFF, ANEU, GFR, A1C #### [address] [address] Globulin 2.8 G/dL Normal [facility] ([place]) Comment on above: Performed By: #### U MIREYA, CMP, LIPID, CBC, ADIFF, ANEU, GFR, A1C #### [address] [address] Glucose [Mass/Vol] 101 mg/dL Normal 83-110 [facility] [place] Comment on above: Performed By: #### U MIREYA, CMP, LIPID, CBC, ADIFF, ANEU, GFR, A1C #### [address] [address] Potassium [Moles/Vol] 3.9 mmol/L Normal 3.5-5.1 [facility] ([place]) Comment on above: Performed By: #### U MIREYA, CMP, LIPID, CBC, ADIFF, ANEU, GFR, A1C #### [address] [address] Sodium [Moles/Vol] 142 mmol/L Normal 136-145 [facility] [place] Comment on above: Performed By: #### U MIREYA, CMP, LIPID, CBC, ADIFF, ANEU, GFR, A1C #### [address] [address] Total Protein 6.7 G/dL Normal 6.4-8.2 [facility] ([place]) Comment on above: Performed By: #### U MIREYA, CMP, LIPID, CBC, ADIFF, ANEU, GFR, A1C #### [address] [address] Urea nitrogen [Mass/Vol] 16 mg/dL Normal 7-18 [facility]) Comment on above: Performed By: #### U MIREYA, CMP, LIPID, CBC, ADIFF, ANEU, GFR, A1C #### [address] [address] LABORATORYOrdered By: SYSTEM SYSTEM on 2023 Albumin BCP dye [Mass/Vol] 3.9 G/dL Normal 3.4 - 4.8 G/dL AO ADM SS Albumin/Globulin [Mass ratio] 1.4 {ratio} Normal 1.1 - 2.5 ratio AO ADM SS ALP [Catalytic activity/Vol] 96 U/L Normal 40 - 135 U/L AO ADM SS ALT With P-5'-P [Catalytic activity/Vol] 20 U/L Normal 16 - 63 U/L AO ADM SS AST With P-5'-P [Catalytic activity/Vol] 18 U/L Normal 10 - 40 U/L AO ADM SS Basophil, Absolute 0.1 103/mcL Normal 0.0 - 0.2 10^3/mcL AO Workflow SS Basophils/100 WBC (Bld) 1.1 % Normal 0.0 - 2.5 % AO Workflow SS Bilirubin [Mass/Vol] 0.9 mg/dL Normal 0.2 - 1 .0 mg/dL AO ADM SS Comment on above: Interpretive Data: U se of this assay is not recommended for patients undergoing treatment with eltrombopag due to the potential for falsely elevated results. Calcium [Mass/Vol] 9.0 mg/dL Normal 8.4 - 10. 2 mg/dL AO ADM SS Chloride [Moles/Vol] 102 mmol/L Normal 98 - 10 7 mmol/L AO ADM SS CO2 [Moles/Vol] 32 mmol/L High 23 - 31 mmol/L AO ADM SS Creatinine [Mass/Vol] 1.13 mg/dL Normal 0.70 - 1.30 mg/dL AO ADM SS Electrolyte Balance 8.0 mEq/L Normal 4.0 - 15 .0 mEq/L AO ADM SS Eosinophil, Absolute 0.4 103/mcL Normal 0.0 - 0 .4 10^3/mcL AO Workflow SS Eosinophils/100 WBC (Bld) 6.1 % Normal 0.0 - 7.0 % AO Workflow SS Erythrocyte distribution width (RBC) [Ratio] 15.0 % High 11.5 - 14.5 % AO Workflow SS GFR/1.73 sq M.predicted among blacks MDRD (S/P/Bld) [Vol rate/Area] 74 ml/min/1.73sqm Invalid Interpretation Code AO Chemistry S Comment on above: Interpretive Data: GFR Population mean for , Non- Americans Ages 20-29 = 116 mL/min/1.73 sq.m. Ages 30-39 = 107 mL/min/1.73 sq.m. Ages 40-49 = 99 mL/min/1.73 sq.m. Ages 50-59 = 93 mL/min/1.73 sq.m. Ages 60-69 = 85 mL/min/1.73 sq.m. Ages 70+ = 75 mL/min/1.73 sq.m. Chronic Kidney Disease: Less than 60 mL/min/1.73 square meters End Stage Renal Disease: Less than 15 mL/min/1.73 square meters GFR/1.73 sq M.predicted among non-blacks MDRD (S/P/Bld) [Vol rate/Area] 61 ml/min/1.73sqm Invalid Interpretation Code AO Chemistry S Comment on above: Interpretive Data: GFR Population mean for , Non- Americans Ages 20-29 = 116 mL/min/1.73 sq.m. Ages 30-39 = 107 mL/min/1.73 sq.m. Ages 40-49 = 99 mL/min/1.73 sq.m. Ages 50-59 = 93 mL/min/1.73 sq.m. Ages 60-69 = 85 mL/min/1.73 sq.m. Ages 70+ = 75 mL/min/1.73 sq.m. Chronic Kidney Disease: Less than 60 mL/min/1.73 square meters End Stage Renal Disease: Less than 15 mL/min/1.73 square meters Globulin 2.8 G/dL Invalid Interpretation Code AO ADM SS Glucose [Mass/Vol] 101 mg/dL Normal 83 - 110 mg/dL AO ADM SS HbA1c (Bld) [Mass fraction] 5.7 % Normal 4.3 - 6.4 % AO ADM SS Hematocrit (Bld) [Volume fraction] 33.4 % Low 42.0 - 52.0 % AO Workflow SS Hemoglobin (Bld) [Mass/Vol] 11.1 G/dL Low 14.0 - 18.0 G/dL AO Workflow SS Lymphocyte, Absolute 1.5 103/mcL Normal 0.8 - 3 .9 10^3/mcL AO Workflow SS Lymphocytes/100 WBC (Bld) 22.6 % Normal 10.0 - 50.0 % AO Workflow SS MCH (RBC) [Entitic mass] 27.8 pg Normal 27.0 - 31.2 pg AO Workflow SS MCHC 33.3 G/dL Normal 31.8 - 35.4 G/dL AO Workflow SS MCV (RBC) [Entitic vol] 83.5 fL Normal 80.0 - 94.0 fL AO Workflow SS Monocyte, Absolute 0.7 103/mcL Normal 0.2 - 1.0 10^3/mcL AO Workflow SS Monocytes/100 WBC (Bld) 10.5 % Normal 1.7 - 13.0 % AO Workflow SS Neutrophil, Absolute 4.1 103/mcL Normal 2.9 - 6 .2 10^3/mcL AO Workflow SS Neutrophils/100 WBC (Bld) 59.7 % Normal 37.0 - 80.0 % AO Workflow SS Platelet mean volume (Bld) [Entitic vol] 8.6 fL Normal 7.4 - 10.4 fL AO Workflow SS Platelets (Bld) [#/Vol] 178 103/mcL Normal 130 - 400 10^3/mcL AO Workflow SS Potassium [Moles/Vol] 3.9 mmol/L Normal 3.5 - 5.1 mmol/L AO ADM SS Prostate specific Ag [Mass/Vol] 18.69 ng/mL High 0.00 - 4.00 ng/mL AO ADM SS Protein [Mass/Vol] 6.7 G/dL Normal 6.4 - 8.2 G/dL AO ADM SS RBC (Bld) [#/Vol] 4.00 106/mcL Low 4.04 - 6.1 3 10^6/mcL AO Workflow SS Sodium [Moles/Vol] 142 mmol/L Normal 136 - 145 mmol/L AO ADM SS Urea nitrogen [Mass/Vol] 16 mg/dL Normal 7 - 18 mg/dL AO ADM SS Urea nitrogen/Creatinine [Mass ratio] 14 ratio Normal 7 - 27 ratio AO ADM SS Uric Acid Lvl 7.2 mg/dL Normal 3.5 - 7.2 mg/dL AO ADM SS WBC (Bld) [#/Vol] 6.8 103/mcL Normal 4.6 - 10.8 10^3/mcL AO Workflow SS LABORATORYOrdered By: Holden Aquino on 2023 Cholesterol [Mass/Vol] 150 mg/dL Normal 0 - 2 00 mg/dL AO ADM SS Comment on above: Interpretive Data: C holesterol Reference Interval: Less than 200 Desirable 200-239 Borderline high risk 240 and above High risk Cholesterol in HDL [Mass/Vol] 65 mg/dL High 40 - 60 mg/dL AO ADM SS Cholesterol in LDL [Mass/Vol] 69 mg/dL Normal 0 - 130 mg/dL AO ADM SS Triglyceride [Mass/Vol] 81 mg/dL Normal 0 - 150 mg/dL AO ADM SS Comment on above: Interpretive Data: T riglyceride Reference Interval: Less than 150 Normal 150-199 Borderline high risk 200-499 High risk 500 or higher Very high risk LIPIDon 2023 Cholesterol [Mass/Vol] 150 mg/dL Normal 0-200 [facility] ([place]) Comment on above: Result Comment: Chol esterol Reference Interval: Less than 200 Desirable 200-239 Borderline high risk 240 and above High risk Performed By: #### U MIREYA, CMP, LIPID, CBC, ADIFF, ANEU, GFR, A1C #### [address] [address] Cholesterol in HDL [Mass/Vol] 65 mg/dL High 40-60 [facility] ([place]) Comment on above: Performed By: #### U MIREYA, CMP, LIPID, CBC, ADIFF, ANEU, GFR, A1C #### [address] [address] Cholesterol in LDL [Mass/Vol] 69 mg/dL Normal 0-130 [facility] ([place]) Comment on above: Performed By: #### U MIREYA, CMP, LIPID, CBC, ADIFF, ANEU, GFR, A1C #### [address] [address] Triglyceride [Mass/Vol] 81 mg/dL Normal 0-150 A [facility] ([place]) Comment on above: Result Comment: Trig lyceride Reference Interval: Less than 150 Normal 150-199 Borderline high risk 200-499 High risk 500 or higher Very high risk Performed By: #### U MIREYA, CMP, LIPID, CBC, ADIFF, ANEU, GFR, A1C #### [address] [address] PSAon 2023 Prostate Specific Antigen 18.69 ng/mL High 0.00-4.00 [facility] ([place]) Comment on above: Order Comment: cc wayne reina to Dr. Sibley Performed By: #### P SA #### [address] [address] URICon 2023 Uric Acid Lvl 7.2 mg/dL Normal 3.5-7.2 [facility] ([place]) Comment on above: Performed By: #### U MIREYA, CMP, LIPID, CBC, ADIFF, ANEU, GFR, A1C #### [address] [address] LABORATORYOrdered By: SYSTEM SYSTEM on 10-11-2022 Calcium [Mass/Vol] 9.3 mg/dL Invalid Interpretation Code 8.4 - 10.2 mg/dL AO ADM SS Chloride [Moles/Vol] 99 mmol/L Invalid Interpretation Code 98 - 107 mmol/L AO ADM SS CO2 [Moles/Vol] 33 mmol/L Invalid Interpretation Code 23 - 31 mmol/L AO ADM SS Creatinine [Mass/Vol] 1.18 mg/dL Invalid Interpretation Code 0.70 - 1.30 mg/dL AO ADM SS Electrolyte Balance 6.0 mEq/L Invalid Interpretation Code 4.0 - 15.0 mEq/L AO ADM SS GFR/1.73 sq M.predicted among blacks MDRD (S/P/Bld) [Vol rate/Area] 71 ml/min/1.73sqm Invalid Interpretation Code AO Chemistry S GFR/1.73 sq M.predicted among non-blacks MDRD (S/P/Bld) [Vol rate/Area] 59 ml/min/1.73sqm Invalid Interpretation Code AO Chemistry S Glucose [Mass/Vol] 99 mg/dL Invalid Interpretation Code 83 - 110 mg/dL AO ADM SS Potassium [Moles/Vol] 4.9 mmol/L Invalid Interpretation Code 3.5 - 5.1 mmol/L AO ADM SS Sodium [Moles/Vol] 138 mmol/L Invalid Interpretation Code 136 - 145 mmol/L AO ADM SS Urea nitrogen [Mass/Vol] 20 mg/dL Invalid Interpretation Code 7 - 18 mg/dL AO ADM SS Urea nitrogen/Creatinine [Mass ratio] 17 ratio Invalid Interpretation Code 7 - 27 ratio AO ADM SS LABORATORYOrdered By: SYSTEM SYSTEM on 08-21-2022 Calcium [Mass/Vol] 8.9 mg/dL Invalid Interpretation Code 8.4 - 10.2 mg/dL AO ADM SS Chloride [Moles/Vol] 102 mmol/L Invalid Interpretation Code 98 - 107 mmol/L AO ADM SS CO2 [Moles/Vol] 34 mmol/L Invalid Interpretation Code 23 - 31 mmol/L AO ADM SS Creatinine [Mass/Vol] 0.91 mg/dL Invalid Interpretation Code 0.70 - 1.30 mg/dL AO ADM SS Electrolyte Balance 7.0 mEq/L Invalid Interpretation Code 4.0 - 15.0 mEq/L AO ADM SS GFR/1.73 sq M.predicted among blacks MDRD (S/P/Bld) [Vol rate/Area] 96 ml/min/1.73sqm Invalid Interpretation Code AO Chemistry S GFR/1.73 sq M.predicted among non-blacks MDRD (S/P/Bld) [Vol rate/Area] 79 ml/min/1.73sqm Invalid Interpretation Code AO Chemistry S Glucose [Mass/Vol] 152 mg/dL Invalid Interpretation Code 83 - 110 mg/dL AO ADM SS Potassium [Moles/Vol] 3.8 mmol/L Invalid Interpretation Code 3.5 - 5.1 mmol/L AO ADM SS Sodium [Moles/Vol] 143 mmol/L Invalid Interpretation Code 136 - 145 mmol/L AO ADM SS Urea nitrogen [Mass/Vol] 11 mg/dL Invalid Interpretation Code 7 - 18 mg/dL AO ADM SS Urea nitrogen/Creatinine [Mass ratio] 12 ratio Invalid Interpretation Code 7 - 27 ratio AO ADM SS LABORATORYOrdered By: SYSTEM SYSTEM on 08-08-2022 Basophils (Bld) [#/Vol] 0.1 103/mcL Invalid Interpretation Code 0.0 - 0.3 10^3/mcL Workflow SS Basophils/100 WBC (Bld) 0.9 % Invalid Interpretation Code 0.0 - 2.5 % Workflow SS Calcium [Mass/Vol] 9.3 mg/dL Invalid Interpretation Code 8.7 - 10.4 mg/dL ADM SS Chloride [Moles/Vol] 106 mmol/L Invalid Interpretation Code 98 - 110 mEq/L ADM SS CO2 [Moles/Vol] 35 mmol/L Invalid Interpretation Code 22 - 32 mEq/L ADM SS Creatinine [Mass/Vol] 0.82 mg/dL Invalid Interpretation Code 0.60 - 1.40 mg/dL ADM SS Electrolyte Balance 5.0 mEq/L Invalid Interpretation Code 4.0 - 15.0 mEq/L ADM SS Eosinophils (Bld) [#/Vol] 0.3 103/mcL Invalid Interpretation Code 0.0 - 0.7 10^3/mcL AH Workflow SS Eosinophils/100 WBC (Bld) 4.7 % Invalid Interpretation Code 0.0 - 6.0 % Workflow SS Erythrocyte distribution width (RBC) [Ratio] 13.0 % Invalid Interpretation Code 11.5 - 15.5 % Workflow SS GFR/1.73 sq M.predicted among blacks MDRD (S/P/Bld) [Vol rate/Area] ml/min/1.73sqm Invalid Interpretation Code AH Chemistry S GFR/1.73 sq M.predicted among non-blacks MDRD (S/P/Bld) [Vol rate/Area] ml/min/1.73sqm Invalid Interpretation Code Chemistry S Glucose [Mass/Vol] 112 mg/dL Invalid Interpretation Code 82 - 115 mg/dL ADM SS Hematocrit (Bld) [Volume fraction] 37.8 % Invalid Interpretation Code 40.0 - 52.0 % AH Workflow SS Hemoglobin (Bld) [Mass/Vol] 12.5 G/dL Invalid Interpretation Code 13.0 - 17.5 G/dL AH Workflow SS Lymphocytes (Bld) [#/Vol] 1.3 103/mcL Invalid Interpretation Code 0.9 - 4.3 10^3/mcL AH Workflow SS Lymphocytes/100 WBC (Bld) 21.1 % Invalid Interpretation Code 20.0 - 40.0 % AH Workflow SS MCH (RBC) [Entitic mass] 29.8 pg Invalid Interpretation Code 27.0 - 33.0 pg AH Workflow SS MCHC 33.2 G/dL Invalid Interpretation Code 32.0 - 36.0 G/dL AH Workflow SS MCV (RBC) [Entitic vol] 89.8 fL Invalid Interpretation Code 81.0 - 100.0 fL AH Workflow SS Monocytes (Bld) [#/Vol] 0.6 103/mcL Invalid Interpretation Code 0.1 - 1.4 10^3/mcL AH Workflow SS Monocytes/100 WBC (Bld) 9.7 % Invalid Interpretation Code 2.0 - 13.0 % AH Workflow SS Neutrophils (Bld) [#/Vol] 4.0 103/mcL Invalid Interpretation Code 2.3 - 8.1 10^3/mcL AH Workflow SS Neutrophils/100 WBC (Bld) 63.6 % Invalid Interpretation Code 50.0 - 75.0 % AH Workflow SS Platelet mean volume (Bld) [Entitic vol] 8.5 fL Invalid Interpretation Code 6.4 - 10.5 fL AH Workflow SS Platelets (Bld) [#/Vol] 209 103/mcL Invalid Interpretation Code 150 - 450 10^3/mcL AH Workflow SS Potassium [Moles/Vol] 3.8 mmol/L Invalid Interpretation Code 3.5 - 5.0 mEq/L ADM SS RBC (Bld) [#/Vol] 4.21 106/mcL Invalid Interpretation Code 4.50 - 6.00 10^6/mcL Workflow SS Sodium [Moles/Vol] 146 mmol/L Invalid Interpretation Code 136 - 145 mEq/L ADM SS Urea nitrogen [Mass/Vol] 15.0 mg/dL Invalid Interpretation Code 8.0 - 22.0 mg/dL ADM SS Urea nitrogen/Creatinine [Mass ratio] 18.3 ratio Invalid Interpretation Code 10.0 - 22.0 ratio ADM SS WBC (Bld) [#/Vol] 6.2 103/mcL Invalid Interpretation Code 4.5 - 10.8 10^3/mcL Workflow SS LABORATORYOrdered By: SYSTEM SYSTEM on 07-18-2022 Basophils (Bld) [#/Vol] 0.0 103/mcL Invalid Interpretation Code 0.0 - 0.3 10^3/mcL Workflow SS Basophils/100 WBC (Bld) 0.6 % Invalid Interpretation Code 0.0 - 2.5 % Workflow SS Calcium [Mass/Vol] 8.8 mg/dL Invalid Interpretation Code 8.7 - 10.4 mg/dL ADM SS Chloride [Moles/Vol] 101 mmol/L Invalid Interpretation Code 98 - 110 mEq/L ADM SS CO2 [Moles/Vol] 31 mmol/L Invalid Interpretation Code 22 - 32 mEq/L ADM SS Creatinine [Mass/Vol] 0.79 mg/dL Invalid Interpretation Code 0.60 - 1.40 mg/dL ADM SS Electrolyte Balance 8.0 mEq/L Invalid Interpretation Code 4.0 - 15.0 mEq/L ADM SS Eosinophils (Bld) [#/Vol] 0.2 103/mcL Invalid Interpretation Code 0.0 - 0.7 10^3/mcL Workflow SS Eosinophils/100 WBC (Bld) 2.2 % Invalid Interpretation Code 0.0 - 6.0 % Workflow SS Erythrocyte distribution width (RBC) [Ratio] 13.1 % Invalid Interpretation Code 11.5 - 15.5 % Workflow SS GFR/1.73 sq M.predicted among blacks MDRD (S/P/Bld) [Vol rate/Area] ml/min/1.73sqm Invalid Interpretation Code Chemistry S GFR/1.73 sq M.predicted among non-blacks MDRD (S/P/Bld) [Vol rate/Area] ml/min/1.73sqm Invalid Interpretation Code Chemistry S Glucose [Mass/Vol] 107 mg/dL Invalid Interpretation Code 82 - 115 mg/dL ADM SS Hematocrit (Bld) [Volume fraction] 38.9 % Invalid Interpretation Code 40.0 - 52.0 % AH Workflow SS Hemoglobin (Bld) [Mass/Vol] 13.2 G/dL Invalid Interpretation Code 13.0 - 17.5 G/dL AH Workflow SS Lymphocytes (Bld) [#/Vol] 1.1 103/mcL Invalid Interpretation Code 0.9 - 4.3 10^3/mcL AH Workflow SS Lymphocytes/100 WBC (Bld) 14.4 % Invalid Interpretation Code 20.0 - 40.0 % Workflow SS Magnesium [Mass/Vol] 1.6 mg/dL Invalid Interpretation Code 1.6 - 2.4 mg/dL ADM SS MCH (RBC) [Entitic mass] 30.8 pg Invalid Interpretation Code 27.0 - 33.0 pg AH Workflow SS MCHC 33.9 G/dL Invalid Interpretation Code 32.0 - 36.0 G/dL Workflow SS MCV (RBC) [Entitic vol] 90.8 fL Invalid Interpretation Code 81.0 - 100.0 fL Workflow SS Monocytes (Bld) [#/Vol] 1.0 103/mcL Invalid Interpretation Code 0.1 - 1.4 10^3/mcL Workflow SS Monocytes/100 WBC (Bld) 13.4 % Invalid Interpretation Code 2.0 - 13.0 % Workflow SS Neutrophils (Bld) [#/Vol] 5.4 103/mcL Invalid Interpretation Code 2.3 - 8.1 10^3/mcL Workflow SS Neutrophils/100 WBC (Bld) 69.4 % Invalid Interpretation Code 50.0 - 75.0 % Workflow SS Phosphate [Mass/Vol] 2.9 mg/dL Invalid Interpretation Code 2.4 - 5.1 mg/dL ADM SS Platelet mean volume (Bld) [Entitic vol] 8.6 fL Invalid Interpretation Code 6.4 - 10.5 fL Workflow SS Platelets (Bld) [#/Vol] 195 103/mcL Invalid Interpretation Code 150 - 450 10^3/mcL Workflow SS Potassium [Moles/Vol] 3.6 mmol/L Invalid Interpretation Code 3.5 - 5.0 mEq/L ADM SS RBC (Bld) [#/Vol] 4.29 106/mcL Invalid Interpretation Code 4.50 - 6.00 10^6/mcL Workflow SS Sodium [Moles/Vol] 140 mmol/L Invalid Interpretation Code 136 - 145 mEq/L AH ADM SS Urea nitrogen [Mass/Vol] 15.0 mg/dL Invalid Interpretation Code 8.0 - 22.0 mg/dL AH ADM SS Urea nitrogen/Creatinine [Mass ratio] 19.0 ratio Invalid Interpretation Code 10.0 - 22.0 ratio AH ADM SS WBC (Bld) [#/Vol] 7.7 103/mcL Invalid Interpretation Code 4.5 - 10.8 10^3/mcL Workflow SS LABORATORYOrdered By: Gerardo Montgomery on 07-17-2022 M. pneumoniae IgM IA Ql (S) Negative (07/17/22 4:05 PM) Invalid Interpretation Code Man Viro/Sero SS LABORATORYOrdered By: Holden Martinez on 07-17-2022 Mycoplasma IgG Positive *NA* (07/17/22 4:05 PM) Invalid Interpretation Code Auto Viro/Sero SS LABORATORYOrdered By: Bakari Huff on 07-17-2022 aPTT Coag (PPP) [Time] 60.1 s Invalid Interpretation Code 25.0 - 35.0 seconds Auto Coag SS Heparin dose (APTT) Heparin IV (07/17/22 9:42 AM) Invalid Interpretation Code AH Auto Coag SS LABORATORYOrdered By: Sanjeev Earl on 07-17-2022 aPTT Coag (PPP) [Time] 67.7 s Invalid Interpretation Code 25.0 - 35.0 seconds AH Auto Coag SS Heparin dose (APTT) Heparin IV (07/17/22 2:37 AM) Invalid Interpretation Code AH Auto Coag SS LABORATORYOrdered By: SYSTEM SYSTEM on 07-17-2022 Basophils (Bld) [#/Vol] 0.0 103/mcL Invalid Interpretation Code 0.0 - 0.3 10^3/mcL AH Workflow SS Basophils/100 WBC (Bld) 0.6 % Invalid Interpretation Code 0.0 - 2.5 % Workflow SS Calcium [Mass/Vol] 8.3 mg/dL Invalid Interpretation Code 8.7 - 10.4 mg/dL ADM SS Chloride [Moles/Vol] 97 mmol/L Invalid Interpretation Code 98 - 110 mEq/L ADM SS CO2 [Moles/Vol] 34 mmol/L Invalid Interpretation Code 22 - 32 mEq/L ADM SS Creatinine [Mass/Vol] 0.87 mg/dL Invalid Interpretation Code 0.60 - 1.40 mg/dL ADM SS Electrolyte Balance 5.0 mEq/L Invalid Interpretation Code 4.0 - 15.0 mEq/L ADM SS Eosinophils (Bld) [#/Vol] 0.3 103/mcL Invalid Interpretation Code 0.0 - 0.7 10^3/mcL Workflow SS Eosinophils/100 WBC (Bld) 3.4 % Invalid Interpretation Code 0.0 - 6.0 % Workflow SS Erythrocyte distribution width (RBC) [Ratio] 13.5 % Invalid Interpretation Code 11.5 - 15.5 % Workflow SS GFR/1.73 sq M.predicted among blacks MDRD (S/P/Bld) [Vol rate/Area] ml/min/1.73sqm Invalid Interpretation Code Chemistry S GFR/1.73 sq M.predicted among non-blacks MDRD (S/P/Bld) [Vol rate/Area] ml/min/1.73sqm Invalid Interpretation Code Chemistry S Glucose [Mass/Vol] 103 mg/dL Invalid Interpretation Code 82 - 115 mg/dL ADM SS Hematocrit (Bld) [Volume fraction] 35.2 % Invalid Interpretation Code 40.0 - 52.0 % Workflow SS Hemoglobin (Bld) [Mass/Vol] 12.1 G/dL Invalid Interpretation Code 13.0 - 17.5 G/dL Workflow SS Lymphocytes (Bld) [#/Vol] 1.6 103/mcL Invalid Interpretation Code 0.9 - 4.3 10^3/mcL Workflow SS Lymphocytes/100 WBC (Bld) 21.4 % Invalid Interpretation Code 20.0 - 40.0 % Workflow SS Magnesium [Mass/Vol] 1.8 mg/dL Invalid Interpretation Code 1.6 - 2.4 mg/dL ADM SS MCH (RBC) [Entitic mass] 31.3 pg Invalid Interpretation Code 27.0 - 33.0 pg Workflow SS MCHC 34.2 G/dL Invalid Interpretation Code 32.0 - 36.0 G/dL Workflow SS MCV (RBC) [Entitic vol] 91.5 fL Invalid Interpretation Code 81.0 - 100.0 fL Workflow SS Monocytes (Bld) [#/Vol] 1.0 103/mcL Invalid Interpretation Code 0.1 - 1.4 10^3/mcL Workflow SS Monocytes/100 WBC (Bld) 13.6 % Invalid Interpretation Code 2.0 - 13.0 % Workflow SS Neutrophils (Bld) [#/Vol] 4.7 103/mcL Invalid Interpretation Code 2.3 - 8.1 10^3/mcL Workflow SS Neutrophils/100 WBC (Bld) 61.0 % Invalid Interpretation Code 50.0 - 75.0 % Workflow SS Phosphate [Mass/Vol] 2.5 mg/dL Invalid Interpretation Code 2.4 - 5.1 mg/dL ADM SS Platelet mean volume (Bld) [Entitic vol] 8.6 fL Invalid Interpretation Code 6.4 - 10.5 fL Workflow SS Platelets (Bld) [#/Vol] 192 103/mcL Invalid Interpretation Code 150 - 450 10^3/mcL Workflow SS Potassium [Moles/Vol] 3.0 mmol/L Invalid Interpretation Code 3.5 - 5.0 mEq/L ADM SS RBC (Bld) [#/Vol] 3.85 106/mcL Invalid Interpretation Code 4.50 - 6.00 10^6/mcL Workflow SS Sodium [Moles/Vol] 136 mmol/L Invalid Interpretation Code 136 - 145 mEq/L ADM SS Urea nitrogen [Mass/Vol] 18.0 mg/dL Invalid Interpretation Code 8.0 - 22.0 mg/dL ADM SS Urea nitrogen/Creatinine [Mass ratio] 20.7 ratio Invalid Interpretation Code 10.0 - 22.0 ratio ADM SS WBC (Bld) [#/Vol] 7.7 103/mcL Invalid Interpretation Code 4.5 - 10.8 10^3/mcL Workflow SS No Panel Informationon 07-17 Legionella Urine Ag Presumptive negative for L. pneumophila serogroup 1 antigen in urine, suggesting no recent or current infection. Legionnaire's disease cannot be ruled out since other serogroups and species may also cause disease. [facility] Work Phone: Streptococcus Pneumoniae Urine Antig Presumptive negative for pneumococcal pneumonia, suggesting no current or recent pneumococcal infection. Infection due to Strep pneumoniae cannot be ruled out since the antigen present in the sample may be below the detection limit of the test. [facility] Work Phone: Comment on above: This test has not be en evaluated on patients taking antibiotics for greater than 24 hours or on patients who have recently completed an antibiotic regimen. The accuracy of this test has not been proven in young children. LABORATORYOrdered By: Valery Ryder on 07-16-2022 aPTT Coag (PPP) [Time] 58.0 s Invalid Interpretation Code 25.0 - 35.0 seconds AH Auto Coag SS Heparin dose (APTT) Heparin IV (07/16/22 8:37 PM) Invalid Interpretation Code AH Auto Coag SS LABORATORYOrdered By: SYSTEM SYSTEM on 07-16-2022 Basophils (Bld) [#/Vol] 0.0 103/mcL Invalid Interpretation Code 0.0 - 0.3 10^3/mcL AH Workflow SS Basophils/100 WBC (Bld) 0.4 % Invalid Interpretation Code 0.0 - 2.5 % Workflow SS Calcium [Mass/Vol] 8.5 mg/dL Invalid Interpretation Code 8.7 - 10.4 mg/dL ADM SS Chloride [Moles/Vol] 97 mmol/L Invalid Interpretation Code 98 - 110 mEq/L ADM SS CO2 [Moles/Vol] 34 mmol/L Invalid Interpretation Code 22 - 32 mEq/L ADM SS Creatinine [Mass/Vol] 0.85 mg/dL Invalid Interpretation Code 0.60 - 1.40 mg/dL ADM SS Electrolyte Balance 8.0 mEq/L Invalid Interpretation Code 4.0 - 15.0 mEq/L ADM SS Eosinophils (Bld) [#/Vol] 0.1 103/mcL Invalid Interpretation Code 0.0 - 0.7 10^3/mcL Workflow SS Eosinophils/100 WBC (Bld) 1.1 % Invalid Interpretation Code 0.0 - 6.0 % Workflow SS Erythrocyte distribution width (RBC) [Ratio] 13.3 % Invalid Interpretation Code 11.5 - 15.5 % Workflow SS GFR/1.73 sq M.predicted among blacks MDRD (S/P/Bld) [Vol rate/Area] ml/min/1.73sqm Invalid Interpretation Code Chemistry S GFR/1.73 sq M.predicted among non-blacks MDRD (S/P/Bld) [Vol rate/Area] ml/min/1.73sqm Invalid Interpretation Code Chemistry S Glucose [Mass/Vol] 105 mg/dL Invalid Interpretation Code 82 - 115 mg/dL ADM SS HbA1c (Bld) [Mass fraction] 5.1 % Invalid Interpretation Code 4.0 - 6.0 % Auto Chem SS Hematocrit (Bld) [Volume fraction] 35.4 % Invalid Interpretation Code 40.0 - 52.0 % AH Workflow SS Hemoglobin (Bld) [Mass/Vol] 11.9 G/dL Invalid Interpretation Code 13.0 - 17.5 G/dL AH Workflow SS Lymphocytes (Bld) [#/Vol] 1.4 103/mcL Invalid Interpretation Code 0.9 - 4.3 10^3/mcL Workflow SS Lymphocytes/100 WBC (Bld) 20.1 % Invalid Interpretation Code 20.0 - 40.0 % Workflow SS Magnesium [Mass/Vol] 1.5 mg/dL Invalid Interpretation Code 1.6 - 2.4 mg/dL ADM SS MCH (RBC) [Entitic mass] 30.5 pg Invalid Interpretation Code 27.0 - 33.0 pg Workflow SS MCHC 33.6 G/dL Invalid Interpretation Code 32.0 - 36.0 G/dL Workflow SS MCV (RBC) [Entitic vol] 90.8 fL Invalid Interpretation Code 81.0 - 100.0 fL Workflow SS Monocytes (Bld) [#/Vol] 0.8 103/mcL Invalid Interpretation Code 0.1 - 1.4 10^3/mcL Workflow SS Monocytes/100 WBC (Bld) 11.9 % Invalid Interpretation Code 2.0 - 13.0 % Workflow SS Neutrophils (Bld) [#/Vol] 4.6 103/mcL Invalid Interpretation Code 2.3 - 8.1 10^3/mcL Workflow SS Neutrophils/100 WBC (Bld) 66.5 % Invalid Interpretation Code 50.0 - 75.0 % Workflow SS Phosphate [Mass/Vol] 3.2 mg/dL Invalid Interpretation Code 2.4 - 5.1 mg/dL ADM SS Platelet mean volume (Bld) [Entitic vol] 8.7 fL Invalid Interpretation Code 6.4 - 10.5 fL Workflow SS Platelets (Bld) [#/Vol] 176 103/mcL Invalid Interpretation Code 150 - 450 10^3/mcL Workflow SS Potassium [Moles/Vol] 3.3 mmol/L Invalid Interpretation Code 3.5 - 5.0 mEq/L AH ADM SS RBC (Bld) [#/Vol] 3.90 106/mcL Invalid Interpretation Code 4.50 - 6.00 10^6/mcL AH Workflow SS Sodium [Moles/Vol] 139 mmol/L Invalid Interpretation Code 136 - 145 mEq/L AH ADM SS TSH Qn 0.691 mIU/mL Invalid Interpretation Code 0.550 - 4.780 mIU/mL AH ADM SS Urea nitrogen [Mass/Vol] 15.0 mg/dL Invalid Interpretation Code 8.0 - 22.0 mg/dL AH ADM SS Urea nitrogen/Creatinine [Mass ratio] 17.6 ratio Invalid Interpretation Code 10.0 - 22.0 ratio AH ADM SS WBC (Bld) [#/Vol] 7.0 103/mcL Invalid Interpretation Code 4.5 - 10.8 10^3/mcL Workflow SS LABORATORYOrdered By: Tracy De Leon on 07-16-2022 Cholesterol [Mass/Vol] 146 mg/dL Invalid Interpretation Code 50 - 199 mg/dL AH ADM SS Cholesterol in HDL [Mass/Vol] 56 mg/dL Invalid Interpretation Code 40 - 59 mg/dL AH ADM SS Cholesterol in LDL [Mass/Vol] 73 mg/dL Invalid Interpretation Code 0 - 129 mg/dL AH ADM SS Triglyceride [Mass/Vol] 85 mg/dL Invalid Interpretation Code 3 - 149 mg/dL AH ADM SS LABORATORYOrdered By: [facility] on 07-15-2022 Troponin I.cardiac DL <= 0.01 ng/mL [Mass/Vol] 4372.90 ng/L Invalid Interpretation Code 0.00 - 54.00 ng/L AH ADM SS Troponin I.cardiac DL <= 0.01 ng/mL [Mass/Vol] 2098.49 ng/L Invalid Interpretation Code 0.00 - 54.00 ng/L AH ADM SS Troponin I.cardiac DL <= 0.01 ng/mL [Mass/Vol] 1947.34 ng/L Invalid Interpretation Code 0.00 - 54.00 ng/L AH ADM SS Calcium [Mass/Vol] 8.7 mg/dL Invalid Interpretation Code 8.4 - 10.2 mg/dL AO ADM SS Chloride [Moles/Vol] 97 mmol/L Invalid Interpretation Code 98 - 107 mmol/L AO ADM SS CO2 [Moles/Vol] 34 mmol/L Invalid Interpretation Code 23 - 31 mmol/L AO ADM SS Creatinine [Mass/Vol] 0.89 mg/dL Invalid Interpretation Code 0.70 - 1.30 mg/dL AO ADM SS Electrolyte Balance 7.0 mEq/L Invalid Interpretation Code 4.0 - 15.0 mEq/L AO ADM SS GFR 98 ml/min/1.73sqm Invalid Interpretation Code AO Chemistry S GFR Non- 81 ml/min/1.73sqm Invalid Interpretation Code AO Chemistry S Glucose [Mass/Vol] 131 mg/dL Invalid Interpretation Code 83 - 110 mg/dL AO ADM SS Potassium [Moles/Vol] 3.6 mmol/L Invalid Interpretation Code 3.5 - 5.1 mmol/L AO ADM SS Sodium [Moles/Vol] 138 mmol/L Invalid Interpretation Code 136 - 145 mmol/L AO ADM SS Troponin I.cardiac DL <= 0.01 ng/mL [Mass/Vol] 1214.7 ng/L Invalid Interpretation Code 0.0 - 76.2 ng/L AO ADM SS Urea nitrogen [Mass/Vol] 15 mg/dL Invalid Interpretation Code 7 - 18 mg/dL AO ADM SS Urea nitrogen/Creatinine [Mass ratio] 17 ratio Invalid Interpretation Code 7 - 27 ratio AO ADM SS LABORATORYOrdered By: Matt Miguel on 07-15-2022 SARS-CoV-2 (COVID-19) RNA DANNY+probe Ql (Resp) Negative 1 (07/15/22 10:32 PM) Invalid Interpretation Code Negative AH Auto Viro/Sero SS Comment on above: Result Comment: Note s [id number] LABORATORYOrdered By: Valery Ryder on 07-15-2022 Appearance (U) Clear (07/15/22 9:03 PM) Invalid Interpretation Code Clear AH Auto Urine SS Bilirubin Ql (U) Negative (07/15/22 9:03 PM) Invalid Interpretation Code Neg-Trace AH Auto Urine SS Color (U) Yellow (07/15/22 9:03 PM) Invalid Interpretation Code AH Auto Urine SS Glucose Test strip (U) [Mass/Vol] Negative Invalid Interpretation Code Negativemg/ dL AH Auto Urine SS Hemoglobin Auto test strip (U) [Mass/Vol] Negative (07/15/22 9:03 PM) Invalid Interpretation Code Neg-Trace AH Auto Urine SS Ketones Ql (U) Trace mg/dL Invalid Interpretation Code Neg-Tracemg /dL AH Auto Urine SS UA Leuk Est Negative (07/15/22 9:03 PM) Invalid Interpretation Code Negative AH Auto Urine SS UA Nitrite Negative (07/15/22 9:03 PM) Invalid Interpretation Code Negative AH Auto Urine SS UA pH 7.0 (07/15/22 9:03 PM) Invalid Interpretation Code 5.0 - 8.0 AH Auto Urine SS UA Protein Negative Invalid Interpretation Code Negativemg/ dL AH Auto Urine SS UA Spec Grav 1.020 (07/15/22 9:03 PM) Invalid Interpretation Code 1.006-1.029 Auto Urine SS UA Specimen Type Clean Catch (07/15/22 9:03 PM) Invalid Interpretation Code AH Auto Urine SS UA Urobilinogen 0.2 E.U./dL Invalid Interpretation Code 0.2-1.0E.U. /dL AH Auto Urine SS INR Coag (PPP) [Relative time] 1.1 {INR} Invalid Interpretation Code AH Auto Coag SS PT Coag (PPP) [Time] 13.4 s Invalid Interpretation Code 9.0 - 14.9 seconds Auto Coag SS LABORATORYOrdered By: Shweta Moyer on 07-15-2022 ABO and Rh group Nom (Bld) Blood group A Rh(D) positive Invalid Interpretation Code BB Manual SS Blood group antibody screen Ql Negative ABSC (07/15/22 8:45 PM) Invalid Interpretation Code BB Auto SS LABORATORYOrdered By: Pj Pagan on 07-15-2022 Natriuretic peptide.B prohormone N-Terminal [Mass/Vol] 3951 pg/mL Invalid Interpretation Code 0 - 1800 pg/mL Auto Chem SS LABORATORYOrdered By: Kalani Anne on 07-15-2022 aPTT Coag (PPP) [Time] 161.8 s Invalid Interpretation Code 25.0 - 35.0 seconds AO [facility] SS Heparin dose (APTT) None Invalid Interpretation Code AO [facility] SS INR Coag (PPP) [Relative time] 1.1 {INR} Invalid Interpretation Code AO [facility] SS PT Coag (PPP) [Time] 12.4 s Invalid Interpretation Code 9.1 - 14.2 seconds AO [facility] SS Basophil, Absolute 0.1 103/mcL Invalid Interpretation Code 0.0 - 0.2 10^3/mcL AO Workflow SS Basophils/100 WBC (Bld) 0.8 % Invalid Interpretation Code 0.0 - 2.5 % AO Workflow SS Eosinophil, Absolute 0.2 103/mcL Invalid Interpretation Code 0.0 - 0.4 10^3/mcL AO Workflow SS Eosinophils/100 WBC (Bld) 1.9 % Invalid Interpretation Code 0.0 - 7.0 % AO Workflow SS Erythrocyte distribution width (RBC) [Ratio] 13.7 % Invalid Interpretation Code 11.5 - 14.5 % AO Workflow SS Hematocrit (Bld) [Volume fraction] 37.9 % Invalid Interpretation Code 42.0 - 52.0 % AO Workflow SS Hemoglobin (Bld) [Mass/Vol] 12.9 G/dL Invalid Interpretation Code 14.0 - 18.0 G/dL AO Workflow SS Lymphocyte, Absolute 1.1 103/mcL Invalid Interpretation Code 0.8 - 3.9 10^3/mcL AO Workflow SS Lymphocytes/100 WBC (Bld) 12.8 % Invalid Interpretation Code 10.0 - 50.0 % AO Workflow SS MCH (RBC) [Entitic mass] 30.5 pg Invalid Interpretation Code 27.0 - 31.2 pg AO Workflow SS MCHC 34.0 G/dL Invalid Interpretation Code 31.8 - 35.4 G/dL AO Workflow SS MCV (RBC) [Entitic vol] 89.9 fL Invalid Interpretation Code 80.0 - 94.0 fL AO Workflow SS Monocyte distribution width Auto (Bld) [Entitic vol] 19.33 Invalid Interpretation Code 0.00 - 20.00 AO Workflow SS Comment on above: Result Comment: For ED adult patients suspected of sepsis, MDW<=20.0 does not rule out sepsis or risk of sepsis Monocyte, Absolute 0.6 103/mcL Invalid Interpretation Code 0.2 - 1.0 10^3/mcL AO Workflow SS Monocytes/100 WBC (Bld) 7.5 % Invalid Interpretation Code 1.7 - 13.0 % AO Workflow SS Neutrophil, Absolute 6.4 103/mcL Invalid Interpretation Code 2.9 - 6.2 10^3/mcL AO Workflow SS Neutrophils/100 WBC (Bld) 77.0 % Invalid Interpretation Code 37.0 - 80.0 % AO Workflow SS Platelet mean volume (Bld) [Entitic vol] 8.6 fL Invalid Interpretation Code 7.4 - 10.4 fL AO Workflow SS Platelets (Bld) [#/Vol] 194 103/mcL Invalid Interpretation Code 130 - 400 10^3/mcL AO Workflow SS RBC (Bld) [#/Vol] 4.22 106/mcL Invalid Interpretation Code 4.04 - 6.13 10^6/mcL AO Workflow SS WBC (Bld) [#/Vol] 8.3 103/mcL Invalid Interpretation Code 4.6 - 10.8 10^3/mcL AO Workflow SS Vital Signs Date Time Vital Sign Value Performing Clinician Dulce Maria cedeno 08-06-2024 08:53-0400 Body temperature 97.5 [degF] Treatment Wstr Work Phone: [facility] 08-06-2024 08:53-0400 Diastolic blood pressure 66 mm[Hg] Treatment Wstr Work Phone: [facility] 08-06-2024 08:53-0400 Heart rate 76 /min Treatment Wstr Work Phone: [facility] 08-06-2024 08:53-0400 SaO2% (BldA) [Mass fraction] 99 % Treatment Wstr Work Phone: [facility] 08-06-2024 08:53-0400 Systolic blood pressure 165 mm[Hg] Treatment Wstr Work Phone: [facility] 08-04-2024 08:29-0400 Body temperature 98.1 [degF] Treatment Wstr Work Phone: [facility] 08-04-2024 08:29-0400 Diastolic blood pressure 57 mm[Hg] Treatment Wstr Work Phone: [facility] 08-04-2024 08:29-0400 Heart rate 80 /min Treatment Wstr Work Phone: [facility] 08-04-2024 08:29-0400 Respiratory rate 16 /min Treatment Wstr Work Phone: [facility] 08-04-2024 08:29-0400 SaO2% (BldA) [Mass fraction] 98 % Treatment Wstr Work Phone: [facility] 08-04-2024 08:29-0400 Systolic blood pressure 132 mm[Hg] Treatment Wstr Work Phone: [facility] 07-30-2024 13:33-0400 Body temperature 98.71 [degF] Treatment Wstr Work Phone: [facility] 07-30-2024 13:33-0400 Diastolic blood pressure 58 mm[Hg] Treatment Wstr Work Phone: [facility] 07-30-2024 13:33-0400 Heart rate 74 /min Treatment Wstr Work Phone: [facility] 07-30-2024 13:33-0400 SaO2% (BldA) [Mass fraction] 97 % Treatment Wstr Work Phone: [facility] 07-30-2024 13:33-0400 Systolic blood pressure 122 mm[Hg] Treatment Wstr Work Phone: [facility] 07-28-2024 08:00-0400 Body temperature 98.49 [degF] Treatment Wstr Work Phone: [facility] 07-28-2024 08:00-0400 Diastolic blood pressure 56 mm[Hg] Treatment Wstr Work Phone: [facility] 07-28-2024 08:00-0400 Heart rate 72 /min Treatment Wstr Work Phone: [facility] 07-28-2024 08:00-0400 Respiratory rate 16 /min Treatment Wstr Work Phone: [facility] 07-28-2024 08:00-0400 SaO2% (BldA) [Mass fraction] 99 % Treatment Wstr Work Phone: [facility] 07-28-2024 08:00-0400 Systolic blood pressure 158 mm[Hg] Treatment Wstr Work Phone: [facility] 07-24-2024 13:32-0400 Body temperature 99 [degF] Treatment Wstr Work Phone: [facility] 07-24-2024 13:32-0400 Diastolic blood pressure 69 mm[Hg] Treatment Wstr Work Phone: [facility] 07-24-2024 13:32-0400 Heart rate 73 /min Treatment Wstr Work Phone: [facility] 07-24-2024 13:32-0400 SaO2% (BldA) [Mass fraction] 100 % Treatment Wstr Work Phone: [facility] 07-24-2024 13:32-0400 Systolic blood pressure 149 mm[Hg] Treatment Wstr Work Phone: [facility] 07-17-2024 09:59-0400 Body height 168.5 cm Tres Masci DO Work Phone: [facility] 07-17-2024 09:59-0400 Body mass index (BMI) [Ratio] 23.96 kg/m2 Tres Masci DO Work Phone: [facility] 07-17-2024 09:59-0400 Body temperature 98.4 [degF] Tres Masci DO Work Phone: [facility] 07-17-2024 09:59-0400 Body weight 68.04 kg Tres Masci DO Work Phone: [facility] 07-17-2024 09:59-0400 Diastolic blood pressure 68 mm[Hg] Tres Masci DO Work Phone: [facility] 07-17-2024 09:59-0400 Heart rate 69 /min Tres Masci DO Work Phone: [facility] 07-17-2024 09:59-0400 Respiratory rate 12 /min Tres Masci DO Work Phone: [facility] 07-17-2024 09:59-0400 SaO2% (BldA) [Mass fraction] 96 % Tres Masci DO Work Phone: [facility] 07-17-2024 09:59-0400 Systolic blood pressure 122 mm[Hg] Tres Masci DO Work Phone: [facility] 07-08-2024 08:56-0400 Body height 175.[address] Aaliyah Trujillo DO Work Phone: [facility] 07-08-2024 08:56-0400 Body mass index (BMI) [Ratio] 22.3 kg/m2 Dr. Aaliyah Trujillo DO Work Phone: [facility] 07-08-2024 08:56-0400 Body weight 68.[address] Aaliyah Trujillo DO Work Phone: [facility] 07-08-2024 08:56-0400 Diastolic blood pressure 68 mm[Hg] Dr. Aaliyah Trujillo DO Work Phone: [facility] 07-08-2024 08:56-0400 Heart rate 78 /min Dr. Aaliyah Trujillo DO Work Phone: [facility] 07-08-2024 08:56-0400 Respiratory rate 18 /min Dr. Aaliyah Trujillo DO Work Phone: [facility] 07-08-2024 08:56-0400 SaO2% (BldA) [Mass fraction] 97 % Dr. Aailyah Trujillo DO Work Phone: [facility] 07-08-2024 08:56-0400 Systolic blood pressure 132 mm[Hg] Dr. Aaliyah Trujillo DO Work Phone: [facility] 01-01-2023 23:08-0400 Diastolic blood pressure 76 mm[Hg] [facility] 01-01-2023 23:08-0400 Heart rate 89 /min [facility] 01-01-2023 23:08-0400 Respiratory rate 17 /min [facility] 01-01-2023 23:08-0400 SaO2% (BldA) [Mass fraction] 98 % [facility] 01-01-2023 23:08-0400 Systolic blood pressure 162 mm[Hg] [facility] 01-01-2023 21:33-0400 Body mass index (BMI) [Ratio] 25.9 kg/m2 [facility] 01-01-2023 21:33-0400 Body weight 79.83 kg [facility] 01-01-2023 21:31-0400 Body height 175.26 cm [facility] 01-01-2023 21:31-0400 Body temperature 97.3 [degF] [facility] 08-08-2022 15:52-0400 Diastolic Blood Pressure Non-Invasive [address] RIKKI MERCADO MD [address] [place] [address] 08-08-2022 15:52-0400 Heart rate 83 /min DR RIKKI MERCADO MD [address] [place] [address] 08-08-2022 15:52-0400 Respiratory rate 16 /min DR RIKKI MERCADO MD [address] [place] [address] 08-08-2022 15:52-0400 Systolic Blood Pressure Non-Invasive [address] RIKKI MERCADO MD [address] [place] [address] 08-08-2022 14:50-0400 Heart rate 86 /min DR RIKKI MERCADO MD [address] [place] [address] 08-08-2022 14:50-0400 Respiratory rate 16 /min DR RIKKI MERCADO MD [address] [place] [address] 08-08-2022 13:24-0400 Diastolic Blood Pressure Non-Invasive [address] RIKKI MERCADO MD [address] [place] [address] 08-08-2022 13:24-0400 Heart rate 100 /min DR RIKKI MERCADO MD [address] [place] [address] 08-08-2022 13:24-0400 Systolic Blood Pressure Non-Invasive [address] RIKKI MERCADO MD [address] [place] [address] 08-08-2022 13:10-04[address] Pressure Cuff Size DR RIKKI MERCADO MD [address] [place] [address] 08-08-2022 13:10-[address] RIKKI MERCADO MD [address] [place] [address] 08-08-2022 13:10-[address] RIKKI MERCADO MD [address] [place] [address] 08-08-2022 13:10-0400 Diastolic Blood Pressure Non-Invasive [address] RIKKI MERCADO MD [address] [place] [address] 08-08-2022 13:10-0400 Reason For Taking VItal Signs DR RIKKI MERCADO MD [address] [place] [address] 08-08-2022 13:10-0400 Respiratory rate 18 /min DR RIKKI MERCADO MD [address] [place] [address] 08-08-2022 13:10-0400 Systolic Blood Pressure Non-Invasive [address] RIKKI MERCADO MD [address] [place] [address] 08-08-2022 06:26-[address] RIKKI MERCADO MD [address] [place] [address] 08-08-2022 06:26-[address] RIKKI MERCADO MD [address] [place] [address] 08-08-2022 05:29-[address] RIKKI MERCADO MD [address] [place] [address] 08-08-2022 05:29-[address] RIKKI MERCADO MD [address] [place] [address] 08-08-2022 05:29-0400 Body height 175.[address] RIKKI MERCADO MD [address] [place] [address] 08-08-2022 05:29-0400 Body temperature 97.52 [degF] DR RIKKI MERCADO MD [address] [place] [address] 08-08-2022 05:29-0400 Body weight 74.[address] RIKKI MERCADO MD [address] [place] [address] 08-08-2022 05:29-0400 Body weight 24.21 kg/m2 DR RIKKI MERCADO MD [address] [place] [address] 07-18-2022 11:33-0400 Blood Pressure Method AARON VILLARREAL MD [address] [place] [address] 07-18-2022 11:33-0400 Diastolic Blood Pressure Non-Invasive 78 1 AARON VILLARREAL MD [address] [place] [address] 07-18-2022 11:33-0400 Systolic Blood Pressure Non-Invasive 120 1 AARON VILLARREAL MD [address] [place] [address] 07-18-2022 11:16-0400 Body temperature 97.88 [degF] AARON VILLARREAL MD [address] [place] [address] 07-18-2022 11:16-0400 Heart rate 87 /min AARON VILLARREAL MD [address] [place] [address] 07-18-2022 11:16-0400 Reason For Taking VItal Signs AARON VILLARREAL MD [address] [place] [address] 07-18-2022 11:16-0400 Respiratory rate 18 /min AARON VILLARREAL MD [address] [place] [address] 07-18-2022 08:43-0400 Blood Pressure Method AARON VILLARREAL MD [address] [place] [address] 07-18-2022 08:43-0400 Diastolic Blood Pressure Non-Invasive 70 1 AARON VILLARREAL MD [address] [place] [address] 07-18-2022 08:43-0400 Systolic Blood Pressure Non-Invasive 138 1 AARON VILLARREAL MD [address] [place] [address] 07-18-2022 05:32-0400 Heart rate 79 /min AARON VILLARREAL MD [address] [place] [address] 07-18-2022 03:00-0400 Body temperature 98.24 [degF] AARON VILLARREAL MD [address] [place] [address] 07-18-2022 03:00-0400 Diastolic Blood Pressure Non-Invasive 76 1 AARON VILLARREAL MD [address] [place] [address] 07-18-2022 03:00-0400 Heart rate 92 /min AARON VILLARREAL MD [address] [place] [address] 07-18-2022 03:00-0400 Systolic Blood Pressure Non-Invasive 148 1 AARON VILLARREAL MD [address] [place] [address] 07-17-2022 23:55-0400 Body temperature 98.6 [degF] AARON VILLARREAL MD [address] [place] [address] 07-17-2022 23:55-0400 Reason For Taking VItal Signs AARON VILLARREAL MD [address] [place] [address] 07-17-2022 23:55-0400 Respiratory rate 18 /min AARON VILLARREAL MD [address] [place] [address] 07-17-2022 16:59-0400 Mean blood pressure 88 mm[Hg] AARON VILLARREAL MD [address] [place] [address] 07-17-2022 16:17-0400 Mean blood pressure 95 mm[Hg] AARON VILLARREAL MD [address] [place] [address] 07-17-2022 16:16-0400 Mean blood pressure 101 mm[Hg] AARON VILLARREAL MD [address] [place] [address] 07-17-2022 07:13-0400 Blood Pressure Cuff Size AARON VILLARREAL MD [address] [place] [address] 07-17-2022 07:13-0400 Blood Pressure Location AARON VILLARREAL MD [address] [place] [address] 07-16-2022 17:54-0400 Blood Pressure Cuff Size AARON VILLARREAL MD [facility] 07-16-2022 17:54-0400 Blood Pressure Location AARON VILLARREAL MD [address] 07-16-2022 11:06-0400 Heart rate 80 /min AARON VILLARREAL MD [address] 07-16-2022 10:44-0400 Blood Pressure Cuff Size AARON VILLARREAL MD [address] 07-16-2022 10:44-0400 Blood Pressure Location AARON VILLARREAL MD [address] 07-15-2022 17:53-0400 Body height 175.3 cm AARON VILLARREAL MD [address] 07-15-2022 17:53-0400 Body weight 76.96 kg AARON VILLARREAL MD [facility] 07-15-2022 17:53-0400 Body weight 25.04 kg/m2 AARON VILLARREAL MD [facility] 07-15-2022 12:45-0400 Diastolic Blood Pressure Non-Invasive 87 1 JAMIL READ MD [facility] 07-15-2022 12:45-0400 Heart rate 97 /min JAMIL READ MD [facility] 07-15-2022 12:45-0400 Respiratory rate 16 /min JAMIL READ MD [facility] 07-15-2022 12:45-0400 Systolic Blood Pressure Non-Invasive 173 1 JAMIL READ MD [facility] 07-15-2022 12:42-0400 Respiratory rate 14 /min JAMIL READ MD [facility] 07-15-2022 11:36-0400 Diastolic Blood Pressure Non-Invasive 81 1 JAMIL READ MD [facility] 07-15-2022 11:36-0400 Heart rate 79 /min JAMIL READ MD [facility] 07-15-2022 11:36-0400 Respiratory rate 14 /min JAMIL READ MD [facility] 07-15-2022 11:36-0400 Systolic Blood Pressure Non-Invasive 172 1 JAMIL READ MD [facility] 07-15-2022 10:24-0400 Diastolic Blood Pressure Non-Invasive 72 1 JAMIL READ MD [facility] 07-15-2022 10:24-0400 Heart rate 78 /min JAMIL READ MD [facility] 07-15-2022 10:24-0400 Systolic Blood Pressure Non-Invasive 136 1 JAMIL READ MD [facility] 07-15-2022 09:00-0400 Body temperature 97.52 [degF] JAMIL READ MD [facility] 07-15-2022 09:00-0400 Body weight 78.5 kg JAMIL READ MD [facility] Encounters Encounter Date Encounter Type Care Provider Facility Start: 03-17-2025 ambulatory Angela Hdez Facility:[facility] Start: 11-14-2024 End: 11-14-2024 ambulatory AALIYAH TRUJILLO DO Facility:[facility] Start: 11-14-2024 End: 11-14-2024 Patient encounter procedure AALIYAH TRUJILLO DO [facility] Start: 09-03-2024 End: 09-03-2024 ambulatory AALIYAH TRUJILLO IV Facility:[facility] Start: 08-12-2024 ambulatory Angela Hdez Facility:[facility] Start: 08-12-2024 End: 08-12-2024 ambulatory Angela Hdez Facility:[facility] Start: 08-06-2024 End: 08-06-2024 ambulatory Treatment Rm 16 [facility] Work Phone: Hematology/Oncology Comment on above: Iron deficiency anem ia due to chronic blood loss (Primary Dx); Iron malabsorption (HCC) Start: 08-04-2024 End: 08-04-2024 ambulatory Treatment Rm 15 [facility] Work Phone: Hematology/Oncology Comment on above: Iron deficiency anem ia due to chronic blood loss (Primary Dx); Iron malabsorption (HCC) Start: 07-30-2024 End: 07-30-2024 ambulatory Treatment Rm 14 [facility] Work Phone: Hematology/Oncology Comment on above: Iron deficiency anem ia due to chronic blood loss (Primary Dx); Iron malabsorption (HCC) Start: 07-29-2024 End: 07-29-2024 Telephone encounter Stephenie KING Hematology/Oncology Comment on above: Social Work Services ; 1st Time Treatment Report Start: 07-28-2024 End: 07-28-2024 ambulatory Treatment Rm 14 [facility] Work Phone: Hematology/Oncology Comment on above: Iron deficiency anem ia due to chronic blood loss (Primary Dx); Iron malabsorption (HCC) Start: 07-24-2024 End: 07-24-2024 ambulatory Treatment Rm 14 [facility] Work Phone: Hematology/Oncology Comment on above: Iron deficiency anem ia due to chronic blood loss (Primary Dx); Iron malabsorption (HCC) Start: 07-22-2024 End: 07-22-2024 ambulatory AALIYAH TRUJILLO DO [facility] Start: 07-17-2024 End: 07-17-2024 ambulatory Tres Pavon DO Work Phone: Hematology/Oncology Comment on above: Iron deficiency anem ia due to chronic blood loss (Primary Dx); Iron malabsorption (HCC) Start: 07-17-2024 End: 07-17-2024 Patient encounter procedure Tres Pavon DO Work Phone: Hematology/Oncology Start: 07-08-2024 End: 07-08-[address] Aaliyah Trujillo DO Work Phone: [facility] Work Phone: Start: 07-08-2024 End: 07-08-2024 Patient encounter procedure Amelia Cunha MGMT ANALYST-C -Laboratory Work Phone: Start: 07-08-2024 End: 07-08-2024 Patient encounter procedure Amelia Cunha MGMT ANALYST-C -[facility] Work Phone: Start: 07-08-2024 End: 07-08-2024 ambulatory Amelia Cunha Facility:[facility] Start: 07-08-2024 End: 07-08-2024 ambulatory Amelia Cunha Facility:[facility] Start: 07-02-2024 End: 07-04-2024 Telephone encounter Tres Pavon DO Work Phone: Hematology/Oncology Comment on above: New Patient Start: 07-01-2024 End: 07-02-2024 Evaluation and management of inpatient AALIYAH TRUJILLO DO Facility:[facility] Start: 07-01-2024 End: 07-01-2024 ambulatory AALIYAH CASTILLOKO Facility:[facility] Start: 05-27-2024 End: 05-27-2024 ambulatory AALIYAH CASTILLOKO [facility] Start: 05-27-2024 End: 05-27-2024 Patient encounter procedure AALIYAH TRUJILLO DO [facility] Start: 02-12-2024 End: 02-12-2024 ambulatory AALIYAH CASTILLOKO [facility] Start: 02-12-2024 End: 02-12-2024 Patient encounter procedure SHANTHI FOSTER MD [facility] Start: 11-26-2023 End: 11-26-2023 ambulatory EKTA VIDAL MD Facility:[facility] Start: 11-26-2023 End: 11-26-2023 Patient encounter procedure EKTA VIDAL MD [facility] Start: 2023 End: 2023 ambulatory AALIYAH TRUJILLO DO Facility:[facility] Start: 2023 End: 2023 Patient encounter procedure AALIYAH HALKO DO [facility] Start: 05-14-2023 End: 05-14-2023 ambulatory SHANTHI FOSTER MD Facility:[facility] Start: 05-14-2023 End: 05-14-2023 Patient encounter procedure SHANTHI FOSTER MD [facility] Start: 01-09-2023 End: 02-06-2023 ambulatory AALIYAH TRUJILLO DO Facility:[facility] Start: 01-01-2023 End: 01-01-2023 Emergency department patient visit [facility] Work Phone: Start: 10-11-2022 End: 10-11-2022 Patient encounter procedure SHANTHI FOSTER MD [facility] Start: 08-22-2022 End: 08-22-2022 Patient encounter procedure AALIYAH HALKO DO [facility] Start: 08-21-2022 End: 08-21-2022 Patient encounter procedure SHANTHI FOSTER MD [facility] Start: 08-18-2022 End: 08-18-2022 Patient encounter procedure AALIYAH HALKO DO [facility] Start: 08-08-2022 End: 08-08-[address] RIKKI MERCADO MD [facility] Start: 07-15-2022 End: 07-18-2022 Evaluation and management of inpatient AARON VILLARREAL MD [facility] Start: 07-15-2022 End: 07-15-2022 Emergency department patient visit JAMIL READ MD [facility] Procedures Date Procedure Procedure Detail Performing Clinician Start: 01-01-2023 Plain chest X-ray Start: 01-01-2023 CT of head without contrast Start: 08-08-2022 Cardiac catheterization AALIYAH RONNIE DO Start: 08-08-2022 Placement of stent LILIAN TRUJILLO DO Comment on above: PCI to LAD with 1 dr ug-eluting stent placement. Start: 07-17-2022 Echocardiography JERED TRUJILLO DO Comment on above: 1. Left ventricle: T he cavity size is normal. Wall thickness is increased. Systolic function is low normal to mildly reduced. The estimated ejection fraction is 50% 5%. Mid anterolateral, mid inferolateral, mid inferior hypo to akinesis Diastolic dysfunction is present. 2. Aortic valve: The valve is probably trileaflet. The leaflets are moderately thickened and moderately calcified. Cusp separation is reduced. Transvalvular velocity is increased less than expected. Possibly mild- moderate vs moderate stenosis based on 2D appearance. Please correlate with clinic exam and consider additional testing if clinically indicated. 3. Mitral valve: The annulus is moderately calcified. There is mild to moderate regurgitation. 4. Left atrium: The atrium is dilated. 5. Right ventricle: The RV systolic pressure by Doppler is 49 mm Hg. 6. Tricuspid valve: There is mild-moderate regurgitation. 7. Right atrium: The atrium is dilated. The estimated right atrial pressure is 8 mm Hg. 8. Inferior vena cava: The IVC is dilated. Respirophasic diameter changes are in the normal range (> 50%). Start: 07-17-2022 Placement of stent LILIAN TRUJILLO DO Comment on above: Severe diffuse disea se in RCA - s/p PCI with 3 GREGG placement. Start: 07-15-2022 Cardiac catheterization AALIYAH TRUJILLO DO Comment on above: 99% LCX disease - s/ p PCI with one GREGG placement. Residual disease in RCA and LAD - Plan for staged PCI. Start: 09-09-2019 Cardiovascular stres s testing AALIYAH TRUJILLO DO Comment on above: 1. No evidence of in ducible ischemia or prior myocardial infarction. 2. Normal wall motion and normal LEFT ventricle systolic function, calculated LVEF 64%. 3. Inferior diaphragmatic attenuation artifact noted. Start: 01-24-2019 Echocardiography JERED TRUJILLO DO Comment on above: 1. Left ventricle: T he cavity size is normal. Wall thickness is mildly increased. Systolic function is normal. The estimatedejection fraction is 55-60%. Wall motion is normal; there are no regional wall motion abnormalities. 2. Aortic valve: There is mild stenosis. 3. Mitral valve: The annulus is mildly calcified. The leaflets are mildly thickened. 4. Right ventricle: The RV systolic pressure by Doppler is 35 mm Hg. 5. Right atrium: The estimated right atrial pressure is 3 mm Hg. Start: 03-17-2010 Lower limb structure (body structure) JAMIL READ MD Comment on above: tibia/fibula Start: 11-13-2009 Hernia repair JAMIL DE LA TORRE MD Cardiac catheterization DR Bc MERCADO MD Comment on above: with intervention Extraction of cataract MOLLY READ MD Comment on above: bilateral History of percutane ous transluminal coronary angioplasty AARON VILLARREAL MD History of placement of stent for coronary artery disease Hx of heart artery stent Total replacement of hip THO CASSIE READ MD Comment on above: rt. hip-2020 Plan of Treatment Date Care Activity Detail Author Start: 08-28-2024 End: 08-28-2024 ambulatory [facility] Comment on above: CBC/RETIC/IRON STUDI ES OV OV/LAB EARLY* Start: 08-06-2024 End: 08-06-2024 ambulatory 08/06/2024 9:00 AM EDT [facility] [address] [place] [address] 2ND FLOOR Hematology/Oncology Comment on above: 2ND FLOOR Start: 08-04-2024 End: 08-04-2024 ambulatory 08/04/2024 8:30 AM EDT [facility] [address] [place] [address] 2ND FLOOR Hematology/Oncology Comment on above: 2ND FLOOR Start: 07-30-2024 End: 07-30-2024 ambulatory 07/30/2024 1:30 PM EDT [facility] [address] [place] [address] 2ND FLOOR Hematology/Oncology Comment on above: 2ND FLOOR Start: 07-28-2024 End: 07-28-2024 ambulatory 07/28/2024 8:00 AM EDT [facility] [address] [place] [address] 2ND FLOOR Hematology/Oncology Comment on above: 2ND FLOOR Start: 07-24-2024 End: 07-24-2024 ambulatory 07/24/2024 1:30 PM EDT [facility]Oncology [address] [place] [address] 2ND FLOOR Hematology/Oncology Comment on above: 2ND FLOOR Start: 07-17-2024 End: 10-16-2024 Ferritin [Mass/volume] in Serum or Plasma [facility] Comment on above: Expected: 07/17/2024 , Expires: 10/16/2024 Start: 07-17-2024 End: 10-16-2024 Iron and Iron binding capacity panel - Serum or Plasma [facility] Work Phone: Comment on above: Expected: 07/17/2024 , Expires: 10/16/2024 Start: 07-17-2024 End: 07-17-2024 ambulatory 07/17/2024 10:10 AM EDT Visit (SP) Office Hematology/Oncology [address] [place] [address] Tres Pavon DO [address] [place] [address] MGMT ANALYST/IRON DEF ANEMIA/REF BY RIGO DC*1ST AVAILABLE Hematology/Oncology Comment on above: MGMT ANALYST/IRON DEF ANEMIA/R EF BY RIGO DC*1ST AVAILABLE Start: 04-16-2024 Advance Directive Discussion Advance Directive Discussion [facility] Start: 12-16-2023 Covid-19 Vaccine () Covid-19 Vaccine () [facility] Start: 12-16-2023 Covid-19 Vaccine () Covid-19 Vaccine () [facility] Start: 12-16-2023 Influenza vaccination Influenza Vacc ine (#1) [facility] Start: 11-14-2018 Urine microalbumin profile DTaP,Tdap,Td Vaccine (1 - Tdap) [facility] Start: 10-22-2010 RSV Vaccine (1 - 1-d ose 75+ series) RSV Vaccine (1 - 1-dose 75+ series) [facility] Start: 10-22-1985 Shingrix Vaccine (1 of 2) Shingrix Vaccine (1 of 2) [facility] Start: 10-22-1980 Diabetes Screening Diabetes Screenin g [facility] Start: 10-22-1953 Anxiety Screening Anxiety Screening [facility] Start: 10-22-1953 Depression Screening Depression Scre ening [facility] CBC W Auto Different ial panel - Blood COMPLETE BLOOD COUNT AND DIFFERENTIAL Lab STAT Iron deficiency anemia due to chronic blood loss 07/17/2024 11:26 AM EDT [facility] Patient Education ED Head Injury (Adult) [facility] Work Phone: Patient referral [facility] Work Phone: Immunizations Immunization Date Immunization Notes Care Provider Fa cility 04-25-2022 COVID-19, mRNA, LNP- S, bivalent, PF, 50 mcg/0.5 mL dose; Translations: [Moderna COVID-19 Bivalent Booster Vaccine PF] JAMIL READ MD [facility] 04-25-2022 SARS-CoV-2 (CV19)mRNA-1273 bivalent vac; Translations: [Moderna COVID-19 Bivalent Booster Vaccine PF] SHANTHI FOSTER MD [facility] 04-27-2021 COVID-19, mRNA, LNP- S, PF, 100 mcg or 50 mcg dose; Translations: [Moderna COVID-19 Vaccine] JAMIL READ MD [facility] 06-16-2020 SARS-CoV-2 mRNA (tozinameran) vaccine JAMIL READ MD [facility] Comment on above: Result Comment: Mode rna 06-16-2020 COVID-19, mRNA, LNP- S, PF, 100 mcg or 50 mcg dose; Translations: [Moderna COVID-19 Vaccine] JAMIL READ MD [facility] Vaccine [facility] 05-19-2020 SARS-CoV-2 (COVID-19 ) mRNA-1273 vaccine JAMIL READ MD [facility] 05-19-2020 SARS-CoV-2 mRNA (tozinameran) vaccine JAMIL READ MD [facility] Comment on above: Result Comment: Mode rna 01-06-2020 pneumococcal polysaccharide vaccine, 23 valent; Translations: [Pneumovax 23] JAMIL READ MD [facility] 11-14-2018 tetanus and diphther ia toxoids, adsorbed, preservative free, for adult use (5 Lf of tetanus toxoid and 2 Lf of diphtheria toxoid) JAMIL READ MD [facility] 11-13-2018 tetanus and diphther ia toxoids, adsorbed, preservative free, for adult use (5 Lf of tetanus toxoid and 2 Lf of diphtheria toxoid) JAMIL READ MD [facility] 09-26-2018 tetanus and diphther ia toxoids, adsorbed, preservative free, for adult use (5 Lf of tetanus toxoid and 2 Lf of diphtheria toxoid) JAMIL READ MD [facility] 07-18-2018 pneumococcal conjuga te vaccine, 13 valent JAMIL READ MD [facility] Payers Date Payer Category Payer Self-pay [id number] 2024 Medicare [id number] 2016 Medicaid [id number] 2016 Medicaid [id number] 2014 Medicare (Managed Care) PRIMETIM E [id number] 2014 Private Health Insurance [id number] 2014 Unknown [id number] 2003 Unknown [id number] 1935 Unknown [id number] [id number]. 62 1935 Unknown [id number] [id number]. 62 1935 Unknown [id number] 2.840.1.118390.3.579.2. 62 1935 Unknown [id number] 2.840.1.969280.3.579.2. 1935 Unknown [id number] 2.840.1.446354.3.579.2. 62 1935 Unknown [id number] 2.840.1.929389.3.579.2. 1935 Unknown [id number] 2.840.1.828139.3.579.2. 62 1935 Unknown [id number] 2.840.1.851872.3.579.2. 62 1935 Unknown [id number] 2.840.1.463243.3.579.2. 62 1935 Unknown [id number] 2.840.1.308941.3.579.2. 627 Unknown [id number] .[id number]. 462 Unknown [id number] .840.1.366380.3.579.2. 462 Unknown [id number] 2.840.1.666373.3.579.2. 462 Unknown [id number] 2.840.1.718004.3.579.2. 462 Unknown [id number] 2.840.1.505670.3.579.2. 462 Social History Date Type Detail Facility Start: 12-17-2018 End: 07-01-2024 Tobacco smoking status Ex-smoker (finding) [facility] Start: 1935 Sex Assigned At Male A [facility] Start: 01-01-2023 [facility] ever smoked [facility] Start: 10-21-2019 Non-smoker [facility] Sexual Orientation Rigo H antonino [facility] Start: 03-10-2019 End: 07-13-2024 Sex Male (finding) [facility] Start: 09-26-2018 [facility] Never smoked tobacco [facility] Start: 09-26-2018 Tobacco use and exposure Smoke less tobacco non-user [facility] Start: 09-26-2018 Alcoholic beverage intake Current drinker of alcohol (finding) [facility] Start: 09-26-2018 End: 07-17-2024 History of Social function [facility] Start: 09-26-2018 End: 07-17-2024 Tobacco use panel [facility] National Score (1-10 0), lower number is lower risk Not on file [facility] Start: 1935 Sex assigned at Not on file [facility] Medical Equipment Procedure Code Equipment Code Equipment Origin al Text Equipment Identifier Dates Endarterectomy, carotid Cardiovascular patch, animal-derived [id number] FDA Start: 01-28-2024 Endarterectomy, carotid Ligation clip, metallic [id number] FDA Start: 01-28-2024 Endarterectomy, carotid Ligation clip, metallic [id number] FDA Start: 01-28-2024 ACETABULAR SHELL FDA Start: 10-29-2019 FEMORAL HEAD FDA Start: 10-29-2019 NECK ANGLE HIP STEM FDA Start : 10-29-2019 POLYETHYLENE INSERT FDA Start : 10-29-2019 ACETABULAR SHELL FDA Start: 10-29-2019 FEMORAL HEAD FDA Start: 10-29-2019 NECK ANGLE HIP STEM FDA Start : 10-29-2019 POLYETHYLENE INSERT FDA Start : 10-29-2019 Functional Status Date Assessment Result Facility 08-08-2022 Functional Status Independent [facility] 08-08-2022 Functional Status Awake, Resting [facility] 08-08-2022 Functional Status Fall ID band o n, Bathroom light on, Non-Slip footwear [facility] 07-18-2022 Functional Status Room check performed [facility] 07-18-2022 Functional Status Multilevel home [facility] 07-18-2022 Functional Status [facility] 07-18-2022 Functional Status [facility] 07-17-2022 Functional Status [facility] 07-17-2022 Functional Status Skin moisturiz er, Bath cloths, Shampoo cap, CHG bath [facility] 07-16-2022 Functional Status Dinner Percent 90 [facility] 07-16-2022 Functional Status [facility] 07-16-2022 Functional Status [facility] 07-16-2022 Functional Status [facility] 07-15-2022 Functional Status ID band on, Allergy Band on, Call device within reach, Bed in low position, Wheels locked, Upper/Half-Length side-rails up, Phone within reach, personal items within reach, Visitor at bedside [facility] Mental Status Date Assessment Result Facility 08-08-2022 Mental Status Orientation Oriented x 4 [facility] 08-08-2022 Mental Status [facility] 08-08-2022 Mental Status [facility] 07-18-2022 Mental Status Orientation Oriented x 4 [facility] 07-18-2022 Mental Status [facility] 07-18-2022 Mental Status [facility] 07-17-2022 Mental Status Orientation Asse ssment Oriented x 4 [facility] 07-15-2022 Mental Status Oriented x 4 [facility] Clinical Notes 07-15-2022 to 09-03-2024 Telephone Encounter - Stephenie Martins LISW - 07/29/2024 9:27 AM EDTTelephone Encounter - Stephenie Martins LISW - 07/29/2024 9:27 AM Tres Martini DO - 07/17/2024 10:23 AM EDT Note Date & Type Note Facility 09-03-2024 Note HNO ID: [id number] Author: DEE ALMENDAREZ, ? Service: ? Author Type: Nurse Practitioner Type: Progress Notes Filed: 09/03/2024 12:27 Note Text: Patient referred by Dr. Trujillo for anemia. HPI: The patient is an 88-year-old male with a past medical history significant for heart failure with preserved ejection fraction, COPD, recent acute kidney injury and iron deficiency anemia. He was advised to go to the ER several weeks ago when he was found to have a hemoglobin of 5.5. He was transferred to [facility]. Evidently received 2 units of red blood cells upon admission. He was found to have a low iron level at 8 with a saturation of 2%. Ferritin was 13. He lives with his grandson. Not short of breath at rest. Able to climb stairs albeit slowly and uses a cane. Occasional blood on the toilet tissue when wiping. Has not observed any black or bloody stools per se. Denies reflux and nausea. Appetite has been normal. No abdominal pain. CEA last fall. On ASA and Plavix. Interval: Presents today with his grandson sp IV iron administration. Tolerated well. Reports that he has a little more pep. Color has improved. Feels well. Denies any new issues. Denies SOB, CP. Palpitations. Denies overt bleeding. Has noticed darker stools since starting PO iron. Tolerating well. No adverse GI side effects. Has not followed up with GI since last OV. Needed to reschedule previous appt and has not yet rescheduled. Encouraged them to follow up. Denies abd pains. No changes in bowel or bladder habits. He remains on anticoagulation. Has had several stents placed. No recent issues. PAST MEDICAL HISTORY Diagnosis Date HTN (hypertension) Hyperlipidemia Inguinal hernia 11/13/2009 LEFT Aortic stenosis BPH Coronary artery disease Carotid stenosis Former alcohol abuse Former smoker GERD Gout Hyperlipidemia, history of non-ST [place] History of TIA PAST SURGICAL HISTORY Procedure Laterality Date LAPAROSCOPY SURG RPR INITIAL INGUINAL HERNIA 11/13/2009 LEFT Current Outpatient Medications Medication Sig atorvastatin (LIPITOR) 40 mg tablet Take 1 tablet by mouth once daily. ALLERGY RELIEF, CETIRIZINE, 10 mg tablet Take 1 tablet by mouth once daily. carvedilol (COREG) 6.25 mg tablet Take 1 tablet by mouth every 12 hours. clopidogrel (PLAVIX) 75 mg tablet Take 1 tablet by mouth once daily. ezetimibe (ZETIA) 10 mg tablet Take 1 tablet by mouth once daily. ferrous sulfate 325 mg (65 mg iron) EC tablet Take 1 tablet by mouth once daily. folic acid 400 mcg tablet Take 1 tablet by mouth once daily. furosemide (LASIX) 20 mg tablet Take 1 tablet by mouth once daily. losartan (COZAAR) 50 mg tablet Take 1 tablet by mouth once daily. oxyCODONE-acetaminophen (PERCOCET) 5-325 mg tablet Take 1 tablet by mouth as needed (PRN every [address] (PROTONIX) 40 mg tablet Take 1 tablet by mouth once daily. SENNA 8.6 mg tab Take 17.2 mg by mouth once daily as needed for constipation. spironolactone (ALDACTONE) 25 mg tablet Take 1 tablet by mouth once daily. thiamine (VITAMIN B1) 100 mg tablet Take 1 tablet by mouth once daily. vit A/vit C/vit E/zinc/copper (PRESERVISION AREDS ORAL) Take 1 tablet by mouth two times a day. ascorbic acid, vitamin C, (VITAMIN C) 500 mg tablet Take 500 mg by mouth once daily. cholecalciferol, vitamin D3, (VITAMIN D3 ORAL) Take 4,000 Units by mouth once daily. amLODIPine (NORVASC) 5 mg tablet Take 5 mg by mouth once daily. Irbesartan-Hydrochlorothiazide 300-12.5 mg per tablet Take 1 tablet by mouth once daily. aspirin(ASPIR-LOW 81 MG TAB) Take one(1) tablet daily. amLODIPine (NORVASC) 2.5 mg tablet amlodipine/atorvast ed(CADUET 2.5 MG-20 MG TAB) Take one(1) tablet daily. No current facility-administered medications for this visit. ALLERGIES No Known Allergies Social History Tobacco Use Smoking status: Never Smokeless tobacco: Never Vaping Use Vaping status: Never Used Substance Use Topics Alcohol use: Yes Comment: occ Drug use: No Mother--Uterus or cervix. REVIEW OF SYSTEMS: Constitutional: No episodes of fever and night sweats. All systems reviewed on 09/03/2024 with pertinent positives and negatives as outlined in the interval history. PHYSICAL EXAM: Vitals: Blood pressure 151/62, pulse 66, temperature 36.5 ?C (97.7 ?F), temperature source Temporal, weight 69.2 kg (152 lb 8 oz), SpO2 97%. Well-appearing and in no acute distress. EYES: Sclerae are anicteric bilaterally. CARDIOVASCULAR: Rhythm is regular. ABDOMEN: The abdomen is nondistended. SKIN: No jaundice. I have performed the physical exam today (09/03/2024) and have edited the note to correlate with current findings. 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 [facility] 07-29-2024 Telephone encount er Note Pt noted on [facility] 1st time treatment report. Pt has a non-oncology regimen. No social work follow up indicated. VÍCTOR King [facility] 07-29-2024 Miscellaneous Notes Formattin g of this note might be different from the original. Pt noted on [facility] 1st time treatment report. Pt has a non-oncology regimen. No social work follow up indicated. VÍCTOR King documented in this encounter [facility] 07-17-2024 Note HNO ID: [id number] Author: TRES PAVON, DO Service: ? Author Type: Physician Type: Progress Notes Filed: 07/17/2024 11:04 Note Text: Patient referred by Dr. Trujillo for anemia. HPI: The patient is an 88-year-old male with a past medical history significant for heart failure with preserved ejection fraction, COPD, recent acute kidney injury and iron deficiency anemia. He was advised to go to the ER several weeks ago when he was found to have a hemoglobin of 5.5. He was transferred to [facility]. Evidently received 2 units of red blood cells upon admission. He was found to have a low iron level at 8 with a saturation of 2%. Ferritin was 13. He lives with his grandson. Not short of breath at rest. Able to climb stairs albeit slowly and uses a cane. Occasional blood on the toilet tissue when wiping. Has not observed any black or bloody stools per se. Denies reflux and nausea. Appetite has been normal. No abdominal pain. CEA last fall. On ASA and Plavix. PAST MEDICAL HISTORY Diagnosis Date HTN (hypertension) Hyperlipidemia Inguinal hernia 11/13/2009 LEFT Aortic stenosis BPH Coronary artery disease Carotid stenosis Former alcohol abuse Former smoker GERD Gout Hyperlipidemia, history of non-ST [place] History of TIA PAST SURGICAL HISTORY Procedure Laterality Date LAP REPAIR INTIAL INGUINAL HERNIA 11/13/2009 LEFT Current Outpatient Medications Medication Sig atorvastatin (LIPITOR) 40 mg tablet Take 1 tablet by mouth once daily. ALLERGY RELIEF, CETIRIZINE, 10 mg tablet Take 1 tablet by mouth once daily. carvedilol (COREG) 6.25 mg tablet Take 1 tablet by mouth every 12 hours. clopidogrel (PLAVIX) 75 mg tablet Take 1 tablet by mouth once daily. ezetimibe (ZETIA) 10 mg tablet Take 1 tablet by mouth once daily. ferrous sulfate 325 mg (65 mg iron) EC tablet Take 1 tablet by mouth once daily. folic acid 400 mcg tablet Take 1 tablet by mouth once daily. furosemide (LASIX) 20 mg tablet Take 1 tablet by mouth once daily. losartan (COZAAR) 50 mg tablet Take 1 tablet by mouth once daily. oxyCODONE-acetaminophen (PERCOCET) 5-325 mg tablet Take 1 tablet by mouth as needed (PRN every [address] (PROTONIX) 40 mg tablet Take 1 tablet by mouth once daily. SENNA 8.6 mg tab Take 17.2 mg by mouth once daily as needed for constipation. spironolactone (ALDACTONE) 25 mg tablet Take 1 tablet by mouth once daily. thiamine (VITAMIN B1) 100 mg tablet Take 1 tablet by mouth once daily. amLODIPine (NORVASC) 5 mg tablet Irbesartan-Hydrochlorothiazide 300-12.5 mg per tablet (Patient taking differently: No sig reported) aspirin(ASPIR-LOW 81 MG TAB) Take one(1) tablet daily. vit A/vit C/vit E/zinc/copper (PRESERVISION AREDS ORAL) Take by mouth. ascorbic acid, vitamin C, (VITAMIN C) 500 mg tablet Take 500 mg by mouth once daily. cholecalciferol, vitamin D3, (VITAMIN D3 ORAL) Take 4,000 Units by mouth once daily. amLODIPine (NORVASC) 2.5 mg tablet amlodipine/atorvast ed(CADUET 2.5 MG-20 MG TAB) Take one(1) tablet daily. No current facility-administered medications for this visit. ALLERGIES No Known Allergies Social History Tobacco Use Smoking status: Never Smokeless tobacco: Never Substance Use Topics Alcohol use: Yes Drug use: No Mother--Uterus or cervix. REVIEW OF SYSTEMS: Constitutional: No episodes of fever and night sweats. Neuro: No DALAL. HEENT: No recent change in voice, vision or hearing. Resp: No cough, wheeze and hemoptysis. CVS: No exertional chest pain, PND, orthopnea and LE edema. GI: See above. : No dysuria or gross hematuria. Endo: No hot flashes. No polyuria and polydipsia. Derm: No current rash. Heme: No unusual bleeding and unexplained bruising. Psych: Normal mood. PHYSICAL EXAM: Vitals: Blood pressure 122/68, pulse 69, temperature 36.9 ?C (98.4 ?F), temperature source Tympanic, resp. rate 12, height 168.5 cm (5' 6.34), weight 68 kg (150 lb), SpO2 96%. Well-appearing and in no acute distress. EYES: Sclerae are anicteric bilaterally. CARDIOVASCULAR: Rhythm is regular. ABDOMEN: The abdomen is nondistended. SKIN: No jaundice. 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 Given his comorbidities and PPI use, needs iron repletion more quickly. Recommended 5 doses of iron sucrose. Discussed with him and his family. They agreed. Discussed importance of follow-up for endoscopy. Plan: -CBC for possible transfusion today. -Confirm low iron. -Begin iron sucrose next week. -Office visit with CBC/iron studies/reticulocyte count about a month after completing iron. -Already has appointment with Dr. Oreilly's office scheduled. I spent a total of 45 minutes on the date of the service which include (more content not included)... [facility] 07-17-2024 History of Presen t illness Narrative Patient referred by Dr. Trujillo for anemia. HPI: The patient is an 88-year-old male with a past medical history significant for heart failure with preserved ejection fraction, COPD, recent acute kidney injury and iron deficiency anemia. He was advised to go to the ER several weeks ago when he was found to have a hemoglobin of 5.5. He was transferred to [facility]. Evidently received 2 units of red blood cells upon admission. He was found to have a low iron level at 8 with a saturation of 2%. Ferritin was 13. He lives with his grandson. Not short of breath at rest. Able to climb stairs albeit slowly and uses a cane. Occasional blood on the toilet tissue when wiping. Has not observed any black or bloody stools per se. Denies reflux and nausea. Appetite has been normal. No abdominal pain. CEA last fall. On ASA and Plavix. PAST MEDICAL HISTORY Diagnosis Date HTN (hypertension) Hyperlipidemia Inguinal hernia 11/13/2009 LEFT Aortic stenosis BPH Coronary artery disease Carotid stenosis Former alcohol abuse Former smoker GERD Gout Hyperlipidemia, history of non-ST FL History of TIA PAST SURGICAL HISTORY Procedure Laterality Date LAP REPAIR INTIAL INGUINAL HERNIA 11/13/2009 LEFT Current Outpatient Medications Medication Sig atorvastatin (LIPITOR) 40 mg tablet Take 1 tablet by mouth once daily. ALLERGY RELIEF, CETIRIZINE, 10 mg tablet Take 1 tablet by mouth once daily. carvedilol (COREG) 6.25 mg tablet Take 1 tablet by mouth every 12 hours. clopidogrel (PLAVIX) 75 mg tablet Take 1 tablet by mouth once daily. ezetimibe (ZETIA) 10 mg tablet Take 1 tablet by mouth once daily. ferrous sulfate 325 mg (65 mg iron) EC tablet Take 1 tablet by mouth once daily. folic acid 400 mcg tablet Take 1 tablet by mouth once daily. furosemide (LASIX) 20 mg tablet Take 1 tablet by mouth once daily. losartan (COZAAR) 50 mg tablet Take 1 tablet by mouth once daily. oxyCODONE-acetaminophen (PERCOCET) 5-325 mg tablet Take 1 tablet by mouth as needed (PRN every [address] (PROTONIX) 40 mg tablet Take 1 tablet by mouth once daily. SENNA 8.6 mg tab Take 17.2 mg by mouth once daily as needed for constipation. spironolactone (ALDACTONE) 25 mg tablet Take 1 tablet by mouth once daily. thiamine (VITAMIN B1) 100 mg tablet Take 1 tablet by mouth once daily. amLODIPine (NORVASC) 5 mg tablet Irbesartan-Hydrochlorothiazide 300-12.5 mg per tablet (Patient taking differently: No sig reported) aspirin(ASPIR-LOW 81 MG TAB) Take one(1) tablet daily. vit A/vit C/vit E/zinc/copper (PRESERVISION AREDS ORAL) Take by mouth. ascorbic acid, vitamin C, (VITAMIN C) 500 mg tablet Take 500 mg by mouth once daily. cholecalciferol, vitamin D3, (VITAMIN D3 ORAL) Take 4,000 Units by mouth once daily. amLODIPine (NORVASC) 2.5 mg tablet amlodipine/atorvast ed(CADUET 2.5 MG-20 MG TAB) Take one(1) tablet daily. No current facility-administered medications for this visit. ALLERGIES No Known Allergies Social History Tobacco Use Smoking status: Never Smokeless tobacco: Never Substance Use Topics Alcohol use: Yes Drug use: No Mother--Uterus or cervix. REVIEW OF SYSTEMS: Constitutional: No episodes of fever and night sweats. Neuro: No DALAL. HEENT: No recent change in voice, vision or hearing. Resp: No cough, wheeze and hemoptysis. CVS: No exertional chest pain, PND, orthopnea and LE edema. GI: See above. : No dysuria or gross hematuria. Endo: No hot flashes. No polyuria and polydipsia. Derm: No current rash. Heme: No unusual bleeding and unexplained bruising. Psych: Normal mood. PHYSICAL EXAM: Vitals: Blood pressure 122/68, pulse 69, temperature 36.9 C (98.4 F), temperature source Tympanic, resp. rate 12, height 168.5 cm (5' 6.34), weight 68 kg (150 lb), SpO2 96%. Well-appearing and in no acute distress. EYES: Sclerae are anicteric bilaterally. CARDIOVASCULAR: Rhythm is regular. ABDOMEN: The abdomen is nondistended. SKIN: No jaundice. 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 Given his comorbidities and PPI use, needs iron repletion more quickly. Recommended 5 doses of iron sucrose. Discussed with him and his family. They agreed. Discussed importance of follow-up for endoscopy. Plan: -CBC for possible transfusion today. -Confirm low iron. -Begin iron sucrose next week. -Office visit with CBC/iron studies/reticulocyte count about a month after completing iron. -Already has appointment with Dr. Oreilly's office scheduled. I spent a total of 45 minutes on the date of the service which included preparing to see the patient, [id number] patient care, completing clinical documentation, obtaining and/or reviewing separately obtained history, counseling and educating the patient/family/caregiver, ordering medications, tests, or procedures, communicating with other HCPs (not separately reported), and communicating results to the patient/family/caregiver. Tres Pavon DO documented in this encounter [facility] 07-08-2024 Evaluation note Diagnosis Onset Date Resolution Alcohol use acute July 08, 025 8:44am Anemia acute July 08 8:44am Constipation acute July 08, 2024 8:44am [facility] Work Phone: 1(516) 158-413403-21-2025 Telephone encounter Note* Telephone Encounter - Merissa Alexander LPN - 07/04/2024 10:11 AM EDT Records received and chart sent to [facility] for scheduling. Appears scheduled 4/3 Merissa Alexander LPN [facility]03-21-2025 Miscellaneous Notes* Telephone Encounter - Merissa Alexander LPN - 07/04/2024 10:11 AM EDT Records received and chart sent to [facility] for scheduling. Appears scheduled 4/3 Merissa Alexander LPN * Telephone Encounter - Hanna Ramos - 07/02/2024 1:25 PM EDT Received call from [facility] stating patient will be discharged today. They are sending referral/records to [id number]. Okay to call patient to schedule [facility] Telephone encounter Note * Telephone Encounter - Hanna Ramos - 07/02/2024 1:25 PM EDT Received call from [facility] stating patient will be discharged today. They are sending referral/records to [id number]. Okay to call patient to schedule [facility] Work Phone: 1(358) 489-909110-29-2024 Note* Exam Date Time Procedure Performing Provider Status 02/12/24 2:06 PM Echocardiogram, Adult - CV Auth (Verified) [facility] 08-12-2024 Note* Exam Date Time Procedure Performing Provider Status 11/26/23 2:06 PM VL Carotid US/Dopple r Complete - CV Auth (Verified) [facility] 01-29-2024 Note* Exam Date Time Procedure Performing Provider Status 05/14/23 10:29 AM VL Carotid US/Dopple r Complete AOH Auth (Verified) [facility] 09-18-2023 Discharge summary Author Ulises Estrada [facility] January 01, 2023 11:11pm Note Date/Time January 01, 2023 10:03pm [facility] Medical Records Department [address] [place] [address] Emergency Department Summary 01/01/23 MR#: [id number] Acct: [id number] Name: VERNON LOGAN Rep #:[id number] 1 : 1935 87 From: Ulises Estrada MD PCP: Dr. Aaliyah Trujillo, DO Status:REG ER Location: ED HPI HPI - Fall History of Present Illness Chief Complaint: Fall Detail of Chief Complaint: Tripped and fell in a bar. Informant: patient Occured/Mechanism Occurred: Today Mechanism/Context: Yes same level fall and Yes trip Usually ambulates: Without assistance Pain/Injury Pain Location: head and face Quality of Pain: Dull Current Severity: Mild Maximum Severity: Mild Associated Symptoms Associated Symptoms: Negative for Parasthesias, Weakness, Loss of function, Inability to ambulate, Loss of consciousness or Amnesia Narrative Narrative: 87-year-old male history of CAD with stents on aspirin and Xarelto. Was drinking alcohol tonight in a bar thinks he had a least 4 alcoholic drinks. When he got up to walk he tripped and fell landed on his face where he has multiple superficial lacerations from his glasses cutting the bridge of his noseand his left cheek. No LOC. No headache or neck pain. Denies any vomiting. Denies any other injuries. Prior similar symptoms: No Recent Illness/Hospitalization: No PFSH PFSH Medical History Bronchitis Hypertension Home Medications amlodipine 2.5 mg tablet (Norvasc) 5 mg PO DAILY bp 11/12/17 [History Last Taken Unknown] carvedilol 12.5 mg tablet (Coreg) 12.5 mg PO DAILY bp 11/12/17 [History Last Taken 10/29/19] meloxicam 7.5 mg tablet 7.5 mg PO BID pain 11/12/17 [History Last Taken Unknown] omeprazole 20 mg capsule,delayed release 20 mg PO DAILY gerd 11/12/17 [History Last Taken 10/29/19] valsartan 320 mg-hydrochlorothiazide 12.5 mg tablet 1 ea PO DAILY bp 11/12/17 [History Last Taken Unknown] ascorbic acid (vitamin C) 1,000 mg tablet,extended release 1,000 mg PO DAILY 10/21/19 [History Last Taken Unknown] aspirin 81 mg chewable tablet 81 mg PO DAILY@0800 10/21/19 [History Last Taken Unknown] cholecalciferol (vitamin D3) 25 mcg (1,000 unit) tablet 25 mcg PO DAILY 10/21/19[History Last Taken Unknown] oxycodone-acetaminophen 5 mg-325 mg tablet 1 - 2 ea (1 - 2 x 5-325 mg) PO Q6H pain 7 days #56 tabs 10/30/19 [Rx Last Taken Unknown] rivaroxaban 10 mg tablet 10 mg PO DAILY@0600 #12 tabs 10/30/19 [Rx Last Taken Unknown] sennosides 8.6 mg-docusate sodium 50 mg tablet 2 tab PO BID #10 tabs 10/30/19 [Rx Last Taken Unknown] irbesartan 300 mg-hydrochlorothiazide 12.5 mg tablet 1 ea PO DAILY 11/03/19 [History Last Taken Unknown] Allergy/AdvReac Type Severity Reaction Status Date / Time ciprofloxacin AdvReac Other Verified 01/01/23 21:34 Surgical History History of coronary artery stent placement Social History Smoking Status: Former smoker ROS ROS ED ROS Narrative Recent URI with a cough. Review of Systems ROS Unobtainable: Denies due to encephalopathy Constitutional Constitutional ED: Denies chills or fever(s) Eyes Eyes: Denies blurry vision ENT ENT ED: Denies ear pain Cardiovascular Cardiovascular: Denies chest pain or palpitations Respiratory/Chest Respiratory/Chest: Reports cough; Denies dyspnea Gastrointestinal Gastrointestinal: Denies abdominal pain, nausea or vomiting Genitourinary Genitourinary ED: Denies dysuria or hematuria Musculoskeletal Musculoskeletal: Denies arthralgias Integumentary Denies abscess Neurologic Neurologic: Denies headache(s) Psychiatric Psychiatric: Denies anxiety Endocrine Endocrinology: Denies polydipsia Hematologic/Lymphatic Hematologic/Lymphatic: Denies easy bleeding or easy bruising Allergic/Immunologic Allergic/Immunologic ED: Denies mouth swelling or tongue swelling EXAM Physical Exam Narrative Exam Narrative: 87-year-old male vital signs stable afebrile he does not look septic toxic. He is in no distress. Sitting upright in bed. Another male present in room. HEENT exam pupils round reactive light. Is a abrasion and superficial laceration to bridge of his nose and to his left cheek they are all actively oozing blood. There is dry reactive light extra motions are intact. He has some mild bruising to his forehead. Dentition intact. Scalp nontender. No laceration or hematoma. C-spine and trachea nontender. Lungs clear to auscultation. Heart regular rhythm rate about 95 no murmur. Chest wall and ribs nontender. Abdomen soft nontender. No bruising. No peritoneal signs. Back and spine nontender. Pelvic girdle intact. Moving all 4 extremities. He has an old hematoma on the back of his right hand but is nontender. Both shoulders, elbows wrist and hands are nontender. Normal range of motion. 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 Hips, knees ankles and feet are nontender with normal flexion extension. No deformity. No shortening or rotation. Neurologically isawake and alert. Answering questions following commands. He does smell of alcohol. Const Vital Signs: 01/01/23 21:31 01/01/23 21:34 01/01/23 22:04 Temperature 97.3 F L Temperature Source Temporal Pulse Rate 96 Respiratory Rate 18 Respiratory Effort Normal Non-Labored Respiratory Depth Normal Respiratory Pattern Normal Blood Pressure 187/89 H 171/72 H Blood Pressure Mean 121 105 Pulse Ox 98 Oxygen Delivery Method Room Air Room Air Positive well nourished and well developed; Negative for cachectic, contracturesor unkempt General Appearance ED: well developed and NAD; Negative for unkempt, cachectic or contractures Nutritional Appearance: Negative for cachectic HEENT Reports normocephalic HEENT Narrative: Superficial facial lacerations to the bridge of his nose and left cheek. Small bruising on his forehead and left periorbital region. Pupils round reactive light extremities are intact. trauma; Negative for atraumatic Eyes PERRL and EOMs intact bilaterally General Eye ED: Negative for pale conjunctiva or scleral icterus Neck full ROM, no lymphadenopathy and supple General: Negative for tenderness Chest Wall inspection of chest normal and palpation of chest normal Chest: Negative for other Resp normal respiratory effort, no retractions and clear to auscultation bilaterally Effort and Inspection: Negative for pain with movement Auscultation: Negative for rales, rhonchi or wheezes Cardio regular rate, regular rhythm, S1 normal heart sound, S2 normal heart sound and no murmurs Rate: Negative for bradycardia or tachycardic Rhythm: Negative for abnormal rhythm Bruits: Negative for other GI non-tender, non-distended and no masses Inspection: Negative for abdominal distention Auscultation: normoactive bowel sounds Palpation: soft; Negative for guarding Back/Spine no CVA tenderness General Back: Negative for CVA tenderness Cervical Spine: Negative for cervical spine tenderness Thoracic Spine / Upper Back: Negative for ROM limited Lumbar Spine / Lower Back: Negative for lumbar spinal tenderness Extremity Extremity Narrative: Nontender. Normal range of motion. No deformity. Old bruising right forearm and dorsum of right hand. Neuro oriented x3, CN's II-XII intact bilaterally, moves all extremities and no focal motor deficits Olivia Coma Scale: document GCS findings Spontaneous Obeys Commands Oriented 15 Sensorium / Orientation: alert, oriented to person, oriented to place and oriented to time; Negative for orientation impaired, confused, lethargic or stuporous Motor Exam: strength 5/5 throughout Psych mental status grossly normal and thought process normal Appearance: Negative for unkempt Attitude: No agitated Mood & Affect: Negative for depressed, anxious or tearful Skin Skin Narrative: Superficial lacerations the bridge of his nose and left cheek. General Skin Exam: Negative for other Lesions: no lesions Rashes: no rashes Trauma: laceration MDM MDM MDM Narrative Medical decision making narrative: 87-year-old tonight drinking tripped and fell hit his face. He is on Xarelto and aspirin a CAT scan of the obtained. He has had a recent URI. Chest x-ray will be obtained to rule out pneumonia. He has no other injuries from the fall at this time. Read as at 10:53 PM patient is doing well. We went over his CAT scan and chest x-ray results. I will have the nurses ambulate the patient and see how he does. I did Dermabond the superficial lacerations to his left cheek and the bridge of his nose. The cheek wounds were also Steri-Stripped. History & Record Review Discussion w/independent historian: Patient and Friend Additional record(s) reviewed:: Prior inpatient record, Prior outpatient record,Prior ED visit and Prior labs Radiography Chest X-Ray - ED: 1 View, Read by ED Physician, Read by Radiologist, Heart, Lungs, Mediastinum, Bony Structures, No Acute Disease and Chronic Changes Diagnostic Testing: Clinical Impression(s) from Imaging Studies Brain CT 01/01/23 21:55 IMPRESSION: No fracture or acute intracranial abnormality. Electronically Signed: Kunal Matt DO at 22:45 EDT , Chest X-Ray 01/01/23 22:00 IMPRESSION: No evidence of acute cardiopulmonary disease. Electronically Signed: Kunal Matt at 22:51 EDT , Chest x-ray, portable, single view shows no acute abnormality. Normal cardiac silhouette. Normal lung richard. No obvious rib fractures. No infiltrates. CT of the brain shows no acute intracranial bleed. Read by the radiologist and reviewed by me. Procedures Lacerations Stellate nasal bridge laceration 2 cm repaired:: Length: 0.79 in Depth: Skin Shape: Stellate Comment: Dermabond repair. Discharge Plan Triage Chief Complaint: Fall ED Provider: Ulises Estrada Dx/Rx/DC Orders Clinical Impression: Hx of heart artery stent, Alcohol intoxication, Chronic anticoagulation, Faciallaceration, Head injury, Fall Instructions: ED Head Injury (Adult) Prescriptions: No Action carvedilol [Coreg] 12.5 MG tablet 12.5 mg PO DAILY amlodipine [Norvasc] 2.5 MG tablet 5 mg PO DAILY meloxicam 7.5 MG tablet 7.5 mg PO BID omeprazole 20 MG capsule 20 mg PO DAILY valsartan-hydrochlorothiazide 1 EACH tablet 1 ea PO DAILY ascorbic acid (vitamin C) 1,000 MG tablet extended release 1,000 mg PO DAILY aspirin 81 MG tablet,chewable 81 mg PO DAILY@0800 cholecalciferol (vitamin D3) 25 MCG tablet 25 mcg PO DAILY sennosides-docusate sodium 1 TABLET tablet 2 tab PO BID Qty: 10 0RF Rx Instructions: Take until first bowel movement, then as needed rivaroxaban 10 MG tablet 10 mg PO DAILY@0600 Qty: 12 0RF Rx Instructions: Continue with Xarelto for 2 weeks postoperatively for DVT prophylaxis oxycodone-acetaminophen 1 EACH tablet 1 - 2 ea PO Q6H 7 Days Qty: 56 0RF irbesartan-hydrochlorothiazide 1 EACH tablet 1 ea PO DAILY Primary Care Provider: Aaliyah Trujillo Referrals: Aaliyah Trujillo DO [Primary Care Provider] - As Needed Activity Restrictions/Additional Instructions: No alcohol for the next 24 hours. Direct pressure to any of the lacerations on your face if the bleeding to stop the bleeding. Tylenol for pain. Follow-up with your doctor if feeling worse. Return to the emergency departmentif you have a severe headache, not acting right or intractable vomiting. Anytime you are on a blood thinner you can have a delayed bleed inside your brain there is no signs of that at this time. Disposition Disposition: Home, Self Care What to do if you have Problems For any increased pain, shortness of breath, bleeding, nausea or vomiting, chestpain, or any unexpected problems, contact your Primary Care Provider. Call [facility] ([phone]) or report to the closest Emergency Room. Call 911 if necessary. 01/01/232310 <Electronically signed by Ulises Estrada MD> Cosigner Signature (if applicable): CC: Dr. Aaliyah Trujillo DO ~ Signed ADDENDUM by Dr. Ulises Estrada MD on 01/01/23 at 2311 Nurses ambulated the patient. He did well. He will be discharged home. 01/01/232310<Electronically signed by Ulises Estrada MD> Cosigner Signature (if applicable): cc: Dr. Aaliyah Trujillo DO ~* Signed [facility] Work Phone: 1(243) 175-550405-10-2023 Note ORIGINAL EXAMINATION: THREE XRAY VIEWS OF THE RIGHT WRIST; TWO XRAY VIEWS OF THE RIGHT FOREARM; THREE XRAY VIEWS OF THE RIGHT HAND; THREE XRAY VIEWS OF THE RIGHT ELBOW08/22/2022 11:34 am; 08/22/2022 11:37 am; 08/22/2022 11:35 am; 08/22/2022 11:38 am XR COMPARISON: None HISTORY: ORDERING SYSTEM PROVIDED HISTORY: Reason for Exam: injury to right elbow, pain and swelling to ulnar side of wrist/hand, trauma, pain, FINDINGS: There is no visualized acute fracture or dislocation. No radio-opaque foreign body or soft tissue gas is seen. 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 Moderate arterial calcifications at the wrist. Right elbow and right forearm: There is mild enthesopathy of the lateral epicondyle of the elbow. No elbow joint effusion. IMPRESSION: No acute fracture seen. 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 Lateral epicondylar enthesopathy at the elbow. Interpreted by: Zoila Miller MD Preliminary Report By: Zoila Miller MD Electronically signed By Zoila Miller MD Dictated Date: 08/23/2022 1:01:22 AM Prelim Date: 08/23/2022 1:04:03 AM Sign Date: 08/23/2022 1:04:03 AM Ordering Provider: [facility]05-10-2023 Note ORIGINAL EXAMINATION: THREE XRAY VIEWS OF THE RIGHT WRIST; TWO XRAY VIEWS OF THE RIGHT FOREARM; THREE XRAY VIEWS OF THE RIGHT HAND; THREE XRAY VIEWS OF THE RIGHT ELBOW08/22/2022 11:34 am; 08/22/2022 11:37 am; 08/22/2022 11:35 am; 08/22/2022 11:38 am XR COMPARISON: None HISTORY: ORDERING SYSTEM PROVIDED HISTORY: Reason for Exam: injury to right elbow, pain and swelling to ulnar side of wrist/hand, trauma, pain, FINDINGS: There is no visualized acute fracture or dislocation. No radio-opaque foreign body or soft tissue gas is seen. 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 Moderate arterial calcifications at the wrist. Right elbow and right forearm: There is mild enthesopathy of the lateral epicondyle of the elbow. No elbow joint effusion. IMPRESSION: No acute fracture seen. 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 Lateral epicondylar enthesopathy at the elbow. Interpreted by: Zoila Miller MD Preliminary Report By: Zoila Miller MD Electronically signed By Zoila Miller MD Dictated Date: 08/23/2022 1:01:22 AM Prelim Date: 08/23/2022 1:04:03 AM Sign Date: 08/23/2022 1:04:03 AM Ordering Provider: [facility]05-10-2023 Note ORIGINAL EXAMINATION: THREE XRAY VIEWS OF THE RIGHT WRIST; TWO XRAY VIEWS OF THE RIGHT FOREARM; THREE XRAY VIEWS OF THE RIGHT HAND; THREE XRAY VIEWS OF THE RIGHT ELBOW08/22/2022 11:34 am; 08/22/2022 11:37 am; 08/22/2022 11:35 am; 08/22/2022 11:38 am XR COMPARISON: None HISTORY: ORDERING SYSTEM PROVIDED HISTORY: Reason for Exam: injury to right elbow, pain and swelling to ulnar side of wrist/hand, trauma, pain, FINDINGS: There is no visualized acute fracture or dislocation. No radio-opaque foreign body or soft tissue gas is seen. 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 Moderate arterial calcifications at the wrist. Right elbow and right forearm: There is mild enthesopathy of the lateral epicondyle of the elbow. No elbow joint effusion. IMPRESSION: No acute fracture seen. 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 Lateral epicondylar enthesopathy at the elbow. Interpreted by: Zoila Miller MD Preliminary Report By: Zoila Miller MD Electronically signed By Zoila Miller MD Dictated Date: 08/23/2022 1:01:22 AM Prelim Date: 08/23/2022 1:04:03 AM Sign Date: 08/23/2022 1:04:03 AM [facility]ing Provider[facility]05-10-2023 Note ORIGINAL EXAMINATION: THREE XRAY VIEWS OF THE RIGHT WRIST; TWO XRAY VIEWS OF THE RIGHT FOREARM; THREE XRAY VIEWS OF THE RIGHT HAND; THREE XRAY VIEWS OF THE RIGHT ELBOW08/22/2022 11:34 am; 08/22/2022 11:37 am; 08/22/2022 11:35 am; 08/22/2022 11:38 am XR COMPARISON: None HISTORY: ORDERING SYSTEM PROVIDED HISTORY: Reason for Exam: injury to right elbow, pain and swelling to ulnar side of wrist/hand, trauma, pain, FINDINGS: There is no visualized acute fracture or dislocation. No radio-opaque foreign body or soft tissue gas is seen. 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 Moderate arterial calcifications at the wrist. Right elbow and right forearm: There is mild enthesopathy of the lateral epicondyle of the elbow. No elbow joint effusion. IMPRESSION: No acute fracture seen. 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 Lateral epicondylar enthesopathy at the elbow. Interpreted by: Zoila Miller MD Preliminary Report By: Zoila Miller MD Electronically signed By Zoila Miller MD Dictated Date: 08/23/2022 1:01:22 AM Prelim Date: 08/23/2022 1:04:03 AM Sign Date: 08/23/2022 1:04:03 AM Ordering Provider: [facility]05-09-2023 Note ORIGINAL EXAMINATION: THREE XRAY VIEWS OF THE RIGHT WRIST; TWO XRAY VIEWS OF THE RIGHT FOREARM; THREE XRAY VIEWS OF THE RIGHT HAND; THREE XRAY VIEWS OF THE RIGHT ELBOW08/22/2022 11:34 am; 08/22/2022 11:37 am; 08/22/2022 11:35 am; 08/22/2022 11:38 am XR COMPARISON: None HISTORY: ORDERING SYSTEM PROVIDED HISTORY: Reason for Exam: injury to right elbow, pain and swelling to ulnar side of wrist/hand, trauma, pain, FINDINGS: There is no visualized acute fracture or dislocation. No radio-opaque foreign body or soft tissue gas is seen. 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 Moderate arterial calcifications at the wrist. Right elbow and right forearm: There is mild enthesopathy of the lateral epicondyle of the elbow. No elbow joint effusion. IMPRESSION: No acute fracture seen. 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 Lateral epicondylar enthesopathy at the elbow. Interpreted by: Zoila Miller MD Preliminary Report By: Zoila Miller MD Electronically signed By Zoila Miller MD Dictated Date: 08/23/2022 1:01:22 AM Prelim Date: 08/23/2022 1:04:03 AM Sign Date: 08/23/2022 1:04:03 AM Ordering Provider: [facility]05-09-2023 Note ORIGINAL EXAMINATION: THREE XRAY VIEWS OF THE RIGHT WRIST; TWO XRAY VIEWS OF THE RIGHT FOREARM; THREE XRAY VIEWS OF THE RIGHT HAND; THREE XRAY VIEWS OF THE RIGHT ELBOW08/22/2022 11:34 am; 08/22/2022 11:37 am; 08/22/2022 11:35 am; 08/22/2022 11:38 am XR COMPARISON: None HISTORY: ORDERING SYSTEM PROVIDED HISTORY: Reason for Exam: injury to right elbow, pain and swelling to ulnar side of wrist/hand, trauma, pain, FINDINGS: There is no visualized acute fracture or dislocation. No radio-opaque foreign body or soft tissue gas is seen. 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 Moderate arterial calcifications at the wrist. Right elbow and right forearm: There is mild enthesopathy of the lateral epicondyle of the elbow. No elbow joint effusion. IMPRESSION: No acute fracture seen. 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 Lateral epicondylar enthesopathy at the elbow. Interpreted by: Zoila Miller MD Preliminary Report By: Zoila Miller MD Electronically signed By Zoila Miller MD Dictated Date: 08/23/2022 1:01:22 AM Prelim Date: 08/23/2022 1:04:03 AM Sign Date: 08/23/2022 1:04:03 AM Ordering Provider: [facility]05-09-2023 Note ORIGINAL EXAMINATION: THREE XRAY VIEWS OF THE RIGHT WRIST; TWO XRAY VIEWS OF THE RIGHT FOREARM; THREE XRAY VIEWS OF THE RIGHT HAND; THREE XRAY VIEWS OF THE RIGHT ELBOW08/22/2022 11:34 am; 08/22/2022 11:37 am; 08/22/2022 11:35 am; 08/22/2022 11:38 am XR COMPARISON: None HISTORY: ORDERING SYSTEM PROVIDED HISTORY: Reason for Exam: injury to right elbow, pain and swelling to ulnar side of wrist/hand, trauma, pain, FINDINGS: There is no visualized acute fracture or dislocation. No radio-opaque foreign body or soft tissue gas is seen. 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 Moderate arterial calcifications at the wrist. Right elbow and right forearm: There is mild enthesopathy of the lateral epicondyle of the elbow. No elbow joint effusion. IMPRESSION: No acute fracture seen. 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 Lateral epicondylar enthesopathy at the elbow. Interpreted by: Zoila Miller MD Preliminary Report By: Zoila Miller MD Electronically signed By Zoila Miller MD Dictated Date: 08/23/2022 1:01:22 AM Prelim Date: 08/23/2022 1:04:03 AM Sign Date: 08/23/2022 1:04:03 AM Ordering Provider: [facility]05-09-2023 Note ORIGINAL EXAMINATION: THREE XRAY VIEWS OF THE RIGHT WRIST; TWO XRAY VIEWS OF THE RIGHT FOREARM; THREE XRAY VIEWS OF THE RIGHT HAND; THREE XRAY VIEWS OF THE RIGHT ELBOW08/22/2022 11:34 am; 08/22/2022 11:37 am; 08/22/2022 11:35 am; 08/22/2022 11:38 am XR COMPARISON: None HISTORY: ORDERING SYSTEM PROVIDED HISTORY: Reason for Exam: injury to right elbow, pain and swelling to ulnar side of wrist/hand, trauma, pain, FINDINGS: There is no visualized acute fracture or dislocation. No radio-opaque foreign body or soft tissue gas is seen. 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 Moderate arterial calcifications at the wrist. Right elbow and right forearm: There is mild enthesopathy of the lateral epicondyle of the elbow. No elbow joint effusion. IMPRESSION: No acute fracture seen. 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 Lateral epicondylar enthesopathy at the elbow. Interpreted by: Zoila Miller MD Preliminary Report By: Zoila Miller MD Electronically signed By Zoila Miller MD Dictated Date: 08/23/2022 1:01:22 AM Prelim Date: 08/23/2022 1:04:03 AM Sign Date: 08/23/2022 1:04:03 AM Ordering Provider: [facility]04-25-2023 Summary of episode note Discharge Instructions Thank you for allowing [facility] to assist you with your healthcare needs. The following is importantdischarge information regarding your hospital visit. Your Care Team AALIYAH TRUJILLO DO What to do next Scheduled Follow-Up Appointments [facility] 08[facility]18/2022 11:00 AM EDT [facility] OV 08/22/2022 10:15 AM EDT [facility] [address] [place] [address] OV 09/05/2022 10:00 AM EDT AALIYAH TRUJILLO DO [facility] [address] [place] [address] OV 10/10/2022 10:30 AM EDT AALIYAH TRUJILLO DO [address] [address] OV 10/31/2022 08:30 AM EDT AALIYAH TRUJILLO [address] [address] Follow Up Appointments Follow Up with RIKKI GALVEZ MD When 08/18/2022 11:00 AM EDT Why: THIS APPOINTMENT WILL BE WITH DR. FOSTER Where: [address] [facility] [address] [facility] [place] [address]- The Following Activity and Diet Have Been Ordered for You Discharge Activity - Ordered -- Lifting Restricted less than 5 pounds, Follow the post-operative/post-procedure activity instructions provided by your physician's office., 08/08/22 10:05:00 EDT Discharge Diet - Ordered -- Follow the post-operative/post-procedure diet instructions provided by your physician's office.,08/08/22 10:05:00 EDT Allergies Cipro (Muscle ache) traMADol (Itching) Medications Please ask your primary doctor or pharmacist before taking any other medication not listed, including over the counter drugs, herbal medications, vitamins and or supplements as they may interact withyour home medications. What How Much When Why Instructions Last Dose Unchanged acetaminophen-oxyCODONE (acetaminophen-oxyCODONE 325 mg-5 mg oral tablet) 1 tab(s) by mouth Every 6 hours as needed for as needed for pain Primary osteoarthritis Chronic pain of right hip Duration: 30 Days To be filled on or after 2022; oarrs appropriate Unchanged ammonium lactate topical (ammonium lactate 12% topical cream) 1 application Topical Two (2) times a day Duration: 90 Days Unchanged ascorbic acid (Vitamin C 500 mg oral tablet) 1 tab(s) by mouth Once a day Unchanged aspirin (aspirin 81 mg oral tablet, chewable) 1 tab(s) Chewed Once a day Duration: 30 Days Unchanged atorvastatin (Lipitor 40 mg oral tablet) 1 tab(s) by mouth Once a day Duration: 30 Days Unchanged carvedilol (Coreg 3.125 mg oral tablet) 1 tab(s) by mouth Twice daily with meals Duration: 30 Days Unchanged cetirizine (cetirizine 10 mg oral tablet) 1 tab(s) by mouth Once a day Duration: 90 Days Unchanged cholecalciferol (Vitamin D3) 4,000 unit(s) by mouth Every day Unchanged clopidogrel (Plavix 75 mg oral tablet) 1 tab(s) by mouth Once a day Duration: 30 Days Unchanged DME (DME MISCellaneous) See instructions dx I10; dispense one automated upper arm sphygmomanometer with supplies. Unchanged ezetimibe (Zetia 10 mg oral tablet) 1 tab(s) by mouth Once a day Duration: 30 Days Unchanged folic acid (folic acid 0.4 mg oral tablet) 1 tab(s) by mouth Once a day Unchanged furosemide (Lasix 20 mg oral tablet) 1 tab(s) by mouth Once a day Duration: 30 Days Unchanged losartan (losartan 25 mg oral tablet) 1 tab(s) by mouth Once a day Duration: 30 Days Unchanged magnesium oxide (magnesium oxide 400 mg oral tablet) 1 tab(s) by mouth Once a day Duration: 90 Days Unchanged Misc Medication (ensure) Unchanged multivitamin with minerals (PreserVision AREDS 2 oral capsule) 1 cap by mouth Two (2) times a day Duration: 90 Days Unchanged omeprazole (omeprazole 40 mg oral delayed release capsule) 1 cap by mouth Once a day Duration: 90 Days Unchanged thiamine (thiamine 100 mg oral tablet) 1 tab(s) by mouth Every day Please take this list to your next doctor s visit. Bring all medications you take, including over the counter medications, herbals and other supplements with you to your doctor s visit. Patients and families are reminded to discard old lists and to update any records with all medication providers or retail pharmacies. Education Materials HEART CATHETERIZATION/PCI (radial) Discharge Instructions DIET Drink plenty of fluids for the next 48 hours to help your kidneys flush the heart cath dye out of your system ACTIVITY For the next 48 hours: Do not deep bend the wrist Do not lift, push, or pull anything over 5 pounds for 1 week Do not use the hand/arm to support your weight when rising from a chair or bed Do not drive For the next 7 days: Do not submerse your procedure site in water Do not swim, wash dishes, or take tub baths You may write, eat, type, and shower WOUND CARE Keep a Band-Aid on your procedure site for the next 3-4 days after removing the original dressing tomorrow Change the Band-Aid daily or if it gets wet/soiled AFTER YOU GO HOME, CALL YOUR DOCTOR FOR: Any increase in bruising or tenderness from the procedure site Any redness, pus, or other signs of infection at the site A temperature above 100.5 Severe pain at the site DIAL 911 AND RETURN TO THE HOSPITAL FOR: Any bleeding from the procedure site. The site may be bruised or tender, but it should not be bleeding at any time. If your site begins to bleed, hold firm pressure on it and dial 911 to return to the hospital Any increase in swelling at the procedure site. An increase in swelling could mean the area is bleeding under the skin. Hold firm pressure to the site and dial 911 to return to the hospital Document Released: 04/02/2006 Document Revised: 03/19/2013 Document Reviewed: 04/03/2014 ExitCare Patient Information 2015 [employer] [facility]. This information is not intended to replace advicegiven to you by your health care provider. Make sure you discuss any questions you have with your health care provider. Additional Information VACCINATE! IT SAVES LIVES! Members of the community who have not yet received the COVID-19 vaccine and would like to receive it can visit one of [facility] vaccine clinics. There are many vaccine clinic locations within the [facility]. For locations and available times, please visit [email or web address].[place].gov/. It is important to note that some COVID mobile vaccine clinics are held outdoors and may be canceled in rainy or stormy conditions. To learn more about pediatric vaccinations (ages 5-11), we invite you to visit the [facility] webpage. [email or web address]/[email or web address] [email or web address] learn more about the COVID-19 vaccine, we invite you to visit the CDC website for a list of frequently asked questions. https://www.cdc.gov/coronavirus/2019-ncov/vaccines/faq.html [facility] Patient Portal Access Instructions: Stay connected with your healthcare team and access your personal medical information anytime with the [facility] Patient Portal.If you would like a full copy of your medical records, please contact the [facility] Medical Records Department, Sunday through Sunday between 8a.m. and 4:30p.m. Please follow the directions below to access the portal: 1.Access the email account you provided upon registration to the [facility].2.Look for an invitation email from [facility].3.Open the email and access the invitation link: Accept Invitation to [facility]4.Fill in the required richard to create your account. Sign into www.[employer] with your username and password that you created in the above steps to stay up to date. You can then view a summary of results, a summary of your visits, and the ability to download your summaries to your computer or send the information securely to a physician. Remember that your healthcare information is confidential, so carefully consider who you will allow to register on the [facility] Patient Portal for access to your information. You can also access the [email or web address] Patient Portal on the Swift[employer]. Simply click on Health Records under [employer] and then click on the [employer] logo. HOW TO SAFELY DISPOSE OF PRESCRIPTION MEDICATIONS Please use one of the following methods to safely dispose of your unused medications. 1.Use a drug disposal kit: the drug disposal pouch allows you to safely discard your old and unuseddrugs. Ask your nurse to give you one when you are discharged.2.Visit a local take-back location: Many local pharmacies and police departments have programs that collect old and unwanted prescriptiondrugs. Call your local pharmacy or go to http://Macrotherapy.Therma-Wave/7L3Ix3q to find one close to you.3.Make use of household items: Use cat litter or old coffee grounds to dispose medications if other options arenot available. Mix your drugs with these household products, seal them in an airtight container andthrow it into the garbage. Call [facility]: [phone] to be sure your drugs can be disposed of in this way. Some medicines may require a different approach.4.Never flush your medications down the toilet. IF YOU HAVE BEEN PRESCRIBED AN OPIOID FOR PAIN If you have been prescribed an opioid (such as hydrocodone, oxycodone or morphine), it is critical to understand the possible side effects and risks of opioid pain medications. Even when taken as directed, opioids can have several side effects including: Tolerance, meaning you might need to take more of a medication for the same pain relief. Nausea, vomiting and/or constipation. Sleepiness, dizziness, dry mouth, confusion, depression or itching. Physical dependence, meaning you have withdrawal symptoms when a medication is stopped, can develop within a few days. KNOW YOUR RESPONSIBILITIES It is important to know exactly how much and how often to take the opioid pain medications you are prescribed. Never take opioids in higher amounts or more often than prescribed. Do not combine opioids with alcohol or other drugs that cause drowsiness, such as benzodiazepines, also known as benzos, including diazepam and alprazolam, muscle relaxants or sleep aids. Never sell or share prescription opioids. This is illegal. Store opioids in a secure place and out of reach of others (including children, family, friends and visitors). The last page of this document has been signed and retained as a CHART COPY. Signatures Patient Education Materials 3- Heart Cath/PCI radial (01/2018) Medication Leaflets My discharge plan and instructions have been reviewed and explained to me and IDESMOND PHILLIP D understand my current condition and have read and understand these discharge instructions. I have received a written copy of the plan/instructions. If I have questions, I am aware that I should contact my doctor. Patient/Recreation Aide Signature: Date/Time: Relationship to Patient: Witness Name/Signature: Date/Time: [facility] [id number] Hospital Discharge instructions Patient Education 08/08/2022 12:22:04 3- Heart Cath/PCI radial (01/2018) HEART CATHETERIZATION/PCI (radial) Discharge Instructions DIET Drink plenty of fluids for the next 48 hours to help your kidneys flush the heart cath dye out of your system ACTIVITY For the next 48 hours: Do not deep bend the wrist Do not lift, push, or pull anything over 5 pounds for 1 week Do not use the hand/arm to support your weight when rising from a chair or bed Do not drive For the next 7 days: Do not submerse your procedure site in water Do not swim, wash dishes, or take tub baths You may write, eat, type, and shower WOUND CARE Keep a Band-Aid on your procedure site for the next 3-4 days after removing the original dressing tomorrow Change the Band-Aid daily or if it gets wet/soiled AFTER YOU GO HOME, CALL YOUR DOCTOR FOR: Any increase in bruising or tenderness from the procedure site Any redness, pus, or other signs of infection at the site A temperature above 100.5 Severe pain at the site DIAL 911 AND RETURN TO THE HOSPITAL FOR: Any bleeding from the procedure site. The site may be bruised or tender, but it should not be bleeding at any time. If your site begins to bleed, hold firm pressure on it and dial 911 to return to the hospital Any increase in swelling at the procedure site. An increase in swelling could mean the area is bleeding under the skin. Hold firm pressure to the site and dial 911 to return to the hospital Document Released: 04/02/2006 Document Revised: 03/19/2013 Document Reviewed: 04/03/2014 ExitCare Patient Information 2015 [employer]. This information is not intended to replace advicegiven to you by your health care provider. Make sure you discuss any questions you have with your health care provider. Follow Up Care 07/26/2022 11:16:05 With:RIKKI GALVEZ MD Address: [address] [facility] [address] [facility] [place] [address]- When:08/18/2022 11:00:00 Comments:THIS APPOINTMENT WILL BE WITH DR. FOSTER [facility] 04-25-2023 Discharge summary Date of Service August 08, 2022 Discharge Diagnosis 1. Please send stent placement to the LAD 08/08/2022 2. Coronary artery disease previous stents to LCx and RCA 07/15/2022 3. Cardiomyopathy 4. Moderate 5. Moderate MR 6. Hypertension/hyperlipidemia 7. COPD Hospital Course Patient is a 86-year-old male history of coronary artery disease he had previous stents to the LCx and RCA 07/2022, congestive heart failure and cardiomyopathy 45 to 50%, moderate , moderate MR, hypertension hyperlipidemia and COPD. He presents today to same-day cardiac unit for outpatient stagedPCI of the LAD. Patient underwent PCI and stent placement to the LAD under IVUS guidance. He tolerated the procedure well through the right radial artery approach without complications. He will be continued on aspirin and Plavix for dual antiplatelet therapy. He will follow-up with his cardiologistfor further evaluation and management of his symptoms. Allergies Cipro (Muscle ache) traMADol (Itching) Consults No qualifying data available. Objective Vitals and Measurements T: 36.4 C (Oral) HR: 90 RR: 18 BP: 168/78 SpO2: 98% HT: 175.3 cm WT: 74.4 kg BMI: 24.21 BMI: 24.21 Weight Dosing Weight: 74.4 kg (08/08/22) Code Status No qualifying data available. Admission Date August 08, 2022 Discharge Date August 08, 2022 Patient Instructions Please keep all follow-up appointments. Please take all medications as prescribed. Please return to medical care if your condition worsens or changes. Lifting restriction for [address] driving for 48 hrs. No bathing for 1 week. May shower. Medications Unchanged acetaminophen-oxyCODONE (acetaminophen-oxyCODONE 325 mg-5 mg oral tablet)1 tab(s) by mouth every 6 hours as needed as needed for pain for 30 Days. To be filled on or after 08/02/2022; oarrs appropriate. Refills: 0. ammonium lactate topical (ammonium lactate 12% topical cream)1 application Topical two (2) times a day for 90 Days. Refills: 1. ascorbic acid (Vitamin C 500 mg oral tablet)1 tab(s) by mouth once a day. aspirin (aspirin 81 mg oral tablet, chewable)1 tab(s) Chewed once a day for 30 Days. Refills: 11. atorvastatin (Lipitor 40 mg oral tablet)1 tab(s) by mouth once a day for 30 Days. Refills: 4. carvedilol (Coreg 3.125 mg oral tablet)1 tab(s) by mouth twice daily with meals for 30 Days. Refills: 3. cetirizine (cetirizine 10 mg oral tablet)1 tab(s) by mouth once a day for 90 Days. Refills: 1. cholecalciferol (Vitamin D3)4,000 unit(s) by mouth every day. clopidogrel (Plavix 75 mg oral tablet)1 tab(s) by mouth once a day for 30 Days. Refills: 11. DME (DME MISCellaneous)dx I10; dispense one automated upper arm sphygmomanometer with supplies.. Refills: 0. ezetimibe (Zetia 10 mg oral tablet)1 tab(s) by mouth once a day for 30 Days. Refills: 11. folic acid (folic acid 0.4 mg oral tablet)1 tab(s) by mouth once a day. Refills: 0. furosemide (Lasix 20 mg oral tablet)1 tab(s) by mouth once a day for 30 Days. Refills: 2. losartan (losartan 25 mg oral tablet)1 tab(s) by mouth once a day for 30 Days. Refills: 2. magnesium oxide (magnesium oxide 400 mg oral tablet)1 tab(s) by mouth once a day for 90 Days. Refills: 0. Misc Medication (ensure) multivitamin with minerals (PreserVision AREDS 2 oral capsule)1 cap by mouth two (2) times a day for 90 Days. Refills: 3. omeprazole (omeprazole 40 mg oral delayed release capsule)1 cap by mouth once a day for 90 Days. Refills: 1. thiamine (thiamine 100 mg oral tablet)1 tab(s) by mouth every day. Refills: 0. Follow Up Follow Up with RIKKI GALVEZ MD When 08/18/2022 11:00 AM EDT Why: THIS APPOINTMENT WILL BE WITH DR. FOSTER Where: [address] [facility] [address] [facility] [place] [address]- Follow Up Appointments No qualifying data available. Follow Up Labs/Studies Discharge Labs No Follow-up Labs Discharge Studies No Follow-up Studies Discharge Diet Discharge Diet - Ordered -- Follow the post-operative/post-procedure diet instructions provided by your physician's office.,08/08/22 10:05:00 EDT Discharge Activity Discharge Activity - Ordered -- Lifting Restricted less than 5 pounds, Follow the post-operative/post-procedure activity instructions provided by your physician's office., 08/08/22 10:05:00 EDT Condition on Discharge Stable Readmission Risk/Palliative Score No qualifying data available. Discharge Disposition Home with follow-up Digitally Signed by ALPHONSE LIZ MD on 08/08/2022 04:03 PM Digitally Signed by RIKKI GALVEZ MD [id number] Note Discharge Instructions Thank you for allowing [facility] to assist you with your healthcare needs. The following is importantdischarge information regarding your hospital visit. Your Care Team AALIYAH TRUJILLO DO Your Diagnosis NSTEMI (non-ST elevated myocardial infarction) Coronary artery disease Primary hypertension COPD without exacerbation Chronic pain Former smoker Chronic alcohol use Chronic pain of right hip Primary osteoarthritis What to do next Scheduled Follow-Up Appointments Appointment Type When With Where Contact [facility] 08/18/2022 11:00 AM [facility] 09/05/2022 10:00 AM EDT AALIYAH TRUJILLO DO [address] [id number] OV 10/10/2022 10:30 AM EDT AALIYAH TRUJILLO DO [address] [phone]) PC OV 10/31/2022 08:30 AM EDT AALIYAH TRUJILLO DO [address] [phone] Follow Up Appointments Follow Up with SHANTHI FOSTER MD When 08/18/2022 11:00 AM EDT Where: [address] [facility] [facility] [address]- Follow Up with Post home RN DC follow up visit scheduled for 07/20 between 8a-12p When Follow Up with Cardiac Rehab [facility] When Why: The Cardiac rehab department will call you to schedule you for Phase 2. If you have any questions please call us at [phone]. Thank you. Where: [facility] [address] [place] [id number]- Follow Up with AALIYAH TRUJILLO When Why: PLEASE CALL THIS OFFICE TO SCHEDULE A HOSPITAL FOLLOW UP APPOINTMENT. Where: [address] [place] [address]- [phone] Business (1) Follow Up with Cardiac Rehab- [facility] When Why: The Cardiac Rehab department will call you to schedule you for phase 2. We left you a brochurewith information about cardiac rehab. If you have any questions please call [phone]. Where: [address] [place] [id number]- The Following Activity and Diet Have Been Ordered for You Discharge Activity - Ordered -- Activity As Tolerated, 07/18/22 13:36:00 EDT Discharge Diet - Ordered -- Type of Diet: Regular Diet, Diet Restrictions: Low sodium, Sodium limit: 2 gm, 07/15/22 20:09:00EDT Discharge Diet - Ordered -- Type of Diet: Regular, Diet Restrictions: Cardiac diet, Calories Permitted: 1800 kcal, Sodium limit: 2 gm, Fats limit: Low, 07/18/22 13:36:00 EDT The Following Equipment Has Been Ordered for You No qualifying data available. The Following Treatments Have Been Ordered for You Discharge Labs Discharge Outpatient Labwork - Ordered -- BMP, Follow-up, Draw 3 days after discharge, 07/15/22 20:09:00 EDT Discharge Outpatient Labwork - Ordered -- PT/INR, If on Warfarin, 3 days after discharge, 07/15/22 20:09:00 EDT Discharge Outpatient Labwork - Ordered -- Digoxin level, Follow-up, 07/15/22 20:09:00 EDT Discharge Outpatient Labwork - Ordered -- CBC, CMP, magnesium level, N-terminal proBNP, Congestive heart failure, follow-up within: 3-5 days, Results Notify to: RIKKI GALVEZ MD, 07/18/22 13:36:00 EDT Discharge Radiology No qualifying data available. Other Therapies No qualifying data available. Post Acute Orders No qualifying data available. Someone Will Contact You Regarding These Home Health Referrals No home referrals have been ordered for you. No one will call you. Allergies Cipro (Muscle ache) traMADol (Itching) Medications Please ask your primary doctor or pharmacist before taking any other medication not listed, including over the counter drugs, herbal medications, vitamins and or supplements as they may interact withyour home medications. What How Much When Why Instructions Last Dose New atorvastatin (Lipitor 40 mg oral tablet) 1 tab(s) by mouth Once a day Duration: 30 Days Refills: 4 Pickup at [facility] New clopidogrel (Plavix 75 mg oral tablet) 1 tab(s) by mouth Once a day Duration: 30 Days Refills: 11 Pickup at [facility] New ezetimibe (Zetia 10 mg oral tablet) 1 tab(s) by mouth Once a day Duration: 30 Days Refills: 11 Pickup at [facility] New furosemide (Lasix 20 mg oral tablet) 1 tab(s) by mouth Once a day Duration: 30 Days Refills: 2 Pickup at [facility] New losartan (losartan 25 mg oral tablet) 1 tab(s) by mouth Once a day Duration: 30 Days Refills: 2 Pickup at [facility] Changed aspirin (aspirin 81 mg oral tablet, chewable) 1 tab(s) Chewed Once a day Duration: 30 Days Pickup at [facility] Changed carvedilol (Coreg 3.125 mg oral tablet) 1 tab(s) by mouth Twice daily with meals Duration: 30 Days Pickup at [facility] Changed multivitamin with minerals (PreserVision AREDS 2 oral capsule) 1 cap by mouth Two (2) times a day Duration: 90 Days Unchanged acetaminophen-oxyCODONE (acetaminophen-oxyCODONE 325 mg-5 mg oral tablet) 1 tab(s) by mouth Every 6 hours as needed for as needed for pain Primary osteoarthritis Chronic pain of right hip Duration: 30 Days To be filled on or after 2022; oarrs appropriate Unchanged ammonium lactate topical (ammonium lactate 12% topical cream) 1 application Topical Two (2) times a day Duration: 90 Days Unchanged ascorbic acid (Vitamin C 500 mg oral tablet) 1 tab(s) by mouth Once a day Unchanged cetirizine (cetirizine 10 mg oral tablet) 1 tab(s) by mouth Once a day Duration: 90 Days Unchanged cholecalciferol (Vitamin D3) 4,000 unit(s) by mouth Every day Unchanged DME (DME MISCellaneous) See instructions dx I10; dispense one automated upper arm sphygmomanometer with supplies. Unchanged Misc Medication (ensure) Unchanged multivitamin (Multivitamin) 1 tab(s) by mouth Every day Unchanged omeprazole (omeprazole 40 mg oral delayed release capsule) 1 cap by mouth Once a day Duration: 90 Days Pharmacy Information [facility]: [address] [place], [place] [id number] [phone] What How Much When Comments Stop Taking amLODIPine (amLODIPine 5 mg oral tablet) 1 tab(s) by mouth Once a day Duration: 90 Days Stop Taking etodolac (etodolac 300 mg oral capsule) 1 cap by mouth Two (2) times a day Duration: 90 Days Stop Taking hydrochlorothiazide-irbesartan (hydrochlorothiazide-irbesartan 12.5 mg-300 mg oral tablet) 1 tab(s) by mouth Once a day Duration: 90 Days Please take this list to your next doctor s visit. Bring all medications you take, including over the counter medications, herbals and other supplements with you to your doctor s visit. Patients and families are reminded to discard old lists and to update any records with all medication providers or retail pharmacies. Medication Leaflets ezetimibe (ez ET i mibe) Felixtia What is the most important information I should know about ezetimibe? Call your doctor right away if you have unexplained muscle pain, tenderness, or weakness especiallyif you also have fever, unusual tiredness, or dark urine. What is ezetimibe? Ezetimibe is used to treat high cholesterol. Ezetimibe is sometimes given together with other cholesterol-lowering medications. Ezetimibe may also be used for purposes not listed in this medication guide. What should I discuss with my healthcare provider before taking ezetimibe? You should not use ezetimibe if you are allergic to it, or if you have: moderate to severe liver disease. Not approved for use by anyone younger than 10 years old. You should not use ezetimibe with a 'statin' cholesterol medicine (Zocor, Lipitor, Crestor, and others) if: you have active liver disease; you are ; or you are a baby. Statin cholesterol medications can cause the breakdown of muscle tissue, which can lead to kidney failure. This happens more often in women, in older adults, or people who have kidney disease or poorly controlled hypothyroidism (underactive thyroid). Tell your doctor if you have ever had: liver disease; kidney disease; or unexplained muscle pain or weakness. Tell your doctor if you are or . Use effective control to prevent while you are using ezetimibe with a statin medicine. Tell your doctor if you plan to become . Do not breastfeed if you take ezetimibe with a statin medicine. How should I take ezetimibe? Follow all directions on your prescription label and read all medication guides or instruction sheets. Use the medicine exactly as directed. Ezetimibe is usually taken once daily at the same time each day. You may take ezetimibe with or without food. Ezetimibe may be taken at the same time with fenofibrate, or with a statin medication such as atorvastatin, lovastatin, simvastatin, pravastatin, or fluvastatin. Your treatment may also include diet, exercise, weight control, and blood tests. You may need frequent medical tests, even if you have no symptoms. Your cholesterol levels may not improve for up to 2 weeks. Store at room temperature away from moisture and heat. What happens if I miss a dose? Take the medicine as soon as you can, but skip the missed dose if it is almost time for your next dose. Do not take two doses at one time. What happens if I overdose? Seek emergency medical attention or call the Poison Help line at . What should I avoid while taking ezetimibe? Avoid eating foods high in fat or cholesterol, or ezetimibe will not be as effective. What are the possible side effects of ezetimibe? Get emergency medical help if you have signs of an allergic reaction: hives; difficult breathing; swelling of your face, lips, tongue, or throat. Ezetimibe can cause the breakdown of muscle tissue, which can lead to kidney failure. Call your doctor right away if you have unexplained muscle pain, tenderness, or weakness especially if you also have fever, unusual tiredness, or dark urine. Side effects may be more likely in older adults. Common side effects may include: diarrhea; cold symptoms such as stuffy nose, sneezing, sore throat; pain in an arm or leg; joint pain; or muscle pain while taking ezetimibe with a statin. This is not a complete list of side effects and others may occur. Call your doctor for medical advice about side effects. You may report side effects to FDA at 3-933-WPF-8298. What other drugs will affect ezetimibe? If you also take other cholesterol medication: Take ezetimibe 2 hours before or 4 hours after taking cholestyramine, colestipol, or colesevelam. Tell your doctor about all your other medicines, especially: cyclosporine; fenofibric acid; gemfibrozil; or a blood thinner--warfarin, Coumadin, Jantoven. This list is not complete. Other drugs may affect ezetimibe, including prescription and usib-txw-eqoycje medicines, vitamins, and herbal products. Not all possible drug interactions are listed here. Where can I get more information? Your pharmacist can provide more information about ezetimibe. Remember, keep this and all other medicines out of the reach of children, never share your medicines with others, and use this medication only for the indication prescribed. Every effort has been made to ensure that the information provided by [employer]. ('[employer]') is accurate, up-to-date, and complete, but no guarantee is made to that effect. Drug information contained herein may be time sensitive. [employer] information has been compiled for use by healthcare practitioners and consumers in the [place] and therefore [employer] does not warrant that uses outside of the [place] are appropriate, unless specifically indicated otherwise. [employer]'s drug information does not endorse drugs, diagnose patients or recommend therapy. [employer] drug information isan informational resource designed to assist licensed healthcare practitioners in caring for their p atients and/or to serve consumers viewing this service as a supplement to, and not a substitute for, the expertise, skill, knowledge and judgment of healthcare practitioners. The absence of a warningfor a given drug or drug combination in no way should be construed to indicate that the drug or drug combination is safe, effective or appropriate for any given patient. [facility] does not assume any responsibility for any aspect of healthcare administered with the aid of information [facility] provides. The information contained herein is not intended to cover all possible uses, directions, precautions, warnings, drug interactions, allergic reactions, or adverse effects. If you have questions about the drugs you are taking, check with your doctor, nurse or pharmacist. Copyright 5699-7600 [facility]. Version: 7.01. Revision Date: 10/19/2020. clopidogrel (kloe PID oh grel) Plavix What is the most important information I should know about clopidogrel? You should not use this medicine if you have any active bleeding such as a stomach ulcer or bleeding in the brain. Clopidogrel increases your risk of bleeding, which can be severe or life- threatening. Call your doctor or seek emergency medical attention if you have bleeding that will not stop, if you have blood in your urine, black or bloody stools, or if you cough up blood or vomit that looks like coffee grounds. Do not stop taking clopidogrel without first talking to your doctor, even if you have signs of bleeding. Stopping clopidogrel may increase your risk of a heart attack or stroke. What is clopidogrel? Clopidogrel is used to lower your risk of having a stroke, blood clot, or serious heart problem after you've had a heart attack, severe chest pain (angina), or circulation problems. Clopidogrel may also be used for purposes not listed in this medication guide. What should I discuss with my healthcare provider before taking clopidogrel? You should not use clopidogrel if you are allergic to it, or if you have: any active bleeding; or a stomach ulcer or bleeding in the brain (such as from a head injury). Tell your doctor if you have ever had: an ulcer in your stomach or intestines; or a bleeding disorder or blood clotting disorder. Clopidogrel may not work as well if you have certain genetic factors that affect the breakdown of this medicine in your body. Your doctor may perform a blood test to make sure clopidogrel is right for you. This medicine is not expected to harm an unborn baby. However, taking clopidogrel within 1 week before childbirth can cause bleeding in the mother. Tell your doctor if you are or plan to become . You should not breastfeed while using this medicine. How should I take clopidogrel? Follow all directions on your prescription label and read all medication guides or instruction sheets. Use these medicines exactly as directed. Clopidogrel can be taken with or without food. Clopidogrel is sometimes taken together with aspirin. Take aspirin only if your doctor tells you to. Clopidogrel keeps your blood from coagulating (clotting) and can make it easier for you to bleed, even from a minor injury. Contact your doctor or seek emergency medical attention if you have any bleeding that will not stop. You may need to stop using clopidogrel for a short time before a surgery, medical procedure, or dental work. Any healthcare provider who treats you should know that you are taking clopidogrel. Do not stop taking clopidogrel without first talking to your doctor, even if you have signs of bleeding. Stopping the medicine could increase your risk of a heart attack or stroke. Store at room temperature away from moisture and heat. What happens if I miss a dose? Take the medicine as soon as you can, but skip the missed dose if it is almost time for your next dose. Do not take two doses at one time. What happens if I overdose? Seek emergency medical attention or call the Poison Help line at . Overdose can causeexcessive bleeding. What should I avoid while taking clopidogrel? Avoid alcohol. It can increase your risk of stomach bleeding. Avoid activities that may increase your risk of bleeding or injury. Use extra care to prevent bleeding while shaving or brushing your teeth. If you also take aspirin: Ask a doctor or pharmacist before using medicines for pain, fever, swelling, or cold/flu symptoms. They may contain ingredients similar to aspirin (such as salicylates, ibuprofen, ketoprofen, or naproxen). Taking these products together can increase your risk of bleeding. What are the possible side effects of clopidogrel? Get emergency medical help if you have signs of an allergic reaction: hives; difficult breathing; swelling of your face, lips, tongue, or throat. Clopidogrel increases your risk of bleeding, which can be severe or life- threatening. Call your doctor or seek emergency medical attention if you have bleeding that will not stop, if you have blood in your urine, black or bloody stools, or if you cough up blood or vomit that looks like coffee grounds. Also call your doctor at once if you have: nosebleeds, pale skin, easy bruising, purple spots under your skin or in your mouth; jaundice (yellowing of your skin or eyes); fast heartbeats, shortness of breath; headache, fever, weakness, feeling tired; little or no urination; a seizure; low blood sugar--headache, hunger, sweating, irritability, dizziness, fast heart rate, and feeling anxious or shaky; or signs of a blood clot--sudden numbness or weakness, confusion, problems with vision or speech. Common side effects may include: bleeding. This is not a complete list of side effects and others may occur. Call your doctor for medical advice about side effects. You may report side effects to FDA at 9-221-OBB-9184. What other drugs will affect clopidogrel? Sometimes it is not safe to use certain medications at the same time. Some drugs can affect your blood levels of other drugs you take, which may increase side effects or make the medications less effective. Tell your doctor about all your other medicines, especially: a stomach acid professor of education such as omeprazole, Nexium, or Prilosec; an antidepressant such as citalopram, fluoxetine, sertraline, Cymbalta, Effexor, Lexapro, Pristiq, or Prozac; rifampin; a blood thinner--warfarin, Coumadin, Jantoven; or NSAIDs (nonsteroidal anti-inflammatory drugs)--aspirin, ibuprofen (Advil, Motrin), naproxen (Aleve), celecoxib, diclofenac, indomethacin, meloxicam, and others. This list is not complete. Other drugs may affect clopidogrel, including prescription and usfw-oam-rhycdki medicines, vitamins, and herbal products. Not all possible drug interactions are listed here. Where can I get more information? Your pharmacist can provide more information about clopidogrel. Remember, keep this and all other medicines out of the reach of children, never share your medicines with others, and use this medication only for the indication prescribed. Every effort has been made to ensure that the information provided by [employer]. [employer]') is accurate, up-to-date, and complete, but no guarantee is made to that effect. Drug information contained herein may be time sensitive. [employer] information has been compiled for use by healthcare practitioners and consumers in the [place] and therefore [employer] does not warrant that uses outside of the [place] are appropriate, unless specifically indicated otherwise. [employer] drug information does not endorse drugs, diagnose patients or recommend therapy. [employer] drug information isan informational resource designed to assist licensed healthcare practitioners in caring for their p atients and/or to serve consumers viewing this service as a supplement to, and not a substitute for, the expertise, skill, knowledge and judgment of healthcare practitioners. The absence of a warningfor a given drug or drug combination in no way should be construed to indicate that the drug or drug combination is safe, effective or appropriate for any given patient. [employer] does not assume any responsibility for any aspect of healthcare administered with the aid of information [employer] provides. The information contained herein is not intended to cover all possible uses, directions, precautions, warnings, drug interactions, allergic reactions, or adverse effects. If you have questions about the drugs you are taking, check with your doctor, nurse or pharmacist. Copyright 3203-9675 [facility]. Version: 18.. Revision Date: 07/14/2020. furosemide (oral/injection) (fur [place] se mide) Furoscix, Lasix What is the most important information I should know about furosemide? You should not use this medicine if you are unable to urinate. Using more than your recommended dose will not make this medicine more effective. High doses of furosemide may cause irreversible hearing loss. Tell your doctor about all your other medicines. Some drugs should not be used with furosemide. What is furosemide? Furosemide is used to treat fluid retention (edema) in people with congestive heart failure, liver disease, or a kidney disorder such as nephrotic syndrome. Furosemide is also used to treat high blood pressure (hypertension). The Furiosi brand of furosemide is only used in adults. Furosemide may also be used for purposes not listed in this medication guide. What should I discuss with my healthcare provider before using furosemide? You should not use furosemide if you are allergic to it, if you are unable to urinate or have hepatic cirrhosis. You should not use Furiosi if you have ascites or have allergies to medical adhesives. Tell your doctor if you have ever had: an electrolyte imbalance (such as low levels of potassium or magnesium in your blood); enlarged prostate, bladder obstruction, or other urination problems; gout; lupus; diabetes; an allergy to sulfa drugs; kidney disease; or cirrhosis or other liver disease. Tell your doctor if you have an MRI (magnetic resonance imaging) or any type of scan using a radioactive dye that is injected into a vein. Contrast dyes and furosemide can harm your kidneys. It is not known if furosemide will harm an unborn baby. Tell your doctor if you are or plan to become . It may not be safe to breastfeed while using this medicine. Ask your doctor about any risk. Furosemide may slow breast milk production. How should I use furosemide? Follow all directions on your prescription label and read all medication guides or instruction sheets. Use the medicine exactly as directed. Furosemide oral is taken by mouth. Furosemide injection is given in a muscle, under the skin, or alysia vein. A healthcare provider will give you this injection if you are unable to take the medicine by mouth. Furiosi infusion lasts about 5 hours. Furiosi should not get wet. Do not bathe, shower, swim or exercise while wearing the infusor. Also do not apply any products such as lotions or creams in the area where the infusor is placed. It is not recommended to travel by car or airplane while using Furiosi. Also do not use the infusorwithin 12 inches of mobile phones, tablets, computers, or wireless accessories such as remote control, or Cover Lockscreenoth devices. Do not reuse a needle, syringe or cartridge. Place them in a puncture-proof 'sharps' container and dispose of it following state or local laws. Keep out of the reach of children and pets. You may receive your first dose in a hospital or clinic setting if you have severe liver disease. Do not use more than your recommended dose. High doses of furosemide may cause irreversible hearingloss. Measure liquid medicine with the supplied measuring device (not a kitchen spoon). Doses are based on weight in children and teenagers. Your child's dose may change if the child gains or loses weight. Furosemide will make you urinate more often and you may get dehydrated easily. Follow your doctor'sinstructions about using potassium supplements or getting enough salt and potassium in your diet. Your blood pressure will need to be checked often and you may need other medical tests. If you have high blood pressure, keep using this medicine even if you feel well. High blood pressure often has no symptoms. If you need surgery, tell the surgeon ahead of time that you are using furosemide. Store at room temperature away from moisture, heat, and light. Throw away any unused oral liquid after 90 days. What happens if I miss a dose? Furosemide is sometimes used only once, so you may not be on a dosing schedule. If you are using the medication regularly, use the medicine as soon as you can, but skip the missed dose if it is almost time for your next dose. Do not use two doses at one time. What happens if I overdose? Seek emergency medical attention or call the Poison Help line at . Overdose symptoms may include feeling very thirsty or hot, heavy sweating, hot and dry skin, extreme weakness, or fainting. What should I avoid while using furosemide? Avoid getting up too fast from a sitting or lying position, or you may feel dizzy. Avoid becoming dehydrated. Follow your doctor's instructions about the type and amount of liquids you should drink while you are using furosemide. Drinking alcohol with this medicine can cause side effects. Furosemide could make you sunburn more easily. Avoid sunlight or tanning beds. Wear protective clothing and use sunscreen (SPF 30 or higher) when you are outdoors. If you have high blood pressure, ask a doctor or pharmacist before taking any medicines that can raise your blood pressure, such as diet pills or eayzs-qcd-wpgx medicine. What are the possible side effects of furosemide? Get emergency medical help if you have signs of an allergic reaction (hives, difficult breathing, swelling in your face or throat) or a severe skin reaction (fever, sore throat, burning eyes, skin pain, red or purple skin rash with blistering and peeling). Call your doctor at once if you have: a light-headed feeling, like you might pass out; ringing in your ears, hearing loss; muscle spasms or contractions; pale skin, easy bruising, unusual bleeding; high blood sugar--increased thirst, increased urination, dry mouth, fruity breath odor; kidney problems--swelling, urinating less, feeling tired or short of breath signs of liver or pancreas problems--loss of appetite, upper stomach pain (that may spread to your back), nausea or vomiting, dark urine, jaundice (yellowing of the skin or eyes); or signs of an electrolyte imbalance--increased thirst or urination, constipation, muscle weakness, leg cramps, numbness or tingling, feeling jittery, fluttering in your chest. Common side effects may include: diarrhea, constipation, loss of appetite; numbness or tingling; headache, dizziness; or blurred vision. This is not a complete list of side effects and others may occur. Call your doctor for medical advice about side effects. You may report side effects to FDA at 4-933-CUZ-9266. What other drugs will affect furosemide? Sometimes it is not safe to use certain medicines at the same time. Some drugs can affect your blood levels of other drugs you use, which may increase side effects or make the medicines less effective If you also take sucralfate, take your furosemide dose 2 hours before or 2 hours after you take sucralfate. Tell your doctor about all your other medicines, especially: another diuretic, especially ethacrynic acid; methotrexate; chloral hydrate; lithium; phenytoin; an antibiotic; cancer medicine, such as cisplatin; heart or blood pressure medicine; or NSAIDs (nonsteroidal anti-inflammatory drugs)--aspirin, ibuprofen (Advil, Motrin), naproxen (Aleve), celecoxib, diclofenac, indomethacin, meloxicam, and others. This list is not complete. Other drugs may affect furosemide, including prescription and xtoz-juu-jzndtkd medicines, vitamins, and herbal products. Not all possible drug interactions are listed here. Where can I get more information? Your doctor or pharmacist can provide more information about furosemide. Remember, keep this and all other medicines out of the reach of children, never share your medicines with others, and use this medication only for the indication prescribed. Every effort has been made to ensure that the information provided by [employer]. [employer]') is accurate, up-to-date, and complete, but no guarantee is made to that effect. Drug information contained herein may be time sensitive. [employer] information has been compiled for use by healthcare practitioners and consumers in the [place] and therefore [employer] does not warrant that uses outside of the [place] are appropriate, unless specifically indicated otherwise. [employer]'s drug information does not endorse drugs, diagnose patients or recommend therapy. [employer] drug information isan informational resource designed to assist licensed healthcare practitioners in caring for their p atients and/or to serve consumers viewing this service as a supplement to, and not a substitute for, the expertise, skill, knowledge and judgment of healthcare practitioners. The absence of a warningfor a given drug or drug combination in no way should be construed to indicate that the drug or drug combination is safe, effective or appropriate for any given patient. [facility] does not assume any responsibility for any aspect of healthcare administered with the aid of information [facility] provides. The information contained herein is not intended to cover all possible uses, directions, precautions, warnings, drug interactions, allergic reactions, or adverse effects. If you have questions about the drugs you are taking, check with your doctor, nurse or pharmacist. Copyright 7941-6139 [facility]. Version: 18.. Revision Date: 06/23/2022. atorvastatin (a TOR va sta tin) Lipitor What is the most important information I should know about atorvastatin? You should not take atorvastatin if you are or , or if you have liver disease. Tell your doctor about all your current medicines and any you start or stop using. Many drugs can interact, and some drugs should not be used together. Atorvastatin can cause the breakdown of muscle tissue, which can lead to kidney failure. Call your doctor right away if you have unexplained muscle pain, tenderness, or weakness especially if you also have fever, unusual tiredness, or dark urine. What is atorvastatin? Atorvastatin is used together with diet to lower blood levels of 'bad' cholesterol (low-density lipoprotein, or LDL), to increase levels of 'good' cholesterol (high-density lipoprotein, or HDL), and to lower triglycerides (a type of fat in the blood). Atorvastatin is used to treat high cholesterol, and to lower the risk of stroke, heart attack, or other heart complications in people with type 2 diabetes, coronary heart disease, or other risk factors. Atorvastatin is used in adults and children who are at least 10 years old. Atorvastatin may also be used for purposes not listed in this medication guide. What should I discuss with my healthcare provider before taking atorvastatin? You should not use atorvastatin if you are allergic to it, or if you have liver disease. Do not use if you are . This medicine can harm an unborn baby. Use effective control to prevent . Stop taking this medicine and tell your doctor at once if you become . Do not breastfeed while you are taking atorvastatin. Tell your doctor if you have ever had: liver problems; muscle pain or weakness; kidney disease; diabetes; a thyroid disorder; or if you drink more than 2 alcoholic beverages daily. Atorvastatin can cause the breakdown of muscle tissue, which can lead to kidney failure. This happens more often in women, in older adults, or people who have kidney disease or poorly controlled hypothyroidism (underactive thyroid). Atorvastatin is not approved for use by anyone younger than 10 years old. How should I take atorvastatin? Follow all directions on your prescription label and read all medication guides or instruction sheets. Your doctor may occasionally change your dose. Use the medicine exactly as directed. Take the medicine at the same time each day, with or without food. Do not break an atorvastatin tablet before taking it, unless your doctor has told you to. You may need to stop using atorvastatin for a short time if you have: uncontrolled seizures; an electrolyte imbalance (such as high or low potassium levels in your blood); severely low blood pressure; a severe infection or illness; or surgery or a medical emergency. It may take up to 2 weeks before your cholesterol levels improve, and you may need frequent blood tests. Even if you have no symptoms, tests can help your doctor determine if this medicine is effective. Atorvastatin is only part of a complete treatment program that may also include diet, exercise, andweight control. Follow your doctor's instructions very closely. Store at room temperature away from moisture, heat, and light. What happens if I miss a dose? Use the medicine as soon as you can, but skip the missed dose if you are more than 12 hours late for the dose. Do not use two doses at one time. What happens if I overdose? Seek emergency medical attention or call the Poison Help line at . What should I avoid while taking atorvastatin? Avoid eating foods high in fat or cholesterol, or atorvastatin will not be as effective. Avoid drinking alcohol. It can raise triglyceride levels and may increase your risk of liver damage. Grapefruit may interact with atorvastatin and lead to unwanted side effects. Avoid drinking more than 1 liter of grapefruit juice while taking atorvastatin. What are the possible side effects of atorvastatin? Get emergency medical help if you have signs of an allergic reaction: hives; difficulty breathing; swelling of your face, lips, tongue, or throat. In rare cases, atorvastatin can cause a condition that results in the breakdown of skeletal muscle tissue, leading to kidney failure. Call your doctor right away if you have unexplained muscle pain, tenderness, or weakness especially if you also have fever, unusual tiredness, and dark colored urine. Also call your doctor at once if you have: muscle weakness in your hips, shoulders, neck, and back; trouble lifting your arms, trouble climbing or standing; liver problems--upper stomach pain, weakness, tired feeling, loss of appetite, dark urine, jaundice(yellowing of the skin or eyes); or kidney problems--little or no urinating, swelling in your feet or ankles, feeling tired or short ofbreath. Common side effects may include: joint pain; stuffy nose, sore throat; diarrhea; or pain in your arms or legs. This is not a complete list of side effects and others may occur. Call your doctor for medical advice about side effects. You may report side effects to FDA at 3-353-VGZ-4499. What other drugs will affect atorvastatin? Certain other drugs can increase your risk of serious muscle problems, and it is very important that your doctor knows if you are using any of them. Tell your doctor about all your current medicines and any you start or stop using, especially: other cholesterol-lowering medication; antibiotic or antifungal medicine; control pills; medicine to prevent organ transplant rejection; heart medication; or medicine to treat hepatitis C or HIV. This list is not complete and many other drugs may affect atorvastatin. This includes prescription and yygt-mis-itgbint medicines, vitamins, and herbal products. Not all possible drug interactions are listed here. Where can I get more information? Your pharmacist can provide more information about atorvastatin. Remember, keep this and all other medicines out of the reach of children, never share your medicines with others, and use this medication only for the indication prescribed. Every effort has been made to ensure that the information provided by [employer]. [employer]') is accurate, up-to-date, and complete, but no guarantee is made to that effect. Drug information contained herein may be time sensitive. [employer] information has been compiled for use by healthcare practitioners and consumers in the [place] and therefore [employer] does not warrant that uses outside of the [place] are appropriate, unless specifically indicated otherwise. [employer]'s drug information does not endorse drugs, diagnose patients or recommend therapy. [facility]'s drug information isan informational resource designed to assist licensed healthcare practitioners in caring for their p atients and/or to serve consumers viewing this service as a supplement to, and not a substitute for, the expertise, skill, knowledge and judgment of healthcare practitioners. The absence of a warningfor a given drug or drug combination in no way should be construed to indicate that the drug or drug combination is safe, effective or appropriate for any given patient. [facility] does not assume any responsibility for any aspect of healthcare administered with the aid of information [facility] provides. The information contained herein is not intended to cover all possible uses, directions, precautions, warnings, drug interactions, allergic reactions, or adverse effects. If you have questions about the drugs you are taking, check with your doctor, nurse or pharmacist. Copyright 7081-7656 [employer]. Version: 22.. Revision Date: 05/25/2020. losartan (gonsalo Ray What is the most important information I should know about losartan? Do not use if you are , and tell your doctor right away if you become . Losartan can cause injury or to the unborn baby during your second or third trimester. If you have diabetes, do not use losartan together with any medication that contains aliskiren (a blood pressure medicine). What is losartan? Losartan is an angiotensin II receptor antagonist (sometimes called an ARB christopher). Losartan is used to treat high blood pressure (hypertension) in adults and children who are at least 6 years old. It is also used to lower the risk of stroke in certain people with heart disease. Losartan is also used to slow long-term kidney damage in people with type 2 diabetes who also have high blood pressure. Losartan may also be used for purposes not listed in this medication guide. [id number] Discharge instructions Patient Education 07/18/2022 13:43:11 3- Heart Cath/PCI radial (01/2018) (Custom) HEART CATHETERIZATION/PCI (radial) Discharge Instructions DIET Drink plenty of fluids for the next 48 hours to help your kidneys flush the heart cath dye out of your system ACTIVITY For the next 7 days: Do not deep bend the wrist Do not lift, push, or pull anything over 5 pounds Do not use the hand/arm to support your weight when rising from a chair or bed Do not submerse your procedure site in water Do not swim, wash dishes, or take tub baths You may write, eat, type, and shower WOUND CARE Keep a Band-Aid on your procedure site for the next 3-4 days Change the Band-Aid daily or if it gets wet/soiled AFTER YOU GO HOME, CALL YOUR DOCTOR FOR: Any increase in bruising or tenderness from the procedure site Any redness, pus, or other signs of infection at the site A temperature above 100.5 Severe pain at the site DIAL 911 AND RETURN TO THE HOSPITAL FOR: Any bleeding from the procedure site. The site may be bruised or tender, but it should not be bleeding at any time. If your site begins to bleed, hold firm pressure on it and dial 911 to return to the hospital Any increase in swelling at the procedure site. An increase in swelling could mean the area is bleeding under the skin. Hold firm pressure to the site and dial 911 to return to the hospital Document Released: 04/02/2006 Document Revised: 03/19/2013 Document Reviewed: 04/03/2014 [employer] Patient Information 2015 [employer]. This information is not intended to replace advicegiven to you by your health care provider. Make sure you discuss any questions you have with your health care provider. Follow Up Care 07/15/2022 13:05:15 With:Post home RN DC follow up visit scheduled for 07/20 between 8a-12p Address:Unknown When: Unknown With:Cardiac Rehab [facility] Address: [address] [address]- When: Unknown Comments:The Cardiac rehab department will call you to schedule you for Phase 2. If you have any questions please call us at [phone]. Thank you. With:AALIYAH TRUJILLO Address: [address] [place] [phone]- [phone] Business (1) When: Unknown Comments:PLEASE CALL THIS OFFICE TO SCHEDULE A HOSPITAL FOLLOW UP APPOINTMENT. With:SHANTHI FOSTER MD Address: [address] [place] [address] [address] [place] [address]- When:08/18/2022 11:00:00 With:Card[facility] Rehab- [facility] [place] [address]- When: Unknown Comments:The Cardiac Rehab department will call you to schedule you for phase 2. We left you a brochure withinformation about cardiac rehab. If you have any questions please call [phone]. [facility] 04-04-2023 Note Date of Service 07/18/2022 Chief Complaint PCI completed on 07/17/2022. Subjective Mr. Logan is an 86-year-old male with a significant past medical history of chronic right hip pain on chronic Percocet for pain management, osteoarthritis, hypertension, seasonal allergies, unsteady gait (ambulates with cane), former smoker, COPD, chronic GERD, gout, alcohol use that presented tohis PCP office on 07/15/2022 with a 2 weeks history of substernal chest pain and pressure going into his back and radiating into his jaw and left arm that progressively got worse over the past 3-4 days. The pain is intermittent would last about an hour and then go away and then return. The discomfortwas present with exertion and rest. That he is in endorses progressive dyspnea since onset of symptoms as well as dizziness when he stands up. EKG was performed in the PCP office which showed ST depression in the lateral leads. The patient was transferred to [facility] emergency department for further evaluation. He denies fever, chills, diaphoresis, nausea, vomiting, or abdominal pain. No increased peripheral edema, or hemoptysis. Upon arrival to the emergency department EKG was performed and showed ST depression in leads V3 through V6. Chest x-ray demonstrated, questionable vascular congestion.. CBC demonstrated no leukocytosis, stable anemia hemoglobin 12.9, hematocrit 37.9, no thrombocytopenia. Chloride 97, CO2 34, glucose 131 otherwise chemistry unremarkable. Troponin 1214. Patient was not initiated on heparin by weight. Cardiology at [facility] was notified and he was transferred for further ischemic work-up. Once the patient arrived to [facility] he had progressive 10 out of 10 chest pain. Repeat EKGshowed further ST depression in the anterior lateral leads. 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 Culprit lesion determined to be the left circumflex. Patient underwent PCI with drug-eluting stent to the left circumflex. He currently is being treated with goal directed medical therapy. Tentative plan for further stenting on Sunday. Hospitalist service has been consulted for routine medical management. Patient seen in his room today, denies any complaints. Patient denies chest pain, shortness of breath, dizziness, lightheadedness. Denies any symptoms of withdrawal including palpitations, diaphoresis, tremors, hallucinations. Nursing staff report no evidence noted of withdrawal from alcohol. Patient medically optimized and without signs of alcohol withdrawal at this time. Hospitalist team will sign off, please call for any questions. Objective Vitals and Measurements T: 36.6 C (Oral) TMIN: 36.5 C (Oral) TMAX: 37.1 C (Oral) HR: 87(Monitored) RR: 18 BP: 120/78 SpO2:96% WT: 70.2 kg Intake and Output 7AM Yesterday to 7AM Today Intake and Output (Last 24 hours) Intake Oral Intake 480.00 Output Urine Voided 2725.00 Total Summary Total Intake 480.00 Total Output 2725.00 Fluid Balance -2245.00 Physical Exam GEN: Appears chronically ill EYES: No conjunctival erythema, drainage. EOMI EARS: Hearing grossly intact. NOSE: No nasal discharge. THROAT: Oral cavity and pharynx pink and moist. CHEST: Normal S1 and S2. Rhythm is regular. Clear to auscultation, without rales, rhonchi, wheezing. ABD: Positive bowel sounds x 4 quads. Soft, nondistended, nontender. EXT: No significant deformity or joint abnormality. No edema. Peripheral pulses intact. NEURO: Sensation grossly intact SKIN: Skin color normal PSYCH: The mental examination revealed the patient was alert and oriented x 4 Weight Current Weight Dosing Weight: 76.96 kg (07/15/22) Current Weight: 70.2 kg (07/18/22) Medications Medications (17) Active Scheduled: (11) ascorbic acid 500 mg tablet 500 mg 1 tab(s), Oral, qDay aspirin 81 mg EC 81 mg 1 tab(s), Oral, qDayM atorvastatin 40 mg tablet 40 mg 1 tab(s), Oral, qDay carvedilol 3.125 mg tablet 3.125 mg 1 tab(s), Oral, BIDM clopidogrel 75 mg Tablet 75 mg 1 tab(s), Oral, qDay ezetimibe 10 mg tablet 10 mg 1 tab(s), Oral, qDay furosemide 40 mg/4 mL vial 40 mg 4 mL, IV Push, qDay losartan 25 mg tablet 25 mg 1 tab(s), Oral, qDay No metformin for 48 hrs post contrast 1 EA, Miscellaneous, Unscheduled No metformin for 48 hrs post contrast 1 EA, Miscellaneous, Unscheduled pantoprazole 40 mg EC tablet 40 mg 1 tab(s), Oral, qDayAC Continuous: (2) heparin 25,000 unit(s) [12 unit(s)/kg/hr] + Dextrose 5% Premix Diluent 250 mL 250 mL, Intravenous, 9.42 mL/hr nitroglycerin 50 mg/250 mL D5W 50 mg [5 mcg/min] + Dextrose 5% Premix Diluent 250 mL 250 mL, Intravenous, 1.5 mL/hr PRN: (4) acetaminophen-OXYcodone 325 mg-5 mg Tablet 1 tab(s), Oral, q6hr albuterol - ipratropium 2.5 mg-0.5 mg/3 mL Inhal Brigid UD 3 mL, Inhalation, q4hRT albuterol - ipratropium 2.5 mg-0.5 mg/3 mL Inhal Brigid UD 3 mL, Inhalation, q4hRT heparin 5,000 units/mL (1 mL) vial 4,000 unit(s) 0.8 mL, IV Push, q6h Lab Results 07/18 04:21 WBC: 7.7 Hgb: 13.2 Hct: 38.9 L Platelet: 195 Neutrophil %: 69.4 Glucose Level: 107 Sodium Level: 140 Potassium Level: 3.6 BUN: 15.0 Creatinine Lvl (s): 0.79 07/17 02:37 WBC: 7.7 Hgb: 12.1 L Hct: 35.2 L Platelet: 192 Neutrophil %: 61.0 Glucose Level: 103 Sodium Level: 136 Potassium Level: 3.0 L BUN: 18.0 Creatinine Lvl (s): 0.87 Imaging Results and Diagnostics XR Chest 1 View Result Date: July 16, 2022 Verified By: ZOILA MILLER MD CLINICAL STATEMENT: IMPRESSION: Complete/nearly complete resolution of previous interstitial edema.Questionable small residual upper lobe infiltrates versus summation artifact. XR Chest 1 View Result Date: July 15, 2022 Verified By: KRISTY MARCANO MD CLINICAL STATEMENT: IMPRESSION: Increased right basilar streaky opacities possibly worsening pulmonary edemaversus pneumonia. Continued follow-up is recommended. Mild pulmonary congestion/edema. I have reviewed this report and agree with the resident findings andinterpretation. EKG EKG - Completed -- 07/17/22 12:50:00 EDT, Post-procedure, Complete by Nursing Assessment/Plan 1. NSTEMI (non-ST elevated myocardial infarction) 2. Coronary artery disease 3. Primary hypertension 4. COPD without exacerbation 5. Chronic pain 6. Former smoker 7. Chronic alcohol use 86-year-old male presents with a 2-week history of intermittent midsternal chest pain that radiatesinto his back and jaw. Discomfort progressively got worse over the last 3 to 4 days. He presented to his PCP. EKG was performed in the office and demonstrated ST changes in the lateral leads. Patientwas transferred to [facility] emergency department for further evaluation. Upon arrival to the emergency department EKG showed ST depression in leads V3 through V6. Chest x-ray showed questionable vascular congestion. Troponin was elevated at 1214. He was initiated on heparin by weight. Cardiology at [facility] was notified he was transferred for further ischemic work-up. Upon arrivalto [place] he had progressive 10 out of 10 chest pain. Repeat EKG showed further ST depression in the anterior lateral leads with significant increase in troponin. He was taken urgently to the cardiac [facility] where he underwent coronary angiography which showed severe multivessel coronary disease involving circumflex, RCA, LAD. Culprit lesion determined to be the left circumflex. He underwent PCI with drug- eluting stent. Hospitalist service was consulted to assist with routine medical management. Overall, patient states that his symptoms have significantly improved status post cardiac intervention. He has no further chest pain or dyspnea. He is currently being treated with goal-directed medical therapy per primary team. -Per cardiology patient on daily weights, strict I's and O's, heparin drip, Lasix 40 mg IV daily, losartan 25 daily, aspirin 81 mg daily, Plavix 75 mg daily, nitro drip, Coreg 3.125 mg daily, atorvastatin 40 mg daily. Pulmonology consult. PCI to mid circumflex completed on 07/17/2022. Patient plans to have outpatient PCI to LAD. History of hypertension. -He is currently being treated by the primary team with carvedilol and losartan. COPD without acute exacerbation. Patient has history of smoking cigarettes. He quit approximately 20 years ago due to recurrent bronchitis. Patient initially started age 17 and was a pack per day smoker up until that time. He has a noted diagnosis of COPD in his medical record, however after further inquiry the patient cannot give specific details. He does not take routine bronchodilators or inhaled corticosteroids. He is uncertain if he is underwent PFT testing in the past. Chest x-ray reviewed and demonstrates findings more consistent with pulmonary edema. Low suspicion for infectious process. Currently the patient is asymptomatic. No wheezing, fever, chills, increasedsputum production. Suspect his dyspnea is related to his acute coronary syndrome and possible new onset heart failure. His symptoms have significantly improved after cardiac intervention. As needed bronchodilators for symptom management. If concern for underlying pulmonary disease, this likely can be pursued on outpatient basis and pulmonary function testing can be considered. -Pulmonary consult per primary team. -Patient seen per pulmonology on 07/16/2022. Low-dose CT scan not indicated as the patient quit smoking more than 20 years ago. Cardiogenic pulmonary edema in the setting of acute myocardial infarctionhas resolved clinically and radiographically. Pulmonary function testing as an outpatient to evaluate COPD. Patient has chronic right hip pain related to osteoarthritis. He is prescribed Percocet which he uses on a routine basis. Will continue as needed for symptom management. History of chronic alcohol use. Patient drinks 1-4 beers per day. He denies history of alcohol withdrawal. Currently demonstrates no signs or symptoms of withdrawal. We will place him on thiamine andfolic acid x3 days. Monitor for signs of withdrawal. -Patient continues to remain without symptoms of alcohol withdrawal. All other chronic comorbidities are stable. The plan of care, including the role of the hospitalist within the multidisciplinary team was discussed with the patient, questions answered, he is amenable to the plan. Thank you for consultation. Patient medically optimized and without signs of alcohol withdrawal at this time. Hospitalist team will sign off, please call for any questions. Plan of care discussed with collaborating physician Dr. Bull. This dictation was performed using voice recognition software may include grammatical and/or spelling errors. Digitally Signed by ARTUR VARGAS on 07/18/2022 01:33 PM [id number] Discharge summary Date of Service 07/18/2022 Discharge Diagnosis NSTEMI (status post PCI to mid circumflex culprit vessel) Multivessel CAD (s/p PCI to the RCA, plan PCI to LAD in the outpatient) Acute hypoxic respiratory failure Newly diagnosed HFmrEF exacerbation (45-50%, diastolic dysfunction, NYHA class II 3, no device) Moderate Moderate MR Mild to moderate TR Electrolyte abnormalities Systemic hypertension Dyslipidemia Mild to moderate COPD GERD Former tobacco abuse with [id number]-qhir history Osteoarthritis 1. NSTEMI (non-ST elevated myocardial infarction) (I21.4 - ICD-10-CM) 2. Coronary artery disease (I25.10 - ICD-10-CM) 3. Primary hypertension (I10 - ICD-10-CM) 4. COPD without exacerbation (J44.9 - ICD-10-CM) 5. Chronic pain (G89.29 - ICD-10-CM) 6. Former smoker (Z87.891 - ICD-10-CM) 7. Chronic alcohol use (F10.90 - ICD-10-CM) Non-ST elevation (NSTEMI) myocardial infarction (I21.4 - ICD-10-CM) Acute respiratory failure with hypoxia (J96.01 - ICD-10-CM) Atherosclerotic heart disease of [place] coronary artery without angina pectoris (I25.10 - ICD-10-CM) Presence of coronary angioplasty implant and graft (Z95.5 - ICD-10-CM) Essential (primary) hypertension (I10 - ICD-10-CM) Hyperlipidemia, unspecified (E78.5 - ICD-10-CM) Personal history of nicotine dependence (Z87.891 - ICD-10-CM) Gastro-esophageal reflux disease without esophagitis (K21.9 - ICD-10-CM) Unspecified osteoarthritis, unspecified site (M19.90 - ICD-10-CM) Chronic obstructive pulmonary disease, unspecified (J44.9 - ICD-10-CM) Alcohol use, unspecified, uncomplicated (F10.90 - ICD-10-CM) Chronic pain of right hip (M25.551 - ICD-10-CM) Primary osteoarthritis (M19.91 - ICD-10-CM) Hospital Course 86-year-old man with past medical history of hypertension, hyperlipidemia, former tobacco abuse with [id number]-absr history, GERD, and osteoarthritis came to the emergency department at [facility] complaining of chest pain. Initial vital signs within normal limit. Initial CBC within normal limit. Initial BMP within normal limit. Initial high-sensitivity troponin 1214. Initial EKG with nonspecific ST changes. Patient was transferred to [facility] for ischemic evaluation. Once patient arrived on floor to [facility] patient complained of 10 out of 10 chest pain. Patient was evaluated at bedside. Repeat EKG showed deep ST depressions in anterior lateral leads. STEMI alert was called patient was taken urgently to the cardiac catheterization lab. Coronary angiography showed severe multivessel coronary artery disease involving the circumflex, RCA and LAD. Culprit lesion was determined to be the left circumflex. Patient underwent PCI with GREGG to left circumflex. Patient was admitted to the cardiology service for further management. Patient is currently being diuresed and optimized on goal-directed medical therapy. As patient does not know what medications he takes at homewe will hold off on starting home high-dose beta- blockade and LAURA and ARB and uptitrate low doses as needed. [1] As for patient's NSTEMI/CAD, patient presented with NSTEMI. He underwent PCI to the mid circumflex.This was the culprit vessel. Patient was also found to have significant disease in the RCA and the LAD. Patient underwent PCI to the mid RCA with three drug-eluting stent placement on 07/17/2022. He tolerated the procedure well. When patient arrived to the floor, he was significantly hypertensive. Patient's TR band did not take. Manual pressure was held at his right radial artery access site. ==> plan is for PCI to the LAD in the outpatient. Continue aspirin 81 mg daily. Continue Plavix 75 mg daily. Continue Coreg 3.125 mg twice daily. Continue atorvastatin 40 mg daily. Add ezetimibe 10 mg daily. As for patient's acute hypoxic respiratory failure/newly diagnosed HFmrEF exacerbation, continue IVLasix diuresis. Continue Coreg 3.125 mg twice daily. Add losartan 25 mg daily. Echocardiogram was reviewed. LVEF is approximately 45-50%. Patient does have at least moderate AAS.At least mild to moderate MR. Mild to moderate TR. Official echocardiogram read is still pending. ==> Close monitoring of patient's blood pressure during the diuresis process. ==> Keep potassium above 4 and magnesium above 2 during the diuresis process. As for patient's systemic hypertension, continue Coreg and losartan. As for patient's dyslipidemia, continue atorvastatin and ezetimibe. On the day of discharge (07/18/2022), patient denies any chest discomfort or shortness of breath atrest or even on ambulation. No lightheadedness or dizziness at rest or even on ambulation. No palpitations or chest burning. Denies any fever/chills/sweats/coughing spells. No GI complaints. No urinary complaints. Denies any numbness or weakness in any of his extremities. Patient and medical team felt comfortable for discharge on 07/18/2022. Follow-up with general cardiology in the outpatient setting. Blood work to be done in the outpatient setting. ==> Patient educated about the importance of DAPT vis- -vis in-stent thrombosis. Patient was educated about the importance of tobacco avoidance and the harm of tobacco use for coronary artery disease. Patient was also educated about eating a heart healthy diet that is low in carbohydrates/low inlipids/low in cholesterol. Patient verbalized understanding. Patient was also educated about the importance of light to moderate intensity exercise on a daily basis for at least 30-45 minutes. Echocardiogram done on 07/17/2022 1. Left ventricle: The cavity size is normal. Wall thickness is increased. Systolic function is lownormal to mildly reduced. The estimated ejection fraction is 50% 5%. Mid anterolateral, mid inferolateral, mid inferior hypo to akinesis Diastolic dysfunction is present. 2. Aortic valve: The valve is probably trileaflet. The leaflets are moderately thickened and moderately calcified. Cusp separation is reduced. Transvalvular velocity is increased less than expected. Possibly mild- moderate vs moderate stenosis based on 2D appearance. Please correlate with clinic exam and consider additional testing if clinically indicated. 3. Mitral valve: The annulus is moderately calcified. There is mild to moderate regurgitation. 4. Left atrium: The atrium is dilated. 5. Right ventricle: The RV systolic pressure by Doppler is 49 mm Hg. 6. Tricuspid valve: There is mild-moderate regurgitation. 7. Right atrium: The atrium is dilated. The estimated right atrial pressure is 8 mm Hg. 8. Inferior vena cava: The IVC is dilated. Respirophasic diameter changes are in the normal range (> 50%). Left heart catheterization/PTCA done on 07/15/2022 LAD: Proximal vessel lesion: There is a 70% stenosis. Mid-vessel lesion: There is a 90% stenosis. 1st diagonal: Ostial lesion: There is an 80% stenosis. Left circumflex: Mid-vessel lesion: The diagnostic study demonstrated a discrete, 99% stenosis. Thedistal vessel supplies a moderate-sized vascular territory. The lesion is a likely culprit for the patient's anginal symptoms, recent myocardial infarction, and clinical presentation. The lesion presents an ACC/AHA type A/B low/moderate risk lesion for intervention. Stent placement was performed, with balloon angioplasty, resulting in an excellent angiographic appearance (see 1st lesion). Following intervention, there is a residual 0% stenosis with LAURA grade 3 flow (brisk flow). Right coronary: Ostial lesion: There is a 95% stenosis. Mid-vessel lesion: There is an 80% stenosis. IMPRESSIONS: 99% LCX disease - s/p PCI with one GREGG placement. Residual disease in RCA and LAD - Plan for staged PCI. PTCA done on 07/15/2022 Percutaneous intervention on the 99% stenosis in the mid left circumflex. Balloon angioplasty. Stent placement Procedures performed: PTCA done on 07/17/2022 Percutaneous intervention on the 90% stenosis in the proximal right coronary. Balloon angioplasty. Stent placement. IMPRESSIONS: Severe diffuse disease in RCA - s/p PCI with 3 GREGG placement. RECOMMENDATIONS: Continue dual antiplatelets and aggressive medical therapy. Plan for staged PCI to LAD as outpatient. Allergies Cipro (Muscle ache) traMADol (Itching) Procedures Procedures performed: Right coronary angiography. Left coronary angiography. Left heart catheterization. Percutaneous intervention on the 99% stenosis in the mid left circumflex. Balloon angioplasty. Stent placement. Procedures performed: Percutaneous intervention on the 90% stenosis in the proximal right coronary. Balloon angioplasty. Stent placement. Interventional IVUS Consults Consult to Physician (Physician Consult) - Ordered -- 07/16/22 4:59:00 EDTDOMINGA GEORGE H MD, Routine, COPD Imaging Results and Diagnostics XR Chest 1 View Result Date: July 16, 2022 Verified By: ZOILA MILLER MD CLINICAL STATEMENT: IMPRESSION: Complete/nearly complete resolution of previous interstitial edema.Questionable small residual upper lobe infiltrates versus summation artifact. XR Chest 1 View Result Date: July 15, 2022 Verified By: KRISTY MARCANO MD CLINICAL STATEMENT: IMPRESSION: Increased right basilar streaky opacities possibly worsening pulmonary edemaversus pneumonia. Continued follow-up is recommended. Mild pulmonary congestion/edema. I have reviewed this report and agree with the resident findings andinterpretation. Physical Exam Vitals and Measurements T: 36.6 C (Oral) TMIN: 36.5 C (Oral) TMAX: 37.1 C (Oral) HR: 87(Monitored) RR: 18 BP: 120/78 SpO2: 96% WT: 70.2 kg Weight Current Weight Dosing Weight: 76.96 kg (07/15/22) Current Weight: 70.2 kg (07/18/22) General: Patient is under no acute distress,and in no discomfort Head: Normocephalic, Atraumatic Eyes/Ear: Pupils are equal and reactive, No scleral icterus. Nose: Normal appearing nasal nares Mouth: Good oral hygiene, Moist oral mucosa, no pharyngeal erythema or exudates noted, undeviated uvula Neck: Obese, supple, Nontender, No thyromegaly, No JVD, Midline trachea, No lymphadenopathy Chest: Normal breathing effort, clear to auscultation bilaterally Cardiac: RRR, Normal S1-S2, No GR, systolic ejection murmur best heard at RUSB, systolic murmur heard at the cardiac apex Abdomen: Obese, soft, Nontender, Normal active bowel sounds Back: No obvious deformities. Genitourinary: Deferred Extremity: Ecchymosis noted on the right radial access site. Radial pulses 2+ B/L. Warm bilaterally, trace to mild bilateral pedal edema noted, chronic skin changes noted in both lower extremities Skin: No PATHOLOGIC moles, rashes, lesions or ulcers were noted other than what is listed above Neuro: Alert and Oriented 4, Cranial nerves II to XII grossly intact. No focal deficits grossly noted Psych: Pleasant, Good attention Pending Labs and Studies WBC: 7.7 10^3/mcL (07/18/22 04:21:00) RBC: 4.29 10^6/mcL Low (07/18/22 04:21:00) Hgb: 13.2 G/dL (07/18/22 04:21:00) Hct: 38.9 % Low (07/18/22 04:21:00) MCV: 90.8 fL (07/18/22 04:21:00) MCH: 30.8 pg (07/18/22 04:21:00) MCHC: 33.9 G/dL (07/18/22 04:21:00) RDW: 13.1 % (07/18/22 04:21:00) Platelet: 195 10^3/mcL (07/18/22 04:21:00) MPV: 8.6 fL (07/18/22 04:21:00) Monocyte Distribution Width: 19.33 (07/15/22 09:12:00) Neutrophil %: 69.4 % (07/18/22 04:21:00) Lymphocyte %: 14.4 % Low (07/18/22 04:21:00) Monocyte %: 13.4 % High (07/18/22 04:21:00) Eosinophil %: 2.2 % (07/18/22 04:21:00) Basophil %: 0.6 % (07/18/22 04:21:00) Neutrophil, Absolute: 5.4 10^3/mcL (07/18/22 04:21:00) Lymphocyte, Absolute: 1.1 10^3/mcL (07/18/22 04:21:00) Monocyte, Absolute: 1 10^3/mcL (07/18/22 04:21:00) Eosinophil, Absolute: 0.2 10^3/mcL (07/18/22 04:21:00) Basophil, Absolute: 0 10^3/mcL (07/18/22 04:21:00) Heparin dose (APTT): Heparin IV (07/17/22 09:42:00) APTT: 60.1 seconds High (07/17/22 09:42:00) Protime: 13.4 seconds (07/15/22 20:45:00) PT International Ratio: 1.1 ratio (07/15/22 20:45:00) UA Specimen Type: Clean Catch (07/15/22 21:03:00) UA Color: Yellow (07/15/22 21:03:00) UA Appear: Clear (07/15/22 21:03:00) UA Spec Grav: 1.020 (07/15/22 21:03:00) UA Glucose: Negative. (04/01/23 21:03:00) UA Bili: Negative. (07/15/22 21:03:00) UA Ketones: Trace (07/15/22 21:03:00) UA Blood: Negative. (07/15/22 21:03:00) UA pH: 7.0 (07/15/22 21:03:00) UA Protein: Negative.1 (07/15/22 21:03:00) UA Urobilinogen: 0.2 (07/15/22 21:03:00) UA Nitrite: Negative. (07/15/22 21:03:00) UA Leuk Est: Negative. (07/15/22 21:03:00) Glucose Level: 107 mg/dL (07/18/22 04:21:00) Sodium Level: 140 mEq/L (07/18/22 04:21:00) Potassium Level: 3.6 mEq/L (07/18/22 04:21:00) Chloride: 101 mEq/L (07/18/22 04:21:00) CO2: 31 mEq/L (07/18/22 04:21:00) Electrolyte Balance: 8 mEq/L (07/18/22 04:21:00) BUN: 15 mg/dL (07/18/22 04:21:00) Creatinine Lvl (s): 0.79 mg/dL (07/18/22 04:21:00) BUN/Creatinine Ratio: 19 ratio (07/18/22 04:21:00) Calcium Lvl: 8.8 mg/dL (07/18/22 04:21:00) Magnesium Lvl: 1.6 mg/dL (07/18/22 04:21:00) Phosphorus: 2.9 mg/dL (07/18/22 04:21:00) GFR Non-: >60 (07/18/22 04:21:00) GFR : >60 (07/18/22 04:21:00) Hgb A1c: 5.1 % (07/16/22 04:37:00) Cholesterol: 146 mg/dL (07/16/22 04:37:00) Triglycerides: 85 mg/dL (07/16/22 04:37:00) HDL Cholesterol: 56 mg/dL (07/16/22 04:37:00) LDL Cholesterol: 73 mg/dL (07/16/22 04:37:00) N-Terminal proBNP: 3951 pg/mL High (07/15/22 20:45:00) Troponin I High Sensitivity: 4372.9 ng/L High (07/15/22 23:45:00) TSH: 0.691 mIU/mL (07/16/22 04:37:00) Mycoplasma IgM: Negative. (07/17/22 16:05:00) Mycoplasma IgG: Positive DSX (07/17/22 16:05:00) SARS-CoV-2 PCR: Cepheid Neg (07/15/22 22:32:00) Legionella Urine Ag: See Result (07/17/22 13:46:00) Streptococcus Pneumoniae Urine Antig: See Result (07/17/22 13:46:00) ABO/Rh Interp: A POS (07/15/22 20:45:00) ABSC Interp (Gel): Negative ABSC (07/15/22 20:45:00) Code Status Reviewed. Admission Date 07/15/2022 Discharge Date 07/18/2022 Patient Instructions Please go to the emergency room if you experience any chest pain/chest discomfort/shortness of breat h/fatigue/palpitations/lightheadedness/dizziness/nausea/vomiting/fever/chills/sw eats/coughing spells. ---Please return to the emergency room in case you experience any signs or symptoms that you may find troublesome to your health. Medications New Prescription atorvastatin (Lipitor 40 mg oral tablet)1 tab(s) by mouth once a day for 30 Days. Refills: 4. clopidogrel (Plavix 75 mg oral tablet)1 tab(s) by mouth once a day for 30 Days. Refills: 11. ezetimibe (Zetia 10 mg oral tablet)1 tab(s) by mouth once a day for 30 Days. Refills: 11. furosemide (Lasix 20 mg oral tablet)1 tab(s) by mouth once a day for 30 Days. Refills: 2. losartan (losartan 25 mg oral tablet)1 tab(s) by mouth once a day for 30 Days. Refills: 2. Changed aspirin (aspirin 81 mg oral tablet, chewable)1 tab(s) Chewed once a day for 30 Days. Refills: 11. carvedilol (Coreg 3.125 mg oral tablet)1 tab(s) by mouth twice daily with meals for 30 Days. Refills: 3. multivitamin with minerals (PreserVision AREDS 2 oral capsule)1 cap by mouth two (2) times a day for 90 Days. Refills: 3. Unchanged acetaminophen-oxyCODONE (acetaminophen-oxyCODONE 325 mg-5 mg oral tablet)1 tab(s) by mouth every 6 hours as needed as needed for pain for 30 Days. To be filled on or after 07/01/2022; oarrs appropriate. Refills: 0. ammonium lactate topical (ammonium lactate 12% topical cream)1 application Topical two (2) times a day for 90 Days. Refills: 1. ascorbic acid (Vitamin C 500 mg oral tablet)1 tab(s) by mouth once a day. cetirizine (cetirizine 10 mg oral tablet)1 tab(s) by mouth once a day for 90 Days. Refills: 1. cholecalciferol (Vitamin D3)4,000 unit(s) by mouth every day. DME (DME MISCellaneous)dx I10; dispense one automated upper arm sphygmomanometer with supplies.. Refills: 0. Misc Medication (ensure) multivitamin (Multivitamin)1 tab(s) by mouth every day. omeprazole (omeprazole 40 mg oral delayed release capsule)1 cap by mouth once a day for 90 Days. Refills: 1. Discontinued amLODIPine (amLODIPine 5 mg oral tablet)1 tab(s) by mouth once a day for 90 Days. Refills: 1. etodolac (etodolac 300 mg oral capsule)1 cap by mouth two (2) times a day for 90 Days. Refills: 1. hydrochlorothiazide-irbesartan (hydrochlorothiazide-irbesartan 12.5 mg-300 mg oral tablet)1 tab(s) by mouth once a day for 90 Days. Refills: 1. Follow Up Follow Up with SHANTHI FOSTER MD When 08/18/2022 11:00 AM EDT Where: [address] [facility] [address] [place] [address]- Follow Up with Post home RN DC follow up visit scheduled for 07/20 between 8a-12p When Follow Up with Cardiac Rehab [facility] When Why: The Cardiac rehab department will call you to schedule you for Phase 2. If you have any questions please call us at [phone]. Thank you. Where: [facility] [address] [place] [id number]- Follow Up with AALIYAH TRUJILLO When Why: PLEASE CALL THIS OFFICE TO SCHEDULE A HOSPITAL FOLLOW UP APPOINTMENT. Where: [address] [place] [address]- [phone] Business (1) Follow Up with Cardiac Rehab- [facility] When Why: The Cardiac Rehab department will call you to schedule you for phase 2. We left you a brochurewith information about cardiac rehab. If you have any questions please call [phone]. Where: [address] [place] [id number]- Follow Up Appointments No qualifying data available. Follow Up Labs/Studies Discharge Labs Discharge Outpatient Labwork - Ordered -- BMP, Follow-up, Draw 3 days after discharge, 07/15/22 20:09:00 EDT Discharge Outpatient Labwork - Ordered -- PT/INR, If on Warfarin, 3 days after discharge, 07/15/22 20:09:00 EDT Discharge Outpatient Labwork - Ordered -- Digoxin level, Follow-up, 07/15/22 20:09:00 EDT Discharge Outpatient Labwork - Ordered -- CBC, CMP, magnesium level, N-terminal proBNP, Congestive heart failure, follow-up within: 3-5 days, Results Notify to: RIKKI GALVEZ MD, 07/18/22 13:36:00 EDT Discharge Studies No Follow-up Studies Discharge Diet Discharge Diet - Ordered -- Type of Diet: Regular, Diet Restrictions: Cardiac diet, Calories Permitted: 1800 kcal, Sodium limit: 2 gm, Fats limit: Low, 07/18/22 13:36:00 EDT Discharge Activity Discharge Activity - Ordered -- Activity As Tolerated, 07/18/22 13:36:00 EDT Condition on Discharge Stable. Under no hemodynamic compromise. In no respiratory distress. Discharge Disposition Home Time Spent Discharge plan was discussed with Dr. Quijano. Any changes in assessment/plan, will be added as an addendum to this note by the attending physician. I have reviewed all available EKGs, echocardiograms, stress test and cardiac catheterizations. Relevant laboratory data have also been reviewed. This note was transcribed via voice recognition software. Please, forgive any errors or typos, resulting from the use of this technology. Digitally Signed by ROSELIA MUIR MD on 07/18/2022 07:59 PM Digitally Signed by SHERRI QUIJANO MD [id number] Note Date of Service 07/18/2022 Chief Complaint PCI completed on 07/17/2022. Subjective Mr. Logan is an 86-year-old male with a significant past medical history of chronic right hip pain on chronic Percocet for pain management, osteoarthritis, hypertension, seasonal allergies, unsteady gait (ambulates with cane), former smoker, COPD, chronic GERD, gout, alcohol use that presented tohis PCP office on 07/15/2022 with a 2 weeks history of substernal chest pain and pressure going into his back and radiating into his jaw and left arm that progressively got worse over the past 3-4 days. The pain is intermittent would last about an hour and then go away and then return. The discomfortwas present with exertion and rest. That he is in endorses progressive dyspnea since onset of symptoms as well as dizziness when he stands up. EKG was performed in the PCP office which showed ST depression in the lateral leads. The patient was transferred to [facility] emergency department for further evaluation. He denies fever, chills, diaphoresis, nausea, vomiting, or abdominal pain. No increased peripheral edema, or hemoptysis. Upon arrival to the emergency department EKG was performed and showed ST depression in leads V3 through V6. Chest x-ray demonstrated, questionable vascular congestion.. CBC demonstrated no leukocytosis, stable anemia hemoglobin 12.9, hematocrit 37.9, no thro mbocytopenia. Chloride 97, CO2 34, glucose 131 otherwise chemistry unremarkable. Troponin 1214. Patient was not initiated on heparin by weight. Cardiology at [facility] was notified and he was transferred for further ischemic work-up. Once the patient arrived to [facility] he had progressive 10 out of 10 chest pain. Repeat EKGshowed further ST depression in the anterior lateral leads. 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 Culprit lesion determined to be the left circumflex. Patient underwent PCI with drug-eluting stent to the left circumflex. He currently is being treated with goal directed medical therapy. Tentative plan for further stenting on Sunday. Hospitalist service has been consulted for routine medical management. Patient seen in his room today, denies any complaints. Patient denies chest pain, shortness of breath, dizziness, lightheadedness. Denies any symptoms of withdrawal including palpitations, diaphoresis, tremors, hallucinations. Nursing staff report no evidence noted of withdrawal from alcohol. Patient medically optimized and without signs of alcohol withdrawal at this time. Hospitalist team will sign off, please call for any questions. Objective Vitals and Measurements T: 36.6 C (Oral) TMIN: 36.5 C (Oral) TMAX: 37.1 C (Oral) HR: 87(Monitored) RR: 18 BP: 120/78 SpO2: 96% WT: 70.2 kg Intake and Output 7AM Yesterday to 7AM Today Intake and Output (Last 24 hours) Intake Oral Intake 480.00 Output Urine Voided 2725.00 Total Summary Total Intake 480.00 Total Output 2725.00 Fluid Balance -2245.00 Physical Exam GEN: Appears chronically ill EYES: No conjunctival erythema, drainage. EOMI EARS: Hearing grossly intact. NOSE: No nasal discharge. THROAT: Oral cavity and pharynx pink and moist. CHEST: Normal S1 and S2. Rhythm is regular. Clear to auscultation, without rales, rhonchi, wheezing. ABD: Positive bowel sounds x 4 quads. Soft, nondistended, nontender. EXT: No significant deformity or joint abnormality. No edema. Peripheral pulses intact. NEURO: Sensation grossly intact SKIN: Skin color normal PSYCH: The mental examination revealed the patient was alert and oriented x 4 Weight Current Weight Dosing Weight: 76.96 kg (07/15/22) Current Weight: 70.2 kg (07/18/22) Medications Medications (17) Active Scheduled: (11) ascorbic acid 500 mg tablet 500 mg 1 tab(s), Oral, qDay aspirin 81 mg EC 81 mg 1 tab(s), Oral, qDayM atorvastatin 40 mg tablet 40 mg 1 tab(s), Oral, qDay carvedilol 3.125 mg tablet 3.125 mg 1 tab(s), Oral, BIDM clopidogrel 75 mg Tablet 75 mg 1 tab(s), Oral, qDay ezetimibe 10 mg tablet 10 mg 1 tab(s), Oral, qDay furosemide 40 mg/4 mL vial 40 mg 4 mL, IV Push, qDay losartan 25 mg tablet 25 mg 1 tab(s), Oral, qDay No metformin for 48 hrs post contrast 1 EA, Miscellaneous, Unscheduled No metformin for 48 hrs post contrast 1 EA, Miscellaneous, Unscheduled pantoprazole 40 mg EC tablet 40 mg 1 tab(s), Oral, qDayAC Continuous: (2) heparin 25,000 unit(s) [12 unit(s)/kg/hr] + Dextrose 5% Premix Diluent 250 mL 250 mL, Intravenous, 9.42 mL/hr nitroglycerin 50 mg/250 mL D5W 50 mg [5 mcg/min] + Dextrose 5% Premix Diluent 250 mL 250 mL, Intravenous, 1.5 mL/hr PRN: (4) acetaminophen-OXYcodone 325 mg-5 mg Tablet 1 tab(s), Oral, q6hr albuterol - ipratropium 2.5 mg-0.5 mg/3 mL Inhal Brigid UD 3 mL, Inhalation, q4hRT albuterol - ipratropium 2.5 mg-0.5 mg/3 mL Inhal Brigid UD 3 mL, Inhalation, q4hRT heparin 5,000 units/mL (1 mL) vial 4,000 unit(s) 0.8 mL, IV Push, q6h Lab Results 07/18 04:21 WBC: 7.7 Hgb: 13.2 Hct: 38.9 L Platelet: 195 Neutrophil %: 69.4 Glucose Level: 107 Sodium Level: 140 Potassium Level: 3.6 BUN: 15.0 Creatinine Lvl (s): 0.79 07/17 02:37 WBC: 7.7 Hgb: 12.1 L Hct: 35.2 L Platelet: 192 Neutrophil %: 61.0 Glucose Level: 103 Sodium Level: 136 Potassium Level: 3.0 L BUN: 18.0 Creatinine Lvl (s): 0.87 Imaging Results and Diagnostics XR Chest 1 View Result Date: July 16, 2022 Verified By: ZOILA MILLER MD CLINICAL STATEMENT: IMPRESSION: Complete/nearly complete resolution of previous interstitial edema.Questionable small residual upper lobe infiltrates versus summation artifact. XR Chest 1 View Result Date: July 15, 2022 Verified By: KRISTY MARCANO MD CLINICAL STATEMENT: IMPRESSION: Increased right basilar streaky opacities possibly worsening pulmonary edemaversus pneumonia. Continued follow-up is recommended. Mild pulmonary congestion/edema. I have reviewed this report and agree with the resident findings andinterpretation. EKG EKG - Completed -- 07/17/22 12:50:00 EDT, Post-procedure, Complete by Nursing Assessment/Plan 1. NSTEMI (non-ST elevated myocardial infarction) 2. Coronary artery disease 3. Primary hypertension 4. COPD without exacerbation 5. Chronic pain 6. Former smoker 7. Chronic alcohol use 86-year-old male presents with a 2-week history of intermittent midsternal chest pain that radiatesinto his back and jaw. Discomfort progressively got worse over the last 3 to 4 days. He presented to his PCP. EKG was performed in the office and demonstrated ST changes in the lateral leads. Patientwas transferred to [facility] emergency department for further evaluation. Upon arrival to the emergency department EKG showed ST depression in leads V3 through V6. Chest x-ray showed questionable vascular congestion. Troponin was elevated at 1214. He was initiated on heparin by weight. Cardiology at [facility] was notified he was transferred for further ischemic work-up. Upon arrivalto [place] he had progressive 10 out of 10 chest pain. Repeat EKG showed further ST depression in the anterior lateral leads with significant increase in troponin. He was taken urgently to the cardiac [facility] where he underwent coronary angiography which showed severe multivessel coronary disease involving circumflex, RCA, LAD. Culprit lesion determined to be the left circumflex. He underwent PCI with drug- eluting stent. Hospitalist service was consulted to assist with routine medical management. Overall, patient states that his symptoms have significantly improved status post cardiac intervention. He has no further chest pain or dyspnea. He is currently being treated with goal-directed medical therapy per primary team. -Per cardiology patient on daily weights, strict I's and O's, heparin drip, Lasix 40 mg IV daily, losartan 25 daily, aspirin 81 mg daily, Plavix 75 mg daily, nitro drip, Coreg 3.125 mg daily, atorvastatin 40 mg daily. Pulmonology consult. PCI to mid circumflex completed on 07/17/2022. Patient plans to have outpatient PCI to LAD. History of hypertension. -He is currently being treated by the primary team with carvedilol and losartan. COPD without acute exacerbation. Patient has history of smoking cigarettes. He quit approximately 20 years ago due to recurrent bronchitis. Patient initially started age 17 and was a pack per day smoker up until that time. He has a noted diagnosis of COPD in his medical record, however after further inquiry the patient cannot give specific details. He does not take routine bronchodilators or inhaled corticosteroids. He is uncertain if he is underwent PFT testing in the past. Chest x-ray reviewed and demonstrates findings more consistent with pulmonary edema. Low suspicion for infectious process. Currently the patient is asymptomatic. No wheezing, fever, chills, increasedsputum production. Suspect his dyspnea is related to his acute coronary syndrome and possible new onset heart failure. His symptoms have significantly improved after cardiac intervention. As needed bronchodilators for symptom management. If concern for underlying pulmonary disease, this likely can be pursued on outpatient basis and pulmonary function testing can be considered. -Pulmonary consult per primary team. -Patient seen per pulmonology on 07/16/2022. Low-dose CT scan not indicated as the patient quit smoking more than 20 years ago. Cardiogenic pulmonary edema in the setting of acute myocardial infarctionhas resolved clinically and radiographically. Pulmonary function testing as an outpatient to evaluate COPD. Patient has chronic right hip pain related to osteoarthritis. He is prescribed Percocet which he uses on a routine basis. Will continue as needed for symptom management. History of chronic alcohol use. Patient drinks 1-4 beers per day. He denies history of alcohol withdrawal. Currently demonstrates no signs or symptoms of withdrawal. We will place him on thiamine andfolic acid x3 days. Monitor for signs of withdrawal. -Patient continues to remain without symptoms of alcohol withdrawal. All other chronic comorbidities are stable. The plan of care, including the role of the hospitalist within the multidisciplinary team was discussed with the patient, questions answered, he is amenable to the plan. Thank you for consultation. Patient medically optimized and without signs of alcohol withdrawal at this time. Hospitalist team will sign off, please call for any questions. Plan of care discussed with collaborating physician Dr. Bull. This dictation was performed using voice recognition software may include grammatical and/or spelling errors. Digitally Signed by ARTUR VARGAS on 07/18/2022 01:33 PM [id number] Pulmonary Progress note Date of Service 07/18/2022 Subjective No respiratory distress, O2 saturation 95% Objective Vitals and Measurements T: 36.8 C (Oral) TMIN: 36.5 C (Oral) TMAX: 37.1 C (Oral) HR: 79(Monitored) RR: 18 BP: 138/70 SpO2: 95% WT: 70.2 kg Physical Exam HEENT: Clear Heart: Regular rhythm no additional heart sounds Lungs: Clear breath sounds bilaterally no wheezing Abdomen: Soft no tenderness Lower extremities: No edema Neuro: Alert, moves extremities Weight Current Weight Dosing Weight: 76.96 kg (07/15/22) Current Weight: 70.2 kg (07/18/22) Medications Medications (17) Active Scheduled: (11) ascorbic acid 500 mg tablet 500 mg 1 tab(s), Oral, qDay aspirin 81 mg EC 81 mg 1 tab(s), Oral, qDayM atorvastatin 40 mg tablet 40 mg 1 tab(s), Oral, qDay carvedilol 3.125 mg tablet 3.125 mg 1 tab(s), Oral, BIDM clopidogrel 75 mg Tablet 75 mg 1 tab(s), Oral, qDay ezetimibe 10 mg tablet 10 mg 1 tab(s), Oral, qDay furosemide 40 mg/4 mL vial 40 mg 4 mL, IV Push, qDay losartan 25 mg tablet 25 mg 1 tab(s), Oral, qDay No metformin for 48 hrs post contrast 1 EA, Miscellaneous, Unscheduled No metformin for 48 hrs post contrast 1 EA, Miscellaneous, Unscheduled pantoprazole 40 mg EC tablet 40 mg 1 tab(s), Oral, qDayAC Continuous: (2) heparin 25,000 unit(s) [12 unit(s)/kg/hr] + Dextrose 5% Premix Diluent 250 mL 250 mL, Intravenous, 9.42 mL/hr nitroglycerin 50 mg/250 mL D5W 50 mg [5 mcg/min] + Dextrose 5% Premix Diluent 250 mL 250 mL, Intravenous, 1.5 mL/hr PRN: (4) acetaminophen-OXYcodone 325 mg-5 mg Tablet 1 tab(s), Oral, q6hr albuterol - ipratropium 2.5 mg-0.5 mg/3 mL Inhal Brigid UD 3 mL, Inhalation, q4hRT albuterol - ipratropium 2.5 mg-0.5 mg/3 mL Inhal Brigid UD 3 mL, Inhalation, q4hRT heparin 5,000 units/mL (1 mL) vial 4,000 unit(s) 0.8 mL, IV Push, q6h Lab Results 07/18 04:21 WBC: 7.7 Hgb: 13.2 Hct: 38.9 L Platelet: 195 Neutrophil %: 69.4 Glucose Level: 107 Sodium Level: 140 Potassium Level: 3.6 BUN: 15.0 Creatinine Lvl (s): 0.79 07/17 02:37 WBC: 7.7 Hgb: 12.1 L Hct: 35.2 L Platelet: 192 Neutrophil %: 61.0 Glucose Level: 103 Sodium Level: 136 Potassium Level: 3.0 L BUN: 18.0 Creatinine Lvl (s): 0.87 EKG EKG - Completed -- 07/17/22 12:50:00 EDT, Post-procedure, Complete by Nursing Assessment/Plan 1. NSTEMI (non-ST elevated myocardial infarction) 2. Coronary artery disease 3. Primary hypertension 4. COPD without exacerbation 5. Chronic pain 6. Former smoker 7. Chronic alcohol use Cardiogenic pulmonary edema in the setting of acute myocardial infarction, has resolved clinically and radiographically. Pulmonary function test as an outpatient noted to evaluate for COPD Digitally Signed by SELVIN AMAYA MD on 07/18/2022 10:12 AM [id number] Cardiology Progress note Date of Service 07/17/2022 Chief Complaint Patient did not have any complaints today. Subjective In the last 24 hours ==> No significant events on telemetry. This morning, patient was seen and examined, he did not have any complaints. No chest pain or shortness of breath. Denies any fever/chill/sweat/coughing spells. No GI complaints. No urinary complaints. Patient underwent PCI to the mid RCA with two drug-eluting stent placement on 07/17/2022. He tolerated the procedure well. When patient arrived to the floor, he was significantly hypertensive. Patient's TR band did not take. Manual pressure was held at his right radial artery access site. Percutaneous intervention on the 99% stenosis in the mid left circumflex. Balloon angioplasty. Stent placement. 1. 1st lesion: Stent placement was performed. A 2.75 mm (D) x 20 mm (L), Synergy XD stent was used.The stent was advanced across the lesion and deployed with two inflations and a maximum pressure of 12 lena. 2. LAD: Proximal vessel lesion: There is a 70% stenosis. Mid-vessel lesion: There is a 90% stenosis. 3. 1st diagonal: Ostial lesion: There is an 80% stenosis. 4. Left circumflex: Mid-vessel lesion: The diagnostic study demonstrated a discrete, 99% stenosis. The distal vessel supplies a moderate-sized vascular territory. The lesion is a likely culprit for the patient's anginal symptoms, recent myocardial infarction, and clinical presentation. The lesion presents an ACC/AHA type A/B low/moderate risk lesion for intervention. Stent placement was performed, with balloon angioplasty, resulting in an excellent angiographic appearance (see 1st lesion). Following intervention, there is a residual 0% stenosis with LAURA grade 3 flow (brisk flow). 5. Right coronary: Ostial lesion: There is a 95% stenosis. Mid-vessel lesion: There is an 80% stenosis. IMPRESSIONS: 99% LCX disease - s/p PCI with one GREGG placement. Residual disease in RCA and LAD - Plan for staged PCI. Echocardiogram done on 07/17/2022 revealed LVEF of approximately 45-50%. Moderate . Moderate MR. Official echocardiogram is still pending. Objective Vitals and Measurements T: 37.1 C (Oral) TMIN: 36.3 C (Oral) TMAX: 37.1 C (Oral) HR: 104(Monitored) RR: 16 BP: 142/92 SpO2:97% Intake and Output 7AM Yesterday to 7AM Today Intake and Output (Last 24 hours) Intake Output Urine Voided 2350.00 Total Summary Total Intake 0.00 Total Output 2350.00 Fluid Balance -2350.00 Physical Exam General: Patient is under no acute distress,and in no discomfort Head: Normocephalic, Atraumatic Eyes/Ear: Pupils are equal and reactive, No scleral icterus. Nose: Normal appearing nasal nares Mouth: Good oral hygiene, Moist oral mucosa, no pharyngeal erythema or exudates noted, undeviated uvula Neck: Obese, supple, Nontender, No thyromegaly, No JVD, Midline trachea, No lymphadenopathy Chest: Normal breathing effort, clear to auscultation bilaterally Cardiac: RRR, Normal S1-S2, No GR, systolic ejection murmur best heard at RUSB, systolic murmur heard at the cardiac apex Abdomen: Obese, soft, Nontender, Normal active bowel sounds Back: No obvious deformities. Genitourinary: Deferred Extremity: Ecchymosis noted on the right radial access site. Radial pulses 2+ B/L. Warm bilaterally, trace to mild bilateral pedal edema noted, chronic skin changes noted in both lower extremities Skin: No PATHOLOGIC moles, rashes, lesions or ulcers were noted other than what is listed above Neuro: Alert and Oriented 4, Cranial nerves II to XII grossly intact. No focal deficits grossly noted Psych: Pleasant, Good attention Weight Dosing Weight: 76.96 kg (07/15/22) Medications Medications (18) Active Scheduled: (12) ascorbic acid 500 mg tablet 500 mg 1 tab(s), Oral, qDay aspirin 81 mg EC 81 mg 1 tab(s), Oral, qDayM atorvastatin 40 mg tablet 40 mg 1 tab(s), Oral, qDay carvedilol 3.125 mg tablet 3.125 mg 1 tab(s), Oral, BIDM clopidogrel 75 mg Tablet 75 mg 1 tab(s), Oral, qDay folic acid 1 mg tablet 1 mg 1 tab(s), Oral, qDay furosemide 40 mg/4 mL vial 40 mg 4 mL, IV Push, qDay losartan 25 mg tablet 25 mg 1 tab(s), Oral, qDay No metformin for 48 hrs post contrast 1 EA, Miscellaneous, Unscheduled No metformin for 48 hrs post contrast 1 EA, Miscellaneous, Unscheduled pantoprazole 40 mg EC tablet 40 mg 1 tab(s), Oral, qDayAC thiamine (w/calcium) 100 mg tablet 100 mg 1 tab(s), Oral, qDay Continuous: (2) heparin 25,000 unit(s) [12 unit(s)/kg/hr] + Dextrose 5% Premix Diluent 250 mL 250 mL, Intravenous, 9.42 mL/hr nitroglycerin 50 mg/250 mL D5W 50 mg [5 mcg/min] + Dextrose 5% Premix Diluent 250 mL 250 mL, Intravenous, 1.5 mL/hr PRN: (4) acetaminophen-OXYcodone 325 mg-5 mg Tablet 1 tab(s), Oral, q6hr albuterol - ipratropium 2.5 mg-0.5 mg/3 mL Inhal Brigid UD 3 mL, Inhalation, q4hRT albuterol - ipratropium 2.5 mg-0.5 mg/3 mL Inhal Brigid UD 3 mL, Inhalation, q4hRT heparin 5,000 units/mL (1 mL) vial 4,000 unit(s) 0.8 mL, IV Push, q6h Lab Results 07/17 02:37 WBC: 7.7 Hgb: 12.1 L Hct: 35.2 L Platelet: 192 Neutrophil %: 61.0 Glucose Level: 103 Sodium Level: 136 Potassium Level: 3.0 L BUN: 18.0 Creatinine Lvl (s): 0.87 Imaging Results and Diagnostics XR Chest 1 View Result Date: July 16, 2022 Verified By: ZOILA MILLER MD CLINICAL STATEMENT: IMPRESSION: Complete/nearly complete resolution of previous interstitial edema.Questionable small residual upper lobe infiltrates versus summation artifact. XR Chest 1 View Result Date: July 15, 2022 Verified By: KRISTY MARCANO MD CLINICAL STATEMENT: IMPRESSION: Increased right basilar streaky opacities possibly worsening pulmonary edemaversus pneumonia. Continued follow-up is recommended. Mild pulmonary congestion/edema. I have reviewed this report and agree with the resident findings andinterpretation. EKG Reviewed. Assessment/Plan NSTEMI (status post PCI to mid circumflex culprit vessel ( Multivessel CAD (s/p PCI to the RCA, plan PCI to LAD in the outpatient) Acute hypoxic respiratory failure Newly diagnosed HFmrEF exacerbation (45-50%, diastolic dysfunction, NYHA class II 3, no device) Moderate Moderate MR Mild to moderate TR Electrolyte abnormalities Systemic hypertension Dyslipidemia Mild to moderate COPD GERD Former tobacco abuse with [id number] history Osteoarthritis Patient's other comorbidities DVT prophylaxis Full CODE STATUS As for patient's NSTEMI/CAD, patient presented with NSTEMI. He underwent PCI to the mid circumflex.This was the culprit vessel. Patient was also found to have significant disease in the RCA and the LAD. Patient underwent PCI to the mid RCA with two drug-eluting stent placement on 07/17/2022. He tolerated the procedure well. When patient arrived to the floor, he was significantly hypertensive. Pat chele's TR band did not take. Manual pressure was held at his right radial artery access site. ==> plan is for PCI to the LAD in the outpatient. Continue aspirin 81 mg daily. Continue Plavix 75 mg daily. Continue Coreg 3.125 mg twice daily. Continue atorvastatin 40 mg daily. Add ezetimibe 10 mg daily. As for patient's acute hypoxic respiratory failure/newly diagnosed HFmrEF exacerbation, continue IVLasix diuresis. Continue Coreg 3.125 mg twice daily. Add losartan 25 mg daily. Echocardiogram was reviewed. LVEF is approximately 45-50%. Patient does have at least moderate AAS.At least mild to moderate MR. Mild to moderate TR. Official echocardiogram read is still pending. ==> Close monitoring of patient's blood pressure during the diuresis process. ==> Keep potassium above 4 and magnesium above 2 during the diuresis process. As for patient's systemic hypertension, continue Coreg and losartan. As for patient's dyslipidemia, continue atorvastatin and ezetimibe. As for patient's COPD, continue inhaled treatments. As for patient's disposition, patient will be tentatively plan for discharge tomorrow. As for patient's other comorbidities, we will continue all her home medications/therapies are not currently interfering with this patient's care. Assessment and plan was discussed with Dr. Quijano. Any changes in assessment/plan, will be added as an addendum to this note by the attending physician. I have reviewed all available EKGs, echocardiograms, stress test and cardiac catheterizations. Relevant laboratory data have also been reviewed. This note was transcribed via voice recognition software. Please, forgive any errors or typos, resulting from the use of this technology. Digitally Signed by ROSELIA MUIR MD on 07/17/2022 05:16 PM [id number] Cardiology Progress note Date of Service 07/17/2022 Chief Complaint Patient did not have any complaints today. Subjective In the last 24 hours ==> No significant events on telemetry. This morning, patient was seen and examined, he did not have any complaints. No chest pain or shortness of breath. Denies any fever/chill/sweat/coughing spells. No GI complaints. No urinary complaints. Patient underwent PCI to the mid RCA with two drug-eluting stent placement on 07/17/2022. He tolerated the procedure well. When patient arrived to the floor, he was significantly hypertensive. Patient's TR band did not take. Manual pressure was held at his right radial artery access site. Percutaneous intervention on the 99% stenosis in the mid left circumflex. Balloon angioplasty. Stent placement. 1. 1st lesion: Stent placement was performed. A 2.75 mm (D) x 20 mm (L), Synergy XD stent was used.The stent was advanced across the lesion and deployed with two inflations and a maximum pressure of 12 lena. 2. LAD: Proximal vessel lesion: There is a 70% stenosis. Mid-vessel lesion: There is a 90% stenosis. 3. 1st diagonal: Ostial lesion: There is an 80% stenosis. 4. Left circumflex: Mid-vessel lesion: The diagnostic study demonstrated a discrete, 99% stenosis. The distal vessel supplies a moderate-sized vascular territory. The lesion is a likely culprit for the patient's anginal symptoms, recent myocardial infarction, and clinical presentation. The lesion presents an ACC/AHA type A/B low/moderate risk lesion for intervention. Stent placement was performed, with balloon angioplasty, resulting in an excellent angiographic appearance (see 1st lesion). Following intervention, there is a residual 0% stenosis with LAURA grade 3 flow (brisk flow). 5. Right coronary: Ostial lesion: There is a 95% stenosis. Mid-vessel lesion: There is an 80% stenosis. IMPRESSIONS: 99% LCX disease - s/p PCI with one GREGG placement. Residual disease in RCA and LAD - Plan for staged PCI. Echocardiogram done on 07/17/2022 revealed LVEF of approximately 45-50%. Moderate . Moderate MR. Official echocardiogram is still pending. Objective Vitals and Measurements T: 37.1 C (Oral) TMIN: 36.3 C (Oral) TMAX: 37.1 C (Oral) HR: 104(Monitored) RR: 16 BP: 142/92 SpO2:97% Intake and Output 7AM Yesterday to 7AM Today Intake and Output (Last 24 hours) Intake Output Urine Voided 2350.00 Total Summary Total Intake 0.00 Total Output 2350.00 Fluid Balance -2350.00 Physical Exam General: Patient is under no acute distress,and in no discomfort Head: Normocephalic, Atraumatic Eyes/Ear: Pupils are equal and reactive, No scleral icterus. Nose: Normal appearing nasal nares Mouth: Good oral hygiene, Moist oral mucosa, no pharyngeal erythema or exudates noted, undeviated uvula Neck: Obese, supple, Nontender, No thyromegaly, No JVD, Midline trachea, No lymphadenopathy Chest: Normal breathing effort, clear to auscultation bilaterally Cardiac: RRR, Normal S1-S2, No GR, systolic ejection murmur best heard at RUSB, systolic murmur heard at the cardiac apex Abdomen: Obese, soft, Nontender, Normal active bowel sounds Back: No obvious deformities. Genitourinary: Deferred Extremity: Ecchymosis noted on the right radial access site. Radial pulses 2+ B/L. Warm bilaterally, trace to mild bilateral pedal edema noted, chronic skin changes noted in both lower extremities Skin: No PATHOLOGIC moles, rashes, lesions or ulcers were noted other than what is listed above Neuro: Alert and Oriented 4, Cranial nerves II to XII grossly intact. No focal deficits grossly noted Psych: Pleasant, Good attention Weight Dosing Weight: 76.96 kg (07/15/22) Medications Medications (18) Active Scheduled: (12) ascorbic acid 500 mg tablet 500 mg 1 tab(s), Oral, qDay aspirin 81 mg EC 81 mg 1 tab(s), Oral, qDayM atorvastatin 40 mg tablet 40 mg 1 tab(s), Oral, qDay carvedilol 3.125 mg tablet 3.125 mg 1 tab(s), Oral, BIDM clopidogrel 75 mg Tablet 75 mg 1 tab(s), Oral, qDay folic acid 1 mg tablet 1 mg 1 tab(s), Oral, qDay furosemide 40 mg/4 mL vial 40 mg 4 mL, IV Push, qDay losartan 25 mg tablet 25 mg 1 tab(s), Oral, qDay No metformin for 48 hrs post contrast 1 EA, Miscellaneous, Unscheduled No metformin for 48 hrs post contrast 1 EA, Miscellaneous, Unscheduled pantoprazole 40 mg EC tablet 40 mg 1 tab(s), Oral, qDayAC thiamine (w/calcium) 100 mg tablet 100 mg 1 tab(s), Oral, qDay Continuous: (2) heparin 25,000 unit(s) [12 unit(s)/kg/hr] + Dextrose 5% Premix Diluent 250 mL 250 mL, Intravenous, 9.42 mL/hr nitroglycerin 50 mg/250 mL D5W 50 mg [5 mcg/min] + Dextrose 5% Premix Diluent 250 mL 250 mL, Intravenous, 1.5 mL/hr PRN: (4) acetaminophen-OXYcodone 325 mg-5 mg Tablet 1 tab(s), Oral, q6hr albuterol - ipratropium 2.5 mg-0.5 mg/3 mL Inhal Brigid UD 3 mL, Inhalation, q4hRT albuterol - ipratropium 2.5 mg-0.5 mg/3 mL Inhal Brigid UD 3 mL, Inhalation, q4hRT heparin 5,000 units/mL (1 mL) vial 4,000 unit(s) 0.8 mL, IV Push, q6h Lab Results 07/17 02:37 WBC: 7.7 Hgb: 12.1 L Hct: 35.2 L Platelet: 192 Neutrophil %: 61.0 Glucose Level: 103 Sodium Level: 136 Potassium Level: 3.0 L BUN: 18.0 Creatinine Lvl (s): 0.87 Imaging Results and Diagnostics XR Chest 1 View Result Date: July 16, 2022 Verified By: ZOILA MILLER MD CLINICAL STATEMENT: IMPRESSION: Complete/nearly complete resolution of previous interstitial edema.Questionable small residual upper lobe infiltrates versus summation artifact. XR Chest 1 View Result Date: July 15, 2022 Verified By: KRISTY MARCANO MD CLINICAL STATEMENT: IMPRESSION: Increased right basilar streaky opacities possibly worsening pulmonary edemaversus pneumonia. Continued follow-up is recommended. Mild pulmonary congestion/edema. I have reviewed this report and agree with the resident findings andinterpretation. EKG Reviewed. 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 He underwent PCI to the mid circumflex.This was the culprit vessel. Patient was also found to have significant disease in the RCA and the LAD. Patient underwent PCI to the mid RCA with two drug-eluting stent placement on 07/17/2022. He tolerated the procedure well. When patient arrived to the floor, he was significantly hypertensive. Pat chele's TR band did not take. Manual pressure was held at his right radial artery access site. ==> plan is for PCI to the LAD in the outpatient. Continue aspirin 81 mg daily. Continue Plavix 75 mg daily. Continue Coreg 3.125 mg twice daily. Continue atorvastatin 40 mg daily. Add ezetimibe 10 mg daily. As for patient's acute hypoxic respiratory failure/newly diagnosed HFmrEF exacerbation, continue IVLasix diuresis. Continue Coreg 3.125 mg twice daily. Add losartan 25 mg daily. Echocardiogram was reviewed. LVEF is approximately 45-50%. Patient does have at least moderate AAS.At least mild to moderate MR. Mild to moderate TR. Official echocardiogram read is still pending. ==> Close monitoring of patient's blood pressure during the diuresis process. ==> Keep potassium above 4 and magnesium above 2 during the diuresis process. As for patient's systemic hypertension, continue Coreg and losartan. As for patient's dyslipidemia, continue atorvastatin and ezetimibe. As for patient's COPD, continue inhaled treatments. As for patient's disposition, patient will be tentatively plan for discharge tomorrow. As for patient's other comorbidities, we will continue all her home medications/therapies are not currently interfering with this patient's care. Assessment and plan was discussed with Dr. Quijano. Any changes in assessment/plan, will be added as an addendum to this note by the attending physician. I have reviewed all available EKGs, echocardiograms, stress test and cardiac catheterizations. Relevant laboratory data have also been reviewed. This note was transcribed via voice recognition software. Please, forgive any errors or typos, resulting from the use of this technology. Digitally Signed by ROSELIA MUIR MD on 07/17/2022 05:16 PM [id number] Note Date of Service 07/17/2022 Chief Complaint Awaiting PCI of the RCA. Subjective Mr. Logan is an 86-year-old male with a significant past medical history of chronic right hip pain on chronic Percocet for pain management, osteoarthritis, hypertension, seasonal allergies, unsteady gait (ambulates with cane), former smoker, COPD, chronic GERD, gout, alcohol use that presented tohis PCP office on 07/15/2022 with a 2 weeks history of substernal chest pain and pressure going into his back and radiating into his jaw and left arm that progressively got worse over the past 3-4 days. The pain is intermittent would last about an hour and then go away and then return. The discomfortwas present with exertion and rest. That he is in endorses progressive dyspnea since onset of symptoms as well as dizziness when he stands up. EKG was performed in the PCP office which showed ST depression in the lateral leads. The patient was transferred to [facility] emergency department for further evaluation. He denies fever, chills, diaphoresis, nausea, vomiting, or abdominal pain. No increased peripheral edema, or hemoptysis. Upon arrival to the emergency department EKG was performed and showed ST depression in leads V3 through V6. Chest x-ray demonstrated, questionable vascular congestion.. CBC demonstrated no leukocytosis, stable anemia hemoglobin 12.9, hematocrit 37.9, no thrombocytopenia. Chloride 97, CO2 34, glucose 131 otherwise chemistry unremarkable. Troponin 1214. Patient was not initiated on heparin by weight. Cardiology at [facility] was notified and he was transferred for further ischemic work-up. Once the patient arrived to [facility] he had progressive 10 out of 10 chest pain. Repeat EKGshowed further ST depression in the anterior lateral leads. 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 Culprit lesion determined to be the left circumflex. Patient underwent PCI with drug-eluting stent to the left circumflex. He currently is being treated with goal directed medical therapy. Tentative plan for further stenting on Sunday. Hospitalist service has been consulted for routine medical management. Patient seen in his room today. Patient states he is feeling better than on admission. Patient sitting up in the chair talking on the phone. Patient denies chest pain, shortness of breath, dizziness,lightheadedness. Patient states he drinks 3-4 beers daily. Denies any symptoms of withdrawal including palpitations, diaphoresis, tremors, hallucinations. Nursing staff report no evidence noted of withdrawal from alcohol. Plan of care discussed with patient. Patient agreeable at this time. Objective Vitals and Measurements T: 36.9 C (Oral) TMIN: 36.3 C (Oral) TMAX: 37.1 C (Oral) HR: 93(Monitored) RR: 18 BP: 189/78 SpO2: 96% Intake and Output 7AM Yesterday to 7AM Today Intake and Output (Last 24 hours) Intake Oral Intake 420.00 Administration Information 62.00 Output Urine Voided 1000.00 Total Summary Total Intake 482.00 Total Output 1000.00 Fluid Balance -518.00 Physical Exam GEN: Appears chronically ill EYES: No conjunctival erythema, drainage. EOMI EARS: Hearing grossly intact. NOSE: No nasal discharge. THROAT: Oral cavity and pharynx pink and moist. CHEST: Normal S1 and S2. Rhythm is regular. Clear to auscultation, without rales, rhonchi, wheezing. ABD: Positive bowel sounds x 4 quads. Soft, nondistended, nontender. EXT: No significant deformity or joint abnormality. No edema. Peripheral pulses intact. NEURO: Sensation grossly intact SKIN: Skin color normal PSYCH: The mental examination revealed the patient was alert and oriented x 4 Weight Dosing Weight: 76.96 kg (07/15/22) Medications Medications (18) Active Scheduled: (12) ascorbic acid 500 mg tablet 500 mg 1 tab(s), Oral, qDay aspirin 81 mg EC 81 mg 1 tab(s), Oral, qDayM atorvastatin 40 mg tablet 40 mg 1 tab(s), Oral, qDay carvedilol 3.125 mg tablet 3.125 mg 1 tab(s), Oral, BIDM clopidogrel 75 mg Tablet 75 mg 1 tab(s), Oral, qDay folic acid 1 mg tablet 1 mg 1 tab(s), Oral, qDay furosemide 40 mg/4 mL vial 40 mg 4 mL, IV Push, qDay losartan 25 mg tablet 25 mg 1 tab(s), Oral, qDay No metformin for 48 hrs post contrast 1 EA, Miscellaneous, Unscheduled No metformin for 48 hrs post contrast 1 EA, Miscellaneous, Unscheduled pantoprazole 40 mg EC tablet 40 mg 1 tab(s), Oral, qDayAC thiamine (w/calcium) 100 mg tablet 100 mg 1 tab(s), Oral, qDay Continuous: (2) heparin 25,000 unit(s) [12 unit(s)/kg/hr] + Dextrose 5% Premix Diluent 250 mL 250 mL, Intravenous, 9.42 mL/hr nitroglycerin 50 mg/250 mL D5W 50 mg [5 mcg/min] + Dextrose 5% Premix Diluent 250 mL 250 mL, Intravenous, 1.5 mL/hr PRN: (4) acetaminophen-OXYcodone 325 mg-5 mg Tablet 1 tab(s), Oral, q6hr albuterol - ipratropium 2.5 mg-0.5 mg/3 mL Inhal Brigid UD 3 mL, Inhalation, q4hRT albuterol - ipratropium 2.5 mg-0.5 mg/3 mL Inhal Brigid UD 3 mL, Inhalation, q4hRT heparin 5,000 units/mL (1 mL) vial 4,000 unit(s) 0.8 mL, IV Push, q6h Lab Results 07/17 02:37 WBC: 7.7 Hgb: 12.1 L Hct: 35.2 L Platelet: 192 Neutrophil %: 61.0 Glucose Level: 103 Sodium Level: 136 Potassium Level: 3.0 L BUN: 18.0 Creatinine Lvl (s): 0.87 07/16 04:37 WBC: 7.0 Hgb: 11.9 L Hct: 35.4 L Platelet: 176 Neutrophil %: 66.5 Glucose Level: 105 Sodium Level: 139 Potassium Level: 3.3 L BUN: 15.0 Creatinine Lvl (s): 0.85 Imaging Results and Diagnostics XR Chest 1 View Result Date: July 16, 2022 Verified By: ZOILA MILLER MD CLINICAL STATEMENT: IMPRESSION: Complete/nearly complete resolution of previous interstitial edema.Questionable small residual upper lobe infiltrates versus summation artifact. XR Chest 1 View Result Date: July 15, 2022 Verified By: KRISTY MARCANO MD CLINICAL STATEMENT: IMPRESSION: Increased right basilar streaky opacities possibly worsening pulmonary edemaversus pneumonia. Continued follow-up is recommended. Mild pulmonary congestion/edema. I have reviewed this report and agree with the resident findings andinterpretation. EKG Electrocardiogram (EKG) - InProcess -- 07/17/22 12:50:00 EDT, Post-procedure, Complete by Nursing Assessment/Plan 1. NSTEMI (non-ST elevated myocardial infarction) 2. Coronary artery disease 3. Primary hypertension 4. COPD without exacerbation 5. Chronic pain 6. Former smoker 7. Chronic alcohol use 86-year-old male presents with a 2-week history of intermittent midsternal chest pain that radiatesinto his back and jaw. Discomfort progressively got worse over the last 3 to 4 days. He presented to his PCP. EKG was performed in the office and demonstrated ST changes in the lateral leads. Patientwas transferred to [facility] emergency department for further evaluation. Upon arrival to the emergency department EKG showed ST depression in leads V3 through V6. Chest x-ray showed questionable vascular congestion. Troponin was elevated at 1214. He was initiated on heparin by weight. Cardiology at [facility] was notified he was transferred for further ischemic work-up. Upon arrival[place] he had progressive 10 out of 10 chest pain. Repeat EKG showed further ST depression in the anterior lateral leads with significant increase in troponin. He was taken urgently to the cardiac [facility] where he underwent coronary angiography which showed severe multivessel coronary disease involving circumflex, RCA, LAD. Culprit lesion determined to be the left circumflex. He underwent PCI with drug- eluting stent. Hospitalist service was consulted to assist with routine medical management. Overall, patient states that his symptoms have significantly improved status post cardiac intervention. He has no further chest pain or dyspnea. He is currently being treated with goal-directed medical therapy per primary team. -Per cardiology patient on daily weights, strict I's and O's, heparin drip, Lasix 40 mg IV daily, losartan 25 daily, aspirin 81 mg daily, Plavix 75 mg daily, nitro drip, Coreg 3.125 mg daily, atorvastatin 40 mg daily. Pulmonology consult. PCI for RCA scheduled for 07/17/2022. Will need PCI to LAD as outpatient. History of hypertension. -He is currently being treated by the primary team with carvedilol and losartan. COPD without acute exacerbation. Patient has history of smoking cigarettes. He quit approximately 20 years ago due to recurrent bronchitis. Patient initially started age 17 and was a pack per day smoker up until that time. He has a noted diagnosis of COPD in his medical record, however after further inquiry the patient cannot give specific details. He does not take routine bronchodilators or inhaled corticosteroids. He is uncertain if he is underwent PFT testing in the past. Chest x-ray reviewed and demonstrates findings more consistent with pulmonary edema. Low suspicion for infectious process. Currently the patient is asymptomatic. No wheezing, fever, chills, increasedsputum production. Suspect his dyspnea is related to his acute coronary syndrome and possible new onset heart failure. His symptoms have significantly improved after cardiac intervention. As needed bronchodilators for symptom management. If concern for underlying pulmonary disease, this likely can be pursued on outpatient basis and pulmonary function testing can be considered. -Pulmonary consult per primary team. -Patient seen per pulmonology on 07/16/2022. Pulmonology feels patient's dyspnea is related to non-STEMI and coronary artery disease. No formal evaluation for COPD. Chest x-ray shows pulmonary edema and small amount of pleural effusions. Recommend outpatient pulmonary function testing. Hold off on bronchodilator as that may increase the heart rate. Repeat the chest x-ray once cardiac status is optimized. Low-dose CT scan not indicated as the patient quit smoking more than 20 years ago. Patient has chronic right hip pain related to osteoarthritis. He is prescribed Percocet which he uses on a routine basis. Will continue as needed for symptom management. History of chronic alcohol use. Patient drinks 1-4 beers per day. He denies history of alcohol withdrawal. Currently demonstrates no signs or symptoms of withdrawal. We will place him on thiamine andfolic acid x3 days. Monitor for signs of withdrawal. -Patient continues to remain without symptoms of alcohol withdrawal. All other chronic comorbidities are stable. The plan of care, including the role of the hospitalist within the multidisciplinary team was discussed with the patient, questions answered, he is amenable to the plan. Thank you for consultation. This dictation was performed using voice recognition software may include grammatical and/or spelling errors. Digitally Signed by ARTUR VARGAS on 07/17/2022 01:54 PM [id number] Note Date of Service 07/17/2022 Chief Complaint Awaiting PCI of the RCA. Subjective Mr. Logan is an 86-year-old male with a significant past medical history of chronic right hip pain on chronic Percocet for pain management, osteoarthritis, hypertension, seasonal allergies, unsteady gait (ambulates with cane), former smoker, COPD, chronic GERD, gout, alcohol use that presented tohis PCP office on 07/15/2022 with a 2 weeks history of substernal chest pain and pressure going into his back and radiating into his jaw and left arm that progressively got worse over the past 3-4 days. The pain is intermittent would last about an hour and then go away and then return. The discomfortwas present with exertion and rest. That he is in endorses progressive dyspnea since onset of symptoms as well as dizziness when he stands up. EKG was performed in the PCP office which showed ST depression in the lateral leads. The patient was transferred to [facility] emergency department for further evaluation. He denies fever, chills, diaphoresis, nausea, vomiting, or abdominal pain. No increased peripheral edema, or hemoptysis. Upon arrival to the emergency department EKG was performed and showed ST depression in leads V3 through V6. Chest x-ray demonstrated, questionable vascular congestion.. CBC demonstrated no leukocytosis, stable anemia hemoglobin 12.9, hematocrit 37.9, no thrombocytopenia. Chloride 97, CO2 34, glucose 131 otherwise chemistry unremarkable. Troponin 1214. Patient was not initiated on heparin by weight. Cardiology at [facility] was notified and he was transferred for further ischemic work-up. Once the patient arrived to [facility] he had progressive 10 out of 10 chest pain. Repeat EKGshowed further ST depression in the anterior lateral leads. 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 Culprit lesion determined to be the left circumflex. Patient underwent PCI with drug-eluting stent to the left circumflex. He currently is being treated with goal directed medical therapy. Tentative plan for further stenting on Sunday. Hospitalist service has been consulted for routine medical management. Patient seen in his room today. Patient states he is feeling better than on admission. Patient sitting up in the chair talking on the phone. Patient denies chest pain, shortness of breath, dizziness,lightheadedness. Patient states he drinks 3-4 beers daily. Denies any symptoms of withdrawal including palpitations, diaphoresis, tremors, hallucinations. Nursing staff report no evidence noted of withdrawal from alcohol. Plan of care discussed with patient. Patient agreeable at this time. Objective Vitals and Measurements T: 36.9 C (Oral) TMIN: 36.3 C (Oral) TMAX: 37.1 C (Oral) HR: 93(Monitored) RR: 18 BP: 189/78 SpO2: 96% Intake and Output 7AM Yesterday to 7AM Today Intake and Output (Last 24 hours) Intake Oral Intake 420.00 Administration Information 62.00 Output Urine Voided 1000.00 Total Summary Total Intake 482.00 Total Output 1000.00 Fluid Balance -518.00 Physical Exam GEN: Appears chronically ill EYES: No conjunctival erythema, drainage. EOMI EARS: Hearing grossly intact. NOSE: No nasal discharge. THROAT: Oral cavity and pharynx pink and moist. CHEST: Normal S1 and S2. Rhythm is regular. Clear to auscultation, without rales, rhonchi, wheezing. ABD: Positive bowel sounds x 4 quads. Soft, nondistended, nontender. EXT: No significant deformity or joint abnormality. No edema. Peripheral pulses intact. NEURO: Sensation grossly intact SKIN: Skin color normal PSYCH: The mental examination revealed the patient was alert and oriented x 4 Weight Dosing Weight: 76.96 kg (07/15/22) Medications Medications (18) Active Scheduled: (12) ascorbic acid 500 mg tablet 500 mg 1 tab(s), Oral, qDay aspirin 81 mg EC 81 mg 1 tab(s), Oral, qDayM atorvastatin 40 mg tablet 40 mg 1 tab(s), Oral, qDay carvedilol 3.125 mg tablet 3.125 mg 1 tab(s), Oral, BIDM clopidogrel 75 mg Tablet 75 mg 1 tab(s), Oral, qDay folic acid 1 mg tablet 1 mg 1 tab(s), Oral, qDay furosemide 40 mg/4 mL vial 40 mg 4 mL, IV Push, qDay losartan 25 mg tablet 25 mg 1 tab(s), Oral, qDay No metformin for 48 hrs post contrast 1 EA, Miscellaneous, Unscheduled No metformin for 48 hrs post contrast 1 EA, Miscellaneous, Unscheduled pantoprazole 40 mg EC tablet 40 mg 1 tab(s), Oral, qDayAC thiamine (w/calcium) 100 mg tablet 100 mg 1 tab(s), Oral, qDay Continuous: (2) heparin 25,000 unit(s) [12 unit(s)/kg/hr] + Dextrose 5% Premix Diluent 250 mL 250 mL, Intravenous, 9.42 mL/hr nitroglycerin 50 mg/250 mL D5W 50 mg [5 mcg/min] + Dextrose 5% Premix Diluent 250 mL 250 mL, Intravenous, 1.5 mL/hr PRN: (4) acetaminophen-OXYcodone 325 mg-5 mg Tablet 1 tab(s), Oral, q6hr albuterol - ipratropium 2.5 mg-0.5 mg/3 mL Inhal Brigid UD 3 mL, Inhalation, q4hRT albuterol - ipratropium 2.5 mg-0.5 mg/3 mL Inhal Brigid UD 3 mL, Inhalation, q4hRT heparin 5,000 units/mL (1 mL) vial 4,000 unit(s) 0.8 mL, IV Push, q6h Lab Results 07/17 02:37 WBC: 7.7 Hgb: 12.1 L Hct: 35.2 L Platelet: 192 Neutrophil %: 61.0 Glucose Level: 103 Sodium Level: 136 Potassium Level: 3.0 L BUN: 18.0 Creatinine Lvl (s): 0.87 07/16 04:37 WBC: 7.0 Hgb: 11.9 L Hct: 35.4 L Platelet: 176 Neutrophil %: 66.5 Glucose Level: 105 Sodium Level: 139 Potassium Level: 3.3 L BUN: 15.0 Creatinine Lvl (s): 0.85 Imaging Results and Diagnostics XR Chest 1 View Result Date: July 16, 2022 Verified By: ZOILA MILLER MD CLINICAL STATEMENT: IMPRESSION: Complete/nearly complete resolution of previous interstitial edema.Questionable small residual upper lobe infiltrates versus summation artifact. XR Chest 1 View Result Date: July 15, 2022 Verified By: KRISTY MARCANO MD CLINICAL STATEMENT: IMPRESSION: Increased right basilar streaky opacities possibly worsening pulmonary edemaversus pneumonia. Continued follow-up is recommended. Mild pulmonary congestion/edema. I have reviewed this report and agree with the resident findings andinterpretation. EKG Electrocardiogram (EKG) - InProcess -- 07/17/22 12:50:00 EDT, Post-procedure, Complete by Nursing Assessment/Plan 1. NSTEMI (non-ST elevated myocardial infarction) 2. Coronary artery disease 3. Primary hypertension 4. COPD without exacerbation 5. Chronic pain 6. Former smoker 7. Chronic alcohol use 86-year-old male presents with a 2-week history of intermittent midsternal chest pain that radiatesinto his back and jaw. Discomfort progressively got worse over the last 3 to 4 days. He presented to his PCP. EKG was performed in the office and demonstrated ST changes in the lateral leads. Patientwas transferred to [facility] emergency department for further evaluation. Upon arrival to the emergency department EKG showed ST depression in leads V3 through V6. Chest x-ray showed questionable vascular congestion. Troponin was elevated at 1214. He was initiated on heparin by weight. Cardiology at [facility] was notified he was transferred for further ischemic work-up. Upon arrivalto [place] he had progressive 10 out of 10 chest pain. Repeat EKG showed further ST depression in the anterior lateral leads with significant increase in troponin. He was taken urgently to the cardiac [facility] where he underwent coronary angiography which showed severe multivessel coronary disease involving circumflex, RCA, LAD. Culprit lesion determined to be the left circumflex. He underwent PCI with drug- eluting stent. Hospitalist service was consulted to assist with routine medical management. Overall, patient states that his symptoms have significantly improved status post cardiac intervention. He has no further chest pain or dyspnea. He is currently being treated with goal-directed medical therapy per primary team. -Per cardiology patient on daily weights, strict I's and O's, heparin drip, Lasix 40 mg IV daily, losartan 25 daily, aspirin 81 mg daily, Plavix 75 mg daily, nitro drip, Coreg 3.125 mg daily, atorvastatin 40 mg daily. Pulmonology consult. PCI for RCA scheduled for 07/17/2022. Will need PCI to LAD as outpatient. History of hypertension. -He is currently being treated by the primary team with carvedilol and losartan. COPD without acute exacerbation. Patient has history of smoking cigarettes. He quit approximately 20 years ago due to recurrent bronchitis. Patient initially started age 17 and was a pack per day smoker up until that time. He has a noted diagnosis of COPD in his medical record, however after further inquiry the patient cannot give specific details. He does not take routine bronchodilators or inhaled corticosteroids. He is uncertain if he is underwent PFT testing in the past. Chest x-ray reviewed and demonstrates findings more consistent with pulmonary edema. Low suspicion for infectious process. Currently the patient is asymptomatic. No wheezing, fever, chills, increasedsputum production. Suspect his dyspnea is related to his acute coronary syndrome and possible new onset heart failure. His symptoms have significantly improved after cardiac intervention. As needed bronchodilators for symptom management. If concern for underlying pulmonary disease, this likely can be pursued on outpatient basis and pulmonary function testing can be considered. -Pulmonary consult per primary team. -Patient seen per pulmonology on 07/16/2022. Pulmonology feels patient's dyspnea is related to non-STEMI and coronary artery disease. No formal evaluation for COPD. Chest x-ray shows pulmonary edema and small amount of pleural effusions. Recommend outpatient pulmonary function testing. Hold off on bronchodilator as that may increase the heart rate. Repeat the chest x-ray once cardiac status is optimized. Low-dose CT scan not indicated as the patient quit smoking more than 20 years ago. Patient has chronic right hip pain related to osteoarthritis. He is prescribed Percocet which he uses on a routine basis. Will continue as needed for symptom management. History of chronic alcohol use. Patient drinks 1-4 beers per day. He denies history of alcohol withdrawal. Currently demonstrates no signs or symptoms of withdrawal. We will place him on thiamine andfolic acid x3 days. Monitor for signs of withdrawal. -Patient continues to remain without symptoms of alcohol withdrawal. All other chronic comorbidities are stable. The plan of care, including the role of the hospitalist within the multidisciplinary team was discussed with the patient, questions answered, he is amenable to the plan. Thank you for consultation. This dictation was performed using voice recognition software may include grammatical and/or spelling errors. Digitally Signed by ARTUR VARGAS on 07/17/2022 01:54 PM [id number] Card[facility] Progress note Date of Service 07/16/22 Chief Complaint CP HPI 86-year-old man with past medical history of hypertension, hyperlipidemia, former tobacco abuse with [id number] history, GERD, and osteoarthritis came to the emergency department at [facility] complaining of chest pain. Initial vital signs within normal limit. Initial CBC within normal limit. Initial BMP within normal limit. Initial high-sensitivity troponin 1214. Initial EKG with nonspecific ST changes. Patient was transferred to [facility] for ischemic evaluation. Once patient arrived on floor to [facility] patient complained of 10 out of 10 chest pain. Patient was evaluated at bedside. Repeat EKG showed deep ST depressions in anterior lateral leads. STEMI alert was called patient was taken urgently to the cardiac catheterization lab. Coronary angiography showed severe multivessel coronary artery disease involving the circumflex, RCA and LAD. Culprit lesion was determined to be the left circumflex. Patient underwent PCI with GREGG to left circumflex. Patient was admitted to the cardiology service for further management. Pulmonology and hospitalist consulted for management. Patient is currently being diuresed and optimized on goal- directed medical therapy. Subjective No acute events overnight No new complaints Objective Vitals and Measurements T: 36.7 C (Oral) TMIN: 36.6 C (Oral) TMAX: 36.7 C (Oral) HR: 84(Monitored) RR: 18 BP: 138/61 SpO2: 93% HT: 175.3 cm WT: 76.96 kg BMI: 25.04 Intake and Output 7AM Yesterday to 7AM Today Intake and Output (Last 24 hours) Intake Oral Intake 0.00 Administration Information 42.00 Output Urine Voided 1150.00 Total Summary Total Intake 42.00 Total Output 1150.00 Fluid Balance -1108.00 Physical Exam General: AAOX3, mild distress, elderly appearing man HEENT: Anicteric sclera, MMM Neck: Trachea midline, JVD appreciated CVS: RRR, normal S1/S2, no murmurs/rubs/gallops Lung: CTAB, no wheezes/rhonchi/rales Abd: Soft, NT/ND Extrem: WWP, no LE edema Skin: Warm, Intact Neuro: AAOX3, spontaneous movement of all extremities Psych: Appropriate mood & affect Weight Dosing Weight: 76.96 kg (07/15/22) Medications Medications (19) Active Scheduled: (13) ascorbic acid 500 mg tablet 500 mg 1 tab(s), Oral, qDay aspirin 81 mg EC 81 mg 1 tab(s), Oral, qDayM atorvastatin 40 mg tablet 40 mg 1 tab(s), Oral, qDay carvedilol 3.125 mg tablet 3.125 mg 1 tab(s), Oral, BIDM clopidogrel 75 mg Tablet 75 mg 1 tab(s), Oral, qDay folic acid 1 mg tablet 1 mg 1 tab(s), Oral, qDay furosemide 40 mg/4 mL vial 40 mg 4 mL, IV Push, BID losartan 25 mg tablet 25 mg 1 tab(s), Oral, qDay magnesium sulfate 4 gram(s)/100mL PMX 4 gram(s) 100 mL, IV Piggyback, Once No metformin for 48 hrs post contrast 1 EA, Miscellaneous, Unscheduled pantoprazole 40 mg EC tablet 40 mg 1 tab(s), Oral, qDayAC potassium chloride 20 mEq ER tablet 40 mEq 2 tab(s), Oral, Once thiamine (w/calcium) 100 mg tablet 100 mg 1 tab(s), Oral, qDay Continuous: (2) heparin 25,000 unit(s) [12 unit(s)/kg/hr] + Dextrose 5% Premix Diluent 250 mL 250 mL, Intravenous, 9.42 mL/hr nitroglycerin 50 mg/250 mL D5W 50 mg [5 mcg/min] + Dextrose 5% Premix Diluent 250 mL 250 mL, Intravenous, 1.5 mL/hr PRN: (4) acetaminophen-OXYcodone 325 mg-5 mg Tablet 1 tab(s), Oral, q6hr albuterol - ipratropium 2.5 mg-0.5 mg/3 mL Inhal Brigid UD 3 mL, Inhalation, q4hRT albuterol - ipratropium 2.5 mg-0.5 mg/3 mL Inhal Brigid UD 3 mL, Inhalation, q4hRT heparin 5,000 units/mL (1 mL) vial 4,000 unit(s) 0.8 mL, IV Push, q6h Lab Results 07/16 04:37 WBC: 7.0 Hgb: 11.9 L Hct: 35.4 L Platelet: 176 Neutrophil %: 66.5 Glucose Level: 105 Sodium Level: 139 Potassium Level: 3.3 L BUN: 15.0 Creatinine Lvl (s): 0.85 07/15 20:45 WBC: 11.8 H Hgb: 13.1 Hct: 39.5 L Platelet: 197 Neutrophil %: 83.1 H Protime: 13.4 PT International Ratio: 1.1 Glucose Level: 129 H Sodium Level: 136 Potassium Level: 3.3 L BUN: 11.0 Creatinine Lvl (s): 0.64 Imaging Results and Diagnostics XR Chest 1 View Result Date: July 15, 2022 Verified By: KRISTY MARCANO MD CLINICAL STATEMENT: IMPRESSION: Increased right basilar streaky opacities possibly worsening pulmonary edemaversus pneumonia. Continued follow-up is recommended. Mild pulmonary congestion/edema. I have reviewed this report and agree with the resident findings andinterpretation. EKG Electrocardiogram (EKG) - InProcess -- 07/15/22 17:41:00 EDT Electrocardiogram (EKG) - Ordered -- 07/15/22 20:09:00 EDT, Post-procedure, Complete by Nursing Electrocardiogram (EKG) - InProcess -- 07/15/22 20:41:00 EDT, Unless 2 EKGs already done in the past 6 hours Electrocardiogram (EKG) - Ordered -- 07/15/22 23:41:00 EDT Assessment/Plan #NSTEMI #Severe multivessel coronary artery disease status post PCI to left circumflex with residual RCA and LAD disease #Acute hypoxic respiratory failure #Concern for new onset CHF #Electrolyte disturbance #Hypertension #Hyperlipidemia #Former tobacco abuse with 60-fhmq-ykex history #COPD? #GERD #Osteoarthritis - Latest EKG reviewed - Latest imaging reviewed - Latest ischemic work-up reviewed Plan: - Follow-up transthoracic echocardiogram - Daily weight, strict I+Os - Continue heparin drip - Decreasing to Furosemide 40 mg IV daily - Inpatient ACS regimen ACEi/ARB: Losartan 25 mg daily Analgesia: None Antiplatelet:Aspirin 81 mg daily, clopidogrel 75 mg daily After/Pre: Continue nitroglycerin drip BBlockade: Coreg 3.125 mg daily Lipid:Atorvastatin 40 mg daily Device: None Advanced Therapies: None - Continue all other medications as prescribed - Consulted pulmonology, appreciate recommendations - Consulted hospitalist, appreciate recommendations - Ordered PCI to RCA for Sunday, NPO at midnight - Will need PCI to LAD outpatient Patient seen and discussed with Dr. Ryan Parham II, MD PGY-4 Cardiovascular Disease Fellow Pager: [phone] Digitally Signed by AALIYAH PARHAM MD on 07/16/2022 12:08 PM [id number] History and physical note Date of Service 07/15/22 Chief Complaint CP History of Present Illness 86-year-old man with past medical history of hypertension, hyperlipidemia, former tobacco abuse with [id number]-[id number] history, GERD, and osteoarthritis came to the emergency department at [facility] complaining of chest pain. Initial vital signs within normal limit. Initial CBC within normal limit. Initial BMP within normal limit. Initial high-sensitivity troponin 1214. Initial EKG with nonspecific ST changes. Patient was transferred to [facility] for ischemic evaluation. Once patient arrived on floor to [facility] patient complained of 10 out of 10 chest pain. Patient was evaluated at bedside. Repeat EKG showed deep ST depressions in anterior lateral leads. STEMI alert was called patient was taken urgently to the cardiac catheterization lab. Coronary angiography showed severe multivessel coronary artery disease involving the circumflex, RCA and LAD. Culprit lesion was determined to be the left circumflex. Patient underwent PCI with GREGG to left circumflex. Patient was admitted to the cardiology service for further management. Patient is currently being diuresed and optimized on goal-directed medical therapy. As patient does not know what medications he takes at homewe will hold off on starting home high-dose beta- blockade and LAURA and ARB and uptitrate low doses as needed. PMH: As documented in chart PSH: As documented in chart FH: As documented in chart SH: 51-[id number]-fvnj history, drinks 4 beers a day, no drug use retired Allergies: As documented in chart Review of Systems Per HPI, Complete ROS otherwise negative Physical Exam Vitals and Measurements T: 36.7 C (Oral) HR: 98(Monitored) RR: 18 BP: 179/73 SpO2: 98% HT: 175.3 cm WT: 76.96 kg BMI: 25.04 Weight Dosing Weight: 76.96 kg (07/15/22) General: AAOX3, mild distress, elderly appearing man HEENT: Anicteric sclera, MMM Neck: Trachea midline, JVD appreciated CVS: RRR, normal S1/S2, no murmurs/rubs/gallops Lung: CTAB, no wheezes/rhonchi/rales Abd: Soft, NT/ND Extrem: WWP, no LE edema Skin: Warm, Intact Neuro: AAOX3, spontaneous movement of all extremities Psych: Appropriate mood & affect Lab Results No 36 Hour Lab Data Imaging Results and Diagnostics XR Chest 1 View Result Date: July 15, 2022 Verified By: KRISTY MARCANO MD CLINICAL STATEMENT: IMPRESSION: Increased right basilar streaky opacities possibly worsening pulmonary edemaversus pneumonia. Continued follow-up is recommended. Mild pulmonary congestion/edema. I have reviewed this report and agree with the resident findings andinterpretation. Assessment/Plan #NSTEMI #Severe multivessel coronary artery disease status post PCI to left circumflex with residual RCA and LAD disease #Acute hypoxic respiratory failure #Concern for new onset CHF #Hypertension #Hyperlipidemia #Former tobacco abuse with 75-zuxu-szsq history #COPD? #GERD #Osteoarthritis - Latest EKG reviewed - Latest imaging reviewed - Latest ischemic work-up reviewed Plan: - Follow-up transthoracic echocardiogram - Daily weight, strict I+Os - Continue heparin drip - Furosemide 40 mg IV twice daily - Inpatient ACS regimen ACEi/ARB: Starting losartan 25 mg daily Analgesia: None Antiplatelet:Aspirin 81 mg daily, clopidogrel 75 mg daily After/Pre: Continue nitroglycerin drip BBlockade: Starting Coreg 3.125 mg daily Lipid:Atorvastatin 40 mg daily Device: None Advanced Therapies: None - Continue all other medications as prescribed - Consulted pulmonology, appreciate recommendations - Consulted hospitalist, appreciate recommendations - Will need repeat PCI to RCA on Sunday and LAD outpatient Patient seen and discussed with Dr. Juice Parham II, MD PGY-4 Cardiovascular Disease Fellow Pager: [phone] Problem List/Past Medical History Ongoing Abnormal EKG Actinic keratosis Amaurosis fugax Ambulates with cane Anxiety and depression Aortic stenosis, mild At low risk for fall Back pain Bilateral hand pain BPH (benign prostatic hyperplasia) Carpal tunnel syndrome, right Cataract Chest pain Chronic pain Chronic pain of right hip Chronic prescription opiate use Congestion of nasal sinus COPD without exacerbation Dry skin Elevated fasting glucose Elevated PSA Encounter for well adult exam with abnormal findings Esophageal dysphagia Former smoker GERD (gastroesophageal reflux disease) High risk medication use HTN (hypertension) Hx of blood clots Hx of gout Hyperkeratosis Immunization due Insect bite Left wrist pain Leg cramps Leg swelling Macular degeneration, dry Major depression in remission Onychomycosis Paresthesia Primary osteoarthritis Refused influenza vaccine Restless legs Right ear impacted cerumen Screening due Screening for cardiovascular condition Seasonal allergies Somatic dysfunction of lumbar region Somatic dysfunction of pelvic region 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 Unsteady gait Wears dentures Wears glasses Historical Gastroesophageal reflux disease Hyperkeratosis Primary osteoarthritis Procedure/Surgical History Leg Surgery: 03/17/10 Hernia repair: 11/13/09 Cataract extraction Total hip replacement Medications Home Medications (16) Active acetaminophen-oxyCODONE 325 mg-5 mg oral tablet 1 tab(s), PRN, Oral, q6hr amLODIPine 5 mg oral tablet 5 mg = 1 tab(s), Oral, qDay ammonium lactate 12% topical cream 1 cipriano, Topical, BID aspirin 81 mg oral delayed release tablet 162 mg = 2 tab(s), Oral, Daily carvedilol 25 mg oral tablet 25 mg = 1 tab(s), Oral, BID cetirizine 10 mg oral tablet 10 mg = 1 tab(s), Oral, qDay DME MISCellaneous See Instructions ensure etodolac 300 mg oral capsule 300 mg = 1 cap(s), Oral, BID hydrochlorothiazide-irbesartan 12.5 mg-300 mg oral tablet 1 tab(s), Oral, qDay Multivitamin 1 tab(s), Oral, Daily omeprazole 40 mg oral delayed release capsule 40 mg = 1 cap(s), Oral, qDay PreserVision 1 tab(s), Oral, qDay PreserVision AREDS 2 oral capsule 1 cap(s), Oral, BID Vitamin C 500 mg oral tablet 500 mg = 1 tab(s), Oral, qDay Vitamin D3 4,000 unit(s) = 1 tab(s), Oral, Daily Allergies Cipro (Muscle ache) traMADol (Itching) Social History Alcohol Use: Current. 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 OTher risks in environment: no smoke exposure., 07/23/2021 Nutrition/Health Caffeine intake amount: 2 servings/day., 01/17/2019 Substance Abuse Use: Never., 12/17/2018 Tobacco Tobacco Use: Former smoker, quit more than 30 days ago., 12/17/2018 Family History Cancer: Mother. Hypertension: Mother. Immunizations pneumococcal 13-valent conjugate vaccine: 0 unknown unit (07/18/18) pneumococcal 23-valent vaccine(Pneumovax: 0.5 mL (01/06/20) SARS-CoV-2 (COVID-19) mRNA-1273 vaccine: 50 mcg (04/27/21) SARS-CoV-2 (COVID-19) mRNA-1273 vaccine: 100 mcg (06/16/20) SARS-CoV-2 (COVID-19) mRNA-1273 vaccine: 0 unknown unit (05/19/20) SARS-CoV-2 mRNA (tozinameran) vaccine: 0 unknown unit (06/16/20) SARS-CoV-2 mRNA (tozinameran) vaccine: 0 unknown unit (05/19/20) tetanus-diphtheria toxoids: 0 unknown unit (11/14/18) tetanus-diphtheria toxoids: 0 unknown unit (11/13/18) tetanus-diphtheria toxoids: 0.5 unknown unit (09/26/18) Code Status Code Status - Ordered -- 07/15/22 17:41:00 EDT, Full Code, Constant Order Digitally Signed by AALIYAH PARHAM MD on 07/15/2022 08:55 PM Digitally Signed by AALIYAH PARHAM MD on 07/15/2022 08:58 PM Digitally Signed by AALIYAH PARHAM MD on 07/15/2022 09:00 PM Digitally Signed by AALIYAH PARHAM MD on 07/16/2022 07:45 AM [id number] Note ORIGINAL EXAMINATION: ONE XRAY VIEW OF THE CHEST07/16/2022 8:03 am COMPARISON: 07/15/2022 HISTORY: ORDERING SYSTEM PROVIDED HISTORY: Reason for Exam: F/U Vascular Congestion FINDINGS: Stable heart and mediastinum with calcification of aorta. There is complete/near complete resolution of previous interstitial edema. There is questionable small infiltrate in the right upper lobe and perhaps the left upper lobe also. No pleural effusions. IMPRESSION: Complete/nearly complete resolution of previous interstitial edema. Questionable small residual upper lobe infiltrates versus summation artifact. Interpreted by: Zoila Miller MD Preliminary Report By: Zoila Miller MD Electronically signed By Zoila Miller MD Dictated Date: 07/16/2022 11:29:44 AM Prelim Date: 07/16/2022 11:30:36 AM Sign Date: 07/16/2022 11:30:36 AM Ordering Provider: AALIYAH PARHAM [id number] Pulmonary Consult note Date of Service 07/16/2022 Reason for Consultation COPD Referring Physician Dr. Parham History of Present Illness 86-year-old male former smoke quit 20 years ago, chronic right hip pain on chronic Percocet for pain management, osteoarthritis, hypertension, seasonal allergies, unsteady gait (ambulates with cane),chronic GERD, gout, alcohol use that presented to his PCP office on 07/15/2022 with a 2 weeks historyof substernal chest pain and pressure going into his back and radiating into his jaw and left arm that progressively got worse over the past 3-4 days. The pain is intermittent would last about an hour and then go away and then return. The discomfort was present with exertion and rest. That he is inendorses progressive dyspnea since onset of symptoms as well as dizziness when he stands up. EKG was performed in the PCP office which showed ST depression in the lateral leads. The patient was transferred to [facility] emergency department for further evaluation. He denies fever, chills, diaphoresis, nausea, vomiting, or abdominal pain. No increased peripheral edema, or hemoptysis. He was admitted under the cardiology service for ischemic work-up. He had coronary angiography which showedsevere multivessel coronary disease involving circumflex, RCA, and LAD. Culprit lesion determined to be the left circumflex. We are consulted for possible COPD the patient does not have any cough fevers or chills. He never formally had any acute exacerbation. He is never had pulmonary function test as far as he can tell me. Patient's shortness of breath is acute and in the setting of an acute coronary syndrome. Review of Systems Negative except as detailed in HPI Physical Exam Vitals and Measurements T: 36.7 C (Oral) TMIN: 36.6 C (Oral) TMAX: 36.7 C (Oral) HR: 84(Monitored) RR: 18 BP: 138/61 SpO2: 93% HT: 175.3 cm WT: 76.96 kg BMI: 25.04 Weight Dosing Weight: 76.96 kg (07/15/22) General: Alert oriented 3 not in any apparent distress. HEENT: PERRLA EOMI. Lungs decreased air entry bilaterally no crackles or wheezing. Cardiovascular S1-S2. Abdomen soft nondistended no tenderness. Lower extremity no edema Neurologically grossly nonfocal Lab Results 07/16 04:37 WBC: 7.0 Hgb: 11.9 L Hct: 35.4 L Platelet: 176 Neutrophil %: 66.5 Glucose Level: 105 Sodium Level: 139 Potassium Level: 3.3 L BUN: 15.0 Creatinine Lvl (s): 0.85 07/15 20:45 WBC: 11.8 H Hgb: 13.1 Hct: 39.5 L Platelet: 197 Neutrophil %: 83.1 H Protime: 13.4 PT International Ratio: 1.1 Glucose Level: 129 H Sodium Level: 136 Potassium Level: 3.3 L BUN: 11.0 Creatinine Lvl (s): 0.64 Imaging Results and Diagnostics XR Chest 1 View Result Date: July 15, 2022 Verified By: KRISTY MARCANO MD CLINICAL STATEMENT: IMPRESSION: Increased right basilar streaky opacities possibly worsening pulmonary edemaversus pneumonia. Continued follow-up is recommended. Mild pulmonary congestion/edema. I have reviewed this report and agree with the resident findings andinterpretation. Assessment/Plan 1. NSTEMI (non-ST elevated myocardial infarction) 2. Coronary artery disease 3. The patient's dyspnea is related to the above. There is never been a formal evaluation for COPD.The chest x-ray which I reviewed today shows pulm edema and a small amount of pleural effusion. Plan: 1. Point I would not proceed with testing for COPD given the acute setting. Eventually he will needoutpatient complete pulmonary function testing 2. I will hold off on any bronchodilators as a lot of the long-acting beta agonist and short actingbeta agonist might increase his rate 3. Repeat the chest x-ray once his cardiac status is optimized 4. He did quit smoking more than 20 years ago so he would not be a candidate for low-dose CAT scan Thank you for the consultation we will continue to follow peripherally Problem List/Past Medical History Ongoing Abnormal EKG Actinic keratosis Amaurosis fugax Ambulates with cane Anxiety and depression Aortic stenosis, mild At low risk for fall Back pain Bilateral hand pain BPH (benign prostatic hyperplasia) Carpal tunnel syndrome, right Cataract Chest pain Chronic pain Chronic pain of right hip Chronic prescription opiate use Congestion of nasal sinus COPD without exacerbation Dry skin Elevated fasting glucose Elevated PSA Encounter for well adult exam with abnormal findings Esophageal dysphagia Former smoker GERD (gastroesophageal reflux disease) High risk medication use HTN (hypertension) Hx of blood clots Hx of gout Hyperkeratosis Immunization due Insect bite Left wrist pain Leg cramps Leg swelling Macular degeneration, dry Major depression in remission Onychomycosis Paresthesia Primary osteoarthritis Refused influenza vaccine Restless legs Right ear impacted cerumen Screening due Screening for cardiovascular condition Seasonal allergies Somatic dysfunction of lumbar region Somatic dysfunction of pelvic region 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 Unsteady gait Wears dentures Wears glasses Historical Gastroesophageal reflux disease Hyperkeratosis Primary osteoarthritis Procedure/Surgical History Leg Surgery: 03/17/10 Hernia repair: 11/13/09 Cataract extraction Total hip replacement Medications Inpatient acetaminophen-oxyCODONE 325 mg-5 mg oral tablet, 1 tab(s), Oral, q6hr, PRN Coreg, 3.125 mg= 1 tab(s), Oral, BIDM DuoNeb, 3 mL, Inhalation, q4hRT, PRN DuoNeb, 3 mL, Inhalation, q4hRT, PRN Ecotrin, 81 mg= 1 tab(s), Oral, qDayM folic acid, 1 mg= 1 tab(s), Oral, qDay Heparin for IV 25,000 unit(s) [12 unit(s)/kg/hr] + Dextrose 5% Premix Diluent 250 mL Heparin HBW CARDIAC Bolus 5000 units/mL, 4000 unit(s)= 0.8 mL, 60 unit(s)/kg, IV Push, q6h, PRN Lasix, 40 mg= 4 mL, IV Push, BID Lipitor, 40 mg= 1 tab(s), Oral, qDay losartan, 25 mg= 1 tab(s), Oral, qDay nitroGLYcerin for IV 50 mg [5 mcg/min] + Dextrose 5% Premix Diluent 250 mL NO METFORMIN (Glucophage) X 48hrs-patient has received contrast, 1 EA, Miscellaneous, Unscheduled pantoprazole, 40 mg= 1 tab(s), Oral, qDayAC Plavix, 75 mg= 1 tab(s), Oral, qDay thiamine, 100 mg= 1 tab(s), Oral, qDay Vitamin C, 500 mg= 1 tab(s), Oral, qDay Home acetaminophen-oxyCODONE 325 mg-5 mg oral tablet, 1 tab(s), Oral, q6hr, PRN amLODIPine 5 mg oral tablet, 5 mg= 1 tab(s), Oral, qDay, 1 refills ammonium lactate 12% topical cream, 1 cipriano, Topical, BID, 1 refills, Not taking aspirin 81 mg oral delayed release tablet, 162 mg= 2 tab(s), Oral, Daily carvedilol 25 mg oral tablet, 25 mg= 1 tab(s), Oral, BID, 1 refills cetirizine 10 mg oral tablet, 10 mg= 1 tab(s), Oral, qDay, 1 refills, Not taking DME MISCellaneous, See Instructions, Not taking ensure, Not taking etodolac 300 mg oral capsule, 300 mg= 1 cap(s), Oral, BID, 1 refills, Not taking hydrochlorothiazide-irbesartan 12.5 mg-300 mg oral tablet, 1 tab(s), Oral, qDay, 1 refills, PatientUnsure Multivitamin, 1 tab(s), Oral, Daily, Not taking omeprazole 40 mg oral delayed release capsule, 40 mg= 1 cap(s), Oral, qDay, 1 refills PreserVision, 1 tab(s), Oral, qDay, Not taking PreserVision AREDS 2 oral capsule, 1 cap(s), Oral, BID, 3 refills, Not taking Vitamin C 500 mg oral tablet, 500 mg= 1 tab(s), Oral, qDay Vitamin D3, 4000 unit(s)= 1 tab(s), Oral, Daily, Not taking Allergies Cipro (Muscle ache) traMADol (Itching) Social History Alcohol Use: Current. 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 OTher risks in environment: no smoke exposure., 07/23/2021 Nutrition/Health Caffeine intake amount: 2 servings/day., 01/17/2019 Substance Abuse Use: Never., 12/17/2018 Tobacco Tobacco Use: Former smoker, quit more than 30 days ago., 12/17/2018 Family History Cancer: Mother. Hypertension: Mother. Immunizations pneumococcal 13-valent conjugate vaccine: 0 unknown unit (07/18/18) pneumococcal 23-valent vaccine(Pneumovax: 0.5 mL (01/06/20) SARS-CoV-2 (COVID-19) mRNA-1273 vaccine: 50 mcg (04/27/21) SARS-CoV-2 (COVID-19) mRNA-1273 vaccine: 100 mcg (06/16/20) SARS-CoV-2 (COVID-19) mRNA-1273 vaccine: 0 unknown unit (05/19/20) SARS-CoV-2 mRNA (tozinameran) vaccine: 0 unknown unit (06/16/20) SARS-CoV-2 mRNA (tozinameran) vaccine: 0 unknown unit (05/19/20) tetanus-diphtheria toxoids: 0 unknown unit (11/14/18) tetanus-diphtheria toxoids: 0 unknown unit (11/13/18) tetanus-diphtheria toxoids: 0.5 unknown unit (09/26/18) Digitally Signed by MICHEAL TINOCO MD on 07/16/2022 08:26 AM [id number] Note ORIGINAL EXAMINATION: ONE XRAY VIEW OF THE CHEST07/16/2022 8:03 am COMPARISON: 07/15/2022 HISTORY: ORDERING SYSTEM PROVIDED HISTORY: Reason for Exam: F/U Vascular Congestion FINDINGS: Stable heart and mediastinum with calcification of aorta. There is complete/near complete resolution of previous interstitial edema. There is questionable small infiltrate in the right upper lobe and perhaps the left upper lobe also. No pleural effusions. IMPRESSION: Complete/nearly complete resolution of previous interstitial edema. Questionable small residual upper lobe infiltrates versus summation artifact. Interpreted by: Zoila Miller MD Preliminary Report By: Zoila Miller MD Electronically signed By Zoila Miller MD Dictated Date: 07/16/2022 11:29:44 AM Prelim Date: 07/16/2022 11:30:36 AM Sign Date: 07/16/2022 11:30:36 AM Ordering Provider: [facility]YAH PARHAMT[facility] [id number] Cardiology Progress note Date of Service 07/16/22 Chief Complaint CP HPI 86-year-old man with past medical history of hypertension, hyperlipidemia, former tobacco abuse with [id number]-[id number] history, GERD, and osteoarthritis came to the emergency department at [facility] complaining of chest pain. Initial vital signs within normal limit. Initial CBC within normal limit. Initial BMP within normal limit. Initial high-sensitivity troponin 1214. Initial EKG with nonspecific ST changes. Patient was transferred to [facility] for ischemic evaluation. Once patient arrived on floor to [facility] patient complained of 10 out of 10 chest pain. Patient was evaluated at bedside. Repeat EKG showed deep ST depressions in anterior lateral leads. STEMI alert was called patient was taken urgently to the cardiac catheterization lab. Coronary angiography showed severe multivessel coronary artery disease involving the circumflex, RCA and LAD. Culprit lesion was determined to be the left circumflex. Patient underwent PCI with GREGG to left circumflex. Patient was admitted to the cardiology service for further management. Pulmonology and hospitalist consulted for management. Patient is currently being diuresed and optimized on goal- directed medical therapy. Subjective No acute events overnight No new complaints Objective Vitals and Measurements T: 36.7 C (Oral) TMIN: 36.6 C (Oral) TMAX: 36.7 C (Oral) HR: 84(Monitored) RR: 18 BP: 138/61 SpO2: 93% HT: 175.3 cm WT: 76.96 kg BMI: 25.04 Intake and Output 7AM Yesterday to 7AM Today Intake and Output (Last 24 hours) Intake Oral Intake 0.00 Administration Information 42.00 Output Urine Voided 1150.00 Total Summary Total Intake 42.00 Total Output 1150.00 Fluid Balance -1108.00 Physical Exam General: AAOX3, mild distress, elderly appearing man HEENT: Anicteric sclera, MMM Neck: Trachea midline, JVD appreciated CVS: RRR, normal S1/S2, no murmurs/rubs/gallops Lung: CTAB, no wheezes/rhonchi/rales Abd: Soft, NT/ND Extrem: WWP, no LE edema Skin: Warm, Intact Neuro: AAOX3, spontaneous movement of all extremities Psych: Appropriate mood & affect Weight Dosing Weight: 76.96 kg (07/15/22) Medications Medications (19) Active Scheduled: (13) ascorbic acid 500 mg tablet 500 mg 1 tab(s), Oral, qDay aspirin 81 mg EC 81 mg 1 tab(s), Oral, qDayM atorvastatin 40 mg tablet 40 mg 1 tab(s), Oral, qDay carvedilol 3.125 mg tablet 3.125 mg 1 tab(s), Oral, BIDM clopidogrel 75 mg Tablet 75 mg 1 tab(s), Oral, qDay folic acid 1 mg tablet 1 mg 1 tab(s), Oral, qDay furosemide 40 mg/4 mL vial 40 mg 4 mL, IV Push, BID losartan 25 mg tablet 25 mg 1 tab(s), Oral, qDay magnesium sulfate 4 gram(s)/100mL PMX 4 gram(s) 100 mL, IV Piggyback, Once No metformin for 48 hrs post contrast 1 EA, Miscellaneous, Unscheduled pantoprazole 40 mg EC tablet 40 mg 1 tab(s), Oral, qDayAC potassium chloride 20 mEq ER tablet 40 mEq 2 tab(s), Oral, Once thiamine (w/calcium) 100 mg tablet 100 mg 1 tab(s), Oral, qDay Continuous: (2) heparin 25,000 unit(s) [12 unit(s)/kg/hr] + Dextrose 5% Premix Diluent 250 mL 250 mL, Intravenous, 9.42 mL/hr nitroglycerin 50 mg/250 mL D5W 50 mg [5 mcg/min] + Dextrose 5% Premix Diluent 250 mL 250 mL, Intravenous, 1.5 mL/hr PRN: (4) acetaminophen-OXYcodone 325 mg-5 mg Tablet 1 tab(s), Oral, q6hr albuterol - ipratropium 2.5 mg-0.5 mg/3 mL Inhal Brigid UD 3 mL, Inhalation, q4hRT albuterol - ipratropium 2.5 mg-0.5 mg/3 mL Inhal Brigid UD 3 mL, Inhalation, q4hRT heparin 5,000 units/mL (1 mL) vial 4,000 unit(s) 0.8 mL, IV Push, q6h Lab Results 07/16 04:37 WBC: 7.0 Hgb: 11.9 L Hct: 35.4 L Platelet: 176 Neutrophil %: 66.5 Glucose Level: 105 Sodium Level: 139 Potassium Level: 3.3 L BUN: 15.0 Creatinine Lvl (s): 0.85 07/15 20:45 WBC: 11.8 H Hgb: 13.1 Hct: 39.5 L Platelet: 197 Neutrophil %: 83.1 H Protime: 13.4 PT International Ratio: 1.1 Glucose Level: 129 H Sodium Level: 136 Potassium Level: 3.3 L BUN: 11.0 Creatinine Lvl (s): 0.64 Imaging Results and Diagnostics XR Chest 1 View Result Date: July 15, 2022 Verified By: KRISTY MARCANO MD CLINICAL STATEMENT: IMPRESSION: Increased right basilar streaky opacities possibly worsening pulmonary edemaversus pneumonia. Continued follow-up is recommended. Mild pulmonary congestion/edema. I have reviewed this report and agree with the resident findings andinterpretation. 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 #GERD #Osteoarthritis - Latest EKG reviewed - Latest imaging reviewed - Latest ischemic work-up reviewed Plan: - Follow-up transthoracic echocardiogram - Daily weight, strict I+Os - Continue heparin drip - Decreasing to Furosemide 40 mg IV daily - Inpatient ACS regimen ACEi/ARB: Losartan 25 mg daily Analgesia: None Antiplatelet:Aspirin 81 mg daily, clopidogrel 75 mg daily After/Pre: Continue nitroglycerin drip BBlockade: Coreg 3.125 mg daily Lipid:Atorvastatin 40 mg daily Device: None Advanced Therapies: None - Continue all other medications as prescribed - Consulted pulmonology, appreciate recommendations - Consulted hospitalist, appreciate recommendations - Ordered PCI to RCA for Sunday, NPO at midnight - Will need PCI to LAD outpatient Patient seen and discussed with Dr. Ryan Parham II, MD PGY-4 Cardiovascular Disease Fellow Pager: [phone] Digitally Signed by AALIYAH PARHAM MD on 07/16/2022 12:08 PM [id number] Note Date of Service 07/16/2022 Reason for Consultation Medical management. Referring Physician Dr. Aaliyah Parham. History of Present Illness Mr. Logan is an 86-year-old male with a significant past medical history of chronic right hip pain on chronic Percocet for pain management, osteoarthritis, hypertension, seasonal allergies, unsteady gait (ambulates with cane), former smoker, COPD, chronic GERD, gout, alcohol use that presented tohis PCP office on 07/15/2022 with a 2 weeks history of substernal chest pain and pressure going into his back and radiating into his jaw and left arm that progressively got worse over the past 3-4 days. The pain is intermittent would last about an hour and then go away and then return. The discomfortwas present with exertion and rest. That he is in endorses progressive dyspnea since onset of symptoms as well as dizziness when he stands up. EKG was performed in the PCP office which showed ST depression in the lateral leads. The patient was transferred to [facility] emergency department for further evaluation. He denies fever, chills, diaphoresis, nausea, vomiting, or abdominal pain. No increased peripheral edema, or hemoptysis. Upon arrival to the emergency department EKG was performed and showed ST depression in leads V3 through V6. Chest x-ray demonstrated, questionable vascular congestion.. CBC demonstrated no leukocytosis, stable anemia hemoglobin 12.9, hematocrit 37.9, no thrombocytopenia. Chloride 97, CO2 34, glucose 131 otherwise chemistry unremarkable. Troponin 1214. Patient was not initiated on heparin by weight. Cardiology at [facility] was notified and he was transferred for further ischemic work-up. Once the patient arrived to [facility] he had progressive 10 out of 10 chest pain. Repeat EKGshowed further ST depression in the anterior lateral leads. 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 Culprit lesion determined to be the left circumflex. Patient underwent PCI with drug-eluting stent to the left circumflex. He currently is being treated with goal directed medical therapy. Tentative plan for further stenting on Sunday. Hospitalist service has been consulted for routine medical management. Upon exam the patient is awake, alert, no acute distress. He states that his chest pain has resolved and his dyspnea has also improved status post cardiac catheterization. He denies fever, chills, nasal congestion, cough, orthopnea, PND, nausea, vomiting, abdominal pain, urinary frequency, urgency,dysuria, polydipsia, polyuria, or peripheral edema. Review of Systems All systems reviewed for pertinent positives and negatives and unremarkable unless noted per HPI. Physical Exam Vitals and Measurements T: 36.6 C (Oral) TMIN: 36.6 C (Oral) TMAX: 36.7 C (Oral) HR: 81(Monitored) RR: 18 BP: 137/62 SpO2: 95% HT: 175.3 cm WT: 76.96 kg BMI: 25.04 Weight Dosing Weight: 76.96 kg (07/15/22) CONSTITUTIONAL: Awake, alert, nontoxic in appearance, no acute distress. SKIN: [place], warm, dry. HEAD: Normocephalic, atraumatic. ENT: Pupils equal and reactive, EOMS intact. No icterus. Oral mucosa pink and moist. NECK: Supple, trachea midline. No appreciable JVD HEART: Regular rate and rhythm, normal S1-S2. LUNGS: Symmetric with respiration, even unlabored. Clear to auscultation, no wheezes, rhonchi, or rales. ABDOMEN: soft, nontender, with active bowel sounds in all 4 quadrants. No appreciable abdominal mass, or bruit. EXTREMITIES: No edema, calves supple, non-tender. Distal pulses palpable. NEUROLOGICAL: No focal deficits, motor sensory is intact. PSYCHIATRIC: Alert oriented 4 with appropriate mood and affect. Lab Results 07/16 04:37 WBC: 7.0 Hgb: 11.9 L Hct: 35.4 L Platelet: 176 Neutrophil %: 66.5 Glucose Level: 105 Sodium Level: 139 Potassium Level: 3.3 L BUN: 15.0 Creatinine Lvl (s): 0.85 07/15 20:45 WBC: 11.8 H Hgb: 13.1 Hct: 39.5 L Platelet: 197 Neutrophil %: 83.1 H Protime: 13.4 PT International Ratio: 1.1 Glucose Level: 129 H Sodium Level: 136 Potassium Level: 3.3 L BUN: 11.0 Creatinine Lvl (s): 0.64 Imaging Results and Diagnostics XR Chest 1 View Result Date: July 15, 2022 Verified By: KRISTY MARCANO MD CLINICAL STATEMENT: IMPRESSION: Increased right basilar streaky opacities possibly worsening pulmonary edemaversus pneumonia. Continued follow-up is recommended. Mild pulmonary congestion/edema. I have reviewed this report and agree with the resident findings andinterpretation. Assessment/Plan 1. NSTEMI (non-ST elevated myocardial infarction) 2. Coronary artery disease 3. Primary hypertension 4. COPD without exacerbation 5. Chronic pain 6. Former smoker 7. Chronic alcohol use 86-year-old male presents with a 2-week history of intermittent midsternal chest pain that radiatesinto his back and jaw. Discomfort progressively got worse over the last 3 to 4 days. He presented to his PCP. EKG was performed in the office and demonstrated ST changes in the lateral leads. Patientwas transferred to [facility] emergency department for further evaluation. Upon arrival to the emergency department EKG showed ST depression in leads V3 through V6. Chest x-ray showed questionable vascular congestion. Troponin was elevated at 1214. He was initiated on heparin by weight. Cardiology at [facility] was notified he was transferred for further ischemic work-up. Upon arrivalto [place] he had progressive 10 out of 10 chest pain. Repeat EKG showed further ST depression in the anterior lateral leads with significant increase in troponin. He was taken urgently to the cardiac [facility] where he underwent coronary angiography which showed severe multivessel coronary disease involving circumflex, RCA, LAD. Culprit lesion determined to be the left circumflex. He underwent PCI with drug- eluting stent. Hospitalist service was consulted to assist with routine medical management. Overall, patient states that his symptoms have significantly improved status post cardiac intervention. He has no further chest pain or dyspnea. He is currently being treated with goal-directed medical therapy per primary team. Tentative plan is for further stenting on Sunday. History of hypertension. Hemodynamic trends reviewed and noted soft blood pressures since admission. He is currently being treated by the primary team with carvedilol and losartan. COPD without acute exacerbation. Patient has history of smoking cigarettes. He quit approximately 20 years ago due to recurrent bronchitis. Patient initially started age 17 and was a pack per day smoker up until that time. He has a noted diagnosis of COPD in his medical record, however after further inquiry the patient cannot give specific details. He does not take routine bronchodilators or inhaled corticosteroids. He is uncertain if he is underwent PFT testing in the past. Chest x-ray personally reviewed and demonstrates findings more consistent with pulmonary edema. Low suspicion for infectious process. Currently the patient is asymptomatic. No wheezing, fever, chills, increased sputum pr oduction. I suspect his dyspnea is related to his acute coronary syndrome and possible new onset heart failure. His symptoms have significantly improved after cardiac intervention. As needed bronchodilators for symptom management. If concern for underlying pulmonary disease, this likely can be pursued on outpatient basis and pulmonary function testing can be considered. Patient has chronic right hip pain related to osteoarthritis. He is prescribed Percocet which he uses on a routine basis. Will continue as needed for symptom management. History of chronic alcohol use. Patient drinks 1-4 beers per day. He denies history of alcohol withdrawal. Currently demonstrates no signs or symptoms of withdrawal. We will place him on thiamine andfolic acid x3 days. Monitor for signs of withdrawal. All other chronic comorbidities are stable. The plan of care, including the role of the hospitalist within the multidisciplinary team was discussed with the patient, questions answered, he is amenable to the plan. Thank you for consultation. This dictation was performed using voice recognition software may include grammatical and/or spelling errors. Problem List/Past Medical History Ongoing Abnormal EKG Actinic keratosis Amaurosis fugax Ambulates with cane Anxiety and depression Aortic stenosis, mild At low risk for fall Back pain Bilateral hand pain BPH (benign prostatic hyperplasia) Carpal tunnel syndrome, right Cataract Chest pain Chronic pain Chronic pain of right hip Chronic prescription opiate use Congestion of nasal sinus COPD without exacerbation Dry skin Elevated fasting glucose Elevated PSA Encounter for well adult exam with abnormal findings Esophageal dysphagia Former smoker GERD (gastroesophageal reflux disease) High risk medication use HTN (hypertension) Hx of blood clots Hx of gout Hyperkeratosis Immunization due Insect bite Left wrist pain Leg cramps Leg swelling Macular degeneration, dry Major depression in remission Onychomycosis Paresthesia Primary osteoarthritis Refused influenza vaccine Restless legs Right ear impacted cerumen Screening due Screening for cardiovascular condition Seasonal allergies Somatic dysfunction of lumbar region Somatic dysfunction of pelvic region 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 Unsteady gait Wears dentures Wears glasses Historical Gastroesophageal reflux disease Hyperkeratosis Primary osteoarthritis Procedure/Surgical History Leg Surgery: 03/17/10 Hernia repair: 11/13/09 Cataract extraction Total hip replacement Medications Inpatient acetaminophen-oxyCODONE 325 mg-5 mg oral tablet, 1 tab(s), Oral, q6hr, PRN Coreg, 3.125 mg= 1 tab(s), Oral, BIDM DuoNeb, 3 mL, Inhalation, q4hRT, PRN DuoNeb, 3 mL, Inhalation, q4hRT, PRN Ecotrin, 81 mg= 1 tab(s), Oral, qDayM Heparin for IV 25,000 unit(s) [12 unit(s)/kg/hr] + Dextrose 5% Premix Diluent 250 mL Heparin HBW CARDIAC Bolus 5000 units/mL, 4000 unit(s)= 0.8 mL, 60 unit(s)/kg, IV Push, q6h, PRN Lasix, 40 mg= 4 mL, IV Push, BID Lipitor, 40 mg= 1 tab(s), Oral, qDay losartan, 25 mg= 1 tab(s), Oral, qDay nitroGLYcerin for IV 50 mg [5 mcg/min] + Dextrose 5% Premix Diluent 250 mL NO METFORMIN (Glucophage) X 48hrs-patient has received contrast, 1 EA, Miscellaneous, Unscheduled pantoprazole, 40 mg= 1 tab(s), Oral, qDayAC Plavix, 75 mg= 1 tab(s), Oral, qDay Vitamin C, 500 mg= 1 tab(s), Oral, qDay Home acetaminophen-oxyCODONE 325 mg-5 mg oral tablet, 1 tab(s), Oral, q6hr, PRN amLODIPine 5 mg oral tablet, 5 mg= 1 tab(s), Oral, qDay, 1 refills ammonium lactate 12% topical cream, 1 cipriano, Topical, BID, 1 refills, Not taking aspirin 81 mg oral delayed release tablet, 162 mg= 2 tab(s), Oral, Daily carvedilol 25 mg oral tablet, 25 mg= 1 tab(s), Oral, BID, 1 refills cetirizine 10 mg oral tablet, 10 mg= 1 tab(s), Oral, qDay, 1 refills, Not taking DME MISCellaneous, See Instructions, Not taking ensure, Not taking etodolac 300 mg oral capsule, 300 mg= 1 cap(s), Oral, BID, 1 refills, Not taking hydrochlorothiazide-irbesartan 12.5 mg-300 mg oral tablet, 1 tab(s), Oral, qDay, 1 refills, PatientUnsure Multivitamin, 1 tab(s), Oral, Daily, Not taking omeprazole 40 mg oral delayed release capsule, 40 mg= 1 cap(s), Oral, qDay, 1 refills PreserVision, 1 tab(s), Oral, qDay, Not taking PreserVision AREDS 2 oral capsule, 1 cap(s), Oral, BID, 3 refills, Not taking Vitamin C 500 mg oral tablet, 500 mg= 1 tab(s), Oral, qDay Vitamin D3, 4000 unit(s)= 1 tab(s), Oral, Daily, Not taking Allergies Cipro (Muscle ache) traMADol (Itching) Social History Alcohol Use: Current. 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 OTher risks in environment: no smoke exposure., 07/23/2021 Nutrition/Health Caffeine intake amount: 2 servings/day., 01/17/2019 Substance Abuse Use: Never., 12/17/2018 Tobacco Tobacco Use: Former smoker, quit more than 30 days ago., 12/17/2018 Family History Cancer: Mother. Hypertension: Mother. Father: [place]. Immunizations pneumococcal 13-valent conjugate vaccine: 0 unknown unit (07/18/18) pneumococcal 23-valent vaccine(Pneumovax: 0.5 mL (01/06/20) SARS-CoV-2 (COVID-19) mRNA-1273 vaccine: 50 mcg (04/27/21) SARS-CoV-2 (COVID-19) mRNA-1273 vaccine: 100 mcg (06/16/20) SARS-CoV-2 (COVID-19) mRNA-1273 vaccine: 0 unknown unit (05/19/20) SARS-CoV-2 mRNA (tozinameran) vaccine: 0 unknown unit (06/16/20) SARS-CoV-2 mRNA (tozinameran) vaccine: 0 unknown unit (05/19/20) tetanus-diphtheria toxoids: 0 unknown unit (11/14/18) tetanus-diphtheria toxoids: 0 unknown unit (11/13/18) tetanus-diphtheria toxoids: 0.5 unknown unit (09/26/18) Digitally Signed by DAMION BONILLA on 07/16/2022 06:07 AM [id number] History and physical note Date of Service 07/15/22 Chief Complaint CP History of Present Illness 86-year-old man with past medical history of hypertension, hyperlipidemia, former tobacco abuse with [id number]-[id number] history, GERD, and osteoarthritis came to the emergency department at [facility] complaining of chest pain. Initial vital signs within normal limit. Initial CBC within normal limit. Initial BMP within normal limit. Initial high-sensitivity troponin 1214. Initial EKG with nonspecific ST changes. Patient was transferred to [facility] for ischemic evaluation. Once patient arrived on floor to [facility] patient complained of 10 out of 10 chest pain. Patient was evaluated at bedside. Repeat EKG showed deep ST depressions in anterior lateral leads. STEMI alert was called patient was taken urgently to the cardiac catheterization lab. Coronary angiography showed severe multivessel coronary artery disease involving the circumflex, RCA and LAD. Culprit lesion was determined to be the left circumflex. Patient underwent PCI with GREGG to left circumflex. Patient was admitted to the cardiology service for further management. Patient is currently being diuresed and optimized on goal-directed medical therapy. As patient does not know what medications he takes at homewe will hold off on starting home high-dose beta- blockade and LAURA and ARB and uptitrate low doses as needed. PMH: As documented in chart PSH: As documented in chart FH: As documented in chart SH: [id number]-lako history, drinks 4 beers a day, no drug use retired Allergies: As documented in chart Review of Systems Per HPI, Complete ROS otherwise negative Physical Exam Vitals and Measurements T: 36.7 C (Oral) HR: 98(Monitored) RR: 18 BP: 179/73 SpO2: 98% HT: 175.3 cm WT: 76.96 kg BMI: 25.04 Weight Dosing Weight: 76.96 kg (07/15/22) General: AAOX3, mild distress, elderly appearing man HEENT: Anicteric sclera, MMM Neck: Trachea midline, JVD appreciated CVS: RRR, normal S1/S2, no murmurs/rubs/gallops Lung: CTAB, no wheezes/rhonchi/rales Abd: Soft, NT/ND Extrem: WWP, no LE edema Skin: Warm, Intact Neuro: AAOX3, spontaneous movement of all extremities Psych: Appropriate mood & affect Lab Results No 36 Hour Lab Data Imaging Results and Diagnostics XR Chest 1 View Result Date: July 15, 2022 Verified By: KRISTY MARCANO MD CLINICAL STATEMENT: IMPRESSION: Increased right basilar streaky opacities possibly worsening pulmonary edemaversus pneumonia. Continued follow-up is recommended. Mild pulmonary congestion/edema. I have reviewed this report and agree with the resident findings andinterpretation. 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 #GERD #Osteoarthritis - Latest EKG reviewed - Latest imaging reviewed - Latest ischemic work-up reviewed Plan: - Follow-up transthoracic echocardiogram - Daily weight, strict I+Os - Continue heparin drip - Furosemide 40 mg IV twice daily - Inpatient ACS regimen ACEi/ARB: Starting losartan 25 mg daily Analgesia: None Antiplatelet:Aspirin 81 mg daily, clopidogrel 75 mg daily After/Pre: Continue nitroglycerin drip BBlockade: Starting Coreg 3.125 mg daily Lipid:Atorvastatin 40 mg daily Device: None Advanced Therapies: None - Continue all other medications as prescribed - Consulted pulmonology, appreciate recommendations - Consulted hospitalist, appreciate recommendations - Will need repeat PCI to RCA on Sunday and LAD outpatient Patient seen and discussed with Dr. Juice Parham II, MD PGY-4 Cardiovascular Disease Fellow Pager: [phone] Problem List/Past Medical History Ongoing Abnormal EKG Actinic keratosis Amaurosis fugax Ambulates with cane Anxiety and depression Aortic stenosis, mild At low risk for fall Back pain Bilateral hand pain BPH (benign prostatic hyperplasia) Carpal tunnel syndrome, right Cataract Chest pain Chronic pain Chronic pain of right hip Chronic prescription opiate use Congestion of nasal sinus COPD without exacerbation Dry skin Elevated fasting glucose Elevated PSA Encounter for well adult exam with abnormal findings Esophageal dysphagia Former smoker GERD (gastroesophageal reflux disease) High risk medication use HTN (hypertension) Hx of blood clots Hx of gout Hyperkeratosis Immunization due Insect bite Left wrist pain Leg cramps Leg swelling Macular degeneration, dry Major depression in remission Onychomycosis Paresthesia Primary osteoarthritis Refused influenza vaccine Restless legs Right ear impacted cerumen Screening due Screening for cardiovascular condition Seasonal allergies Somatic dysfunction of lumbar region Somatic dysfunction of pelvic region 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 Unsteady gait Wears dentures Wears glasses Historical Gastroesophageal reflux disease Hyperkeratosis Primary osteoarthritis Procedure/Surgical History Leg Surgery: 03/17/10 Hernia repair: 11/13/09 Cataract extraction Total hip replacement Medications Home Medications (16) Active acetaminophen-oxyCODONE 325 mg-5 mg oral tablet 1 tab(s), PRN, Oral, q6hr amLODIPine 5 mg oral tablet 5 mg = 1 tab(s), Oral, qDay ammonium lactate 12% topical cream 1 cipriano, Topical, BID aspirin 81 mg oral delayed release tablet 162 mg = 2 tab(s), Oral, Daily carvedilol 25 mg oral tablet 25 mg = 1 tab(s), Oral, BID cetirizine 10 mg oral tablet 10 mg = 1 tab(s), Oral, qDay DME MISCellaneous See Instructions ensure etodolac 300 mg oral capsule 300 mg = 1 cap(s), Oral, BID hydrochlorothiazide-irbesartan 12.5 mg-300 mg oral tablet 1 tab(s), Oral, qDay Multivitamin 1 tab(s), Oral, Daily omeprazole 40 mg oral delayed release capsule 40 mg = 1 cap(s), Oral, qDay PreserVision 1 tab(s), Oral, qDay PreserVision AREDS 2 oral capsule 1 cap(s), Oral, BID Vitamin C 500 mg oral tablet 500 mg = 1 tab(s), Oral, qDay Vitamin D3 4,000 unit(s) = 1 tab(s), Oral, Daily Allergies Cipro (Muscle ache) traMADol (Itching) Social History Alcohol Use: Current. 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 OTher risks in environment: no smoke exposure., 07/23/2021 Nutrition/Health Caffeine intake amount: 2 servings/day., 01/17/2019 Substance Abuse Use: Never., 12/17/2018 Tobacco Tobacco Use: Former smoker, quit more than 30 days ago., 12/17/2018 Family History Cancer: Mother. Hypertension: Mother. Immunizations pneumococcal 13-valent conjugate vaccine: 0 unknown unit (07/18/18) pneumococcal 23-valent vaccine(Pneumovax: 0.5 mL (01/06/20) SARS-CoV-2 (COVID-19) mRNA-1273 vaccine: 50 mcg (04/27/21) SARS-CoV-2 (COVID-19) mRNA-1273 vaccine: 100 mcg (06/16/20) SARS-CoV-2 (COVID-19) mRNA-1273 vaccine: 0 unknown unit (05/19/20) SARS-CoV-2 mRNA (tozinameran) vaccine: 0 unknown unit (06/16/20) SARS-CoV-2 mRNA (tozinameran) vaccine: 0 unknown unit (05/19/20) tetanus-diphtheria toxoids: 0 unknown unit (11/14/18) tetanus-diphtheria toxoids: 0 unknown unit (11/13/18) tetanus-diphtheria toxoids: 0.5 unknown unit (09/26/18) Code Status Code Status - Ordered -- 07/15/22 17:41:00 EDT, Full Code, Constant Order Digitally Signed by AALIYAH PARHAM MD on 07/15/2022 08:55 PM Digitally Signed by AALIYAH PARHAM MD on 07/15/2022 08:58 PM Digitally Signed by AALIYAH PARHAM MD on 07/15/2022 09:00 PM Digitally Signed by AALIYAH PARHAM MD on 07/16/2022 07:45 AM [id number] Progress note Patient has multivessel disease on coronary angiogram. Circumflex lesion seems to be the culprit. Patient will undergo PCI with GREGG to left circumflex today, RCA lesion to be staged on Sunday. LAD campbell staged outpatient. Digitally Signed by AALIYAH PARHAM MD on 07/15/2022 08:00 PM [id number] Note ORIGINAL EXAMINATION: ONE XRAY VIEW OF THE CHEST 07/15/2022 6:29 pm COMPARISON: Same day portable chest at 10:42 a.m. HISTORY: ORDERING SYSTEM PROVIDED HISTORY: Reason for Exam: Chest Pain FINDINGS: The cardiomediastinal silhouette appears stable. Atherosclerotic aorta. Mild central vascular congestion. There are similar bilateral interstitial opacities. Increased streaky opacities at the right lung base. No large pleural effusion or pneumothorax. There are degenerative changes of the spine and shoulders. IMPRESSION: Increased right basilar streaky opacities possibly worsening pulmonary edema versus pneumonia. Continued follow-up is recommended. Mild pulmonary congestion/edema. I have reviewed this report and agree with the resident findings and interpretation. Interpreted by: Kristy Marcano MD Preliminary Report By: Selvin Delgado Electronically signed By Kristy Marcano MD Dictated Date: 07/15/2022 6:32:59 PM Prelim Date: 07/15/2022 6:36:35 PM Sign Date: 07/15/2022 7:28:26 PM Ordering Provider: [facility]04-01-2023 Note ORIGINAL EXAMINATION: ONE XRAY VIEW OF THE CHEST 07/15/2022 6:29 pm COMPARISON: Same day portable chest at 10:42 a.m. HISTORY: ORDERING SYSTEM PROVIDED HISTORY: Reason for Exam: Chest Pain FINDINGS: The cardiomediastinal silhouette appears stable. Atherosclerotic aorta. Mild central vascular congestion. There are similar bilateral interstitial opacities. Increased streaky opacities at the right lung base. No large pleural effusion or pneumothorax. There are degenerative changes of the spine and shoulders. IMPRESSION: Increased right basilar streaky opacities possibly worsening pulmonary edema versus pneumonia. Continued follow-up is recommended. Mild pulmonary congestion/edema. I have reviewed this report and agree with the resident findings and interpretation. 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 #GERD #Osteoarthritis - Latest EKG reviewed - Latest imaging reviewed - Latest ischemic work-up reviewed Plan: - Follow-up transthoracic echocardiogram - Daily weight, strict I+Os - Continue heparin drip - Furosemide 40 mg IV twice daily - Inpatient ACS regimen ACEi/ARB: Starting losartan 25 mg daily Analgesia: None Antiplatelet: Aspirin 81 mg daily, clopidogrel 75 mg daily After/Pre: Continue nitroglycerin drip BBlockade: Starting Coreg 3.125 mg daily Lipid: Atorvastatin 40 mg daily Device: None Advanced Therapies: None - Continue all other medications as prescribed - Consulted pulmonology, appreciate recommendations - Consulted hospitalist, appreciate recommendations - Will need repeat PCI to RCA on Sunday and LAD outpatient Patient seen and discussed with Dr. Juice Parham II, MD PGY-4 Cardiovascular Disease Fellow Pager: [phone] Addendum by Bc GALVEZ MD on July 16, 2022 12:20:04 EDT Patient presents with acute onset chest pain. Ruled in for non-ST elevation myocardial infarction. EKG shows diffuse ST depressions in anterolateral leads. He was taken for emergent cardiac catheterization due to ongoing chest pain and severe ST depressions. Cardiac catheterization showed subtotal occlusion of circumflex which is culprit for clinical presentation. PCI with 1 drug-eluting stent was performed. He has vessel disease in RCA and LAD for which she will undergo staged PCI. We will keep him on aspirin, Plavix, high intensity statin and antianginal therapy. We will check an echocardiogram as well. We will check lipid panel and A1c. I have personally seen, examined, and evaluated the patient on the encounter date. I have reviewed the fellow s documentation and agree with the fellow s findings and plan as documented, unless otherwise stated. Future Appointments Appointment Date:08/18/2022 11:00:00 AM Scheduled Provider: Location:[facility] Appointment Type:CV OV Hospital Follow Up Appointment Date:09/05/2022 10:00:00 AM Scheduled Provider:AALIYAH TRUJILLO DO Location:[facility] Appointment Type: OV Appointment Date:10/10/2022 10:30:00 AM Scheduled Provider:AALIYAH TRUJILLO DO Location:[facility] Appointment Type: OV Appointment Date:10/31/2022 08:30:00 AM Scheduled Provider:AALIYAH TRUJILLO DO Location:[facility] Appointment Type:[facility] Future Scheduled Tests Laboratory* Uric Acid 06/27/22 * A1C Hemoglobin 06/27/22 * Complete Blood Count 06/27/22 * Lipid Profile 06/27/22 * Hepatitis C Antibody IgG 06/27/22 * Albumin/Creatinine Ratio, Random Urine 06/27/22 * Complete Metabolic Panel 06/27/22 Radiology* BD Bone Density DEXA Axial Skeleton 07/04/22 [facility] 04-01-2023 Note ORIGINAL EXAMINATION: ONE XRAY VIEW OF THE CHEST 07/15/2022 9:42 am COMPARISON: None. HISTORY: ORDERING SYSTEM PROVIDED HISTORY: Reason for Exam: chest pain FINDINGS: The cardiomediastinal silhouette demonstrates a normal appearance. Calcifications of the aortic knob are noted. Question mild central vascular congestion. Few scattered patchy interstitial opacities of the right lung may represent congestion/edema or possibly developing infectious/inflammatory process. There is no pleural effusion or pneumothorax. No free air seen beneath the level of the diaphragm. The bony thorax appears acutely intact with degenerative changes noted. IMPRESSION: Question mild central vascular congestion. Patchy interstitial opacities worse on the right possibly related to vascular congestion or developing infectious/inflammatory process. Interpreted by: Matthew Santos MD Preliminary Report By: Matthew Santos MD Electronically signed By Matthew Santos MD Dictated Date: 07/15/2022 9:55:00 AM Prelim Date: 07/15/2022 9:56:27 AM Sign Date: 07/15/2022 9:56:27 AM Ordering Provider: JAMIL READ [facility]04-01-2023 Note ORIGINAL EXAMINATION: ONE XRAY VIEW OF THE CHEST 07/15/2022 9:42 am COMPARISON: None. HISTORY: ORDERING SYSTEM PROVIDED HISTORY: Reason for Exam: chest pain FINDINGS: The cardiomediastinal silhouette demonstrates a normal appearance. Calcifications of the aortic knob are noted. Question mild central vascular congestion. Few scattered patchy interstitial opacities of the right lung may represent congestion/edema or possibly developing infectious/inflammatory process. There is no pleural effusion or pneumothorax. No free air seen beneath the level of the diaphragm. The bony thorax appears acutely intact with degenerative changes noted. IMPRESSION: Question mild central vascular congestion. Patchy interstitial opacities worse on the right possibly related to vascular congestion or developing infectious/inflammatory process. Interpreted by: Matthew Santos MD Preliminary Report By: Matthew Santos MD Electronically signed By Matthew Santos MD Dictated Date: 07/15/2022 9:55:00 AM Prelim Date: 07/15/2022 9:56:27 AM Sign Date: 07/15/2022 9:56:27 AM [facility] Appointment Date:09/05/2022 10:00:00 AM Scheduled Provider:AALIYAH TRUJILLO DO Location:[facility] Appointment Type:PC OV Appointment Date:10/10/2022 10:30:00 AM Scheduled Provider:AALIYAH TRUJILLO DO Location:[facility] Appointment Type:PC OV Appointment Date:10/31/2022 08:30:00 AM Scheduled Provider:AALIYAH TRUJILLO DO Location:[facility] Appointment Type:PC OV Future Scheduled Tests Laboratory* Uric Acid 06/27/22 * A1C Hemoglobin 06/27/22 * Complete Blood Count 06/27/22 * Lipid Profile 06/27/22 * Hepatitis C Antibody IgG 06/27/22 * Albumin/Creatinine Ratio, Random Urine 06/27/22 * Complete Metabolic Panel 06/27/22 Radiology* BD Bone Density DEXA Axial Skeleton 07/04/22 [facility] Evaluation + Plan note Future Appointments Appointment Date:08/18/2022 11:00:00 AM Scheduled Provider: Location:[facility] Appointment Type: OV Hospital Follow Up Appointment Date:08/22/2022 10:15:00 AM Scheduled Provider:AALIYAH TRUJILLO DO Location:[facility] Appointment Type:PC OV Appointment Date:09/05/2022 10:00:00 AM Scheduled Provider:AALIYAH TRUJILLO DO Location:[facility] Appointment Type:PC OV Appointment Date:10/10/2022 10:30:00 AM Scheduled Provider:AALIYAH TRUJILLO DO Location:[facility] Appointment Type:PC OV Appointment Date:10/31/2022 08:30:00 AM Scheduled Provider:AALIYAH TRUJILLO DO Location:[facility] Appointment Type:PC OV Future Scheduled Tests Laboratory* Uric Acid 06/27/22 * A1C Hemoglobin 06/27/22 * Complete Blood Count 06/27/22 * Lipid Profile 06/27/22 * Hepatitis C Antibody IgG 06/27/22 * Albumin/Creatinine Ratio, Random Urine 06/27/22 * Complete Metabolic Panel 06/27/22 Radiology* XR Foot Minimum 3 Views Left 07/22/22 * BD Bone Density DEXA Axial Skeleton 07/04/22 * XR Ankle Minimum 3 Views Left 07/22/22 [facility] Evaluation + Plan note Future Appointments Appointment Date:08/22/2022 10:15:00 AM Scheduled Provider:AALIYAH TRUJILLO DO Location:[facility] Appointment Type:PC OV Appointment Date:09/05/2022 10:00:00 AM Scheduled Provider:AALIYAH TRUJILLO DO Location:[facility] Appointment Type:PC OV Appointment Date:09/27/2022 11:30:00 AM Scheduled Provider: Location:[facility] Appointment Type:CV OV Appointment Date:10/10/2022 10:30:00 AM Scheduled Provider:AALIYAH TRUJILLO DO Location:[facility] Appointment Type:PC OV Appointment Date:10/31/2022 08:30:00 AM Scheduled Provider:AALIYAH TRUJILLO DO Location:[facility] Appointment Type:PC OV Future Scheduled Tests Laboratory* Basic Metabolic Panel 08/25/22 * Uric Acid 06/27/22 * A1C Hemoglobin 06/27/22 * Complete Blood Count 06/27/22 * Lipid Profile 06/27/22 * Hepatitis C Antibody IgG 06/27/22 * Albumin/Creatinine Ratio, Random Urine 06/27/22 * Complete Metabolic Panel 06/27/22 Radiology* BD Bone Density DEXA Axial Skeleton 07/04/22 [facility] Evaluation + Plan note Future Appointments Appointment Date:08/22/2022 10:15:00 AM Scheduled Provider:AALIYAH TRUJILLO DO Location:[facility] Appointment Type:PC OV Appointment Date:09/05/2022 10:00:00 AM Scheduled Provider:AALIYAH TRUJILLO DO Location:[facility] Appointment Type:PC OV Appointment Date:09/27/2022 11:30:00 AM Scheduled Provider: Location:[facility] Appointment Type:CV OV Appointment Date:10/10/2022 10:30:00 AM Scheduled Provider:AALIYAH TRUJILLO DO Location:[facility] Appointment Type:PC OV Appointment Date:10/31/2022 08:30:00 AM Scheduled Provider:AALIYAH TRUJILLO DO Location:[facility] Appointment Type:PC OV Future Scheduled Tests Laboratory* Uric Acid 06/27/22 * A1C Hemoglobin 06/27/22 * Complete Blood Count 06/27/22 * Lipid Profile 06/27/22 * Hepatitis C Antibody IgG 06/27/22 * Albumin/Creatinine Ratio, Random Urine 06/27/22 * Complete Metabolic Panel 06/27/22 Radiology* BD Bone Density DEXA Axial Skeleton 07/04/22 [facility] Evaluation + Plan note Future Appointments Appointment Date:09/05/2022 10:00:00 AM Scheduled Provider:AALIYAH TRUJILLO DO Location:[facility] Appointment Type:PC OV Appointment Date:09/27/2022 11:30:00 AM Scheduled Provider: Location:[facility] Appointment Type:CV OV Appointment Date:10/10/2022 10:30:00 AM Scheduled Provider:AALIYAH TRUJILLO DO Location:[facility] Appointment Type:PC OV Appointment Date:10/31/2022 08:30:00 AM Scheduled Provider:AALIYAH TRUJILLO DO Location:[facility] Appointment Type:PC OV Appointment Date:03/27/2023 10:00:00 AM Scheduled Provider:AALIYAH TRUJILLO DO Location:[facility] Appointment Type:PC OV Future Scheduled Tests Laboratory* Uric Acid 06/27/22 * A1C Hemoglobin 06/27/22 * Complete Blood Count 06/27/22 * Lipid Profile 06/27/22 * Hepatitis C Antibody IgG 06/27/22 * Albumin/Creatinine Ratio, Random Urine 06/27/22 * Complete Metabolic Panel 06/27/22 Radiology* BD Bone Density DEXA Axial Skeleton 07/04/22 [facility] Evaluation + Plan note Future Appointments Appointment Date:10/19/2022 12:30:00 PM Scheduled Provider: Location:[facility] Appointment Type:PF PFT w/Bronchodiltor Appointment Date:10/25/2022 10:00:00 AM Scheduled Provider: Location:[facility] Appointment Type:CV Nurse BP Check Appointment Date:10/31/2022 08:30:00 AM Scheduled Provider:AALIYAH TRUJILLO DO Location:[facility] Appointment Type:PC OV Appointment Date:12/01/2022 11:00:00 AM Scheduled Provider:AALIYAH TRUJILLO DO Location:[facility] Appointment Type:PC OV Appointment Date:01/03/2023 10:30:00 AM Scheduled Provider:AALIYAH TRUJILLO DO Location:[facility] Appointment Type:PC OV Appointment Date:01/30/2023 11:30:00 AM Scheduled Provider:AALIYAH TRUJILLO DO Location:[facility] Appointment Type:PC OV Appointment Date:03/06/2023 11:30:00 AM Scheduled Provider:AALIYAH TRUJILLO DO Location:[facility] Appointment Type:PC OV Appointment Date:04/03/2023 11:30:00 AM Scheduled Provider:AALIYAH TRUJILLO DO Location:[facility] Appointment Type:PC OV Future Scheduled Tests Laboratory* Uric Acid 06/27/22 * A1C Hemoglobin 06/27/22 * Complete Blood Count 06/27/22 * Lipid Profile 06/27/22 * Hepatitis C Antibody IgG 06/27/22 * Albumin/Creatinine Ratio, Random Urine 06/27/22 * Complete Metabolic Panel 06/27/22 Radiology* BD Bone Density DEXA Axial Skeleton 07/04/22 [facility] Evaluation + Plan note Future Appointments Appointment Date:05/29/2023 11:30:00 AM Scheduled Provider:AALIYAH TRUJILLO DO Location:[facility] Appointment Type:PC OV Appointment Date:06/26/2023 11:00:00 AM Scheduled Provider:AALIYAH TRUJILLO DO Location:[facility] Appointment Type:PC OV Appointment Date:07/31/2023 11:30:00 AM Scheduled Provider:AALIYAH TRUJILLO DO Location:[facility] Appointment Type:PC OV Appointment Date:09/04/2023 10:30:00 AM Scheduled Provider:AALIYAH TRUJILLO DO Location:[facility] Appointment Type:PC OV Future Scheduled Tests Laboratory* Basic Metabolic Panel 11/16/22 * Uric Acid 06/27/22 * A1C Hemoglobin 06/27/22 * Complete Blood Count 06/27/22 * Lipid Profile 06/27/22 * Hepatitis C Antibody IgG 06/27/22 * Albumin/Creatinine Ratio, Random Urine 06/27/22 * Complete Metabolic Panel 06/27/22 Radiology* BD Bone Density DEXA Axial Skeleton 07/04/22 [facility] evaluation + Plan note Future Appointments Appointment Date:12/11/2023 11:00:00 AM Scheduled Provider:AALIYAH TRUJILLO DO Location:[facility] Appointment Type:PC OV Appointment Date:01/08/2024 08:30:00 AM Scheduled Provider:AALIYAH TRUJILLO DO Location:[facility] Appointment Type:PC OV Appointment Date:02/26/2024 11:00:00 AM Scheduled Provider:AALIYAH TRUJILLO DO Location:[facility] Appointment Type:PC OV Appointment Date:03/25/2024 10:00:00 AM Scheduled Provider:AALIYAH TRUJILLO DO Location:[facility] Appointment Type:PC OV Future Scheduled Tests Laboratory* Albumin/Creatinine Ratio, Random Urine 09/25/23 [facility] Evaluation + Plan note Future Appointments Appointment Date:02/26/2024 11:00:00 AM Scheduled Provider:AALIYAH TRUJILLO DO Location:[facility] Appointment Type:PC OV Appointment Date:05/27/2024 10:30:00 AM Scheduled Provider:AALIYAH TRUJILLO DO Location:[facility] Appointment Type:PC OV Future Scheduled Tests Laboratory* Albumin/Creatinine Ratio, Random Urine 09/25/23 [facility] evaluation + Plan note Future Appointments Appointment Date:07/01/2024 11:30:00 AM Scheduled Provider:AALIYAH TRUJILLO DO Location:[facility] Appointment Type:PC OV Appointment Date:11/25/2024 10:30:00 AM Scheduled Provider:AALIYAH TRUJILLO DO Location:[facility] Appointment Type:PC OV Future Scheduled Tests Laboratory* Vitamin B1 (Thiamine), Blood 05/27/24 * Prostate Specific Antigen 05/27/24 * Thyroid Stimulating Hormone 05/27/24 * Free T4 05/27/24 * Uric Acid 05/27/24 * Vitamin B12 Level 05/27/24 * A1C Hemoglobin 05/27/24 * Complete Blood Count 05/27/24 * Lipid Profile 05/27/24 * Albumin/Creatinine Ratio, Random Urine 02/26/24 * Albumin/Creatinine Ratio, Random Urine 09/25/23 * Albumin/Creatinine Ratio, Random Urine 05/27/24 * Complete Metabolic Panel 05/27/24 Radiology* MRI Spine Lumbar w/o Contrast 05/27/24 [facility] Evaluation + Plan note Future Appointments Appointment Date:12/17/2024 01:30:00 PM Scheduled Provider:AALIYAH TRUIJLLO DO Location:[facility] Appointment Type:PC OV Appointment Date:04/21/2025 11:00:00 AM Scheduled Provider:AALIYAH TRUJILLO DO Location:[facility] Appointment Type:PC OV Follow Up Future Scheduled Tests Laboratory* Ferritin 12/16/24 * Prostate Specific Antigen 12/16/24 * Uric Acid 12/16/24 * Vitamin B12 Level 12/16/24 * A1C Hemoglobin 12/16/24 * Complete Blood Count 12/16/24 * Lipid Profile 12/16/24 * Iron Studies 12/16/24 * Albumin/Creatinine Ratio, Random Urine 12/16/24 * Complete Metabolic Panel 12/16/24 Radiology* MRI Spine Lumbar w/o Contrast 05/27/24 [facility] Evaluation noteNo assessment information available [facility] Work Phone: Evaluabvhh note* Diagnosis 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 course Narrative No data available for this section [facility] Discharge instructions No data available for this section [facility] Discharge instructions Additional Instructions No alcohol for the next 24 hours. Direct pressure to any of the lacerations on your face if the bleeding to stop the bleeding. Tylenol for pain. Follow-up with your doctor if feeling worse. Return to the emergency department if you have a severe headache, not acting right or intractable vomiting. Anytime you are on a blood thinner you can have a delayed bleed inside your brain there is no signs of that at this time.[facility] Work Phone: Note* JAMIL READ MD: SIGN, VERIFY Event Display: EKG [ED AOH] - CV Authored Date: [facility] Note* RIKKI GALVEZ MD: SIGN, VERIFY Event Display: Percut Transluminal Coronary Angioplasty Authored Date: [id number] [facility] Progress note No data available for this section [facility] Reason for referral (narrative)No reason for referral information availableWMcC[facility] Work Phone: Reason for visit Narrative* [place] Prior Authorization (Routine) - Authorized Specialty Diagnoses / Procedures Referred By Contac t Referred To Contact Diagnoses 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 Chief Complaint and Reason for Visit Chief Complaint Fall Chief Complaint Admit Date Anemia/ ED FU July 08, 2024 8:4 4am Reason for Visit Admit Date Alcohol use July 08, 2024 8:4 4am Anemia July 08, 2024 8:4 4am Constipation July 08, 2024 8:4 4am Advance Directives No Advanced Directives Records Found Advance Directive Response Recorded Date/ Time Living Will No January 01, 2023 9:34pm Power of Documentation Analyst No December 9:34pm Summary Purpose Family History Relationship Condition Age at Onset Recorded Date/T julieth Not Specified Coronary artery disease Unknown Cardiac disease Unknown Sudden cardiac Unknown Hypertension Unknown No Family History Records Found Additional Source Comments Patient Care team informatio n (unrecognized section and content) Team Status: Active Member Role Status Dates Dr. Fabian Chew DO Family Provider Active Dr. Aaliyah Trujillo DO Primary Care Provider Active Team Status: Inactive Member Role Status Dates Dr. Aaliyah Trujillo DO Primary Care Provider Active Dr. Ulises Estrada MD Emergency Provider Active [employer] [place] [facility] Relationship Specialty Start Date End Date Fabian Chew DO PCP - General 11/15/09 Team Status: Inactive Member Role Status Dates Dr. Aaliyah Trujillo DO Primary Care Provider Active Start: July 08, 2024 End: July 08, 2024 Dr. Aaliyah Trujillo DO Referring Provider Active Start: July 08, 2024 End: July 08, 2024 JOE Lott Attending Provider Active Start: July 08, 2024 End: July 08, 2024 Team Status: Inactive Member Role Status Dates Dr. Aaliyah Trujillo DO Primary Care Provider Active Start: July 08, 2024 End: July 08, 2024 JOE Lott Attending Provider Active Start: July 08, 2024 End: July 08, 2024 JOE Lott Referring Provider Active Start: July 08, 2024 End: July 08, 2024 [employer] [place] [employer] Relationship Specialty Start Date End Date Fabian Chew DO PCP - General 11/15/09 [employer] [place] [facility] Relationship Specialty Start Date End Date Fabian Chew DO PCP - General 11/15/09 [employer] [place] [facility] Relationship Specialty Start Date End Date Fabian Chew DO PCP - General 11/15/09 [place] [facility] Relationship Specialty Start Date End Date Fabian Chew DO PCP - General 11/15/09 [employer] [place] [facility] Relationship Specialty Start Date End Date Fabian Chew DO PCP - General 11/15/09 [employer] [place] [facility] Relationship Specialty Start Date End Date Fabian Chew DO PCP - General 11/15/09 [employer] [place] [facility] Relationship Specialty Start Date End Date Fabian Chew DO PCP - General 11/15/09 Goals (unrecognized section and content) Goals may be documented in a n alternate section (unrecognized sect ion and content) No Status Records FoundNo Status Records FoundNo Status Records FoundNo Status Records Found INFORMATION SOURCE (unrecogn ized section and content) DATE CREATED AUTHOR 11/29/2023 [facility] ([place]) DATE CREATED AUTHOR AUTHOR'S ORGANIZ ATION 09/09/2024 [facility] DATE CREATED AUTHOR AUTHOR'S ORGANIZ ATION 11/16/2024 [facility] DATE CREATED AUTHOR AUTHOR'S ORGANJAZMYN ATION 02/24/2025 [facility] Source Comments (unrecognize d section and content) In the event this informatio n is protected by the Federal Confidentiality of Alcohol and Drug Abuse Patient Records regulations: The Federal rules restrict any use of the information to criminally investigate or prosecute any alcohol or drug abuse patient.[facility] the event this information is protected by the Federal Confidentiality of Alcohol and Drug Abuse Patient Records regulations: The Federal rules restrict any use of the information to criminally investigate or prosecute any alcohol or drug abuse patient.[facility] the event this information is protected by the Federal Confidentiality of Alcohol and Drug Abuse Patient Records regulations: The Federal rules restrict any use of the information to criminally investigate or prosecute any alcohol or drug abuse patient.[facility] the event this information is protected by the Federal Confidentiality of Alcohol and Drug Abuse Patient Records regulations: The Federal rules restrict any use of the information to criminally investigate or prosecute any alcohol or drug abuse patient.[facility] the event this information is protected by the Federal Confidentiality of Alcohol and Drug Abuse Patient Records regulations: The Federal rules restrict any use of the information to criminally investigate or prosecute any alcohol or drug abuse patient.[facility] Center[facility] the event this information is protected by the Federal Confidentiality of Alcohol and Drug Abuse Patient Records regulations: The Federal rules restrict any use of the information to criminally investigate or prosecute any alcohol or drug abuse patient.[facility] CenterIn the event this information is protected by the Federal Confidentiality of Alcohol and Drug Abuse Patient Records regulations: The Federal rules restrict any use of the information to criminally investigate or prosecute any alcohol or drug abuse patient.[facility] Center[facility] the event this information is protected by the Federal Confidentiality of Alcohol and Drug Abuse Patient Records regulations: The Federal rules restrict any use of the information to criminally investigate or prosecute any alcohol or drug abuse patient.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 This clinical summary was aggregated from multiple sources. Caution should be exercised in using it in the provision of clinical care. This summary normalizes information from multiple sources, and as a consequence, information in this document may materially change the coding, format and clinical context of patient data. In addition, data may be omitted in some cases. CLINICAL DECISIONS SHOULD BE BASED ON THE PRIMARY CLINICAL RECORDS. [facility]. provides no warranty or guarantee of the accuracy or completeness of information in this document.
== END 2025-04-11 13:40 | disposition home or self-care (01) ==
PROVIDERS: Emergency Provider Emergency Medicine; PCP Student in an Organized Health Care Education/Training Program; Visit Provider Emergency Medicine
DX: S51.012A Laceration without foreign body of left elbow, initial encounter (principal); I11.0 Hypertensive heart disease with heart failure; I50.9 Heart failure, unspecified; S00.83XA Contusion of other part of head, initial encounter; W06.XXXA Fall from bed, initial encounter; Z79.02 Long term (current) use of antithrombotics/antiplatelets; Z79.82 Long term (current) use of aspirin; Z79.899 Other long term (current) drug therapy; Z87.891 Personal history of nicotine dependence
CPT/HCPCS: 70450; 71046; 80048; 82077; 85025; 93005; 99284; A4216